=== PATIENT | male | born 1955 | race Caucasian/White ===

== ENCOUNTER 2020-02-25 01:58 | Inpatient (IN) | payer MEDICARE, SELFPAY ==
[2020-02-25] VITALS (34 sets, daily range): BP systolic 111–166; BP diastolic 62–100; PULSE 96–124; RESP 15–23; TEMP 36–37.2; O2SAT 96–100; BMI 33.7; BMI 34.1; BMI 34.0
--- NOTE | 2020-02-25 02:06 | CT_ITS ---
STUDY: CT ABDOMEN AND PELVIS WITH CONTRAST REASON FOR EXAM: Male, 64 years old. RECTAL BLEEDING THIS AM,DIZZINESS,SOB -- HX:DIABETES,HTN RADIATION DOSAGE (If Supplied By Facility): CTDIvol = ( 14.92 ) mGy, DLP = ( 1329.51 ) mGycm TECHNIQUE: Transaxial images were obtained from the dome of the diaphragm to the symphysis pubis without oral contrast. IV 100mL Isovue-370 was administered. Sagittal and coronal images were reconstructed. Individualized dose optimization techniques were used for this CT. COMPARISON: None. FINDINGS: The visualized lung bases are unremarkable. The visualized portions of the heart are within normal limits. There are coronary artery calcifications. There is decreased attenuation of the liver consistent with steatosis. Normal gallbladder and extrahepatic biliary system. Normal spleen. Normal pancreas. Normal bilateral adrenal glands. Normal right kidney. There is a small left renal cortical cyst. Otherwise normal left kidney. There is a small hiatal hernia. Normal small intestine. There are multiple colonic diverticula consistent with diverticulosis. There is somewhat prominent liquid feces and gas in the rectum, which may be due to malabsorption. There is no demonstrated mural thickening. The appendix is visualized on axial images 82-98 and it appears normal.. There is diffuse atherosclerotic calcification of the abdominal aorta, without a demonstrated aneurysm. Normal inferior vena cava. Normal retroperitoneum. Normal urinary bladder. Normal abdominal wall. There are diffuse degenerative changes of the visualized lumbar spine. CT/Abdomen/Pelvis W IV Cont ONLY IMPRESSION: Moderately prominent gas and liquid feces in the colon, which may be due to malabsorption. No demonstrated colonic mural thickening. Colonic diverticulosis, without evidence for acute diverticulitis. Fatty liver. Small hiatal hernia. Atherosclerosis. Small left renal cyst. No demonstrated urinary calculi or hydronephrosis. No evidence for appendicitis. No evidence for bowel obstruction. Electronically Signed: Evans Arthur MD at 3:29 EST , Service support ,
--- NOTE | 2020-02-25 02:09 | ED.DCSUM_ITS ---
History of Present Illness Chief Complaint: GI Bleed Narrative: Patient presenting for evaluation secondary to a GI bleed. Patient has no prior history of this, is not on any anticoagulation. He reports that a couple of days prior to this he had had some dark tarry stools. Tonight he got up and thought he had to have diarrhea and he had a significant amount of blood in the toilet. Patient called EMS and presented to the emergency department. He does endorse that he feels somewhat short of breath associated with this. He denies any chest pain. He denies any abdominal pain. Review of systems otherwise negative. Past Medical History - Allergies and Home Meds Allergies/Adverse Reactions: Allergies No Known Allergies Allergy (Verified 02/25/20 01:59) Primary Care Physician: Constanza Wooten MD [Primary Care Provider] - Prior records reviewed: Yes Past Medical History: - - Diabetes, hypertension Lives: Alone Smoking Status: Never smoker Alcohol: None Drugs: None - Family History Maternal Family History: Reports: No pertinent history Review of Systems All systems negative except as indicated General: Denies: Chills, Fever, Sweats Eyes: Denies: Visual changes - bilaterally, Diplopia ENT: Denies: Rhinorrhea, Sore throat Cardiovascular: Denies: Chest pain, Palpitations Respiratory: Reports: Dyspnea Gastrointestinal: Reports: Hematochezia Genitourinary: Denies: Dysuria, Hematuria, Frequency Musculoskeletal: Denies: Back pain, Extremity Pain Skin: Denies: Rash, Wounds Neurological: Denies: Headache, Weakness, Numbness Physical Exam Vital Signs/Narrative: Vital Signs Temp Pulse Resp BP Pulse Ox 02/25/20 02:00 96.8 F L 124 H 20 H 116/78 98 Inital Vital Signs reviewed: Yes General: Well nourished, Well developed, Obese, - - Pale, somewhat anxious Head: Normocephalic, Atraumatic Eyes: Perrl, EOMI, Pale conjunctiva ENT: Moist mucous membranes Neck: Supple Cardiovascular: Regular rhythm, Tachycardia, - - 2+ radial pulses Respiratory: No distress, CTA bilaterally, Chest nontender Abdomen: Soft, Nontender, Nondistended, Normal bowel sounds Rectal: - - Active rectal bleeding Back: Nontender, Normal Inspection Extremities: Nontender, No edema Skin: - - Pale warm and dry Neurological: Alert, Oriented x3, Cranial nerves II-XII grossly intact, Normal Strength, Normal Sensation Psychological: Normal affect, Normal Mood Diagnostic/Tx/Re-eval Clinical Impression(s) from Imaging Studies Abdomen/Pelvis CT 02/25/20 02:06 IMPRESSION: Moderately prominent gas and liquid feces in the colon, which may be due to malabsorption. No demonstrated colonic mural thickening. Colonic diverticulosis, without evidence for acute diverticulitis. Fatty liver. Small hiatal hernia. Atherosclerosis. Small left renal cyst. No demonstrated urinary calculi or hydronephrosis. No evidence for appendicitis. No evidence for bowel obstruction. Electronically Signed: Evans Arthur MD at 3:29 EST , Service support , Laboratory Data 02/25/20 02/25/20 02/25/20 02:10 02:10 02:10 WBC 14.0 H RBC 2.95 L Hgb 8.7 L Hct 28.3 L MCV 95.9 H MCH 29.5 MCHC 30.7 L RDW Std Deviation 50.3 H RDW Coeff of Tarik 14.4 Plt Count 234 MPV 11.7 Immature Gran % (Auto) 1.400 H Neut % (Auto) 59.3 Lymph % (Auto) 30.8 [place] % (Auto) 6.7 Eos % (Auto) 1.4 Baso % (Auto) 0.4 Absolute Neuts (auto) 8.3 H Absolute Lymphs (auto) 4.30 Nucleated RBC % 0.1 PT 13.2 INR 1.1 APTT 23.4 L Sodium 131 L Potassium 4.6 Chloride 96 L Carbon Dioxide 16.0 L Anion Gap 19 H BUN 26 H Creatinine 2.15 H Estim Creat Clear Calc 32.70 Est GFR (MDRD) Af Amer 40 L Est GFR (MDRD) Non-Af 33 L BUN/Creatinine Ratio 12.1 Glucose 749 H* Lactic Acid Calcium 7.3 L Total Bilirubin 0.20 AST 13 L ALT 27 Alkaline Phosphatase 65 Total Protein 5.2 L Albumin 2.7 L Globulin 2.5 Albumin/Globulin Ratio 1.1 02/25/20 02:10 WBC RBC Hgb Hct MCV MCH MCHC RDW Std Deviation RDW Coeff of Tarik Plt Count MPV Immature Gran % (Auto) Neut % (Auto) Lymph % (Auto) [place] % (Auto) Eos % (Auto) Baso % (Auto) Absolute Neuts (auto) Absolute Lymphs (auto) Nucleated RBC % PT INR APTT Sodium Potassium Chloride Carbon Dioxide Anion Gap BUN Creatinine Estim Creat Clear Calc Est GFR (MDRD) Af Amer Est GFR (MDRD) Non-Af BUN/Creatinine Ratio Glucose Lactic Acid 12.5 H* Calcium Total Bilirubin AST ALT Alkaline Phosphatase Total Protein Albumin Globulin Albumin/Globulin Ratio - Medical Decision Making Patient presented with a clinically significant GI bleed with active bleeding noted. He was tachycardic but not yet hypotensive and is profoundly pale. I do have suspicion for hypovolemic in stage II of shock. Patient was ordered a units of uncrossed match blood, and was crossmatched for 2 additional units. 2 IVs were started on the patient, laboratory studies were obtained. Due to the briskness of the patient's bleeding initially, I did order a CT scan with IV contrast to rule out the possibility of brisk bleeding from a AVM causing noticeable blood in the patient's colon, versus a aortoenteric fistula. This was performed prior to lab work due to the patient's initial critical presentation. Patient's hemoglobin did result of 8.7 which given the patient's presentation of shock I believe likely to be lagging behind his actual hemoglobin. Chemistry demonstrates the patient to have acute kidney injury with a creatinine of 2. Patient had a notable lactic acidosis with elevated anion gap of 19 and a bicarbonate of 16. Lactic acid was 12.5. Patient's glucose was in the 700s. CT abdomen and pelvis was performed which does not show any evidence of ischemic colitis, aortoenteric fistula, or any obvious evidence of source of the patient's bleed. After initial bolus of fluid and 1 unit of uncrossed matched blood, the patient's heart rate improved from the 140s down to the 110s and he maintains a normotensive status with normal mentation. Patient was ordered additional fluids, and will receive 1 more unit of crossmatched blood due to his evidence of shock with his lactic acidosis. Obviously I believe the patient requires admission at this point. While the patient's glucose was in the 700s it seems unlikely that he has a GI bleed with hypovolemic shock as well as DKA so I did start the patient on a insulin drip. Patient will be admitted to the intensive care unit. - Critical Care Time Critical care time (excluding procedures): 30-74 minutes ED Disposition - Plan for ED Patient: Disposition: Acute Care Hospital [facility] Diagnosis: Lower GI bleed, Hypovolemic shock, Hyperglycemia, Acute kidney injury
--- NOTE | 2020-02-25 02:34 | ED.RN ---
PER DR. ROCHE VERBAL IV INFUSINORDER. PT TO GET TRAUMA BLOOD A BOLUS. BLOOD INITIATED IV PATENT. PT TOLERATING WELL.
[2020-02-25 03:04] LABS: Absolute Neutrophil Count 8.3 X10^3/uL (2.0-7.7); Basophil# 0.05 X10^3/uL; Basophil% 0.4 % (0-1); Eosinophil# 0.19 X10^3/uL; Eosinophils% 1.4 % (0-5); Hematocrit 28.3 % (40-54); Hemoglobin 8.7 g/dL (13.0-16.5); Lymphocyte % 30.8 % (19-41); Mean Corp Hgb Conc 30.7 g/dL (32-36); Mean Corpuscular Hgb 29.5 pg (27.0-32.0); Mean Corpuscular Volume 95.9 fL (80-94); Mean Platelet Vol. 11.7 fl (6.2-12.0); Monocyte# 0.93 X10^3/uL; Monocyte% 6.7 % (0-10); NRBC Flagged by Analyzer 0.1 % (0-5); Neutrophil # 8.29 X10^3/uL (2.7-7.7); Neutrophil % 59.3 % (47-70); Platelet Count 234 K/mm3 (150-450); RBC Distribution Width CV 14.4 % (11.6-14.6); RBC Distribution Width SD 50.3 fl (35.1-43.9); Red Blood Count 2.95 M/mm3 (4.6-6.2)
[2020-02-25 03:13] LABS: International Normalized Ratio 1.1; Prothrombin Time (Protime)PT. 13.2 SECONDS (11.7-14.9)
[2020-02-25 03:14] LABS: Partial Thromboplast Time 23.4 Seconds (24.1-36.2)
[2020-02-25 03:23] LABS: ALB/GLOB Ratio 1.1 RATIO (0.9-2.4); AST(SGOT) 13 U/L (15-37); Alanine Aminotransfer ALT/SGPT 27 U/L (16-61); Albumin, Serum 2.7 g/dL (3.2-5.0); Alkaline Phosphatase 65 U/L (45-117); Anion Gap 19 (5-15); BUN 26 mg/dL (7-18); BUN/Creat Ratio 12.1 RATIO (10-20); Calcium,Total 7.3 mg/dL (8.5-10.1); Chloride 96 mmol/L (98-107); Creatinine, Serum 2.15 mg/dL (0.70-1.30); EST Glomerular Filtration Rate 33 mL/min (>60); Est Glom Filt Rate - Afr Amer 40 mL/min (>60); Globulin 2.5 g/dL (2.2-4.2); Glucose 749 mg/dL (74-106); Potassium 4.6 mmol/L (3.5-5.1); Protein, Total 5.2 g/dL (6.4-8.2); Sodium Level 131 mmol/L (136-145)
[2020-02-25 03:30] LABS: Lactic Acid 12.5 mmol/L (0.4-1.9)
[2020-02-25] MEDS: 0.9% Normal Saline 1,000 ML 999 ML IV ×2 (03:35→05:24)
[2020-02-25] MEDS: Insulin Lispro 100 UNIT/ML INSULN.PEN 10 UNIT SC (03:57)
--- NOTE | 2020-02-25 04:32 | PCM.HP.STD ---
Problem List (1) Acute blood loss anemia Status: Acute (2) Lower GI bleed Status: Acute (3) Hypovolemic shock Status: Acute (4) Hyperglycemia Status: Acute (5) Acute kidney injury Status: Acute (6) Diabetes Status: Chronic (7) HTN (hypertension) Status: Chronic History of Present Illness Date of Admission: 02/25/20 Chief Complaint: Hematochezia The patient is a 64 year old M with a significant history of HTN and diabetes who presented to the ED with 2 day history of progressively worsening hematochezia. He denied any nausea or vomiting . Associated with his symptoms is lightheadedness and pallor. At arrival at the ED patient had blood all over his legs. At emergency department he had another discharge of bright red blood per rectum. Last colonoscopy was attempted 2 years ago but reportedly the entire colon could not be visualized. Past Medical History Past Medical History (Chronic Problems): Chronic Problems Diabetes (Chronic) HTN (hypertension) (Chronic) Allergies No Known Allergies Allergy (Verified 02/25/20 01:59) Home Medications: Ambulatory Orders Medication Instructions Recorded Lisinopril [Zestril] 60 mg PO DAILY 03/02/15 Insulin Aspart [Novolog Flexpen] 12 units SC TID@0730,1130,1630 30 03/04/15 Days flexpen Insulin Glargine [Lantus (BKC)] 44 units SC QHS 02/25/20 Surgical History: cataract, - - Surgery for hydrocele Lives: Alone Smoking Status: Former smoker - Patient smoked briefly as a teenager. Alcohol: None Drugs: None - *Family History Maternal History Items: Pulmonary Disease - His mother had pleurisy, - Paternal History Items: Heart Disease - His father from heart attack at the age of 58 Review of Systems Constitutional: Denies: Chills, Fever, Weight Change HEENT: Denies: Head Aches, Sinus Congestion, Sinus Drainage Cardiovascular: Reports: Light Headedness. Denies: Chest Pain, Palpitations Respiratory: Denies: Cough, Shortness of breath at rest, Sputum production Gastrointestinal: Reports: Hematochezia. Denies: Abdominal Pain, Nausea, Vomiting Genitourinary: Denies: Dysuria Musculoskeletal: Denies: Joint Pain, Joint Tenderness Skin: Denies: Rash, Wounds Neurological: Denies: Numbness, Tingling, Focal weakness Psychiatric: Denies: Anxiety, Depression, Homicidal Ideations, Suicidal Ideations Hematologic/ Lymphatic: Denies: Easy Bruising, Easy Bleeding VTE Information - Inpt Only VTE Present on Admission: No VTE Mechan Device Prophylaxis: SCD's VTE Pharm Prophylaxis ordered?: No Patient Problems: Active and Suspected Problems Lower GI bleed (Acute) Hypovolemic shock (Acute) Hyperglycemia (Acute) Acute kidney injury (Acute) Acute blood loss anemia (Acute) - Physical Exam Vitals/I&O's: Vital Signs Temp Pulse Resp BP Pulse Ox 97.6 F L 112 H 19 H 141/69 H 98 02/25/20 03:53 02/25/20 04:00 02/25/20 04:00 02/25/20 04:00 02/25/20 04:00 Oxygen Flow Rate (L/min) 2 Oxygen Delivery Method Nasal Cannula Weight: 100.5 kg Body Mass Index (BMI) 33.7 Finger Stick Blood Glucose 382 Intake and Output for Last 24 Hours 02/23/20 02/24/20 02/25/20 23:59 23:59 23:59 Intake Total 0 / 0 Balance 0 / 0 General: Alert, Oriented x3, Cooperative HEENT: Atraumatic, PERRLA, EOMI, Normocephalic Neck: Supple, No JVD, Negative Carotid Bruits Lungs: Clear to auscultation, Normal air movement Cardiovascular: Normal S1, Normal S2, No murmurs, Tachycardic Abdomen: Bowel Sounds Present, Soft, Non Tender, - - Rectal exams was not done. Emergent department doctor reports digital examination with no palpable mass but with right blood red per rectum. Extremities: No edema, Capillary Refill Less than 3 Seconds Skin: No rashes, No breakdown Musculoskeletal: No Tenderness to Palpation of Joints or Extremities Neurological: Cranial nerves II-XII grossly intact Psych/Mental Status: Normal Affect, Appropriate Laboratory Results 02/25/20 02:10: WBC 14.0 H, RBC 2.95 L, Hgb 8.7 L, Hct 28.3 L, MCV 95.9 H, MCH 29.5, MCHC 30.7 L, RDW Std Deviation 50.3 H, RDW Coeff of Tarik 14.4, Plt Count 234, MPV 11.7, Immature Gran % (Auto) 1.400 H, Neut % (Auto) 59.3, Lymph % (Auto) 30.8, [place] % (Auto) 6.7, Eos % (Auto) 1.4, Baso % (Auto) 0.4, Absolute Neuts (auto) 8.3 H, Absolute Lymphs (auto) 4.30, Nucleated RBC % 0.1 02/25/20 02:10: PT 13.2, INR 1.1, APTT 23.4 L 02/25/20 02:10: Sodium 131 L, Potassium 4.6, Chloride 96 L, Carbon Dioxide 16.0 L, Anion Gap 19 H, BUN 26 H, Creatinine 2.15 H, Estim Creat Clear Calc 32.70, Est GFR (MDRD) Af Amer 40 L, Est GFR (MDRD) Non-Af 33 L, BUN/Creatinine Ratio 12.1, Glucose 749 H*, Calcium 7.3 L, Total Bilirubin 0.20, AST 13 L, ALT 27, Alkaline Phosphatase 65, Total Protein 5.2 L, Albumin 2.7 L, Globulin 2.5, Albumin/Globulin Ratio 1.1 02/25/20 02:10: Lactic Acid 12.5 H* 02/25/20 02:10: Blood Type B POSITIVE, Antibody Screen NEGATIVE, Crossmatch See Detail Current Medications Sodium Chloride () 1,000 mls @ 999 mls/hr IV .Q1H1M JOHNNY Stop: 02/25/20 05:35 Last Admin: 02/25/20 03:35 Dose: 999 mls/hr Documented by: Assessment/Plan All Active Problems Lower GI bleed (Acute) Hypovolemic shock (Acute) Hyperglycemia (Acute) Acute kidney injury (Acute) Acute blood loss anemia (Acute) Acute blood Loss Anemia with initial stage of hypovolemic shock Initial blood pressure was 116/78 in patient with tachycardia. Hypovolemic shock corrected with early administration of uncrossed blood much and normal saline hydration. Hgb on 02/20/2020 from community records: 15.5 Hgb on 09/25/2019 from community records: 14.5 CT of abdomen pelvis showed diverticulosis. Likely bleed is a diverticular bleed. Received uncrossmatched blood at the ED. He has been typed and cross matched for 2 more units with plan to give 1 units after he has finished receiving the uncrossed match blood. Nursing communication to repeat H&H after second unit of blood has been administered. Discussed case with general surgery. We will keep patient n.p.o. for now. Normal saline bolus given at the emergency department. Continue IV hydration. DIMITRI Creatinine on presentation was 2.15. BUN is 26. BUN over creatinine is 12.1. Likely prerenal entry into intrinsic renal. CR on 02/20/2020 from [facility] records: 1.26 CR on 09/25/2019 from [facility] records: 1.43 Avoid nephrotoxic's. Home lisinopril held. Trend BMP. Hyperglycemia Review of community records showed that HgbA1c on 02/20/2020 was 11.4 Patient with blood glucose of 749. No nausea vomiting or abdominal pain. Bicarbonate is 16. Sodium is 131. Glucose 749. Corrected sodium is 141. Also patient with lactic acidosis. Unclear whether the patient is in DKA. Will get acetone level. Check ABG. Received 10 units of short acting insulin IV at emergency department. Will put on insulin drip. Frequent BMP. Normal saline with potassium while on insulin drip. Of note patient is at risk of hyperkalemia from DIMITRI; and at risk of hypokalemia from insulin drip. Lactic acidosis Lactic acid on presentation was 12.5. Likely secondary to hypoperfusion from dehydration secondary to acute blood loss. Trend lactic acid. Fluid and blood resuscitation. History of hypertension Blood pressure is mildly elevated. However in the setting of acute blood loss hold blood pressure medication at this time. Trend blood pressures. DVT prophylaxis No chemical prophylaxis because of acute GI bleed. SCD ordered. Inpatient E&M: 18449 Init Hosp L3
--- NOTE | 2020-02-25 04:40 | ED.RN ---
placed on bedpan. large amount of maroon colored blood with some clots noted. pt voided 600 clear yellow urine in the urinal.
[2020-02-25 05:35] LABS: Bedside Glucose > 500 mg/dL (70-110)
--- NOTE | 2020-02-25 06:38 | CON.PCM_ITS ---
Problem List (1) GI bleed Status: Acute Qualifiers: GI bleed type/associated pathology: unspecified gastrointestinal hemorrhage type Qualified Code(s): K92.2 - Gastrointestinal hemorrhage, unspecified (2) Acute blood loss anemia Status: Acute Reason for Consult Date of Consultation: 02/25/20 Reason for Consultation: GI bleed History of Present Illness: The patient is a 64 year old M here with GI bleeding. The patient reports that he started having bleeding from his rectum about 2 days ago. He is not having any abdominal pain. He had several large bloody bowel movements last night. He is not had any since admission. He reports the blood is dark with some black. He has never had an EGD in the past and does not report any history of peptic ulcers. He has never had a full colonoscopy due to incomplete bowel prep. Past Medical History Past Medical History (Chronic Problems): Chronic Problems Diabetes (Chronic) HTN (hypertension) (Chronic) Allergies No Known Allergies Allergy (Verified 02/25/20 01:59) Home Medications: Ambulatory Orders Medication Instructions Recorded Lisinopril [Zestril] 60 mg PO DAILY 03/02/15 Insulin Aspart [Novolog Flexpen] 12 units SC TID@0730,1130,1630 30 03/04/15 Days flexpen Insulin Glargine [Lantus (BKC)] 44 units SC QHS 02/25/20 Surgical History: cataract, - - Surgery for hydrocele Lives: Alone Smoking Status: Former smoker - Patient smoked briefly as a teenager. Alcohol: None Drugs: None - *Family History Paternal History Items: Heart Disease - His father from heart attack at the age of 58 Maternal History Items: Pulmonary Disease - His mother had pleurisy, - Review of Systems Constitutional: Denies: Anorexia, Fever HEENT: Denies: Difficulty Swallowing Gastrointestinal: Reports: Hematochezia. Denies: Abdominal Pain, Constipation, Diarrhea, Hematemesis, Nausea, Melena, Vomiting Genitourinary: Denies: Dysuria Neurological: Denies: Balance problems Hematologic/ Lymphatic: Denies: Easy Bruising, Easy Bleeding Patient Problems: Active and Suspected Problems Lower GI bleed (Acute) Hypovolemic shock (Acute) Hyperglycemia (Acute) Acute kidney injury (Acute) Acute blood loss anemia (Acute) - Physical Exam Vitals/I&O's: Vital Signs Temp Pulse Resp BP Pulse Ox 98.7 F 108 H 22 H 143/86 H 98 02/25/20 04:59 02/25/20 06:00 02/25/20 06:00 02/25/20 06:00 02/25/20 06:00 Oxygen Flow Rate (L/min) 2 Oxygen Delivery Method Room Air Weight: 224 lb 6.889 oz Body Mass Index (BMI) 34.1 Finger Stick Blood Glucose 382 Intake and Output for Last 24 Hours 02/23/20 02/24/20 02/25/20 23:59 23:59 23:59 Intake Total 2910 / 2910 Output Total 500 / 500 Balance 2410 / 2410 General: Alert, Oriented x3, Cooperative Lungs: Normal air movement Cardiovascular: Tachycardic Abdomen: Soft, Non Tender, Non-Distended Laboratory Results 02/25/20 02:10: WBC 14.0 H, RBC 2.95 L, Hgb 8.7 L, Hct 28.3 L, MCV 95.9 H, MCH 29.5, MCHC 30.7 L, RDW Std Deviation 50.3 H, RDW Coeff of Tarik 14.4, Plt Count 234, MPV 11.7, Immature Gran % (Auto) 1.400 H, Neut % (Auto) 59.3, Lymph % (Auto) 30.8, [place] % (Auto) 6.7, Eos % (Auto) 1.4, Baso % (Auto) 0.4, Absolute Neuts (auto) 8.3 H, Absolute Lymphs (auto) 4.30, Nucleated RBC % 0.1 02/25/20 02:10: PT 13.2, INR 1.1, APTT 23.4 L 02/25/20 02:10: Sodium 131 L, Potassium 4.6, Chloride 96 L, Carbon Dioxide 16.0 L, Anion Gap 19 H, BUN 26 H, Creatinine 2.15 H, Estim Creat Clear Calc 32.70, Est GFR (MDRD) Af Amer 40 L, Est GFR (MDRD) Non-Af 33 L, BUN/Creatinine Ratio 12.1, Glucose 749 H*, Calcium 7.3 L, Total Bilirubin 0.20, AST 13 L, ALT 27, Alkaline Phosphatase 65, Total Protein 5.2 L, Albumin 2.7 L, Globulin 2.5, Albumin/Globulin Ratio 1.1 02/25/20 02:10: Lactic Acid 12.5 H* 02/25/20 02:10: Blood Type B POSITIVE, Antibody Screen NEGATIVE, Crossmatch See Detail 02/25/20 02:10: Serum Osmolality Pending, Acetone Level Pending 02/25/20 02:10: Hemoglobin A1c Pending 02/25/20 05:28: POC Glucose > 500 H* Current Medications Acetaminophen (Acetaminophen 325 Mg Tablet) 650 mg PO Q6H PRN PRN PRN Reason: Pain Score 1-10/Temp > 100.7 F Dextrose (Dextrose 50%-Water 25 Gm/50 Ml Disp.Syrin) 0 gm IV X1 PRN; Protocol PRN Reason: HYPOGLYCEMIA Sodium Chloride () 250 mls @ 15 mls/hr IV .[id number] PRN PRN Reason: Saline Flush Sodium Chloride () 250 mls @ 15 mls/hr IV .[id number] PRN PRN Reason: Additional IVPB Infusion Potassium Chloride/Sodium Chloride (Kcl 20meq In 0.45% Ns 1000ml) 1,000 mls @ 250 mls/hr IV .Q4H [facility] Last Admin: 02/25/20 05:58 Dose: 250 mls/hr Documented by: Insulin Human Lispro 100 unit/ (Sodium Chloride) 100 mls @ 10.18 mls/hr IV .Q9H50M [facility]; Protocol Last Admin: 02/25/20 06:05 Dose: 0.1 units/kg/hr, 10.2 mls/hr Documented by: Pantoprazole Sodium 40 mg/ (Sodium Chloride) 110 mls @ 330 mls/hr IV Q12 [facility] Last Infusion: 02/25/20 06:26 Dose: Infused Documented by: Ondansetron HCl (Ondansetron 4 Mg/2 Ml Vial) 4 mg IV Q8H PRN PRN PRN Reason: NAUSEA/VOMITING Sodium Chloride (0.9% Saline Lock 10 Ml Syringe) 10 - 40 ml IV UD PRN PRN Reason: SALINE FLUSH Assessment/Plan All Active Problems Lower GI bleed (Acute) Hypovolemic shock (Acute) Hyperglycemia (Acute) Acute kidney injury (Acute) Acute blood loss anemia (Acute) GI bleed (Acute) 64-year-old female with GI bleed 1. Patient is currently admitted to the ICU for GI bleed. He has been kept n.p.o. started on a PPI. He did have a large amount of fluid inside of his stomach on CT and he reports he has not eaten or drank anything in a long time. I will perform an EGD today to ensure this is not upper GI bleed and if it was normal I will order a bowel prep and a colonoscopy tomorrow. Continue to resuscitate with volume at the patient appears to be very dehydrated. Check serial hemoglobins and lactate. 2. I explained endoscopy in detail to the patient. I explained the risks including but not limited to stroke or heart attack with anesthesia, perforation of the GI tract, bleeding, infection. I explained that any of these could necessitate further emergency surgery. The patient understands and all questions were answered sufficiently. The patient wishes to proceed with procedure. Markel Lowery MD Pager: [facility] [address] [place] [address] [address] [place] [address] Office:
[2020-02-25 06:50] LABS: Absolute Lymphocyte Count 1.35 X10^3/uL (0.83-4.51); Absolute Neutrophil Count 11.5 X10^3/uL (2.0-7.7); Basophil# 0.04 X10^3/uL; Basophil% 0.3 % (0-1); Eosinophil# 0.01 X10^3/uL; Eosinophils% 0.1 % (0-5); Hematocrit 34.9 % (40-54); Hemoglobin 11.3 g/dL (13.0-16.5); Lymphocyte # 1.35 X10^3/ul (4.0); Lymphocyte % 9.8 % (19-41); Mean Corp Hgb Conc 32.4 g/dL (32-36); Mean Corpuscular Hgb 28.5 pg (27.0-32.0); Mean Corpuscular Volume 87.9 fL (80-94); Monocyte% 5.8 % (0-10); NRBC Flagged by Analyzer 0 % (0-5); Neutrophil # 11.48 X10^3/uL (2.7-7.7); Neutrophil % 83.1 % (47-70); Platelet Count 185 K/mm3 (150-450); RBC Distribution Width CV 14.2 % (11.6-14.6); RBC Distribution Width SD 45.8 fl (35.1-43.9); Red Blood Count 3.97 M/mm3 (4.6-6.2); White Blood Count 13.8 K/mm3 (4.4-11.0)
[2020-02-25 07:01] LABS: Reflex Lactate? Y
[2020-02-25 07:05] LABS: Anion Gap 9 (5-15); BUN 29 mg/dL (7-18); BUN/Creat Ratio 16.1 RATIO (10-20); Calcium,Total 7.2 mg/dL (8.5-10.1); Chloride 107 mmol/L (98-107); EST Glomerular Filtration Rate 40 mL/min (>60); Est Glom Filt Rate - Afr Amer 49 mL/min (>60); Estimated Creatinine Clearance 39.06 ml/min; Glucose 455 mg/dL (74-106); Potassium 5.8 mmol/L (3.5-5.1); Sodium Level 135 mmol/L (136-145)
[2020-02-25 07:18] LABS: Osmolality, Serum 323 mOsm/KG (280-301)
--- NOTE | 2020-02-25 07:39 | CON.PCM_ITS ---
Problem List (1) Hypovolemic shock Status: Acute (2) Hyperglycemia Status: Acute (3) Acute kidney injury Status: Acute (4) Acute blood loss anemia Status: Acute (5) GI bleed Status: Acute Qualifiers: GI bleed type/associated pathology: unspecified gastrointestinal hemorrhage type Qualified Code(s): K92.2 - Gastrointestinal hemorrhage, unspecified (6) Diabetes Status: Chronic (7) HTN (hypertension) Status: Chronic Reason for Consult Date of Consultation: 02/25/20 Reason for Consultation: Hemorrhagic shock History of Present Illness: The patient is a 64 year old M, with past medical history listed below, who presented to [facility] on 02/25/2020 secondary to rectal bleeding. Patient reportedly developed dark tarry stools on the date prior to presentation. Patient had got up at approximately 11 PM and had diarrhea and noted significant amount of blood in the toilet. Patient called EMS and presented to the emergency department. Patient reportedly was feeling of his usual health prior to this onset. Patient did not describe any abdominal pain, nausea or vomiting prior to his hematochezia. Patient had not reported any fevers, chills, shortness of breath or other respiratory problems. In the ER, patient was saturating well on room air. Patient blood pressure was adequate at 116/78, but tachycardic at 124 bpm. Patient was pale in appearance. Laboratory work-up showed a leukocytosis with a white count of 14, hemoglobin of 8.7 (previous H&H 16.3 in 2014), sodium 131, chloride 96, creatinine 2.15 with a glucose of 749. Patient was also noted to have a lactate of 12.5. Patient was thought to be in stage II of shock, so was given 2 units of trauma blood with improvement in symptomatology. Patient also received insulin and was initiated on insulin drip. A CT of the abdomen and pelvis showed a small hiatal hernia with debris in the stomach. Since being in the intensive care unit, patient has had multiple melanotic stools. Patient states he feels better as long as I do not try to get out. Patient denies any history of previous GI bleed. Patient does have a history of diabetes on insulin therapy, but does not report this level of hyperglycemia at baseline. Patient is unaware of his hemoglobin A1c. Review of systems otherwise negative from a constitutional, HEENT, respiratory, cardiovascular, GI, genitourinary, musculoskeletal, skin, neurologic, psychiatric and hematologic system unless stated above. Past Medical History Past Medical History (Chronic Problems): Chronic Problems Diabetes (Chronic) HTN (hypertension) (Chronic) Allergies No Known Allergies Allergy (Verified 02/25/20 01:59) Home Medications: Ambulatory Orders Medication Instructions Recorded Lisinopril [Zestril] 60 mg PO DAILY 03/02/15 Insulin Aspart [Novolog Flexpen] 12 units SC TID@0730,1130,1630 30 03/04/15 Days flexpen Insulin Glargine [Lantus (BKC)] 44 units SC QHS 02/25/20 Surgical History: cataract, - - Surgery for hydrocele Lives: Alone Smoking Status: Former smoker - Patient smoked briefly as a teenager. Alcohol: None Drugs: None - *Family History Paternal History Items: Heart Disease - His father from heart attack at the age of 58 Maternal History Items: Pulmonary Disease - His mother had pleurisy, - Review of Systems Comment: See HPI Patient Problems: Active and Suspected Problems Lower GI bleed (Acute) Hypovolemic shock (Acute) Hyperglycemia (Acute) Acute kidney injury (Acute) Acute blood loss anemia (Acute) GI bleed (Acute) Objective: All imaging was personally reviewed. Agree with formal interpretation. Patient has never had an echocardiogram or pulmonary function test completed at [facility]. - Physical Exam Vitals/I&O's: Vital Signs Temp Pulse Resp BP Pulse Ox 37.1 C 118 H 18 141/78 H 97 02/25/20 04:59 02/25/20 07:00 02/25/20 07:00 02/25/20 07:00 02/25/20 07:00 Oxygen Flow Rate (L/min) 2 Oxygen Delivery Method Room Air Weight: 101.8 kg Body Mass Index (BMI) 34.1 Finger Stick Blood Glucose 382 Intake and Output for Last 24 Hours 02/23/20 02/24/20 02/25/20 23:59 23:59 23:59 Intake Total 2910 / 2910 Output Total 500 / 500 Balance 2410 / 2410 General: Alert, Oriented x3, Cooperative, - - Mild distress. Appears pale. Obese. No conversational dyspnea. HEENT: Atraumatic, PERRLA, EOMI, Normocephalic, - - Slight esotropia Oral: Moist Mucosa, No Gingival or Mucosal Lesions/ Ulcerations, - - Crowded posterior pharynx Neck: Supple, No JVD, No Nodes, Trachea Midline Lungs: Clear to auscultation, Normal air movement, No rhonchi, No wheeze, No rales Cardiovascular: Normal S1, Normal S2, No murmurs, No rub noted, No Gallop, Tachycardic Abdomen: Bowel Sounds Present, Soft, Distended - Slightly, Obese, Tender - Slight epigastric tenderness without rebound or guarding. Extremities: No clubbing, No cyanosis, No edema, Capillary Refill Less than 3 Seconds Skin: No rashes, No breakdown Musculoskeletal: No Tenderness to Palpation of Joints or Extremities Lymphatic: No Cervical, Supraclavicular, or Inguinal Adenopathy Neurological: Cranial nerves II-XII grossly intact, Neuro grossly intact, Motor Exam 5/5 strength throughout Psych/Mental Status: Alert and oriented to time, place, person, mood and affect Laboratory Results 02/25/20 02:10: WBC 14.0 H, RBC 2.95 L, Hgb 8.7 L, Hct 28.3 L, MCV 95.9 H, MCH 29.5, MCHC 30.7 L, RDW Std Deviation 50.3 H, RDW Coeff of Tarik 14.4, Plt Count 234, MPV 11.7, Immature Gran % (Auto) 1.400 H, Neut % (Auto) 59.3, Lymph % (Auto) 30.8, [place] % (Auto) 6.7, Eos % (Auto) 1.4, Baso % (Auto) 0.4, Absolute Neuts (auto) 8.3 H, Absolute Lymphs (auto) 4.30, Nucleated RBC % 0.1 02/25/20 02:10: PT 13.2, INR 1.1, APTT 23.4 L 02/25/20 02:10: Sodium 131 L, Potassium 4.6, Chloride 96 L, Carbon Dioxide 16.0 L, Anion Gap 19 H, BUN 26 H, Creatinine 2.15 H, Estim Creat Clear Calc 32.70, Est GFR (MDRD) Af Amer 40 L, Est GFR (MDRD) Non-Af 33 L, BUN/Creatinine Ratio 12.1, Glucose 749 H*, Calcium 7.3 L, Total Bilirubin 0.20, AST 13 L, ALT 27, Alkaline Phosphatase 65, Total Protein 5.2 L, Albumin 2.7 L, Globulin 2.5, A lbumin/Globulin Ratio 1.1 02/25/20 02:10: Lactic Acid 12.5 H* 02/25/20 02:10: Blood Type B POSITIVE, Antibody Screen NEGATIVE, Crossmatch See Detail 02/25/20 02:10: Serum Osmolality 323 H, Acetone Level NEGATIVE 02/25/20 02:10: Hemoglobin A1c Pending 02/25/20 05:28: POC Glucose > 500 H* 02/25/20 06:40: WBC 13.8 H, RBC 3.97 L, Hgb 11.3 L, Hct 34.9 L, MCV 87.9 D, MCH 28.5, MCHC 32.4 D, RDW Std Deviation 45.8 H, RDW Coeff of Tarik 14.2, Plt Count 185, MPV 11.0, Immature Gran % (Auto) 0.900, Neut % (Auto) 83.1 H, Lymph % (Auto) 9.8 L, [place] % (Auto) 5.8, Eos % (Auto) 0.1, Baso % (Auto) 0.3, Absolute Neuts (auto) 11.5 H, Absolute Lymphs (auto) 1.35, Nucleated RBC % 0 02/25/20 06:40: Sodium 135 L, Potassium 5.8 H, Chloride 107, Carbon Dioxide 19.0 L, Anion Gap 9, BUN 29 H, Creatinine 1.80 H, Estim Creat Clear Calc 39.06, Est GFR (MDRD) Af Amer 49 L, Est GFR (MDRD) Non-Af 40 L, BUN/Creatinine Ratio 16.1, Glucose 455 H*, Calcium 7.2 L 02/25/20 07:30: Lactic Acid Pending Current Medications Acetaminophen (Acetaminophen 325 Mg Tablet) 650 mg PO Q6H PRN PRN PRN Reason: Pain Score 1-10/Temp > 100.7 F Dextrose (Dextrose 50%-Water 25 Gm/50 Ml Disp.Syrin) 0 gm IV X1 PRN; Protocol PRN Reason: HYPOGLYCEMIA Sodium Chloride () 250 mls @ 15 mls/hr IV .[id number] PRN PRN Reason: Saline Flush Sodium Chloride () 250 mls @ 15 mls/hr IV .[id number] PRN PRN Reason: Additional IVPB Infusion Potassium Chloride/Sodium Chloride (Kcl 20meq In 0.45% Ns 1000ml) 1,000 mls @ 250 mls/hr IV .Q4H [facility] Last Admin: 02/25/20 05:58 Dose: 250 mls/hr Documented by: Insulin Human Lispro 100 unit/ (Sodium Chloride) 100 mls @ 10.18 mls/hr IV .[id number] [facility]; Protocol Last Admin: 02/25/20 06:05 Dose: 0.1 units/kg/hr, 10.2 mls/hr Documented by: Pantoprazole Sodium 40 mg/ (Sodium Chloride) 110 mls @ 330 mls/hr IV Q12 [facility] Last Infusion: 02/25/20 06:26 Dose: Infused Documented by: Ondansetron HCl (Ondansetron 4 Mg/2 Ml Vial) 4 mg IV Q8H PRN PRN PRN Reason: NAUSEA/VOMITING Sodium Chloride (0.9% Saline Lock 10 Ml Syringe) 10 - 40 ml IV UD PRN PRN Reason: SALINE FLUSH Clinical Impression(s) from Imaging Studies Abdomen/Pelvis CT 02/25/20 02:06 IMPRESSION: Moderately prominent gas and liquid feces in the colon, which may be due to malabsorption. No demonstrated colonic mural thickening. Colonic diverticulosis, without evidence for acute diverticulitis. Fatty liver. Small hiatal hernia. Atherosclerosis. Small left renal cyst. No demonstrated urinary calculi or hydronephrosis. No evidence for appendicitis. No evidence for bowel obstruction. Electronically Signed: Evans Atrhur MD at 3:29 EST , Service support , Assessment/Plan Active and Suspected Problems Lower GI bleed (Acute) Hypovolemic shock (Acute) Hyperglycemia (Acute) Acute kidney injury (Acute) Acute blood loss anemia (Acute) GI bleed (Acute) RECOMMENDATIONS: 1. Continue to monitor H&H every 6 2. Await EGD at approximately 1:30 PM 3. Continue insulin drip 4. Hold baseline lisinopril 5. Monitor in the intensive care unit until receives definitive therapy IMPRESSIONS: 1. Hemorrhagic shock secondary to acute blood loss anemia secondary to GI bleed Clinical suspicion for upper GI bleed source. Patient reports not eating for several hours, but still has debris in the stomach. Patient was discussed with Dr. Lowery and will likely have an EGD at approximately 1:30 PM today. H&H's will continue to be monitored. Anticipate transfusion to keep hemoglobin greater than 8. Elevated lactate would be suspicious for possible bowel ischemia, but patient is not having an abdominal exam that is suggestive of necrotic bowel. Blood pressure is slightly elevated. Patient has had a significant drop in hemoglobin compared to community records. Patient is on Protonix twice daily, which is likely appropriate. 2. Uncontrolled diabetes mellitus with hyperosmolar state Patient reportedly is on insulin at home. Unclear baseline at this time, but previous hemoglobin A1c was 11.4 suggesting poor control. Patient with significantly elevated glucose at this time. Patient currently on an insulin drip. Possibly transition to long-acting with coverage later today. Continue to monitor per protocol. 3. Acute kidney injury Baseline creatinine appears to be approximately 1.3. Patient presented with a creatinine of 2.15 with a BUN of 26 suggestive of intrinsic renal dysfunction. Anticipate patient may have an element of ATN in the setting of FRANCISCO J inhibitor with hypotension/prerenal physiology. Continue aggressive hydration and hold lisinopril. Continue to monitor renal function. No indication for renal replacement therapy at this time. 4. Lactic acidosis/hypertension/obesity/poor historian Complicates care, management, recovery and prognosis. Antihypertensives held secondary to acute kidney injury and acute GI bleed. Continue to monitor. May use IV as needed medications until definitive intervention for GI bleed. Inpatient E&M: 38170 Init Hosp L3
[2020-02-25 08:13] LABS: Lactic Acid 3.9 mmol/L (0.4-1.9)
[2020-02-25 08:14] LABS: Hemoglobin A1c 11.2 % (3.8-5.6)
[2020-02-25 08:16] LABS: Bedside Glucose 408 mg/dL (70-110)
[2020-02-25 10:01] LABS: Bedside Glucose 352 mg/dL (70-110)
[2020-02-25 10:15] LABS: Anion Gap 8 (5-15); BUN 29 mg/dL (7-18); BUN/Creat Ratio 17.5 RATIO (10-20); Calcium,Total 7.1 mg/dL (8.5-10.1); Chloride 111 mmol/L (98-107); Creatinine, Serum 1.66 mg/dL (0.70-1.30); EST Glomerular Filtration Rate 44 mL/min (>60); Est Glom Filt Rate - Afr Amer 54 mL/min (>60); Estimated Creatinine Clearance 42.35 ml/min; Glucose 395 mg/dL (74-106); Potassium 5.1 mmol/L (3.5-5.1); Sodium Level 138 mmol/L (136-145)
[2020-02-25 11:15] LABS: Bedside Glucose 370 mg/dL (70-110)
--- NOTE | 2020-02-25 12:01 | PCM.PN.HOSP ---
Patient Problems: Active and Suspected Problems Lower GI bleed (Acute) Hypovolemic shock (Acute) Hyperglycemia (Acute) Acute kidney injury (Acute) Acute blood loss anemia (Acute) GI bleed (Acute) Subjective: Patient overnight with significant ongoing rectal bleeding with development eventually of dark tarry stools with ED evaluation with hemoglobin 8.7 significantly symptomatic with 2 unit trauma blood administration and ED labs significant for DKA placed on insulin drip. Patient with 1 additional PRBC on hold. Patient this morning feeling lightheaded and dizzy attempting to get up to the bedside for urination. He denies currently any nausea, emesis or abdominal pain. Patient denies fevers, chills, nausea, emesis, abdominal pain, chest pain or dyspnea. He additionally denies any recent cough, congestion, headaches, rhinorrhea, body aches or ill contacts. Objective: Physical Examination: General: awake, alert, oriented x 3 and cooperative, seated upright in the ICU bed at the bedside, fatigued and ill-appearing, wobbling. Skin: Pale color, turgor, no icterus, cyanosis. HEENT: AT/NC, EOMI, PERRLA, dry MM. Lungs: CTA bilaterally, moderate effort, moderate decrease BL bases, no rales, ronchi or wheezing. Heart: Tachycardic with regular rhythm; no gallop, rub audible. Abdomen: soft, obese, NTTP, no obviously discernible distention but larger abdomen, hyperactive BS. Extremities: no cyanosis, clubbing, or edema. Neurological: patient awake, alert, oriented as noted; cognitive function appears near baseline intact but fatigued appearing; pupils equally reactive to light and accomodation; cranial nerves II-XII grossly normal, moving all 4 extremities, no focal deficits, strength severely global decrease secondary to acute presentation. Psychiatric: affect appears fatigued, ill-appearing, no acute evidence of depressive or anxiety feelings. Vitals/I&O's: Vital Signs Temp Pulse Resp BP Pulse Ox 98.7 F 108 H 22 H 143/86 H 98 02/25/20 04:59 02/25/20 06:00 02/25/20 06:00 02/25/20 06:00 02/25/20 06:00 Oxygen Flow Rate (L/min) 2 Oxygen Delivery Method Room Air Weight: 224 lb 6.889 oz Body Mass Index (BMI) 34.1 Finger Stick Blood Glucose 382 Intake and Output for Last 24 Hours 02/23/20 02/24/20 02/25/20 23:59 23:59 23:59 Intake Total 2910 / 2910 Output Total 500 / 500 Balance 2410 / 2410 Laboratory Results 02/25/20 02:10: WBC 14.0 H, RBC 2.95 L, Hgb 8.7 L, Hct 28.3 L, MCV 95.9 H, MCH 29.5, MCHC 30.7 L, RDW Std Deviation 50.3 H, RDW Coeff of Tarik 14.4, Plt Count 234, MPV 11.7, Immature Gran % (Auto) 1.400 H, Neut % (Auto) 59.3, Lymph % (Auto) 30.8, [place] % (Auto) 6.7, Eos % (Auto) 1.4, Baso % (Auto) 0.4, Absolute Neuts (auto) 8.3 H, Absolute Lymphs (auto) 4.30, Nucleated RBC % 0.1 02/25/20 02:10: PT 13.2, INR 1.1, APTT 23.4 L 02/25/20 02:10: Sodium 131 L, Potassium 4.6, Chloride 96 L, Carbon Dioxide 16.0 L, Anion Gap 19 H, BUN 26 H, Creatinine 2.15 H, Estim Creat Clear Calc 32.70, Est GFR (MDRD) Af Amer 40 L, Est GFR (MDRD) Non-Af 33 L, BUN/Creatinine Ratio 12.1, Glucose 749 H*, Calcium 7.3 L, Total Bilirubin 0.20, AST 13 L, ALT 27, Alkaline Phosphatase 65, Total Protein 5.2 L, Albumin 2.7 L, Globulin 2.5, Albumin/Globulin Ratio 1.1 02/25/20 02:10: Lactic Acid 12.5 H* 02/25/20 02:10: Blood Type B POSITIVE, Antibody Screen NEGATIVE, Crossmatch See Detail 02/25/20 02:10: Serum Osmolality Pending, Acetone Level Pending 02/25/20 02:10: Hemoglobin A1c Pending 02/25/20 05:28: POC Glucose > 500 H* 02/25/20 06:40: WBC 13.8 H, RBC 3.97 L, Hgb 11.3 L, Hct 34.9 L, MCV 87.9 D, MCH 28.5, MCHC 32.4 D, RDW Std Deviation 45.8 H, RDW Coeff of Tarik 14.2, Plt Count 185, MPV 11.0, Immature Gran % (Auto) 0.900, Neut % (Auto) 83.1 H, Lymph % (Auto) 9.8 L, [place] % (Auto) 5.8, Eos % (Auto) 0.1, Baso % (Auto) 0.3, Absolute Neuts (auto) 11.5 H, Absolute Lymphs (auto) 1.35, Nucleated RBC % 0 02/25/20 06:40: Sodium Pending, Potassium Pending, Chloride Pending, Carbon Dioxide Pending, Anion Gap Pending, BUN Pending, Creatinine Pending, Est GFR (MDRD) Af Amer Pending, Est GFR (MDRD) Non-Af Pending, BUN/Creatinine Ratio Pending, Glucose Pending, Calcium Pending Current Medications Acetaminophen (Acetaminophen 325 Mg Tablet) 650 mg PO Q6H PRN PRN PRN Reason: Pain Score 1-10/Temp > 100.7 F Dextrose (Dextrose 50%-Water 25 Gm/50 Ml Disp.Syrin) 0 gm IV X1 PRN; Protocol PRN Reason: HYPOGLYCEMIA Sodium Chloride () 250 mls @ 15 mls/hr IV .[id number] PRN PRN Reason: Saline Flush Sodium Chloride () 250 mls @ 15 mls/hr IV .[id number] PRN PRN Reason: Additional IVPB Infusion Potassium Chloride/Sodium Chloride (Kcl 20meq In 0.45% Ns 1000ml) 1,000 mls @ 250 mls/hr IV .Q4H [facility] Last Admin: 02/25/20 05:58 Dose: 250 mls/hr Documented by: Insulin Human Lispro 100 unit/ (Sodium Chloride) 100 mls @ 10.18 mls/hr IV .Q9H50M [facility]; Protocol Last Admin: 02/25/20 06:05 Dose: 0.1 units/kg/hr, 10.2 mls/hr Documented by: Pantoprazole Sodium 40 mg/ (Sodium Chloride) 110 mls @ 330 mls/hr IV Q12 [facility] Last Infusion: 02/25/20 06:26 Dose: Infused Documented by: Ondansetron HCl (Ondansetron 4 Mg/2 Ml Vial) 4 mg IV Q8H PRN PRN PRN Reason: NAUSEA/VOMITING Sodium Chloride (0.9% Saline Lock 10 Ml Syringe) 10 - 40 ml IV UD PRN PRN Reason: SALINE FLUSH [facility] Vital Signs/Narrative: Vital Signs Temp Pulse Resp BP BP Pulse Ox 02/25/20 06:00 108 H 22 H 143/86 H 98 02/25/20 05:45 108 H 20 H 143/86 H 98 02/25/20 05:15 107 H 20 H 152/79 H 98 02/25/20 04:59 98.7 F 108 H 19 H 166/94 H 100 02/25/20 04:42 98.7 F 109 H 22 H 138/81 H 97 02/25/20 04:33 98.7 F 107 H 22 H 129/90 H 98 02/25/20 04:00 112 H 19 H 141/69 H 98 02/25/20 03:53 97.6 F L 115 H 23 H 139/62 H 99 Medical Necessity - Tobacco Use Smoking Status: Former smoker - Patient smoked briefly as a teenager. Assessment/Plan All Active Problems Lower GI bleed (Acute) Hypovolemic shock (Acute) Hyperglycemia (Acute) Acute kidney injury (Acute) Acute blood loss anemia (Acute) GI bleed (Acute) The patient is a 64 y/o M w/ PMHx: Obesity, Former Light Tobacco use, HTN, GERD, Diabetes mellitus type II who presents to the [facility] ED on 02/25/20 with history of 2 days history of progressively worsening hematochezia with no associated nausea or emesis with lightheadedness and dizziness prompting eventual ED presentation. 1. Acute Hypovolemic Shock secondary to Hemorrhagic Shock secondary to Acute GI bleed with Acute Blood Loss Anemia: Patient administered 2 unit trauma blood in the ED secondary to severity of appearance, admitted to the ICU, 1 additional unit PRBC on hold, rejected items clerk and general surgery following, initial rapid antigen testing for Covid positive however repeat PCR negative therefore false positive, lactic acid initially 12.5, most recent repeat 3.9, likely secondary to both #1 and #2 presentation, continue judicious hydration, coags not marked appearing, hemoglobin trending with 02/25/2020 hemoglobin 11.3, continue to closely monitor, planned endoscopy per Dr. Lowery, continue IV PPI, continue to trend H&H's, fall precautions. 2. DKA w/ Diabetes mellitus type II: Admission glucose 749, anion gap 19, serum osmolality 323, initiated and continued on insulin drip, repeat BMP serially with closure of gap x2 now however patient with pending endoscopy, n.p.o. status with continued blood sugars in the 300s, will continue insulin drip until completed endoscopy and reevaluate for potentially start on clear liquids pending findings. Magnesium and phosphorus levels requested, will replete if appropriate. Patient hemoglobin A1c 11.2, plan transition to SC regimen endoscopy pending findings given gap closure with overlapping sliding scale, nutrition consultation for education and teaching. 3. Acute kidney injury: Secondary to #1 and #2. Admission BUN/Cr 26/2.15, prior baseline creatinine noted to be 0.1-1.3, aggressively hydrated and PRBC administered as noted #1 and #2, repeat improving, 02/25/2020 most recent BUN/creatinine 29/1.66, continue to trend and hold nephrotoxic regimen. 4. Hypertension: Significant presentation with hypovolemic shock secondary to blood loss as noted above #1, holding regimen, once clinically appropriate add back. 5. Obesity: Weight loss and lifestyle changes encouraged. 6. GERD: IV PPI. 7. DVT prophylaxis: SCDs, defer chemoprophylaxis given acute presentation as noted #1. 8. CODE status: Full Code. Prolonged care time: Patient evaluation above initial daily progress visit of 70 minutes beyond admitting physician evaluation H+P assessment performed secondary to acute presentation, discussions with consults, initial concern for possible infection with re-testin minutes. Procedures: 56683 Prolonged InPt Service; first hour
[2020-02-25 12:25] LABS: Bedside Glucose 330 mg/dL (70-110)
[2020-02-25 12:43] LABS: Magnesium 2.2 mg/dL (1.6-2.6); Phosphorus 1.3 mg/dL (2.5-4.9)
[2020-02-25 12:46] LABS: Hematocrit 32.4 % (40-54); Hemoglobin 10.9 g/dL (13.0-16.5)
[2020-02-25 13:11] LABS: Bedside Glucose 290 mg/dL (70-110)
--- NOTE | 2020-02-25 13:34 | NURSING ---
Report called to Rona in PACU
--- NOTE | 2020-02-25 14:29 | OP.CCLET_ITS ---
02/25/2020 Constanza Wooten [address] [phone] Re : Upper GI endoscopy procedure for Elian Sweetace Dear Dr. Wooten This procedure was performed on Tuesday, February 25, 2020. My impressions and recommendations are as follows: Impressions : - Normal esophagus. - Normal stomach. - Normal examined duodenum. - No specimens collected. Recommendations : - Return patient to ICU for ongoing care. - Clear liquid diet. - Continue present medications. - Perform a colonoscopy tomorrow. My findings are described in the full procedure note, which is enclosed. If I can be of further assistance, please feel free to contact me at Doctor phone number(s): , Work: . Sincerely, Markel Lowery MD 02/25/2020 2:28:40 PM This report has been signed electronically.
--- NOTE | 2020-02-25 14:29 | OP.EGD_ITS ---
Patient Name: Elian Stanley Procedure Date: 02/25/2020 2:05 PM Date of : 1955 Age: 64 Procedure: Upper GI endoscopy Indications: Hematochezia Providers: Markel Lowery MD Referring MD: Christophe Mckenzie Medicines: Monitored Anesthesia Care Patient Profile: This is a 64 year old male. Refer to note in patient chart for documentation of history and physical. Complications: No immediate complications. Procedure: Pre-Anesthesia Assessment: - Prior to the procedure, a History and Physical was performed, and patient medications and allergies were reviewed. The patient's tolerance of previous anesthesia was also reviewed. The risks and benefits of the procedure and the sedation options and risks were discussed with the patient. All questions were answered, and informed consent was obtained. Prior Anticoagulants: The patient has taken no previous anticoagulant or antiplatelet agents. After reviewing the risks and benefits, the patient was deemed in satisfactory condition to undergo the procedure. After obtaining informed consent, the endoscope was passed under direct vision. Throughout the procedure, the patient's blood pressure, pulse, and oxygen saturations were monitored continuously. The Endoscope was introduced through the mouth, and advanced to the second part of duodenum. The upper GI endoscopy was accomplished without difficulty. The patient tolerated the procedure well. Scope In: 2:21:37 PM Scope Out: 2:23:59 PM Total Procedure Duration Time 0 hours 2 minutes 22 seconds Findings: The esophagus was normal. The stomach was normal. The examined duodenum was normal. Impression: - Normal esophagus. - Normal stomach. - Normal examined duodenum. - No specimens collected. Recommendation: - Return patient to ICU for ongoing care. - Clear liquid diet. - Continue present medications. - Perform a colonoscopy tomorrow. Procedure Code(s): --- Professional --- 81093, Esophagogastroduodenoscopy, flexible, transoral; diagnostic, including collection of specimen(s) by brushing or washing, when performed (separate procedure) Diagnosis Code(s): --- Professional --- K92.1, Melena (includes Hematochezia) CPT copyright 2017 [employer]. All rights reserved. The codes documented in this report are preliminary and upon glaze grinder review may be revised to meet current compliance requirements. Markel Lowery MD 02/25/2020 2:28:40 PM This report has been signed electronically. Number of Addenda: 0 Note Initiated On: 02/25/2020 2:05 PM
--- NOTE | 2020-02-25 14:29 | PN_ITS ---
Progress Note EGD was normal. Plan for bowel prep this evening and colonoscopy tomorrow. Markel Lowery MD Pager: [facility] [address] [place] [address], [address] [place] [address] Office: [facility] Vital Signs/Narrative: Vital Signs Temp Pulse Resp BP BP Pulse Ox 02/25/20 13:21 110 H 18 127/73 H 97 02/25/20 13:00 108 H 18 127/73 H 97 02/25/20 12:00 98.7 F 110 H 18 111/66 97 02/25/20 11:32 112 H 02/25/20 11:00 98.4 F 111 H 20 H 122/78 H 98
--- NOTE | 2020-02-25 14:29 | PCM.PN.BLA ---
Progress Note EGD was normal. Plan for bowel prep this evening and colonoscopy tomorrow. Markel Lowery MD Pager: [facility] [address] [place] [address], [address] [place] [address] Office: STROKE Vital Signs/Narrative: Vital Signs Temp Pulse Resp BP BP Pulse Ox 02/25/20 13:21 110 H 18 127/73 H 97 02/25/20 13:00 108 H 18 127/73 H 97 02/25/20 12:00 98.7 F 110 H 18 111/66 97 02/25/20 11:32 112 H 02/25/20 11:00 98.4 F 111 H 20 H 122/78 H 98
[2020-02-25] MEDS: Bisacodyl 5 MG Tablet 20 MG PO (14:59)
[2020-02-25 15:41] LABS: Bedside Glucose 281 mg/dL (70-110)
[2020-02-25] MEDS: Insulin Lispro 100 UNIT/ML INSULN.PEN SC ×2 (15:53→20:51)
[2020-02-25] MEDS: Polyethylene Glycol 3350 BOWEL PREP PO (15:54)
--- NOTE | 2020-02-25 16:00 | CHAPLAIN ---
Type of Pastoral Visit _x__ Initial Visit ___ Follow-up Visit ___ On-call Visit ___ General Patient Visit ___ Spiritual Assessment ___ Family Conference ___ Bereavement ___ Rapid Response ___ Code Blue ___ Other (describe below) Pastoral Care Referral From _x__ Patient ___ Family ___ Nurse ___ Physician ___ Academic Support Specialist ___ Aluminum Boat Assembly Supervisor ___ Other (describe below) Sacrament/Intervention _x__ Active listening ___ Anointing ___ Scientology ___ Bereavement ___ Communion _x__ Candida exploration ___ ___ Life review _x__ Prayer ___ Reconciliation ___ Sacrament of Sick _x__ Supportive presence ___ Wedding ___ Other (describe below) Pastoral Comments
[2020-02-25 18:15] LABS: Hematocrit 30.6 % (40-54); Hemoglobin 9.8 g/dL (13.0-16.5)
[2020-02-25] MEDS: Acetaminophen 325 MG Tablet 650 MG PO (20:50)
[2020-02-25 20:55] LABS: Bedside Glucose 317 mg/dL (70-110)
[2020-02-25] MEDS: Ondansetron 4 MG/2 ML Vial IV (21:55)
[2020-02-25] MEDS: 0.9% Saline Lock 10 ML Syringe IV (21:56)
[2020-02-25 22:50] LABS: Hematocrit 30.1 % (40-54); Hemoglobin 9.5 g/dL (13.0-16.5)
--- NOTE | 2020-02-25 23:11 | NURSING ---
Pt was placed on bedpan and had a large liquid red stool. pt cleaned up and repostion in bed
[2020-02-26] VITALS (31 sets, daily range): BP systolic 123–162; BP diastolic 50–99; PULSE 87–105; RESP 15–25; TEMP 36.6–37; O2SAT 94–99
--- NOTE | 2020-02-26 00:49 | NURSING ---
pt had a xlarge dark bloody stool. Pt cleaned up and repostion in bed
--- NOTE | 2020-02-26 02:32 | NURSING ---
pt had 1 small red bloody stool. pt cleaned up and repostion
[2020-02-26 02:51] LABS: Bedside Glucose 367 mg/dL (70-110)
[2020-02-26 04:27] LABS: Absolute Lymphocyte Count 2.59 X10^3/uL (0.83-4.51); Absolute Neutrophil Count 5.5 X10^3/uL (2.0-7.7); Basophil# 0.03 X10^3/uL; Basophil% 0.3 % (0-1); Eosinophils% 2.2 % (0-5); Hematocrit 27.3 % (40-54); Lymphocyte # 2.59 X10^3/ul (4.0); Lymphocyte % 28.8 % (19-41); Mean Corpuscular Volume 88.1 fL (80-94); Monocyte% 6.7 % (0-10); NRBC Flagged by Analyzer 0 % (0-5); Neutrophil # 5.51 X10^3/uL (2.7-7.7); Neutrophil % 61.2 % (47-70); Platelet Count 150 K/mm3 (150-450); RBC Distribution Width CV 15.2 % (11.6-14.6); RBC Distribution Width SD 48.7 fl (35.1-43.9)
[2020-02-26 04:38] LABS: ALB/GLOB Ratio 1.2 RATIO (0.9-2.4); AST(SGOT) 11 U/L (15-37); Alanine Aminotransfer ALT/SGPT 19 U/L (16-61); Albumin, Serum 2.7 g/dL (3.2-5.0); Alkaline Phosphatase 54 U/L (45-117); Anion Gap 6 (5-15); BUN 18 mg/dL (7-18); BUN/Creat Ratio 13.6 RATIO (10-20); Calcium,Total 7.1 mg/dL (8.5-10.1); Chloride 107 mmol/L (98-107); Creatinine, Serum 1.32 mg/dL (0.70-1.30); EST Glomerular Filtration Rate 58 mL/min (>60); Est Glom Filt Rate - Afr Amer 70 mL/min (>60); Estimated Creatinine Clearance 53.26 ml/min; Globulin 2.3 g/dL (2.2-4.2); Glucose 277 mg/dL (74-106); Sodium Level 137 mmol/L (136-145)
--- NOTE | 2020-02-26 04:54 | NURSING ---
Pt had a burst of st hr 157. pt sleeping and snoring
--- NOTE | 2020-02-26 06:57 | PCM.PN.HOSP ---
Patient Problems: Active and Suspected Problems Lower GI bleed (Acute) Hypovolemic shock (Acute) Hyperglycemia (Acute) Acute kidney injury (Acute) Acute blood loss anemia (Acute) GI bleed (Acute) Subjective: Patient with no acute events overnight per self and per nursing report. Patient with no significant bleeding overnight and notes that lightheadedness and dizziness improved. Patient vital signs remained appropriate. Patient EGD prior with no marked acute findings per discussion with general surgery. Patient with pending colonoscopy today. Patient denies fevers, chills, nausea, emesis, abdominal pain, chest pain or dyspnea. Objective: Physical Examination: General: awake, alert, oriented x 3 and cooperative, seated upright in the ICU bed, improved appearance, less fatigued. Skin: Pale color, turgor, no icterus, cyanosis. HEENT: AT/NC, EOMI, PERRLA, MMM. Lungs: CTA bilaterally, moderate effort, moderate decrease BL bases, no rales, ronchi or wheezing. Heart: Improved, regular rate and regular rhythm; no gallop, rub audible. Abdomen: soft, obese, NTTP, no obviously discernible distention but larger abdomen, ongoing mildly hyperactive BS. Extremities: no cyanosis, clubbing, or edema. Neurological: patient awake, alert, oriented as noted; cognitive function appears near baseline intact but fatigued appearing; pupils equally reactive to light and accomodation; cranial nerves II-XII grossly normal, moving all 4 extremities, no focal deficits, strength improved, moderately global decreased. Psychiatric: affect appears less fatigued, more normal, no acute evidence of depressive or anxiety feelings. Vitals/I&O's: Vital Signs Temp Pulse Resp BP Pulse Ox 98 F 89 18 162/82 H 97 02/26/20 04:00 02/26/20 05:59 02/26/20 05:59 02/26/20 05:59 02/26/20 05:59 Oxygen Flow Rate (L/min) 2 Oxygen Delivery Method Room Air Weight: 229 lb 11.547 oz Body Mass Index (BMI) 34.0 Finger Stick Blood Glucose 290 Intake and Output for Last 24 Hours 02/24/20 02/25/20 02/26/20 23:59 23:59 23:59 Intake Total 7248.15 / 7248.15 Output Total 1974 200 / 200 Balance 5273.15 / 5273.15 -200 / -200 Microbiology Past 72 Hours 02/25/20 07:24 Mucosa - Nose SARS-CoV-2 Antigen (Rapid) - Final SARS-CoV-2 (COVID 19) Laboratory Results 02/25/20 02:10: Antibody Screen Pending, Crossmatch See Detail 02/25/20 02:10: Serum Osmolality 323 H, Acetone Level NEGATIVE 02/25/20 02:10: Hemoglobin A1c 11.2 H 02/25/20 06:40: Sodium 135 L, Potassium 5.8 H, Chloride 107, Carbon Dioxide 19.0 L, Anion Gap 9, BUN 29 H, Creatinine 1.80 H, Estim Creat Clear Calc 39.06, Est GFR (MDRD) Af Amer 49 L, Est GFR (MDRD) Non-Af 40 L, BUN/Creatinine Ratio 16.1, Glucose 455 H*, Calcium 7.2 L 02/25/20 07:30: Lactic Acid 3.9 H* 02/25/20 07:59: POC Glucose 408 H 02/25/20 08:45: COVID-19 (ELBERT) Not Detected 02/25/20 08:57: POC Glucose 352 H 02/25/20 09:46: POC Glucose 370 H 02/25/20 09:50: Sodium 138, Potassium 5.1, Chloride 111 H, Carbon Dioxide 19.0 L, Anion Gap 8, BUN 29 H, Creatinine 1.66 H, Estim Creat Clear Calc 42.35, Est GFR (MDRD) Af Amer 54 L, Est GFR (MDRD) Non-Af 44 L, BUN/Creatinine Ratio 17.5, Glucose 395 H, Calcium 7.1 L 02/25/20 09:50: Phosphorus 1.3 L, Magnesium 2.2 02/25/20 11:00: POC Glucose 367 H 02/25/20 11:57: POC Glucose 330 H 02/25/20 12:35: Hgb 10.9 L, Hct 32.4 L 02/25/20 13:05: POC Glucose 290 H 02/25/20 14:44: POC Glucose 281 H 02/25/20 18:00: Hgb 9.8 L, Hct 30.6 L 02/25/20 20:50: POC Glucose 317 H 02/25/20 22:30: Hgb 9.5 L, Hct 30.1 L 02/26/20 04:10: Sodium 137, Potassium 4.0, Chloride 107, Carbon Dioxide 24.0, Anion Gap 6, BUN 18, Creatinine 1.32 H, Estim Creat Clear Calc 53.26, Est GFR (MDRD) Af Amer 70, Est GFR (MDRD) Non-Af 58 L, BUN/Creatinine Ratio 13.6, Glucose 277 H, Calcium 7.1 L, Phosphorus 3.0, Magnesium 2.0, Total Bilirubin 0.20, AST 11 L, ALT 19, Alkaline Phosphatase 54, Total Protein 5.0 L, Albumin 2.7 L, Globulin 2.3, Albumin/Globulin Ratio 1.2 02/26/20 04:10: WBC 9.0, RBC 3.10 L, Hgb 9.0 L, Hct 27.3 L, MCV 88.1, MCH 29.0, MCHC 33.0, RDW Std Deviation 48.7 H, RDW Coeff of Tarik 15.2 H, Plt Count 150, MPV 11.0, Immature Gran % (Auto) 0.800, Neut % (Auto) 61.2, Lymph % (Auto) 28.8, [place] % (Auto) 6.7, Eos % (Auto) 2.2, Baso % (Auto) 0.3, Absolute Neuts (auto) 5.5, Absolute Lymphs (auto) 2.59, Nucleated RBC % 0 Current Medications Acetaminophen (Acetaminophen 325 Mg Tablet) 650 mg PO Q6H PRN PRN PRN Reason: Pain Score 1-10/Temp > 100.7 F Last Admin: 02/25/20 20:50 Dose: 650 mg Documented by: Dextrose (Dextrose 50%-Water 25 Gm/50 Ml Disp.Syrin) 0 gm IV X1 PRN; Protocol PRN Reason: HYPOGLYCEMIA Sodium Chloride () 250 mls @ 15 mls/hr IV .[id number] PRN PRN Reason: Saline Flush Sodium Chloride () 250 mls @ 15 mls/hr IV .[id number] PRN PRN Reason: Additional IVPB Infusion Pantoprazole Sodium 40 mg/ (Sodium Chloride) 110 mls @ 330 mls/hr IV Q12 JOHNNY Last Infusion: 02/25/20 21:16 Dose: Infused Documented by: Insulin Glargine (Insulin Glargine 100 Units/Ml Pen) 30 units SC QHS JOHNNY Insulin Human Lispro (Insulin Lispro 100 Unit/Ml Insuln.Pen) 0 unit SC ACHS [facility]; Protocol Last Admin: 02/25/20 20:51 Dose: 9 u Documented by: Ondansetron HCl (Ondansetron 4 Mg/2 Ml Vial) 4 mg IV Q8H PRN PRN PRN Reason: NAUSEA/VOMITING Last Admin: 02/25/20 21:55 Dose: 4 mg Documented by: Sodium Chloride (0.9% Saline Lock 10 Ml Syringe) 10 - 40 ml IV UD PRN PRN Reason: SALINE FLUSH Last Admin: 02/25/20 21:56 Dose: 10 ml Documented by: STROKE Vital Signs/Narrative: Vital Signs Temp Pulse Resp BP Pulse Ox 02/26/20 05:59 89 18 162/82 H 97 02/26/20 05:00 91 18 158/76 H 97 02/26/20 04:00 98 F 93 18 148/90 H 94 02/26/20 03:05 96 02/26/20 03:00 94 17 139/88 H 97 Medical Necessity - Tobacco Use Smoking Status: Former smoker - Patient smoked briefly as a teenager. Assessment/Plan All Active Problems Lower GI bleed (Acute) Hypovolemic shock (Acute) Hyperglycemia (Acute) Acute kidney injury (Acute) Acute blood loss anemia (Acute) GI bleed (Acute) The patient is a 64 y/o M w/ PMHx: Obesity, Former Light Tobacco use, HTN, GERD, Diabetes mellitus type II who presents to the [facility] ED on 02/25/20 with history of 2 days history of progressively worsening hematochezia with no associated nausea or emesis with lightheadedness and dizziness prompting eventual ED presentation. 1. Acute Hypovolemic Shock secondary to Hemorrhagic Shock secondary to Acute GI bleed with Acute Blood Loss Anemia: Patient administered 2 unit trauma blood in the ED secondary to severity of appearance, admitted to the ICU, 1 additional unit PRBC on hold, bank vault custodian and general surgery following, initial rapid antigen testing for Covid positive however repeat PCR negative therefore false positive, lactic acid initially 12.5, most recent repeat 3.9, likely secondary to both #1 and #2 presentation, continue judicious hydration, coags not marked appearing, hemoglobin trending with 02/25/2020 hemoglobin 11.3-->02/26/20 AM 9.0, 02/25/20 EGD not marked, 02/26/[address] c-[address] Dr[address] Lowery with significant blood throughout the colon noted to be dark and maroon appearing with diverticulosis throughout, unclear exact source with recommendation for clears allowance and if recurrent bleeding plan Bleeding scan, continue ICU care given notable findings during evaluation per Surgery request, continue H+H trending, initially on IV PPI with d/c per Dr. Lowery. ICU consulted and following concurrently. 2. DKA w/ Diabetes mellitus type II: Admission glucose 749, anion gap 19, serum osmolality 323, initiated and continued on insulin drip, repeat BMP serially with closure of gap x2 now however patient with pending endoscopy, n.p.o. status with continued blood sugars in the 300s, will continue insulin drip until completed endoscopy and reevaluate for potentially start on clear liquids pending findings. Magnesium and phosphorus levels requested with repletion as needed. Patient hemoglobin A1c 11.2, starting clears, transitioned successfully to SC regimen. Nutrition consulted for education and teaching. 3. Acute kidney injury: Secondary to #1 and #2. Admission BUN/Cr 26/2.15, prior baseline creatinine noted to be 0.1-1.3, aggressively hydrated and PRBC administered as noted #1 and #2, repeat improving, 02/26/2020 BUN/creatinine 18/1.32, improving, continue to trend and hold nephrotoxic regimen. 4. Hypertension: Significant presentation with hypovolemic shock secondary to blood loss as noted above #1, improving and stable Hgb but as noted notable blood on c-scope 02/26/20, when resume regimen will needed to decrease ACEI as noted to be on 60 mg daily and likely contributing to his presenting renal function. 5. Obesity: Weight loss and lifestyle changes encouraged. 6. GERD: IV PPI discontinued per Dr. Lowery. 7. DVT prophylaxis: SCDs, defer chemoprophylaxis given acute presentation as noted #1. 8. CODE status: Full Code. Inpatient E&M: 65493 Subs Hosp L3
--- NOTE | 2020-02-26 06:57 | PCM.PN.INT ---
Subjective: Patient did well overnight. No acute issues were reported. Patient did have an EGD yesterday that was nondiagnostic. Patient with no new symptomatology this morning. Objective: Patient scheduled for colonoscopy at 1030 this morning. Blood sugars have been relatively controlled on current regimen. General: Alert, Oriented x3, Cooperative, No apparent distress, Well developed, Well nourished, - - Morbidly obese. HEENT: Atraumatic, PERRLA, EOMI, Normocephalic, - - No scleral icterus or injection noted Oral: Moist Mucosa, No Gingival or Mucosal Lesions/ Ulcerations Neck: Supple, No JVD, No Nodes, Trachea Midline Lungs: Clear to auscultation, Normal air movement, No rhonchi, No wheeze, No rales Cardiovascular: Regular rate, Regular Rhythm, Normal S1, Normal S2, No murmurs, No rub noted, No Gallop Abdomen: Bowel Sounds Present, Soft, Non Tender, Non-Distended, Obese Extremities: No clubbing, No cyanosis, Edema - Trace lower extremity Skin: No rashes, No breakdown Musculoskeletal: No Tenderness to Palpation of Joints or Extremities Lymphatic: No Cervical, Supraclavicular, or Inguinal Adenopathy Neurological: Cranial nerves II-XII grossly intact, Neuro grossly intact, Motor Exam 5/5 strength throughout Psych/Mental Status: Alert and oriented to time, place, person, mood and affect Vital Signs Temp Pulse Resp BP Pulse Ox 36.6 C 89 18 162/82 H 97 02/26/20 04:00 02/26/20 05:59 02/26/20 05:59 02/26/20 05:59 02/26/20 05:59 Oxygen Flow Rate (L/min) 2 Oxygen Delivery Method Room Air Weight: 104.2 kg Body Mass Index (BMI) 34.0 Finger Stick Blood Glucose 290 Intake and Output for Last 24 Hours 02/24/20 02/25/20 02/26/20 23:59 23:59 23:59 Intake Total 7248.15 / 7248.15 Output Total 1974 200 / 200 Balance 5273.15 / 5273.15 -200 / -200 Labs (Last 48 Hours) 02/25/20 02/25/20 02/25/20 02:10 02:10 02:10 WBC 14.0 H RBC 2.95 L Hgb 8.7 L Hct 28.3 L MCV 95.9 H MCH 29.5 MCHC 30.7 L RDW Std Deviation 50.3 H RDW Coeff of Tarik 14.4 Plt Count 234 MPV 11.7 Immature Gran % (Auto) 1.400 H Neut % (Auto) 59.3 Lymph % (Auto) 30.8 [place] % (Auto) 6.7 Eos % (Auto) 1.4 Baso % (Auto) 0.4 Absolute Neuts (auto) 8.3 H Absolute Lymphs (auto) 4.30 Nucleated RBC % 0.1 PT 13.2 INR 1.1 APTT 23.4 L Sodium 131 L Potassium 4.6 Chloride 96 L Carbon Dioxide 16.0 L Anion Gap 19 H BUN 26 H Creatinine 2.15 H Estim Creat Clear Calc 32.70 Est GFR (MDRD) Af Amer 40 L Est GFR (MDRD) Non-Af 33 L BUN/Creatinine Ratio 12.1 Glucose 749 H* Hemoglobin A1c Serum Osmolality Lactic Acid Calcium 7.3 L Phosphorus Magnesium Total Bilirubin 0.20 AST 13 L ALT 27 Alkaline Phosphatase 65 Total Protein 5.2 L Albumin 2.7 L Globulin 2.5 Albumin/Globulin Ratio 1.1 Acetone Level COVID-19 (ELBERT) POC Glucose Blood Type Antibody Screen Crossmatch 02/25/20 02/25/20 02/25/20 02:10 02:10 02:10 WBC RBC Hgb Hct MCV MCH MCHC RDW Std Deviation RDW Coeff of Tarik Plt Count MPV Immature Gran % (Auto) Neut % (Auto) Lymph % (Auto) [place] % (Auto) Eos % (Auto) Baso % (Auto) Absolute Neuts (auto) Absolute Lymphs (auto) Nucleated RBC % PT INR APTT Sodium Potassium Chloride Carbon Dioxide Anion Gap BUN Creatinine Estim Creat Clear Calc Est GFR (MDRD) Af Amer Est GFR (MDRD) Non-Af BUN/Creatinine Ratio Glucose Hemoglobin A1c Serum Osmolality 323 H Lactic Acid 12.5 H* Calcium Phosphorus Magnesium Total Bilirubin AST ALT Alkaline Phosphatase Total Protein Albumin Globulin Albumin/Globulin Ratio Acetone Level NEGATIVE COVID-19 (ELBERT) POC Glucose Blood Type B POSITIVE Antibody Screen Pending Crossmatch See Detail 02/25/20 02/25/20 02/25/20 02:10 05:28 06:40 WBC 13.8 H RBC 3.97 L Hgb 11.3 L Hct 34.9 L MCV 87.9 D MCH 28.5 MCHC 32.4 D RDW Std Deviation 45.8 H RDW Coeff of Tarik 14.2 Plt Count 185 MPV 11.0 Immature Gran % (Auto) 0.900 Neut % (Auto) 83.1 H Lymph % (Auto) 9.8 L [place] % (Auto) 5.8 Eos % (Auto) 0.1 Baso % (Auto) 0.3 Absolute Neuts (auto) 11.5 H Absolute Lymphs (auto) 1.35 Nucleated RBC % 0 PT INR APTT Sodium Potassium Chloride Carbon Dioxide Anion Gap BUN Creatinine Estim Creat Clear Calc Est GFR (MDRD) Af Amer Est GFR (MDRD) Non-Af BUN/Creatinine Ratio Glucose Hemoglobin A1c 11.2 H Serum Osmolality Lactic Acid Calcium Phosphorus Magnesium Total Bilirubin AST ALT Alkaline Phosphatase Total Protein Albumin Globulin Albumin/Globulin Ratio Acetone Level COVID-19 (ELBERT) POC Glucose > 500 H* Blood Type Antibody Screen Crossmatch 02/25/20 02/25/20 02/25/20 06:40 07:30 07:59 WBC RBC Hgb Hct MCV MCH MCHC RDW Std Deviation RDW Coeff of Tarik Plt Count MPV Immature Gran % (Auto) Neut % (Auto) Lymph % (Auto) [place] % (Auto) Eos % (Auto) Baso % (Auto) Absolute Neuts (auto) Absolute Lymphs (auto) Nucleated RBC % PT INR APTT Sodium 135 L Potassium 5.8 H Chloride 107 Carbon Dioxide 19.0 L Anion Gap 9 BUN 29 H Creatinine 1.80 H Estim Creat Clear Calc 39.06 Est GFR (MDRD) Af Amer 49 L Est GFR (MDRD) Non-Af 40 L BUN/Creatinine Ratio 16.1 Glucose 455 H* Hemoglobin A1c Serum Osmolality Lactic Acid 3.9 H* Calcium 7.2 L Phosphorus Magnesium Total Bilirubin AST ALT Alkaline Phosphatase Total Protein Albumin Globulin Albumin/Globulin Ratio Acetone Level COVID-19 (ELBERT) POC Glucose 408 H Blood Type Antibody Screen Crossmatch 02/25/20 02/25/20 02/25/20 08:45 08:57 09:46 WBC RBC Hgb Hct MCV MCH MCHC RDW Std Deviation RDW Coeff of Tarik Plt Count MPV Immature Gran % (Auto) Neut % (Auto) Lymph % (Auto) [place] % (Auto) Eos % (Auto) Baso % (Auto) Absolute Neuts (auto) Absolute Lymphs (auto) Nucleated RBC % PT INR APTT Sodium Potassium Chloride Carbon Dioxide Anion Gap BUN Creatinine Estim Creat Clear Calc Est GFR (MDRD) Af Amer Est GFR (MDRD) Non-Af BUN/Creatinine Ratio Glucose Hemoglobin A1c Serum Osmolality Lactic Acid Calcium Phosphorus Magnesium Total Bilirubin AST ALT Alkaline Phosphatase Total Protein Albumin Globulin Albumin/Globulin Ratio Acetone Level COVID-19 (ELBERT) Not Detected POC Glucose 352 H 370 H Blood Type Antibody Screen Crossmatch 02/25/20 02/25/20 02/25/20 09:50 09:50 11:00 WBC RBC Hgb Hct MCV MCH MCHC RDW Std Deviation RDW Coeff of Tarik Plt Count MPV Immature Gran % (Auto) Neut % (Auto) Lymph % (Auto) [place] % (Auto) Eos % (Auto) Baso % (Auto) Absolute Neuts (auto) Absolute Lymphs (auto) Nucleated RBC % PT INR APTT Sodium 138 Potassium 5.1 Chloride 111 H Carbon Dioxide 19.0 L Anion Gap 8 BUN 29 H Creatinine 1.66 H Estim Creat Clear Calc 42.35 Est GFR (MDRD) Af Amer 54 L Est GFR (MDRD) Non-Af 44 L BUN/Creatinine Ratio 17.5 Glucose 395 H Hemoglobin A1c Serum Osmolality Lactic Acid Calcium 7.1 L Phosphorus 1.3 L Magnesium 2.2 Total Bilirubin AST ALT Alkaline Phosphatase Total Protein Albumin Globulin Albumin/Globulin Ratio Acetone Level COVID-19 (ELBERT) POC Glucose 367 H Blood Type Antibody Screen Crossmatch 02/25/20 02/25/20 02/25/20 11:57 12:35 13:05 WBC RBC Hgb 10.9 L Hct 32.4 L MCV MCH MCHC RDW Std Deviation RDW Coeff of Tarik Plt Count MPV Immature Gran % (Auto) Neut % (Auto) Lymph % (Auto) [place] % (Auto) Eos % (Auto) Baso % (Auto) Absolute Neuts (auto) Absolute Lymphs (auto) Nucleated RBC % PT INR APTT Sodium Potassium Chloride Carbon Dioxide Anion Gap BUN Creatinine Estim Creat Clear Calc Est GFR (MDRD) Af Amer Est GFR (MDRD) Non-Af BUN/Creatinine Ratio Glucose Hemoglobin A1c Serum Osmolality Lactic Acid Calcium Phosphorus Magnesium Total Bilirubin AST ALT Alkaline Phosphatase Total Protein Albumin Globulin Albumin/Globulin Ratio Acetone Level COVID-19 (ELBERT) POC Glucose 330 H 290 H Blood Type Antibody Screen Crossmatch 02/25/20 02/25/20 02/25/20 14:44 18:00 20:50 WBC RBC Hgb 9.8 L Hct 30.6 L MCV MCH MCHC RDW Std Deviation RDW Coeff of Tarik Plt Count MPV Immature Gran % (Auto) Neut % (Auto) Lymph % (Auto) [place] % (Auto) Eos % (Auto) Baso % (Auto) Absolute Neuts (auto) Absolute Lymphs (auto) Nucleated RBC % PT INR APTT Sodium Potassium Chloride Carbon Dioxide Anion Gap BUN Creatinine Estim Creat Clear Calc Est GFR (MDRD) Af Amer Est GFR (MDRD) Non-Af BUN/Creatinine Ratio Glucose Hemoglobin A1c Serum Osmolality Lactic Acid Calcium Phosphorus Magnesium Total Bilirubin AST ALT Alkaline Phosphatase Total Protein Albumin Globulin Albumin/Globulin Ratio Acetone Level COVID-19 (ELBERT) POC Glucose 281 H 317 H Blood Type Antibody Screen Crossmatch 02/25/20 02/26/20 02/26/20 22:30 04:10 04:10 WBC 9.0 RBC 3.10 L Hgb 9.5 L 9.0 L Hct 30.1 L 27.3 L MCV 88.1 MCH 29.0 MCHC 33.0 RDW Std Deviation 48.7 H RDW Coeff of Tarik 15.2 H Plt Count 150 MPV 11.0 Immature Gran % (Auto) 0.800 Neut % (Auto) 61.2 Lymph % (Auto) 28.8 [place] % (Auto) 6.7 Eos % (Auto) 2.2 Baso % (Auto) 0.3 Absolute Neuts (auto) 5.5 Absolute Lymphs (auto) 2.59 Nucleated RBC % 0 PT INR APTT Sodium 137 Potassium 4.0 Chloride 107 Carbon Dioxide 24.0 Anion Gap 6 BUN 18 Creatinine 1.32 H Estim Creat Clear Calc 53.26 Est GFR (MDRD) Af Amer 70 Est GFR (MDRD) Non-Af 58 L BUN/Creatinine Ratio 13.6 Glucose 277 H Hemoglobin A1c Serum Osmolality Lactic Acid Calcium 7.1 L Phosphorus 3.0 Magnesium 2.0 Total Bilirubin 0.20 AST 11 L ALT 19 Alkaline Phosphatase 54 Total Protein 5.0 L Albumin 2.7 L Globulin 2.3 Albumin/Globulin Ratio 1.2 Acetone Level COVID-19 (ELBERT) POC Glucose Blood Type Antibody Screen Crossmatch Microbiology 02/25/20 07:24 Mucosa - Nose SARS-CoV-2 Antigen (Rapid) - Final SARS-CoV-2 (COVID 19) Medical Necessity - Tobacco Use Smoking Status: Former smoker - Patient smoked briefly as a teenager. Assessment/Plan All Active Problems Lower GI bleed (Acute) Hypovolemic shock (Acute) Hyperglycemia (Acute) Acute kidney injury (Acute) Acute blood loss anemia (Acute) GI bleed (Acute) RECOMMENDATIONS: 1. Okay to slow down hemoglobin checks from my perspective 2. Await colonoscopy at approximately 10:30 AM 3. Use Lantus and sliding scale insulin 4. Okay to reinitiate baseline lisinopril at lower dosing 5. Possibly transfer from the intensive care unit later today IMPRESSIONS: 1. Hemorrhagic shock secondary to acute blood loss anemia secondary to GI bleed Clinical suspicion for lower GI bleed source. EGD yesterday was unremarkable. Patient has been prepped overnight. Await the results of colonoscopy. Patient can likely be transitioned off Protonix from my perspective, but defer to surgery. Pending results of colonoscopy, patient may be able to be transferred to the MedSur unit following the procedure. 2. Uncontrolled diabetes mellitus with hyperosmolar state Patient reportedly is on insulin at home. Unclear baseline at this time, but previous hemoglobin A1c was 11.4 suggesting poor control. Blood sugars are much better controlled at this time. Continue Lantus. This may may need to be stepped up as p.o. diet is liberated. 3. Acute kidney injury Results. Baseline creatinine appears to be approximately 1.3. Patient presented with a creatinine of 2.15 with a BUN of 26 suggestive of intrinsic renal dysfunction. Anticipate patient may have an element of ATN in the setting of FRANCISCO J inhibitor with hypotension/prerenal physiology. Continue aggressive hydration and hold lisinopril. Continue to monitor renal function. No indication for renal replacement therapy at this time. 4. Lactic acidosis/hypertension/obesity/poor historian Complicates care, management, recovery and prognosis. Clear okay to reinitiate lisinopril, but 60 mg may be difficult to tolerate at this time. Consider initiation at 20, but defer to hospitalist. Continue to monitor. Inpatient E&M: 35455 Subs Hosp L2
[2020-02-26] MEDS: Insulin Lispro 100 UNIT/ML INSULN.PEN SC ×4 (09:12→20:59)
[2020-02-26 09:20] LABS: Bedside Glucose 318 mg/dL (70-110)
--- NOTE | 2020-02-26 09:20 | CASEMGMT ---
RN CM Note: attempted to complete assessment. Patient is at testing. Lizet HASTINGSN RN ACM
--- NOTE | 2020-02-26 09:41 | NURSING ---
to or per bed for colonscopy
--- NOTE | 2020-02-26 09:41 | NURSING ---
mod amt liquid burgandy stool per bedpan, miguel ángel care given, voided 400cc clear leilani urine per urinal
--- NOTE | 2020-02-26 10:56 | OP.CCLET_ITS ---
02/26/2020 Constanza Wooten [address] [phone] Re : Colonoscopy procedure for Elian Stanley Dear Dr. Wooten This procedure was performed on , February 26, 2020. My impressions and recommendations are as follows: Impressions : - Preparation of the colon was poor. - Blood in the entire examined colon. - Diverticulosis in the entire examined colon. - No specimens collected. Recommendations : - Return patient to ICU for ongoing care. - Clear liquid diet. - Continue present medications. - Repeat colonoscopy in 10 years for screening purposes. My findings are described in the full procedure note, which is enclosed. If I can be of further assistance, please feel free to contact me at Doctor phone number(s): , Work: . Sincerely, Markel Lowery MD 02/26/2020 10:55:31 AM This report has been signed electronically.
--- NOTE | 2020-02-26 10:56 | OP.COLON_ITS ---
Patient Name: Elian Stanley Procedure Date: 02/26/2020 10:03 AM Date of : 1955 Age: 64 Procedure: Colonoscopy Indications: Hematochezia Providers: Markel Lowery MD Referring MD: Christophe Mckenzie Medicines: Monitored Anesthesia Care Patient Profile: Last Colonoscopy: none. The patient's first colonoscopy is today. Complications: No immediate complications. Procedure: Pre-Anesthesia Assessment: - Prior to the procedure, a History and Physical was performed, and patient medications and allergies were reviewed. The patient's tolerance of previous anesthesia was also reviewed. The risks and benefits of the procedure and the sedation options and risks were discussed with the patient. All questions were answered, and informed consent was obtained. Prior Anticoagulants: The patient has taken no previous anticoagulant or antiplatelet agents. After reviewing the risks and benefits, the patient was deemed in satisfactory condition to undergo the procedure. After I obtained informed consent, the scope was passed under direct vision. Throughout the procedure, the patient's blood pressure, pulse, and oxygen saturations were monitored continuously. The Colonoscope was introduced through the anus and advanced to the cecum, identified by appendiceal orifice and ileocecal valve. The colonoscopy was performed without difficulty. The patient tolerated the procedure well. The quality of the bowel preparation was poor. Scope In: 10:16:00 AM Scope Withdrawal Time 0 hours 11 minutes 27 seconds Scope Out: 10:47:51 AM Total Procedure Duration Time 0 hours 31 minutes 51 seconds Findings: Hematin (altered blood/xdjhia-nleudu-rgqy material) was found in the entire colon. Multiple small and large-mouthed diverticula were found in the entire colon. Impression: - Preparation of the colon was poor. - Blood in the entire examined colon. - Diverticulosis in the entire examined colon. - No specimens collected. Recommendation: - Return patient to ICU for ongoing care. - Clear liquid diet. - Continue present medications. - Repeat colonoscopy in 10 years for screening purposes. Procedure Code(s): --- Professional --- 53040, Colonoscopy, flexible; diagnostic, including collection of specimen(s) by brushing or washing, when performed (separate procedure) Diagnosis Code(s): --- Professional --- K92.2, Gastrointestinal hemorrhage, unspecified K92.1, Melena (includes Hematochezia) K57.30, Diverticulosis of large intestine without perforation or abscess without bleeding CPT copyright 2017 [employer]. All rights reserved. The codes documented in this report are preliminary and upon program director scouting review may be revised to meet current compliance requirements. Markel Lowery MD 02/26/2020 10:55:31 AM This report has been signed electronically. Number of Addenda: 0 Note Initiated On: 02/26/2020 10:03 AM
--- NOTE | 2020-02-26 10:57 | PCM.PN.BLA ---
Progress Note I performed a colonoscopy in the patient this morning. The patient had coffee-ground material throughout his entire colon. There was no bright red blood identified. The patient had no masses or bleeding polyps. The patient had diverticulosis throughout his entire colon. I was unable to enter the ileocecal valve to see if this was coming from more proximal than the colon but there was bloody material all the way to the cecum. I did not identify an active source of bleeding. If the patient continues to bleed I recommend a bleeding scan to see if the location may be isolated. Patient may start a clear liquid diet but not advance until bleeding stops. Markel Lowery MD Pager: [facility] [address] [place] [address], [address] [place] [address] Office: [facility] Vital Signs/Narrative: Vital Signs Temp Pulse Resp BP 02/26/20 09:00 98.6 F 93 17 134/79 H 02/26/20 08:00 91 17 151/92 H 02/26/20 07:00 89 17 139/83 H
--- NOTE | 2020-02-26 11:15 | CASEMGMT ---
RN CM Assessment Intro role of CM to patient in room. Patient states he lives with his friend at home. Pt not forthcoming with information. States he is independent with ADL. PCP: Dr. Wooten Insurance: MICHELLE ROQUE Pharmacy: [facility] Benefit: states he gets mail order but does not have card with him. Exact Care Living arrangements: states he has been living with his friend Josef. States he does own self care. Transportation: friend DME: states he does not use DC PLAN: home on discharge. Lizet HAMILTON RN ACM
[2020-02-26 11:50] LABS: Bedside Glucose 228 mg/dL (70-110)
[2020-02-26 12:16] LABS: Hematocrit 27.8 % (40-54); Hemoglobin 9.2 g/dL (13.0-16.5)
--- NOTE | 2020-02-26 12:49 | CASEMGMT ---
RN CM Note: patient returned from testing, however is sleeping very soundly, and unable to participate in assessment. Listed next of kin is brother only, so will await patient being able to assist with assessment questions. Lizet HAMILTON RN CM
[2020-02-26] MEDS: Lisinopril 20 MG Tablet PO (14:56)
[2020-02-26 16:21] LABS: Bedside Glucose 236 mg/dL (70-110)
[2020-02-26 17:00] LABS: Hematocrit 28.6 % (40-54); Hemoglobin 9.3 g/dL (13.0-16.5)
[2020-02-26 21:45] LABS: Bedside Glucose 311 mg/dL (70-110)
[2020-02-26 21:46] LABS: Hematocrit 28.3 % (40-54); Hemoglobin 9.2 g/dL (13.0-16.5)
[2020-02-27] VITALS (21 sets, daily range): BP systolic 110–170; BP diastolic 67–106; PULSE 76–94; RESP 10–22; TEMP 36.1–36.8; O2SAT 96–98
[2020-02-27 03:54] LABS: Absolute Lymphocyte Count 2.02 X10^3/uL (0.83-4.51); Absolute Neutrophil Count 5.5 X10^3/uL (2.0-7.7); Basophil# 0.04 X10^3/uL; Basophil% 0.5 % (0-1); Eosinophils% 4.7 % (0-5); Hematocrit 28.1 % (40-54); Hemoglobin 9.2 g/dL (13.0-16.5); Lymphocyte # 2.02 X10^3/ul (4.0); Lymphocyte % 23.6 % (19-41); Mean Corp Hgb Conc 32.7 g/dL (32-36); Mean Corpuscular Hgb 28.9 pg (27.0-32.0); Mean Corpuscular Volume 88.4 fL (80-94); Mean Platelet Vol. 10.4 fl (6.2-12.0); Monocyte# 0.56 X10^3/uL; Monocyte% 6.5 % (0-10); NRBC Flagged by Analyzer 0 % (0-5); Neutrophil # 5.47 X10^3/uL (2.7-7.7); Neutrophil % 63.9 % (47-70); Platelet Count 173 K/mm3 (150-450); RBC Distribution Width CV 15.2 % (11.6-14.6); RBC Distribution Width SD 48.7 fl (35.1-43.9); Red Blood Count 3.18 M/mm3 (4.6-6.2); White Blood Count 8.6 K/mm3 (4.4-11.0)
[2020-02-27 04:02] LABS: ALB/GLOB Ratio 1.1 RATIO (0.9-2.4); AST(SGOT) 16 U/L (15-37); Alanine Aminotransfer ALT/SGPT 22 U/L (16-61); Albumin, Serum 2.9 g/dL (3.2-5.0); Alkaline Phosphatase 66 U/L (45-117); Anion Gap 5 (5-15); BUN 9 mg/dL (7-18); Calcium,Total 7.8 mg/dL (8.5-10.1); Chloride 108 mmol/L (98-107); Creatinine, Serum 1.13 mg/dL (0.70-1.30); EST Glomerular Filtration Rate 69 mL/min (>60); Est Glom Filt Rate - Afr Amer 83 mL/min (>60); Estimated Creatinine Clearance 62.21 ml/min; Globulin 2.6 g/dL (2.2-4.2); Glucose 188 mg/dL (74-106); Potassium 3.7 mmol/L (3.5-5.1); Protein, Total 5.5 g/dL (6.4-8.2); Sodium Level 138 mmol/L (136-145)
--- NOTE | 2020-02-27 06:38 | PCM.PN.INT ---
Subjective: Patient did well overnight. No acute issues were reported. Patient did have some elevated glucose and blood pressure, but tolerated this well. No bloody bowel movements have been reported by the patient or nursing. General: Alert, Oriented x3, Cooperative, No apparent distress, Well developed, Well nourished, - - Patient did have some witnessed apneas prior to being woken up. Obese. Speaking in full sentences. HEENT: Atraumatic, PERRLA, EOMI, Normocephalic, - - No scleral icterus or injection noted Oral: Moist Mucosa, No Gingival or Mucosal Lesions/ Ulcerations Neck: Supple, No JVD, No Nodes, Trachea Midline Lungs: Clear to auscultation, Normal air movement, No rhonchi, No wheeze, No rales, - - Symmetric expansion. No dullness to percussion Cardiovascular: Regular rate, Regular Rhythm, Normal S1, Normal S2, No murmurs Abdomen: Bowel Sounds Present, Soft, Non Tender, Non-Distended, Obese Extremities: No clubbing, No cyanosis, Edema - Trace lower extremity Skin: No rashes, No breakdown Musculoskeletal: No Tenderness to Palpation of Joints or Extremities Lymphatic: No Cervical, Supraclavicular, or Inguinal Adenopathy Neurological: Cranial nerves II-XII grossly intact, Neuro grossly intact, Motor Exam 5/5 strength throughout Psych/Mental Status: Alert and oriented to time, place, person, mood and affect Vital Signs Temp Pulse Resp BP Pulse Ox 36.8 C 89 20 H 133/86 H 96 02/27/20 04:00 02/27/20 06:00 02/27/20 06:00 02/27/20 06:00 02/27/20 06:00 Oxygen Flow Rate (L/min) 2 Oxygen Delivery Method Room Air Weight: 104.5 kg Body Mass Index (BMI) 34.0 Finger Stick Blood Glucose 290 Intake and Output for Last 24 Hours 02/25/20 02/26/20 02/27/20 23:59 23:59 23:59 Intake Total 7248.15 / 7248.15 1190 / 1190 280 / 280 Output Total 1974 / 1974 750 / 750 Balance 5273.15 / 5273.15 -360 / -785 -470 / -470 Labs (Last 48 Hours) 02/25/20 02/25/20 02/25/20 02:10 02:10 02:10 WBC RBC Hgb Hct MCV MCH MCHC RDW Std Deviation RDW Coeff of Tarik Plt Count MPV Immature Gran % (Auto) Neut % (Auto) Lymph % (Auto) [place] % (Auto) Eos % (Auto) Baso % (Auto) Absolute Neuts (auto) Absolute Lymphs (auto) Nucleated RBC % Sodium Potassium Chloride Carbon Dioxide Anion Gap BUN Creatinine Estim Creat Clear Calc Est GFR (MDRD) Af Amer Est GFR (MDRD) Non-Af BUN/Creatinine Ratio Glucose Hemoglobin A1c 11.2 H Serum Osmolality 323 H Lactic Acid Calcium Phosphorus Magnesium Total Bilirubin AST ALT Alkaline Phosphatase Total Protein Albumin Globulin Albumin/Globulin Ratio Acetone Level NEGATIVE COVID-19 (ELBERT) POC Glucose Antibody Screen NEGATIVE Crossmatch See Detail 02/25/20 02/25/20 02/25/20 06:40 06:40 07:30 WBC 13.8 H RBC 3.97 L Hgb 11.3 L Hct 34.9 L MCV 87.9 D MCH 28.5 MCHC 32.4 D RDW Std Deviation 45.8 H RDW Coeff of Tarik 14.2 Plt Count 185 MPV 11.0 Immature Gran % (Auto) 0.900 Neut % (Auto) 83.1 H Lymph % (Auto) 9.8 L [place] % (Auto) 5.8 Eos % (Auto) 0.1 Baso % (Auto) 0.3 Absolute Neuts (auto) 11.5 H Absolute Lymphs (auto) 1.35 Nucleated RBC % 0 Sodium 135 L Potassium 5.8 H Chloride 107 Carbon Dioxide 19.0 L Anion Gap 9 BUN 29 H Creatinine 1.80 H Estim Creat Clear Calc 39.06 Est GFR (MDRD) Af Amer 49 L Est GFR (MDRD) Non-Af 40 L BUN/Creatinine Ratio 16.1 Glucose 455 H* Hemoglobin A1c Serum Osmolality Lactic Acid 3.9 H* Calcium 7.2 L Phosphorus Magnesium Total Bilirubin AST ALT Alkaline Phosphatase Total Protein Albumin Globulin Albumin/Globulin Ratio Acetone Level COVID-19 (ELBERT) POC Glucose Antibody Screen Crossmatch 02/25/20 02/25/20 02/25/20 07:59 08:45 08:57 WBC RBC Hgb Hct MCV MCH MCHC RDW Std Deviation RDW Coeff of Tarik Plt Count MPV Immature Gran % (Auto) Neut % (Auto) Lymph % (Auto) [place] % (Auto) Eos % (Auto) Baso % (Auto) Absolute Neuts (auto) Absolute Lymphs (auto) Nucleated RBC % Sodium Potassium Chloride Carbon Dioxide Anion Gap BUN Creatinine Estim Creat Clear Calc Est GFR (MDRD) Af Amer Est GFR (MDRD) Non-Af BUN/Creatinine Ratio Glucose Hemoglobin A1c Serum Osmolality Lactic Acid Calcium Phosphorus Magnesium Total Bilirubin AST ALT Alkaline Phosphatase Total Protein Albumin Globulin Albumin/Globulin Ratio Acetone Level COVID-19 (ELBERT) Not Detected POC Glucose 408 H 352 H Antibody Screen Crossmatch 02/25/20 02/25/20 02/25/20 09:46 09:50 09:50 WBC RBC Hgb Hct MCV MCH MCHC RDW Std Deviation RDW Coeff of Tarik Plt Count MPV Immature Gran % (Auto) Neut % (Auto) Lymph % (Auto) [place] % (Auto) Eos % (Auto) Baso % (Auto) Absolute Neuts (auto) Absolute Lymphs (auto) Nucleated RBC % Sodium 138 Potassium 5.1 Chloride 111 H Carbon Dioxide 19.0 L Anion Gap 8 BUN 29 H Creatinine 1.66 H Estim Creat Clear Calc 42.35 Est GFR (MDRD) Af Amer 54 L Est GFR (MDRD) Non-Af 44 L BUN/Creatinine Ratio 17.5 Glucose 395 H Hemoglobin A1c Serum Osmolality Lactic Acid Calcium 7.1 L Phosphorus 1.3 L Magnesium 2.2 Total Bilirubin AST ALT Alkaline Phosphatase Total Protein Albumin Globulin Albumin/Globulin Ratio Acetone Level COVID-19 (ELBERT) POC Glucose 370 H Antibody Screen Crossmatch 02/25/20 02/25/20 02/25/20 11:00 11:57 12:35 WBC RBC Hgb 10.9 L Hct 32.4 L MCV MCH MCHC RDW Std Deviation RDW Coeff of Tarik Plt Count MPV Immature Gran % (Auto) Neut % (Auto) Lymph % (Auto) [place] % (Auto) Eos % (Auto) Baso % (Auto) Absolute Neuts (auto) Absolute Lymphs (auto) Nucleated RBC % Sodium Potassium Chloride Carbon Dioxide Anion Gap BUN Creatinine Estim Creat Clear Calc Est GFR (MDRD) Af Amer Est GFR (MDRD) Non-Af BUN/Creatinine Ratio Glucose Hemoglobin A1c Serum Osmolality Lactic Acid Calcium Phosphorus Magnesium Total Bilirubin AST ALT Alkaline Phosphatase Total Protein Albumin Globulin Albumin/Globulin Ratio Acetone Level COVID-19 (ELBERT) POC Glucose 367 H 330 H Antibody Screen Crossmatch 02/25/20 02/25/20 02/25/20 13:05 14:44 18:00 WBC RBC Hgb 9.8 L Hct 30.6 L MCV MCH MCHC RDW Std Deviation RDW Coeff of Tarik Plt Count MPV Immature Gran % (Auto) Neut % (Auto) Lymph % (Auto) [place] % (Auto) Eos % (Auto) Baso % (Auto) Absolute Neuts (auto) Absolute Lymphs (auto) Nucleated RBC % Sodium Potassium Chloride Carbon Dioxide Anion Gap BUN Creatinine Estim Creat Clear Calc Est GFR (MDRD) Af Amer Est GFR (MDRD) Non-Af BUN/Creatinine Ratio Glucose Hemoglobin A1c Serum Osmolality Lactic Acid Calcium Phosphorus Magnesium Total Bilirubin AST ALT Alkaline Phosphatase Total Protein Albumin Globulin Albumin/Globulin Ratio Acetone Level COVID-19 (ELBERT) POC Glucose 290 H 281 H Antibody Screen Crossmatch 02/25/20 02/25/20 02/26/20 20:50 22:30 04:10 WBC RBC Hgb 9.5 L Hct 30.1 L MCV MCH MCHC RDW Std Deviation RDW Coeff of Tarik Plt Count MPV Immature Gran % (Auto) Neut % (Auto) Lymph % (Auto) [place] % (Auto) Eos % (Auto) Baso % (Auto) Absolute Neuts (auto) Absolute Lymphs (auto) Nucleated RBC % Sodium 137 Potassium 4.0 Chloride 107 Carbon Dioxide 24.0 Anion Gap 6 BUN 18 Creatinine 1.32 H Estim Creat Clear Calc 53.26 Est GFR (MDRD) Af Amer 70 Est GFR (MDRD) Non-Af 58 L BUN/Creatinine Ratio 13.6 Glucose 277 H Hemoglobin A1c Serum Osmolality Lactic Acid Calcium 7.1 L Phosphorus 3.0 Magnesium 2.0 Total Bilirubin 0.20 AST 11 L ALT 19 Alkaline Phosphatase 54 Total Protein 5.0 L Albumin 2.7 L Globulin 2.3 Albumin/Globulin Ratio 1.2 Acetone Level COVID-19 (ELBERT) POC Glucose 317 H Antibody Screen Crossmatch 02/26/20 02/26/20 02/26/20 04:10 09:11 11:39 WBC 9.0 RBC 3.10 L Hgb 9.0 L Hct 27.3 L MCV 88.1 MCH 29.0 MCHC 33.0 RDW Std Deviation 48.7 H RDW Coeff of Tarik 15.2 H Plt Count 150 MPV 11.0 Immature Gran % (Auto) 0.800 Neut % (Auto) 61.2 Lymph % (Auto) 28.8 [place] % (Auto) 6.7 Eos % (Auto) 2.2 Baso % (Auto) 0.3 Absolute Neuts (auto) 5.5 Absolute Lymphs (auto) 2.59 Nucleated RBC % 0 Sodium Potassium Chloride Carbon Dioxide Anion Gap BUN Creatinine Estim Creat Clear Calc Est GFR (MDRD) Af Amer Est GFR (MDRD) Non-Af BUN/Creatinine Ratio Glucose Hemoglobin A1c Serum Osmolality Lactic Acid Calcium Phosphorus Magnesium Total Bilirubin AST ALT Alkaline Phosphatase Total Protein Albumin Globulin Albumin/Globulin Ratio Acetone Level COVID-19 (ELBERT) POC Glucose 318 H 228 H Antibody Screen Crossmatch 02/26/20 02/26/20 02/26/20 12:00 16:17 16:45 WBC RBC Hgb 9.2 L 9.3 L Hct 27.8 L 28.6 L MCV MCH MCHC RDW Std Deviation RDW Coeff of Tarik Plt Count MPV Immature Gran % (Auto) Neut % (Auto) Lymph % (Auto) [place] % (Auto) Eos % (Auto) Baso % (Auto) Absolute Neuts (auto) Absolute Lymphs (auto) Nucleated RBC % Sodium Potassium Chloride Carbon Dioxide Anion Gap BUN Creatinine Estim Creat Clear Calc Est GFR (MDRD) Af Amer Est GFR (MDRD) Non-Af BUN/Creatinine Ratio Glucose Hemoglobin A1c Serum Osmolality Lactic Acid Calcium Phosphorus Magnesium Total Bilirubin AST ALT Alkaline Phosphatase Total Protein Albumin Globulin Albumin/Globulin Ratio Acetone Level COVID-19 (ELBERT) POC Glucose 236 H Antibody Screen Crossmatch 02/26/20 02/26/20 02/27/20 20:42 21:30 03:30 WBC 8.6 RBC 3.18 L Hgb 9.2 L 9.2 L Hct 28.3 L 28.1 L MCV 88.4 MCH 28.9 MCHC 32.7 RDW Std Deviation 48.7 H RDW Coeff of Tarik 15.2 H Plt Count 173 MPV 10.4 Immature Gran % (Auto) 0.800 Neut % (Auto) 63.9 Lymph % (Auto) 23.6 [place] % (Auto) 6.5 Eos % (Auto) 4.7 Baso % (Auto) 0.5 Absolute Neuts (auto) 5.5 Absolute Lymphs (auto) 2.02 Nucleated RBC % 0 Sodium Potassium Chloride Carbon Dioxide Anion Gap BUN Creatinine Estim Creat Clear Calc Est GFR (MDRD) Af Amer Est GFR (MDRD) Non-Af BUN/Creatinine Ratio Glucose Hemoglobin A1c Serum Osmolality Lactic Acid Calcium Phosphorus Magnesium Total Bilirubin AST ALT Alkaline Phosphatase Total Protein Albumin Globulin Albumin/Globulin Ratio Acetone Level COVID-19 ([facility]BERT) POC Glucose 311 H Antibody Screen Crossmatch 02/27/20 03:30 WBC RBC Hgb Hct MCV MCH MCHC RDW Std Deviation RDW Coeff of Tarik Plt Count MPV Immature Gran % (Auto) Neut % (Auto) Lymph % (Auto) [place] % (Auto) Eos % (Auto) Baso % (Auto) Absolute Neuts (auto) Absolute Lymphs (auto) Nucleated RBC % Sodium 138 Potassium 3.7 Chloride 108 H Carbon Dioxide 25.0 Anion Gap 5 BUN 9 Creatinine 1.13 Estim Creat Clear Calc 62.21 Est GFR (MDRD) Af Amer 83 Est GFR (MDRD) Non-Af 69 BUN/Creatinine Ratio 8.0 L Glucose 188 H Hemoglobin A1c Serum Osmolality Lactic Acid Calcium 7.8 L Phosphorus Magnesium Total Bilirubin 0.30 AST 16 ALT 22 Alkaline Phosphatase 66 Total Protein 5.5 L Albumin 2.9 L Globulin 2.6 Albumin/Globulin Ratio 1.1 Acetone Level COVID-19 ([facility]ERT) POC Glucose Antibody Screen Crossmatch Microbiology 02/25/20 07:24 Mucosa - Nose SARS-CoV-2 Antigen (Rapid) - Final SARS-CoV-2 (COVID 19) Medical Necessity - Tobacco Use Smoking Status: Former smoker - Patient smoked briefly as a teenager. Assessment/Plan All Active Problems Lower GI bleed (Acute) Hypovolemic shock (Acute) Hyperglycemia (Acute) Acute kidney injury (Acute) Acute blood loss anemia (Acute) GI bleed (Acute) RECOMMENDATIONS: 1. Increase basal insulin 2. Add Lopressor 3. Use sliding scale insulin 4. Okay to leave the intensive care unit from my perspective 5. Hemodynamically stable on room air. Will sign off from a critical care perspective IMPRESSIONS: 1. Hemorrhagic shock secondary to acute blood loss anemia secondary to GI bleed Clinical suspicion for lower GI bleed source. EGD/colonoscopy yesterday was unremarkable. Only blood was noted on the colonoscopy. No further bloody bowel movements have been reported. Patient currently hemodynamically stable on room air. Will sign off from a critical care perspective. 2. Uncontrolled diabetes mellitus with hyperosmolar state Patient reportedly is on insulin at home. Unclear baseline at this time, but previous hemoglobin A1c was 11.4 suggesting poor control. Blood sugars are much better controlled at this time. Increase Lantus. This may may need to be stepped up as p.o. diet is liberated. 3. Acute kidney injury Resolved. Baseline creatinine appears to be approximately 1.3. Patient presented with a creatinine of 2.15 with a BUN of 26 suggestive of intrinsic renal dysfunction. Anticipate patient may have an element of ATN in the setting of FRANCISCO J inhibitor with hypotension/prerenal physiology. Would not recommend using lisinopril 60 mg. Will add beta-geoffrey instead. Continue to monitor renal function. No indication for renal replacement therapy at this time. 4. Lactic acidosis/hypertension/obesity/poor historian Complicates care, management, recovery and prognosis. Continue to monitor. Inpatient E&M: 74783 Subs Hosp L2
--- NOTE | 2020-02-27 06:44 | PCM.PN.HOSP ---
Patient Problems: Active and Suspected Problems Lower GI bleed (Acute) Hypovolemic shock (Acute) Hyperglycemia (Acute) Acute kidney injury (Acute) Acute blood loss anemia (Acute) GI bleed (Acute) Vitals/I&O's: Vital Signs Temp Pulse Resp BP Pulse Ox 98.3 F 89 20 H 133/86 H 96 02/27/20 04:00 02/27/20 06:00 02/27/20 06:00 02/27/20 06:00 02/27/20 06:00 Oxygen Flow Rate (L/min) 2 Oxygen Delivery Method Room Air Weight: 230 lb 6.129 oz Body Mass Index (BMI) 34.0 Finger Stick Blood Glucose 290 Intake and Output for Last 24 Hours 02/25/20 02/26/20 02/27/20 23:59 23:59 23:59 Intake Total 7248.15 / 7248.15 1190 / 1190 280 / 280 Output Total 1974 1550 / 1974 750 / 750 Balance 5273.15 / 5273.15 -360 / -785 -470 / -470 Microbiology Past 72 Hours 02/25/20 07:24 Mucosa - Nose SARS-CoV-2 Antigen (Rapid) - Final SARS-CoV-2 (COVID 19) Laboratory Results 02/25/20 02:10: Antibody Screen NEGATIVE 02/26/20 09:11: POC Glucose 318 H 02/26/20 11:39: POC Glucose 228 H 02/26/20 12:00: Hgb 9.2 L, Hct 27.8 L 02/26/20 16:17: POC Glucose 236 H 02/26/20 16:45: Hgb 9.3 L, Hct 28.6 L 02/26/20 20:42: POC Glucose 311 H 02/26/20 21:30: Hgb 9.2 L, Hct 28.3 L 02/27/20 03:30: WBC 8.6, RBC 3.18 L, Hgb 9.2 L, Hct 28.1 L, MCV 88.4, MCH 28.9, MCHC 32.7, RDW Std Deviation 48.7 H, RDW Coeff of Tarik 15.2 H, Plt Count 173, MPV 10.4, Immature Gran % (Auto) 0.800, Neut % (Auto) 63.9, Lymph % (Auto) 23.6, [place] % (Auto) 6.5, Eos % (Auto) 4.7, Baso % (Auto) 0.5, Absolute Neuts (auto) 5.5, Absolute Lymphs (auto) 2.02, Nucleated RBC % 0 02/27/20 03:30: Sodium 138, Potassium 3.7, Chloride 108 H, Carbon Dioxide 25.0, Anion Gap 5, BUN 9, Creatinine 1.13, Estim Creat Clear Calc 62.21, Est GFR (MDRD) Af Amer 83, Est GFR (MDRD) Non-Af 69, BUN/Creatinine Ratio 8.0 L, Glucose 188 H, Calcium 7.8 L, Total Bilirubin 0.30, AST 16, ALT 22, Alkaline Phosphatase 66, Total Protein 5.5 L, Albumin 2.9 L, Globulin 2.6, Albumin/Globulin Ratio 1.1 Current Medications Acetaminophen (Acetaminophen 325 Mg Tablet) 650 mg PO Q6H PRN PRN PRN Reason: Pain Score 1-10/Temp > 100.7 F Last Admin: 02/25/20 20:50 Dose: 650 mg Documented by: Dextrose (Dextrose 50%-Water 25 Gm/50 Ml Disp.Syrin) 0 gm IV X1 PRN; Protocol PRN Reason: HYPOGLYCEMIA Hydralazine HCl (Hydralazine 20 Mg/Ml Vial) 10 mg IV Q4H PRN PRN PRN Reason: systolic > 160 Sodium Chloride () 250 mls @ 15 mls/hr IV .[id number] PRN PRN Reason: Saline Flush Sodium Chloride () 250 mls @ 15 mls/hr IV .[id number] PRN PRN Reason: Additional IVPB Infusion Insulin Glargine (Insulin Glargine 100 Units/Ml Pen) 40 units SC QHS [facility] Insulin Human Lispro (Insulin Lispro 100 Unit/Ml Insuln.Pen) 0 unit SC ACHS [facility]; Protocol Last Admin: 02/26/20 20:59 Dose: 9 u Documented by: Lisinopril (Lisinopril 20 Mg Tablet) 20 mg PO DAILY [facility] Last Admin: 02/26/20 14:56 Dose: 20 mg Documented by: Metoprolol Tartrate (Metoprolol Tartrate 25 Mg Tablet) 25 mg PO DAILY [facility] Ondansetron HCl (Ondansetron 4 Mg/2 Ml Vial) 4 mg IV Q8H PRN PRN PRN Reason: NAUSEA/VOMITING Last Admin: 02/25/20 21:55 Dose: 4 mg Documented by: Sodium Chloride (0.9% Saline Lock 10 Ml Syringe) 10 - 40 ml IV UD PRN PRN Reason: SALINE FLUSH Last Admin: 02/25/20 21:56 Dose: 10 ml Documented by: [facility] Vital Signs/Narrative: Vital Signs Temp Pulse Resp BP Pulse Ox 02/27/20 06:00 89 20 H 133/86 H 96 02/27/20 05:00 82 17 142/106 H 97 02/27/20 04:00 98.3 F 86 17 154/86 H 96 02/27/20 03:00 88 18 154/84 H 96 02/27/20 02:59 85 Medical Necessity - Tobacco Use Smoking Status: Former smoker - Patient smoked briefly as a teenager. Assessment/Plan All Active Problems Lower GI bleed (Acute) Hypovolemic shock (Acute) Hyperglycemia (Acute) Acute kidney injury (Acute) Acute blood loss anemia (Acute) GI bleed (Acute)
[2020-02-27] MEDS: Insulin Lispro 100 UNIT/ML INSULN.PEN SC ×3 (06:54→16:34)
[2020-02-27 07:05] LABS: Bedside Glucose 214 mg/dL (70-110)
[2020-02-27] MEDS: Lisinopril 20 MG Tablet PO (07:47)
[2020-02-27] MEDS: Metoprolol Tartrate 25 MG Tablet PO (07:48)
[2020-02-27 11:30] LABS: Bedside Glucose 337 mg/dL (70-110)
--- NOTE | 2020-02-27 13:15 | PCM.PN.SRG ---
Patient Problems: Active and Suspected Problems Lower GI bleed (Acute) Hypovolemic shock (Acute) Hyperglycemia (Acute) Acute kidney injury (Acute) Acute blood loss anemia (Acute) GI bleed (Acute) Subjective: Patient had no bloody bowel movements overnight no abdominal pain - Physical Exam Vitals/I&O's: Vital Signs Temp Pulse Resp BP Pulse Ox 96.9 F L 84 20 H 110/71 98 02/27/20 07:55 02/27/20 11:00 02/27/20 11:00 02/27/20 11:00 02/27/20 10:08 Oxygen Flow Rate (L/min) 2 Oxygen Delivery Method Room Air Weight: 230 lb 6.129 oz Body Mass Index (BMI) 34.0 Finger Stick Blood Glucose 290 Intake and Output for Last 24 Hours 02/25/20 02/26/20 02/27/20 23:59 23:59 23:59 Intake Total 7248.15 / 7248.15 1190 / 1190 280 / 280 Output Total 1974 1550 / 1974 750 / 750 Balance 5273.15 / 5273.15 -360 / -785 -470 / -470 General: Alert, Oriented x3 Lungs: Clear to auscultation, Normal air movement Abdomen: Soft, Non Tender, Non-Distended Microbiology Past 72 Hours 02/25/20 07:24 Mucosa - Nose SARS-CoV-2 Antigen (Rapid) - Final SARS-CoV-2 (COVID 19) Laboratory Results 02/26/20 16:17: POC Glucose 236 H 02/26/20 16:45: Hgb 9.3 L, Hct 28.6 L 02/26/20 20:42: POC Glucose 311 H 02/26/20 21:30: Hgb 9.2 L, Hct 28.3 L 02/27/20 03:30: WBC 8.6, RBC 3.18 L, Hgb 9.2 L, Hct 28.1 L, MCV 88.4, MCH 28.9, MCHC 32.7, RDW Std Deviation 48.7 H, RDW Coeff of Tarik 15.2 H, Plt Count 173, MPV 10.4, Immature Gran % (Auto) 0.800, Neut % (Auto) 63.9, Lymph % (Auto) 23.6, [place] % (Auto) 6.5, Eos % (Auto) 4.7, Baso % (Auto) 0.5, Absolute Neuts (auto) 5.5, Absolute Lymphs (auto) 2.02, Nucleated RBC % 0 02/27/20 03:30: Sodium 138, Potassium 3.7, Chloride 108 H, Carbon Dioxide 25.0, Anion Gap 5, BUN 9, Creatinine 1.13, Estim Creat Clear Calc 62.21, Est GFR (MDRD) Af Amer 83, Est GFR (MDRD) Non-Af 69, BUN/Creatinine Ratio 8.0 L, Glucose 188 H, Calcium 7.8 L, Total Bilirubin 0.30, AST 16, ALT 22, Alkaline Phosphatase 66, Total Protein 5.5 L, Albumin 2.9 L, Globulin 2.6, Albumin/Globulin Ratio 1.1 02/27/20 06:51: POC Glucose 214 H 02/27/20 11:23: POC Glucose 337 H Current Medications Acetaminophen (Acetaminophen 325 Mg Tablet) 650 mg PO Q6H PRN PRN PRN Reason: Pain Score 1-10/Temp > 100.7 F Last Admin: 02/25/20 20:50 Dose: 650 mg Documented by: Dextrose (Dextrose 50%-Water 25 Gm/50 Ml Disp.Syrin) 0 gm IV X1 PRN; Protocol PRN Reason: HYPOGLYCEMIA Hydralazine HCl (Hydralazine 20 Mg/Ml Vial) 10 mg IV Q4H PRN PRN PRN Reason: systolic > 160 Sodium Chloride () 250 mls @ 15 mls/hr IV .[id number] PRN PRN Reason: Saline Flush Sodium Chloride () 250 mls @ 15 mls/hr IV .[id number] PRN PRN Reason: Additional IVPB Infusion Insulin Glargine (Insulin Glargine 100 Units/Ml Pen) 40 units SC QHS JOHNNY Insulin Human Lispro (Insulin Lispro 100 Unit/Ml Insuln.Pen) 0 unit SC ACHS [facility]; Protocol Last Admin: 02/27/20 11:25 Dose: 12 u Documented by: Lisinopril (Lisinopril 20 Mg Tablet) 20 mg PO DAILY [facility] Last Admin: 02/27/20 07:47 Dose: 20 mg Documented by: Metoprolol Tartrate (Metoprolol Tartrate 25 Mg Tablet) 25 mg PO DAILY [facility] Last Admin: 02/27/20 07:48 Dose: 25 mg Documented by: Ondansetron HCl (Ondansetron 4 Mg/2 Ml Vial) 4 mg IV Q8H PRN PRN PRN Reason: NAUSEA/VOMITING Last Admin: 02/25/20 21:55 Dose: 4 mg Documented by: Sodium Chloride (0.9% Saline Lock 10 Ml Syringe) 10 - 40 ml IV UD PRN PRN Reason: SALINE FLUSH Last Admin: 02/25/20 21:56 Dose: 10 ml Documented by: Medical Necessity - Tobacco Use Smoking Status: Former smoker - Patient smoked briefly as a teenager. Assessment/Plan All Active Problems Lower GI bleed (Acute) Hypovolemic shock (Acute) Hyperglycemia (Acute) Acute kidney injury (Acute) Acute blood loss anemia (Acute) GI bleed (Acute) 64-year-old male with GI bleed 1. Patient had colonoscopy yesterday with blood throughout the colon. Although was old blood and there was no fresh bright red bleeding. Patient had extensive diverticulosis. Patient had no bleeding overnight and his hemoglobin is stable. 2. Patient was advanced to a regular diet and does not seem to be having any active bleeding. Hemoglobin was stable at night. Patient may be discharged today and follow-up if there is any further bleeding or he can follow-up with me in the office. Markel Lowery MD Pager: [facility] [address] [place] [address], [address] [place] [address] Office:
--- NOTE | 2020-02-27 14:49 | PCM.DC ---
- Discharge Diagnoses Current Active Problems: Current Active and Chronic Problems 1. Acute Hypovolemic Shock secondary to Hemorrhagic Shock secondary to Acute GI bleed with Acute Blood Loss Anemia, Suspected Diverticular 2. DKA w/ Diabetes mellitus type II, uncontrolled (HgbA1c 11.2) 3. Acute kidney injury, Secondary to #1 and #2 in addition to elevated dose of lisinopril likely contributing 4. Hypertension 5. Obesity 6. GERD You will use the following diet at home:: Calorie/Carbohydrate Controlled (specify 1200, 1400, etc) - ADA 1800/Cardiac diet Your food should be the consistency of: Regular Your liquids should be the consistency of: Regular/Thin Discharge Activity: - - Avoid aggressive activity until re-evaluation per your primary care physician. May resume sexual activity in: 10-14 days Call your doctor if you observe: Fever of 101 or Higher, Inability to urinate, Inability to have a bowel movement, Shortness of breath, Dizziness, Fainting spells, Chest pain, Uncontrolled pain, - - Recurrent bleeding per rectum. Instructions: Lower GI Endoscopy, When You Have Gastrointestinal (GI) Bleeding, Anemia, Using Injected Insulin, Types of Insulin, Healthy Meals for Diabetes, Hyperglycemia (High Blood Sugar) Additional Instructions: Please have repeat complete blood count and basic metabolic panel with your primary care physician. Upon presentation you had significant acute kidney injury likely related with DKA as well as GI bleed however some concern for elevated dose of lisinopril. Unclear exactly how much elevated dose of lisinopril contributed therefore we have decreased the dose to 20 mg once daily and added an additional regimen. Please have repeat labs with your primary care physician and this dose may be altered pending your reevaluation and blood pressure at that time as well as renal function. Please continue your elevated dose of long-acting insulin and to keep a blood sugar log to bring with you to your doctor's visit to ascertain if further changes are needed, either elevated doses or reduction. Likely, given your elevated HgbA1c 11.2% you will need increases and possibly twice daily long-acting dosage. Allergies/Adverse Reactions: Allergies No Known Allergies Allergy (Verified 02/25/20 01:59) Medications to take at Discharge Insulin Aspart [Novolog Flexpen] 12 units SC TID@0730,1130,1630 30 Days flexpen 03/04/15 Insulin Glargine [Lantus SoloStar Pen] 50 units SC QHS #1 pen 02/27/20 Lisinopril [Zestril] 40 mg PO DAILY #30 tab 02/27/20 Metoprolol Tartrate [Lopressor (beta geoffrey)] 12.5 mg PO BID #60 tab 02/27/20 The following prescriptions were given: Insulin Glargine [Lantus SoloStar Pen] 50 units SC QHS #1 pen Transmission Status: Pending to [facility] Metoprolol Tartrate [Lopressor (beta geoffrey)] 12.5 mg PO BID #60 tab Transmission Status: Pending to [facility] Lisinopril [Zestril] 40 mg PO DAILY #30 tab Transmission Status: Pending to [facility] Primary Care Physician: Constanza Wooten MD [Primary Care Provider] - Please follow up with your Primary Care Physician in: Follow-up within 2-3 days to review admission. Test Results: Test results from this visit will be discussed in further detail at your follow-up appointment, if applicable. Please Follow Up With: Markel Lowery MD When: Follow-up if any recurrent rectal bleeding, call with concerns. Proposed Discharge Date: 02/27/20
--- NOTE | 2020-02-27 14:56 | DS.PCM_ITS ---
Discharge Date and Diagnosis - Problem List Patient Problems: Active and Suspected Problems Lower GI bleed (Acute) Hypovolemic shock (Acute) Hyperglycemia (Acute) Acute kidney injury (Acute) Acute blood loss anemia (Acute) GI bleed (Acute) Date of Admission: 02/25/20 Date of Discharge: 02/27/20 - Primary Discharge Diagnosis Acute Problems: Active Problems 1. Acute Hypovolemic Shock secondary to Hemorrhagic Shock secondary to Acute GI bleed with Acute Blood Loss Anemia, Suspected Diverticular 2. DKA w/ Diabetes mellitus type II, uncontrolled (HgbA1c 11.2) 3. Acute kidney injury, Secondary to #1 and #2 in addition to elevated dose of lisinopril likely contributing 4. Hypertension 5. Obesity 6. GERD - Secondary Discharge Diagnosis Chronic Problems: Chronic Problems Diabetes (Chronic) HTN (hypertension) (Chronic) Hospital Course and Treatment Dr. Lowery, General surgery Dr. Mai, ICU Operations: None Procedures: Blood transfusion, Colonoscopy, EGD Summary of Care Provided: The patient is a 64 y/o M w/ PMHx: Obesity, Former Light Tobacco use, HTN, GERD, Diabetes mellitus type II who presented to the [facility] ED on 02/25/20 with history of 2 days history of progressively worsening hematochezia with no associated nausea or emesis with lightheadedness and dizziness prompting eventual ED presentation. Patient administered 2 unit trauma blood in the ED secondary to severity of appearance, admitted to the ICU, 1 additional unit PRBC on hold, director of managed care and general surgery following, initial rapid antigen testing for Covid positive however repeat PCR negative therefore false positive, lactic acid initially 12.5, most recent repeat 3.9, likely secondary to both #1 and #2 presentation, continue judicious hydration, coags not marked appearing, hemoglobin trending with 02/25/2020 hemoglobin 11.3-->02/26/20 AM 9.0, 02/25/20 EGD not marked, 02/26/[address] c-[address] Dr[address] Lowery with significant blood throughout the colon noted to be dark and maroon appearing with diverticulosis throughout, unclear exact source with recommendation for clears allowance and if recurrent bleeding plan Bleeding scan with noted significant diverticular disease. Continued H&H's were obtained which remained stable. Patient tolerated clears and diet was advanced to ADA full diet with no further bleeding with clearance per general surgery for discharge. General surgery noted patient may follow-up in the future as needed. Additionally, admission glucose 749, anion gap 19, serum osmolality 323, initiated and continued on insulin drip, repeated BMP serially until gap closure with hemoglobin A1c noted to be 11.2%. Once patient allowed oral intake transition from insulin drip to subcu insulin with further adjustments. Magnesium and phosphorus were supplemented as needed. Nutrition education and teaching was provided. At discharge encourage patient to follow-up with primary care physician, maintain appropriate diet and likely alter insulin regimen at follow-up visit. Admission patient with acute kidney injury secondary to hemorrhagic shock, DKA and possibility that elevated doses of lisinopril (60 mg daily) contributed with admission BUN/Cr 26/2.15, prior baseline creatinine noted to be 0.1-1.3, aggressively hydrated and PRBC administered as noted #1 and #2, repeat improving, 02/27/2020 BUN/creatinine 9/1.13, resolved. Significant presentation with hypovolemic shock secondary to blood loss as noted above, improved and stable Hgb but as noted notable blood on c-scope 02/26/20. Given improvement elevated blood pressures patient resumed on lisinopril at lower dose in addition to metoprolol with prescription given at discharge with recommended follow-up with primary care physician for repeat BMP and if no renal changes above what would be expected then consideration for increase lisinopril if necessary. Given clinical improvement, resolution of GI b leeding, stable hemoglobin patient discharged home in improved condition with follow-up with primary care physician and general surgery as needed. DAY OF DISCHARGE PROGRESS NOTE: Subjective: Patient without acute event overnight per self and nursing report. Patient with no further bleeding. Tolerating diet well. Patient denies fever, chills, nausea, emesis, abdominal pain, chest pain or dyspnea. Patient agreeable to discharge to home. Patient will be discharged with follow-up with primary care physician in addition to follow-up as needed with general surgery. Objective: T 98.3, heart rate 83, BP 124/67, respiratory rate 22, 96% on room air. Physical Examination: General: awake, alert, oriented x 3 and cooperative, seated upright in the ICU bed, improved appearance. Skin: Pale color, turgor, no icterus, cyanosis. HEENT: AT/NC, EOMI, PERRLA, MMM. Lungs: CTA bilaterally, moderate effort, moderate decrease BL bases, no rales, ronchi or wheezing. Heart: Improved, regular rate and regular rhythm; no gallop, rub audible. Abdomen: soft, obese, NTTP, no obviously discernible distention but larger abdomen, normalized bowel sounds. Extremities: no cyanosis, clubbing, or edema. Neurological: patient awake, alert, oriented as noted; cognitive function appears near baseline intact but fatigued appearing; pupils equally reactive to light and accomodation; cranial nerves II-XII grossly normal, moving all 4 extremities, no focal deficits, strength improved, mildly to moderately global decreased. Psychiatric: affect appears normal, no acute evidence of depressive or anxiety feelings. Assessment and Plan: Please see hospital summary above. Patient Problems: Active and Suspected Problems Lower GI bleed (Acute) Hypovolemic shock (Acute) Hyperglycemia (Acute) Acute kidney injury (Acute) Acute blood loss anemia (Acute) GI bleed (Acute) - Physical Exam Vitals/I&O's: Vital Signs Temp Pulse Resp BP Pulse Ox 98.3 F 93 22 H 124/67 H 96 02/27/20 12:00 02/27/20 14:00 02/27/20 14:00 02/27/20 14:00 02/27/20 14:00 Oxygen Flow Rate (L/min) 2 Oxygen Delivery Method Room Air Weight: 230 lb 6.129 oz Body Mass Index (BMI) 34.0 Finger Stick Blood Glucose 290 Intake and Output for Last 24 Hours 02/25/20 02/26/20 02/27/20 23:59 23:59 23:59 Intake Total 7248.15 / 7248.15 1190 / 1190 580 / 580 Output Total 1974 1550 / 1974 1100 / 1100 Balance 5273.15 / 5273.15 -360 / -785 -520 / -520 Microbiology Past 72 Hours 02/25/20 07:24 Mucosa - Nose SARS-CoV-2 Antigen (Rapid) - Final SARS-CoV-2 (COVID 19) Laboratory Results 02/26/20 16:17: POC Glucose 236 H 02/26/20 16:45: Hgb 9.3 L, Hct 28.6 L 02/26/20 20:42: POC Glucose 311 H 02/26/20 21:30: Hgb 9.2 L, Hct 28.3 L 02/27/20 03:30: WBC 8.6, RBC 3.18 L, Hgb 9.2 L, Hct 28.1 L, MCV 88.4, MCH 28.9, MCHC 32.7, RDW Std Deviation 48.7 H, RDW Coeff of Tarik 15.2 H, Plt Count 173, MPV 10.4, Immature Gran % (Auto) 0.800, Neut % (Auto) 63.9, Lymph % (Auto) 23.6, [place] % (Auto) 6.5, Eos % (Auto) 4.7, Baso % (Auto) 0.5, Absolute Neuts (auto) 5.5, Absolute Lymphs (auto) 2.02, Nucleated RBC % 0 02/27/20 03:30: Sodium 138, Potassium 3.7, Chloride 108 H, Carbon Dioxide 25.0, Anion Gap 5, BUN 9, Creatinine 1.13, Estim Creat Clear Calc 62.21, Est GFR (MDRD) Af Amer 83, Est GFR (MDRD) Non-Af 69, BUN/Creatinine Ratio 8.0 L, Glucose 188 H, Calcium 7.8 L, Total Bilirubin 0.30, AST 16, ALT 22, Alkaline Phosphatase 66, Total Protein 5.5 L, Albumin 2.9 L, Globulin 2.6, Albumin/Globulin Ratio 1.1 02/27/20 06:51: POC Glucose 214 H 02/27/20 11:23: POC Glucose 337 H Current Medications Acetaminophen (Acetaminophen 325 Mg Tablet) 650 mg PO Q6H PRN PRN PRN Reason: Pain Score 1-10/Temp > 100.7 F Last Admin: 02/25/20 20:50 Dose: 650 mg Documented by: Dextrose (Dextrose 50%-Water 25 Gm/50 Ml Disp.Syrin) 0 gm IV X1 PRN; Protocol PRN Reason: HYPOGLYCEMIA Hydralazine HCl (Hydralazine 20 Mg/Ml Vial) 10 mg IV Q4H PRN PRN PRN Reason: systolic > 160 Sodium Chloride () 250 mls @ 15 mls/hr IV .[id number] PRN PRN Reason: Saline Flush Sodium Chloride () 250 mls @ 15 mls/hr IV .[id number] PRN PRN Reason: Additional IVPB Infusion Insulin Glargine (Insulin Glargine 100 Units/Ml Pen) 40 units SC QHS [facility] Insulin Human Lispro (Insulin Lispro 100 Unit/Ml Insuln.Pen) 0 unit SC [facility]; Protocol Last Admin: 02/27/20 11:25 Dose: 12 u Documented by: Lisinopril (Lisinopril 20 Mg Tablet) 20 mg PO DAILY [facility] Last Admin: 02/27/20 07:47 Dose: 20 mg Documented by: Metoprolol Tartrate (Metoprolol Tartrate 25 Mg Tablet) 25 mg PO DAILY [facility] Last Admin: 02/27/20 07:48 Dose: 25 mg Documented by: Ondansetron HCl (Ondansetron 4 Mg/2 Ml Vial) 4 mg IV Q8H PRN PRN PRN Reason: NAUSEA/VOMITING Last Admin: 02/25/20 21:55 Dose: 4 mg Documented by: Sodium Chloride (0.9% Saline Lock 10 Ml Syringe) 10 - 40 ml IV UD PRN PRN Reason: SALINE FLUSH Last Admin: 02/25/20 21:56 Dose: 10 ml Documented by: Discharge Activity: - - Avoid aggressive activity until re-evaluation per your primary care physician. May resume sexual activity in: 10-14 days Call your doctor if you observe: Fever of 101 or Higher, Inability to urinate, Inability to have a bowel movement, Shortness of breath, Dizziness, Fainting spells, Chest pain, Uncontrolled pain, - - Recurrent bleeding per rectum. Home Medications: Medications to take at Discharge Insulin Aspart [Novolog Flexpen] 12 units SC TID@0730,1130,1630 30 Days flexpen 03/04/15 Insulin Glargine [Lantus SoloStar Pen] 50 units SC QHS #1 pen 02/27/20 Lisinopril [Zestril] 40 mg PO DAILY #30 tab 02/27/20 Metoprolol Tartrate [Lopressor (beta geoffrey)] 12.5 mg PO BID #60 tab 02/27/20 Following Prescriptions Were Given to Patient: Insulin Glargine [Lantus SoloStar Pen] 50 units SC QHS #1 pen Transmission Status: Received by [facility] Metoprolol Tartrate [Lopressor (beta geoffrey)] 12.5 mg PO BID #60 tab Transmission Status: Received by [facility] Lisinopril [Zestril] 40 mg PO DAILY #30 tab Transmission Status: Received by [facility] Primary Care Physician: Constanza Wooten MD [Primary Care Provider] - Please follow up with your Primary Care Physician in: Follow-up within 2-3 days to review admission. Please Follow Up With: Markel Lowery MD When: Follow-up if any recurrent rectal bleeding, call with concerns. Patient Instructions: When You Have Gastrointestinal (GI) Bleeding, Anemia, Hyperglycemia (High Blood Sugar), Using Injected Insulin, Types of Insulin, Healthy Meals for Diabetes, Lower GI Endoscopy Disposition: Home Minutes spent on discharge:: 35 Patient Condition:: Fair Medical Necessity - Tobacco Use Smoking Status: Former smoker - Patient smoked briefly as a teenager. Meaningful Use Info Meaningful Use Diagnoses (Choose all that apply): None applicable Inpatient E&M: [id number] [facility]
--- NOTE | 2020-02-27 15:49 | CASEMGMT ---
Addendum entered by Miguel Angel Head 02/27/20 16:11: Per [facility]- this prescription policy has and the patient does not have pharmacy coverage or the means to pay for it at this time. Call to Yue MONTIEL who will complete pharmacy assist. -Call to [facility] to update and they will bring prescriptions to patient's room. -Maria Teresa Mike Nurse updated, and patient updated that this assist program can only be utilized once a year. Encouraged pt to enroll in prescription program when able. Original Note: Pt does not have insurance card here. Pharmacy bill is $185.73. Patient states he has [employer] pharmacy benefits but no card. Call to [employer] @ . Subscriber information received. [employer] Rx ID [id number] GRP: PDP IND BIN: [id number] -Information given to [facility] and they will attempt to process. Lizet HASTINGSN RN ACM
[2020-02-27 16:06] LABS: Bedside Glucose 281 mg/dL (70-110)
--- NOTE | 2020-02-27 16:18 | CASEMGMT ---
Hospital prescription assist implemented, resources for prescription assistance provided. LIGIA Brandt
--- NOTE | 2020-02-27 16:39 | NURSING ---
message left for friend Josef to pick-up patient as he has been discharged
--- NOTE | 2020-02-27 17:38 | NURSING ---
message left for Kip to pick-up patient as he has been discharge
--- NOTE | 2020-02-27 18:05 | NURSING ---
discharged with belongings & meds with instructions per wheelchair in care of Kip
== END 2020-02-27 18:00 | disposition home or self-care (01) | DRG 377 ==
LOC: ED 03:53 → ICU 04:27
PROVIDERS: Internal Medicine Critical Care Medicine; Surgery; Admitting Provider Hospitalist; Emergency Provider Emergency Medicine; PCP Internal Medicine; Referring Provider Hospitalist; Visit Provider Family Medicine
PROC: 0DJ08ZZ Inspection of Upper Intestinal Tract, Via Natural or Artificial Opening Endoscopic (ICD-10-PCS; CPT 43235; principal; 2020-02-25 13:40)
PROC: 0DJD8ZZ Inspection of Lower Intestinal Tract, Via Natural or Artificial Opening Endoscopic (ICD-10-PCS; CPT 45378; principal; 2020-02-26 10:25)
DX: K92.2 Gastrointestinal hemorrhage, unspecified (principal); E11.10 Type 2 diabetes mellitus with ketoacidosis without coma; E11.00 Type 2 diabetes mellitus with hyperosmolarity without nonketotic hyperglycemic-hyperosmolar coma (NKHHC); R57.1 Hypovolemic shock; R57.8 Other shock; N17.9 Acute kidney failure, unspecified; D62 Acute posthemorrhagic anemia; E87.2 Acidosis; E11.65 Type 2 diabetes mellitus with hyperglycemia; E66.9 Obesity, unspecified; K57.31 Diverticulosis of large intestine without perforation or abscess with bleeding; Z68.34 Body mass index [BMI] 34.0-34.9, adult; I10 Essential (primary) hypertension; K21.9 Gastro-esophageal reflux disease without esophagitis; E86.0 Dehydration; Z87.891 Personal history of nicotine dependence; Z79.899 Other long term (current) drug therapy; Z79.4 Long term (current) use of insulin
CPT/HCPCS: 74177; 80048; 80053; 82009; 82962; 83036; 83605; 83735; 83930; 84100; 85014; 85018; 85025; 85610; 85730; 86850; 86900; 86901; 86920; 86922; 87426; 87635; 97803; 99285; J7030; J7050; J7120; P9016; Q9967; A4216; J2405; U0002

== ENCOUNTER 2020-07-02 23:39 | Emergency (ER) | payer MEDICARE, MEDICAID, SELFPAY ==
[2020-02-25 13:21] VITALS: BMI 34.0
--- NOTE | 2020-07-02 00:45 | RAD_ITS ---
STUDY: X-RAY - RIGHT KNEE REASON FOR EXAM: Male, 64 years old. Injury/Pain to right knee from fall. Pt is diabetic and has had multiple falls. TECHNIQUE: 4 view(s) of the knee. COMPARISON: None. FINDINGS: Normal visualized distal femur. Normal visualized proximal tibia and fibula. Normal proximal tibiofibular articulation. Normal medial femorotibial compartment. Normal lateral femorotibial compartment. Normal patellofemoral articulation. The soft tissue structures are unremarkable. RAD/Knee 4 or More Views IMPRESSION: Normal x-ray examination of the knee. Electronically Signed: Jimi Pascal DO at 1:49 EDT Tel , Service support ,
[2020-07-02 23:39] VITALS: BP 185/109; PULSE 63; RESP 18; TEMP 37.1; O2SAT 96; BMI 31.7
--- NOTE | 2020-07-02 23:57 | EKG12_ITS ---
Test Reason : FALL Blood Pressure : / mmHG Vent. Rate : 115 BPM Atrial Rate : 115 BPM P-R Int : 140 ms QRS Dur : 082 ms QT Int : 340 ms P-R-T Axes : 060 -55 073 degrees QTc Int : 470 ms Sinus tachycardia Left axis deviation Occasional PAC's Abnormal ECG Confirmed by JERE MAYORGA, FATIMAH ([id number]), staff editor NAVNEET CHAMPION ([id number]) on 07/05/2020 10:37:03 A M Referred By: YEFRI Confirmed By:DEION OQUENDO MD
--- NOTE | 2020-07-02 23:59 | ED.DCSUM_ITS ---
- ER Visit Summary Date of Service: 07/02/20 Chief Complaint: Fall History of Present Illness: The patient is a 64 M who sees . He reports that he was walking through the [employer]'s parking lot and fell. He is unsure why he fell. He did hit his head. He has a headache is 4-10 severity. He denies any loss of consciousness. He is not on anticoagulants. Complains of right knee pain is 5-10 in severity. Patient denies any neck, back, shoulder, wrist, or hip pain. Patient does have a history of diabetes mellitus and sounds as though he takes his insulin inconsistently. He does not check his blood sugar at home. The friend that he lives with reports he has been falling a lot lately. Patient reports that these episodes are preheat seeded by being lightheaded and having generalized weakness. He denies any chest pain, palpitations, or other complaints. Physical Examination: Vitals: Stable. Afebrile. Head: Abrasion to the left side of the forehead. No hematoma. Neck: No vertebral tenderness. Full ROM without difficulty. Cleared by NEXUS criteria. Back: No vertebral tenderness. General: A&O x 3. NAD. Cardiovascular exam: Tachycardic regular rhythm, no murmur, rub or gallop. Respiratory exam: Chest nontender. No crepitus. Clear to auscultation bilate rally. No wheezes or stridor. Abdominal exam: Soft, nontender, nondistended, normal bowel sounds. No pain in RUQ or LUQ specifically. No peritoneal signs. Extremity: Abrasion just distal to the right patella that is approximately 3 cm x 1 cm. Moderately tender to palpation. He has no tenderness palpation of the remainder of his knee. There is no effusion. He has no pain or ligamentous instability with anterior/posterior drawer.. No pain with range of motion. Test Results: EKG sinus tach at [address] changes and artifact. No acute changes. CBC shows segmented neutrophils 81 lymphocytes of 10. BMP shows a sodium of 134 which is actually 140 when corrected for his glucose of 47. BUN is 26 and creatinine is 1.97. Creatinine in 2020 range from 1.13?2.15. She serum ketones are negative. Hemoglobin A1c is 10.9 meaning his blood sugar has been 269 on average over the past 3 months. Clinical Impression(s) from Imaging Studies Knee X-Ray 07/02/20 00:45 IMPRESSION: Normal x-ray examination of the knee. Electronically Signed: Jimi Pascal DO at 1:49 EDT Tel , Service support , Brain CT 07/03/20 00:01 IMPRESSION: Chronic involutional changes of the brain. Electronically Signed: Jimi Pascal DO at 1:20 EDT Tel , Service support , Emergency Department Course and Treatment: Patient had an IV placed. He was given 2 liters of normal saline. He was given Tylenol p.o. Is given Adacel IM. He is resting more comfortably. Orthostatic vital signs are negative. Patient was given a dose of Lantus subcu. Treatment Plan: Patient seems to have a very limited understanding of diabetes mellitus. I feel that he would benefit from seeing an tool dispatcher. He will be discharged instructions to take his insulin as previously instructed. Also to check his blood sugars previously instructed. Follow-up with Dr. Gutierrez as soon as possible. Follow-up with his primary care physician in 3 to 5 days for another exam. Return to the emergency department for any worsening symptoms. Disposition: To home in improved and stable condition. Impression: 1. Fall. 2. Type 2 diabetes mellitus with hyperglycemia due to medication noncompliance. 3. Abrasion to forehead. 4. Right knee pain, acute. This note was generated with [employer] dictation software. It may contain incorrect words, spelling, and punctuation that were not noted in review of the chart prior to signing ED Disposition - Plan for ED Patient: Instructions: ED Fall with Uncertain Cause, ED Diabetic Hyperglycemia Referrals: Constanza Wooten MD [Primary Care Provider] - 3-5 Days Cliff Gutierrez MD [STAFF PHYSICIAN] - As soon as possible Additional Instructions: Take your insulin as previously directed. You need to check your blood sugar as previously directed as well. If you do not manage your diabetes well it is just a matter of time until you end up with sequela I from these including stroke, eye problems, heart problems, kidney problems, and problems with circulation.
--- NOTE | 2020-07-03 00:01 | CT_ITS ---
STUDY: CT BRAIN WITHOUT CONTRAST REASON FOR EXAM: Male, 64 years old. Injury/Pain RADIATION DOSAGE (If Supplied By Facility): CTDIvol = ( 44.99 ) mGy, DLP = ( 829.85 ) mGycm TECHNIQUE: Transaxial CT imaging of the brain was performed without administration of intravenous contrast material. Individualized dose optimization techniques were used for this CT. COMPARISON: No relevant priors. FINDINGS: Normal soft tissue structures. Normal calvarium. There is moderate cerebral atrophy with widening of the extra-axial spaces and ventricular dilatation. There are areas of decreased attenuation within the white matter tracts of the supratentorial brain, consistent with microvascular disease changes. Normal basal ganglia and thalami. Normal brainstem. There is mild cerebellar atrophy. There is no intracranial hemorrhage. There are no findings of an acute ischemic infarction. Normal visualized paranasal sinuses. CT/Brain/Head without Contrast IMPRESSION: Chronic involutional changes of the brain. Electronically Signed: Jimi Pascal DO at 1:20 EDT Tel , Service support ,
[2020-07-03 00:10] LABS: Absolute Lymphocyte Count 1.02 X10^3/uL (0.83-4.51); Absolute Neutrophil Count 8.3 X10^3/uL (2.0-7.7); Basophil# 0.03 X10^3/uL; Basophil% 0.3 % (0-1); Hematocrit 44.7 % (40-54); Hemoglobin 14.3 g/dL (13.0-16.5); Lymphocyte # 1.02 X10^3/ul (4.0); Mean Corpuscular Hgb 27.1 pg (27.0-32.0); Mean Corpuscular Volume 84.8 fL (80-94); Mean Platelet Vol. 10.7 fl (6.2-12.0); Monocyte# 0.79 X10^3/uL; Monocyte% 7.7 % (0-10); NRBC Flagged by Analyzer 0 % (0-5); Neutrophil # 8.28 X10^3/uL (2.7-7.7); Neutrophil % 80.7 % (47-70); Platelet Count 247 K/mm3 (150-450); RBC Distribution Width CV 14.6 % (11.6-14.6); RBC Distribution Width SD 45.1 fl (35.1-43.9); Red Blood Count 5.27 M/mm3 (4.6-6.2); White Blood Count 10.3 K/mm3 (4.4-11.0)
[2020-07-03] MEDS: Acetaminophen 500 MG Tablet 1000 MG PO (00:17)
[2020-07-03] MEDS: Diphth,Pertuss(Acell),Tet Vac 0.5 ML Vial IM (00:17)
[2020-07-03] MEDS: 0.9% Normal Saline 1,000 ML 999 ML IV ×2 (00:18→01:26)
[2020-07-03 00:22] VITALS: BP 148/104; BP 148/88; BP 153/104; PULSE 104; PULSE 107; PULSE 112
[2020-07-03 00:26] LABS: Anion Gap 11 (5-15); BUN 26 mg/dL (7-18); BUN/Creat Ratio 13.2 RATIO (10-20); Calcium,Total 8.8 mg/dL (8.5-10.1); Chloride 100 mmol/L (98-107); Creatinine, Serum 1.97 mg/dL (0.70-1.30); EST Glomerular Filtration Rate 36 mL/min (>60); Est Glom Filt Rate - Afr Amer 44 mL/min (>60); Estimated Creatinine Clearance 36.89 ml/min; Glucose 487 mg/dL (74-106); Potassium 4.5 mmol/L (3.5-5.1); Sodium Level 134 mmol/L (136-145)
[2020-07-03 00:35] LABS: Hemoglobin A1c 10.9 % (3.8-5.6)
[2020-07-03 01:17] VITALS: BP 141/93; PULSE 97; RESP 16; O2SAT 98
[2020-07-03 02:21] LABS: Bedside Glucose 366 mg/dL (70-110)
[2020-07-03 02:50] VITALS: BP 141/82; PULSE 90; RESP 16; O2SAT 99
== END 2020-07-03 03:00 | disposition home or self-care (01) ==
PROVIDERS: Emergency Provider Emergency Medicine; PCP Internal Medicine
DX: S00.81XA Abrasion of other part of head, initial encounter (principal); M25.561 Pain in right knee; I49.1 Atrial premature depolarization; W19.XXXA Unspecified fall, initial encounter; Y93.01 Activity, walking, marching and hiking; Y92.481 Parking lot as the place of occurrence of the external cause; E11.65 Type 2 diabetes mellitus with hyperglycemia; Z79.4 Long term (current) use of insulin; Z91.14 Patient's other noncompliance with medication regimen; I10 Essential (primary) hypertension; Z79.899 Other long term (current) drug therapy
CPT/HCPCS: 70450; 73564; 80048; 82009; 82962; 83036; 85025; 90715; 93005; 96360; 96361; 96372; 99285; J7030; A4216

== ENCOUNTER 2020-07-21 16:04 | Emergency (ER) | payer MEDICARE, MEDICAID, SELFPAY ==
[2020-07-21 16:05] VITALS: BP 138/76; PULSE 111; RESP 18; TEMP 36.3; O2SAT 95; BMI 32.2
[2020-07-21 16:16] LABS: Bedside Glucose 386 mg/dL (70-110)
--- NOTE | 2020-07-21 16:33 | EKG12_ITS ---
Test Reason : DIZZINESS Blood Pressure : / mmHG Vent. Rate : 098 BPM Atrial Rate : 098 BPM P-R Int : 150 ms QRS Dur : 090 ms QT Int : 354 ms P-R-T Axes : 071 -40 069 degrees QTc Int : 451 ms Normal sinus rhythm Left axis deviation Abnormal ECG Confirmed by JERE MAYORGA, FATIMAH ([id number]), business editor LIBERTAD JUAN ([id number]) on 07/23/2020 2:41:38 PM Referred By: ABEL Confirmed By:DEION OQUENDO MD
--- NOTE | 2020-07-21 16:37 | ED.DCSUM_ITS ---
- ER Visit Summary Date of Service: 07/21/20 Chief Complaint: Dizziness History of Present Illness: The patient is a 64 M presenting with dizziness. Patient states that he was lightheaded and this caused him to fall. He did not hit his head or lose consciousness. Friend states he fell also a couple weeks ago when he was dizzy. He has history of insulin-dependent diabetes. He states he does not have a glucometer so he is not able to check his blood sugar at home. He believes his blood sugar was high today. He denies chest pain or shortness of breath. Denies abdominal pain, nausea, vomiting, diarrhea. Denies numbness or weakness. Denies headache. He feels improved while seated. Denies other complaints. Physical Examination: Vitals are stable. Patient is afebrile. Alert no acute distress. HEENT exam is unremarkable. Neck is supple. Lungs are clear and equal bilaterally. Heart is regular rate and rhythm. Abdomen is soft nontender nondistended. Extremities are unremarkable. Skin is warm and dry. No focal neurologic deficit. Normal strength and sensation Remainder of exam is unremarkable. Emergency Department Course and Treatment: Patient was given IV fluids. EKG is sinus rhythm rate of 98 with no acute ischemic changes. CBC, chemistries unremarkable other than hemoglobin 12.6, potassium 132, glucose 372, BUN 27, creatinine 1.76. Creatinine is near his baseline. He was given IV fluids and subcutaneous insulin. Orthostatics negative. Repeat blood sugar 333. Patient feels improved in the ED. He was able to ambulate with a steady gait. He denies dizziness. Denies other symptoms. He will follow-up with his primary care physician. Advised return to ED for worsening complaints. Disposition: Discharge home Impression: Hyperglycemia, dizziness, resolved This note was generated with [employer] dictation software. It may contain incorrect words, spelling, and punctuation that were not noted in review of the chart prior to signing ED Disposition - Plan for ED Patient: Instructions: ED Diabetic Hyperglycemia Referrals: Constanza Wooten MD [Primary Care Provider] -
[2020-07-21] MEDS: 0.9% Normal Saline 1,000 ML 999 ML IV ×2 (16:46→19:11)
[2020-07-21 17:00] LABS: Absolute Neutrophil Count 7.1 X10^3/uL (2.0-7.7); Basophil# 0.05 X10^3/uL; Basophil% 0.6 % (0-1); Eosinophils% 1.1 % (0-5); Hematocrit 40.3 % (40-54); Hemoglobin 12.6 g/dL (13.0-16.5); Lymphocyte % 13.3 % (19-41); Mean Corp Hgb Conc 31.3 g/dL (32-36); Mean Corpuscular Hgb 27.2 pg (27.0-32.0); Mean Corpuscular Volume 86.9 fL (80-94); Mean Platelet Vol. 10.2 fl (6.2-12.0); Monocyte# 0.54 X10^3/uL; NRBC Flagged by Analyzer 0 % (0-5); Neutrophil # 7.07 X10^3/uL (2.7-7.7); Neutrophil % 78.7 % (47-70); Platelet Count 323 K/mm3 (150-450); RBC Distribution Width CV 15.5 % (11.6-14.6); RBC Distribution Width SD 48.5 fl (35.1-43.9); Red Blood Count 4.64 M/mm3 (4.6-6.2)
[2020-07-21 17:18] LABS: Anion Gap 7 (5-15); BUN 27 mg/dL (7-18); BUN/Creat Ratio 15.3 RATIO (10-20); Chloride 100 mmol/L (98-107); Creatinine, Serum 1.76 mg/dL (0.70-1.30); EST Glomerular Filtration Rate 41 mL/min (>60); Est Glom Filt Rate - Afr Amer 50 mL/min (>60); Estimated Creatinine Clearance 39.94 ml/min; Glucose 372 mg/dL (74-106); Potassium 4.6 mmol/L (3.5-5.1); Sodium Level 132 mmol/L (136-145)
[2020-07-21 17:33] VITALS: BP 173/116; BP 176/112; BP 183/114; PULSE 100; PULSE 88; PULSE 91
[2020-07-21] MEDS: Insulin Lispro 100 UNIT/ML INSULN.PEN 10 UNIT SC ×2 (17:49→19:11)
[2020-07-21 18:40] LABS: Bedside Glucose 333 mg/dL (70-110)
[2020-07-21 19:56] LABS: Bedside Glucose 344 mg/dL (70-110)
[2020-07-21 20:00] VITALS: BP 161/96; PULSE 79; RESP 16; O2SAT 96
--- NOTE | 2020-07-21 20:26 | ED.DEP ---
ED Disposition - Plan for ED Patient: Instructions: ED Diabetic Hyperglycemia Referrals: Constanza Wooten MD [Primary Care Provider] -
[2020-07-21] MEDS: Acetaminophen 500 MG Tablet 1000 MG PO (20:38)
[2020-07-21 20:52] VITALS: BP 162/96; PULSE 78; RESP 16; O2SAT 96
== END 2020-07-21 20:57 | disposition home or self-care (01) ==
LOC: ED 16:46
PROVIDERS: Emergency Provider Emergency Medicine; PCP Internal Medicine
DX: E11.65 Type 2 diabetes mellitus with hyperglycemia (principal); R42 Dizziness and giddiness; W19.XXXA Unspecified fall, initial encounter; Z91.81 History of falling; Y93.9 Activity, unspecified; Y92.9 Unspecified place or not applicable; I10 Essential (primary) hypertension; Z79.4 Long term (current) use of insulin; Z79.899 Other long term (current) drug therapy
CPT/HCPCS: 80048; 82962; 84484; 85025; 93005; 96360; 96361; 96372; 99283; J7030; A4216

== ENCOUNTER 2020-07-25 20:49 | Emergency (ER) | payer MEDICARE, MEDICAID, SELFPAY ==
[2020-07-25 20:50] VITALS: BP 136/92; PULSE 99; RESP 18; TEMP 36.6; O2SAT 97; BMI 34.4
--- NOTE | 2020-07-25 21:19 | ED.VIS.GEN ---
History of Present Illness Chief Complaint: Headache Narrative: Patient is a 64-year-old male who presents with a headache. He states I get these all the time. It is similar to prior headaches but more severe. It was of gradual onset throughout the day. No head injury. He is not anticoagulated. No fevers. No nausea or vomiting. No light sensitivity. No congestion or rhinorrhea. Incidentally he also had a CT within the last month of his head which showed chronic changes only. Past Medical History - Allergies and Home Meds Allergies/Adverse Reactions: Allergies No Known Allergies Allergy (Verified 07/25/20 20:52) Primary Care Physician: Constanza Wooten MD [Primary Care Provider] - Past Medical History: - - Diabetes, hypertension Surgical History: cataract, - - Surgery for hydrocele Smoking Status: Never smoker - Family History Paternal Family History: Reports: Heart Disease - His father from heart attack at the age of 58 Maternal Family History: Reports: Pulmonary Disease - His mother had pleurisy, - Review of Systems All systems negative except as indicated General: Denies: Fever Eyes: Denies: Visual changes - bilaterally ENT: Denies: Bilateral ear pain Cardiovascular: Denies: Chest pain Respiratory: Denies: Dyspnea Gastrointestinal: Denies: Nausea, Vomiting Skin: Denies: Rash Neurological: Reports: Headache Hematologic: Denies: Easy bruising Allergy: Denies: Uticaria Physical Exam Vital Signs/Narrative: Vital Signs Temp Pulse Resp BP Pulse Ox 07/25/20 20:50 97.8 F 99 18 136/92 H 97 Inital Vital Signs reviewed: Yes General: Well nourished Head: Normocephalic Eyes: EOMI ENT: Moist mucous membranes Neck: Supple Cardiovascular: Regular rate, Regular rhythm Respiratory: No distress, CTA bilaterally Abdomen: Soft Neurological: Alert, Oriented x3, - - No focal or lateralizing neurological deficits, normal strength, normal sensation Psychological: Normal affect Diagnostic/Tx/Re-eval - Medical Decision Making Patient was treated with IV fluids, Toradol, Reglan. He feels much better on reevaluation. Patient discharged. ED Disposition - Plan for ED Patient: Disposition: Home or Assisted Living Diagnosis: Headache Instructions: ED Headache Unspecified Referrals: Constanza Wooten MD [Primary Care Provider] -
[2020-07-25] MEDS: Ketorolac 30 MG/ML Syringe IV (21:25)
[2020-07-25] MEDS: 0.9% Normal Saline 1,000 ML 999 ML IV (21:25)
[2020-07-25] MEDS: Metoclopramide 10 MG/2 ML Vial IV (21:25)
[2020-07-25 23:06] VITALS: BP 125/71; PULSE 84; RESP 18; O2SAT 99
== END 2020-07-25 23:07 | disposition home or self-care (01) ==
PROVIDERS: Emergency Provider Emergency Medicine; PCP Internal Medicine
DX: R51.9 Headache, unspecified (principal); I10 Essential (primary) hypertension; E11.9 Type 2 diabetes mellitus without complications; Z79.4 Long term (current) use of insulin; Z79.899 Other long term (current) drug therapy
CPT/HCPCS: 99282; J7030

== ENCOUNTER 2020-08-10 15:45 | Emergency (ER) | payer MEDICARE, MEDICAID, SELFPAY ==
[2020-08-10 15:45] VITALS: BP 135/95; PULSE 109; RESP 16; TEMP 36.2; O2SAT 96; BMI 32.6
--- NOTE | 2020-08-10 15:59 | EKG12_ITS ---
Test Reason : WEAKNESS Blood Pressure : / mmHG Vent. Rate : 099 BPM Atrial Rate : 099 BPM P-R Int : 144 ms QRS Dur : 088 ms QT Int : 352 ms P-R-T Axes : 073 -45 070 degrees QTc Int : 451 ms Normal sinus rhythm Left axis deviation Abnormal ECG Confirmed by ABIOLA MAYORGA, SRINIVASA ([id number]), digital editor NAVNEET CHAMPION ([id number]) on 08/12/2020 9:12:51 AM Referred By: CL Confirmed By:SRINIVASA CULVER MD
--- NOTE | 2020-08-10 15:59 | CT_ITS ---
STUDY: CT BRAIN WITHOUT CONTRAST REASON FOR EXAM: Male, 64 years old. ataxia RADIATION DOSAGE (If Supplied By Facility): CTDIvol = ( 44.99 ) mGy, DLP = ( 829.85 ) mGycm TECHNIQUE: Transaxial CT imaging of the brain was performed without administration of intravenous contrast material. Individualized dose optimization techniques were used for this CT. COMPARISON: 07/03/2020 FINDINGS: Normal soft tissue structures. Normal calvarium. Normal size ventricles and extra-axial spaces for the patient''s age. There are areas of decreased attenuation within the white matter tracts of the supratentorial brain, consistent with microvascular disease changes. Normal basal ganglia and thalami. Normal brainstem. Normal cerebellum. There is no intracranial hemorrhage. There are no findings of an acute ischemic infarction. Normal visualized paranasal sinuses. CT/Brain/Head without Contrast IMPRESSION: Chronic involutional changes of the brain. Electronically Signed: Joon Corrales MD at 16:49 EDT , Service support ,
--- NOTE | 2020-08-10 16:01 | EX.ED.DYSGE1 ---
HPI History of Present Illness Chief Complaint: Weakness Narrative Narrative: 64-year-old male with past medical history of hypertension and diabetes presents with concern for weakness. Brought in by a friend who lives with states that he has been unsteady on his feet. Denies any falls with head injury. Patient states that he has had no chest pain, shortness of breath, nausea, vomiting, diarrhea, abdominal pain, urinary symptoms. States that his glucose has been labile at home. Patient does have machine but does not regularly check his glucose. Denies any headache, vision change, neck pain, slurred speech, extremity weakness. [facility] Medical History (Updated 08/10/20 @ 18:[address] Tesfaye Falcon, DO) Diabetes Hypertension Home Medications insulin aspart U-100 [Novolog Flexpen U-100 Insulin] 12 units SUBCUT TID@0730,1130,1630 30 Days flexpen 03/04/15 [Rx Last Taken Unknown] insulin glargine 50 units SC QHS #1 pen 02/27/20 [Rx Last Taken Unknown] lisinopril 40 mg PO DAILY #30 tab 02/27/20 [Rx Last Taken Unknown] metoprolol tartrate 12.5 mg PO BID #60 tab 02/27/20 [Rx Last Taken Unknown] Allergy/AdvReac Type Severity Reaction Status Date / Time No Known Allergies Allergy Verified 07/25/20 20:52 Social History Smoking Status: Never smoker [facility] ED Constitutional Constitutional ED: Denies chills, fever(s) or sweats Eyes Eyes: Denies blurry vision, change in vision or diplopia ENT ENT ED: Denies rhinorrhea or sore throat Cardiovascular Cardiovascular: Denies chest pain, orthopnea, palpitations or racing heartbeat Respiratory/Chest Respiratory/Chest: Denies cough, dyspnea, dyspnea on exertion, orthopnea or sputum Gastrointestinal Gastrointestinal: Denies abdominal pain, constipation, diarrhea, melena, nausea or vomiting Genitourinary Genitourinary ED: Denies dysuria, hematuria or urinary frequency Musculoskeletal Musculoskeletal: Denies arthralgias, myalgias or neck pain Integumentary Denies rash Neurologic Neurologic: Reports weakness; Denies headache(s) or paresthesias Psychiatric Psychiatric: Denies anxiety or depression Hematologic/Lymphatic Hematologic/Lymphatic: Denies easy bleeding or easy bruising Allergic/Immunologic Allergic/Immunologic ED: Denies mouth swelling or tongue swelling EXAM Physical Exam Const Vital Signs: 08/10/20 15:45 08/10/20 16:02 08/10/20 18:21 Temperature 97.2 F L Temperature Source Temporal Pulse Rate 109 H 87 Respiratory Rate 16 16 Respiratory Pattern Normal Blood Pressure 135/95 H 161/105 H Blood Pressure Mean 108 123 Pulse Ox 96 97 Oxygen Delivery Method Room Air Room Air Positive well nourished and well developed General Appearance ED: well developed HEENT Reports TM's clear and moist mucous membranes normocephalic and atraumatic Tympanic Membrane ED: Yes TM's clear Eyes PERRL and EOMs intact bilaterally Neck no lymphadenopathy, supple and no JVD Chest Wall inspection of chest normal Resp normal respiratory effort and clear to auscultation bilaterally Cardio regular rate, S1 normal heart sound, S2 normal heart sound and no murmurs Peripheral Pulses: pulses 2+ throughout GI soft to palpation, non-tender and non-distended Palpation: soft Back/Spine no CVA tenderness and no thoracic nor lumbar tenderness Extremity normal to inspection General Extremety ED: Negative for edema or tenderness General Extremity: Negative for edema Neuro oriented x3, CN's II-XII intact bilaterally and no sensory deficits noted Sensorium / Orientation: alert Motor Exam: strength 5/5 throughout Psych mental status grossly normal Skin no rashes or lesions noted MDM MDM MDM Narrative Medical decision making narrative: Patient appears well and nontoxic. Vital signs upon arrival show hypertension but otherwise within normal limits. No focal neurologic deficits. Patient is ambulatory. Lab work within normal limits other than chronic kidney disease as well as an elevated blood glucose. No signs of DKA. Urine shows no signs of infection. Given the patient stating that he was weak when ambulating CT brain was done which is also negative. Chest x-ray interpreted by myself shows no evidence of infiltrate or cardiomegaly. Radiology concurs. EKG nonischemic. Given the hyperglycemia patient was given 1 L of normal saline as well as 5 units of subcutaneous insulin. On the recheck of his glucose that his come down appropriately. Patient was advised that he needs to keep tighter control of his blood glucose. Advised to follow-up with his primary care provider. Patient agreeable and stable at time of discharge. Lab Data Labs: Laboratory Results - last 24 hr 08/10/20 08/10/20 08/10/20 16:03 16:05 16:05 WBC 8.6 RBC 5.07 Hgb 13.5 Hct 42.6 MCV 84.0 MCH 26.6 L MCHC 31.7 L RDW Std Deviation 43.7 RDW Coeff of Tarik 14.3 Plt Count 314 MPV 10.8 Immature Gran % (Auto) 0.500 Neut % (Auto) 73.9 H Lymph % (Auto) 17.1 L [place] % (Auto) 6.9 Eos % (Auto) 1.2 Baso % (Auto) 0.4 Absolute Neuts (auto) 6.3 Absolute Lymphs (auto) 1.46 Nucleated RBC % 0 Sodium 134 L Potassium 4.3 Chloride 102 Carbon Dioxide 22.0 Anion Gap 10 BUN 24 H Creatinine 1.89 H Estim Creat Clear Calc 37.20 Est GFR (MDRD) Af Amer 46 L Est GFR (MDRD) Non-Af 38 L BUN/Creatinine Ratio 12.7 Glucose 419 H Calcium 8.5 Total Bilirubin 0.20 AST 7 L ALT 20 Alkaline Phosphatase 92 Troponin I < 0.015 Total Protein 7.6 Albumin 3.8 Globulin 3.8 Albumin/Globulin Ratio 1.0 Urine Color Yellow Urine Clarity Clear Urine pH 5.0 Ur Specific [place] 1.020 Urine Protein 30 H Urine Glucose (UA) 1000 H Urine Ketones 5 H Urine Occult Blood Negative Urine Nitrite Negative Urine Bilirubin Negative Urine Urobilinogen Normal Ur Leukocyte Esterase Negative Urine RBC 0 SEEN Urine WBC 0 SEEN Ur Squamous Epith Cells 0 SEEN Urine Bacteria 0 SEEN Urine Mucus 0 SEEN POC Glucose 08/10/20 18:20 WBC RBC Hgb Hct MCV MCH MCHC RDW Std Deviation RDW Coeff of Tarik Plt Count MPV Immature Gran % (Auto) Neut % (Auto) Lymph % (Auto) [place] % (Auto) Eos % (Auto) Baso % (Auto) Absolute Neuts (auto) Absolute Lymphs (auto) Nucleated RBC % Sodium Potassium Chloride Carbon Dioxide Anion Gap BUN Creatinine Estim Creat Clear Calc Est GFR (MDRD) Af Amer Est GFR (MDRD) Non-Af BUN/Creatinine Ratio Glucose Calcium Total Bilirubin AST ALT Alkaline Phosphatase Troponin I Total Protein Albumin Globulin Albumin/Globulin Ratio Urine Color Urine Clarity Urine pH Ur Specific [place] Urine Protein Urine Glucose (UA) Urine Ketones Urine Occult Blood Urine Nitrite Urine Bilirubin Urine Urobilinogen Ur Leukocyte Esterase Urine RBC Urine WBC Ur Squamous Epith Cells Urine Bacteria Urine Mucus POC Glucose 273 H Radiography Chest X-Ray - ED: 1 View, Read by ED Physician, Read by Radiologist and Normal Diagnostic Testing: Radiology Impression Brain CT 08/10/20 15:59 IMPRESSION: Chronic involutional changes of the brain. Electronically Signed: Joon Corrales MD at 16:49 EDT , Service support , Chest X-Ray 08/10/20 16:20 IMPRESSION: Normal x-ray examination of the chest. Electronically Signed: Joon Corrales MD at 16:49 EDT , Service support , Rhythm Strip Rhythm Strip: Sinus Rhythm Rate: 99 Ectopy: None EKG Initial EKG: Attestation: I personally reviewed and interpreted this EKG as follows: Comments: Normal sinus rhythm at 99 bpm. VT interval 144 ms. QTC of 451 ms. Left a Discharge Plan Triage Chief Complaint: Weakness ED Provider: Tesfaye Falcon Dx/Rx/DC Orders Clinical Impression: Hyperglycemia Instructions: ED Diabetic Hyperglycemia Prescriptions: No Action insulin aspart U-100 [Novolog Flexpen U-100 Insulin] 100 UNITS/ML insulin pen 12 units subcut TID@0730,1130,1630 30 Days RF: 0 lisinopril 40 MG tablet 40 mg PO DAILY Qty: 30 RF: 0 metoprolol tartrate 25 MG tablet 12.5 mg PO BID Qty: 60 RF: 0 insulin glargine 100 UNITS/ML insulin pen 50 units SC QHS Qty: 1 RF: 0 Primary Care Provider: Constanza Wooten Referrals: Constanza Wooten MD [Primary Care Provider] - 2 Days Disposition Patient Disposition: Home, self care
[2020-08-10 16:06] LABS: Bacteria 0 SEEN /hpf (None Seen); Mucous, Urine 0 SEEN /hpf (<or=2+); Red Blood Cells-Urine 0 SEEN /hpf (0-5); Squamous Epithelial Cells - UA 0 SEEN /hpf (0-5); White Blood Cells 0 SEEN /hpf (0-5)
[2020-08-10 16:08] LABS: Color, Urine Yellow (Yellow); Glucose, Dipstick 1000 mg/dl (Normal); Ketone-Dipstick 5 mg/dl (Negative); Leukocyte Esterase-Dipstick Negative /ul (Negative); Nitrite-Dipstick Negative (Negative); Occult Blood-Urine Negative /ul (Negative); Protein-Dipstick 30 mg/dl (Negative); Urine Bilirubin Dipstick Negative (Negative); Urine Clarity Clear (Clear); Urine Urobilinogen Normal (Normal)
--- NOTE | 2020-08-10 16:20 | RAD_ITS ---
STUDY: X-RAY CHEST REASON FOR EXAM: Male, 64 years old. weakness TECHNIQUE: Single AP portable view of the chest. COMPARISON: 10/01/2016. FINDINGS: The lungs are clear and expanded. There is no demonstrated pleural abnormality. Normal size heart. Normal mediastinum and ruslan. Normal visualized pulmonary arteries. Normal visualized aortic arch and descending thoracic aorta. Normal visualized thoracic spine. Normal visualized ribs, clavicles, and shoulders. There is no demonstrated abnormality of the visualized soft tissue structures of the upper abdomen. RAD/Chest 1 View (Portable) IMPRESSION: Normal x-ray examination of the chest. Electronically Signed: Joon Corrales MD at 16:49 EDT , Service support ,
[2020-08-10 16:26] LABS: Absolute Lymphocyte Count 1.46 X10^3/uL (0.83-4.51); Absolute Neutrophil Count 6.3 X10^3/uL (2.0-7.7); Basophil# 0.03 X10^3/uL; Basophil% 0.4 % (0-1); Eosinophils% 1.2 % (0-5); Hematocrit 42.6 % (40-54); Hemoglobin 13.5 g/dL (13.0-16.5); Lymphocyte # 1.46 X10^3/ul (0.83-4.51); Lymphocyte % 17.1 % (19-41); Mean Corp Hgb Conc 31.7 g/dL (32-36); Mean Corpuscular Hgb 26.6 pg (27.0-32.0); Mean Platelet Vol. 10.8 fl (6.2-12.0); Monocyte# 0.59 X10^3/uL; Monocyte% 6.9 % (0-10); NRBC Flagged by Analyzer 0 % (0-5); Neutrophil # 6.34 X10^3/uL (2.7-7.7); Neutrophil % 73.9 % (47-70); Platelet Count 314 K/mm3 (150-450); RBC Distribution Width CV 14.3 % (11.6-14.6); RBC Distribution Width SD 43.7 fl (35.1-43.9); Red Blood Count 5.07 M/mm3 (4.6-6.2); White Blood Count 8.6 K/mm3 (4.4-11.0)
[2020-08-10 16:46] LABS: AST(SGOT) 7 U/L (15-37); Alanine Aminotransfer ALT/SGPT 20 U/L (16-61); Albumin, Serum 3.8 g/dL (3.2-5.0); Alkaline Phosphatase 92 U/L (45-117); Anion Gap 10 (5-15); BUN 24 mg/dL (7-18); BUN/Creat Ratio 12.7 RATIO (10-20); Calcium,Total 8.5 mg/dL (8.5-10.1); Chloride 102 mmol/L (98-107); Creatinine, Serum 1.89 mg/dL (0.70-1.30); EST Glomerular Filtration Rate 38 mL/min (>60); Est Glom Filt Rate - Afr Amer 46 mL/min (>60); Globulin 3.8 g/dL (2.2-4.2); Glucose 419 mg/dL (74-106); Potassium 4.3 mmol/L (3.5-5.1); Protein, Total 7.6 g/dL (6.4-8.2); Sodium Level 134 mmol/L (136-145)
[2020-08-10] MEDS: 0.9% Normal Saline 1,000 ML 999 ML IV (17:09)
[2020-08-10] MEDS: Insulin Lispro 100 UNIT/ML INSULN.PEN SC (17:21)
[2020-08-10 18:21] VITALS: BP 161/105; PULSE 87; RESP 16; O2SAT 97
[2020-08-10 18:25] LABS: Bedside Glucose 273 mg/dL (70-110)
[2020-08-10 18:50] VITALS: BP 156/107; PULSE 88; RESP 14; O2SAT 98
[2020-08-10] MEDS: Acetaminophen 500 MG Tablet 1000 MG PO (18:57)
== END 2020-08-10 18:59 | disposition home or self-care (01) ==
PROVIDERS: Emergency Provider Emergency Medicine; PCP Internal Medicine
DX: E11.65 Type 2 diabetes mellitus with hyperglycemia (principal); I12.9 Hypertensive chronic kidney disease with stage 1 through stage 4 chronic kidney disease, or unspecified chronic kidney disease; E11.22 Type 2 diabetes mellitus with diabetic chronic kidney disease; N18.9 Chronic kidney disease, unspecified; Z79.4 Long term (current) use of insulin; Z79.899 Other long term (current) drug therapy
CPT/HCPCS: 70450; 71045; 80053; 81001; 82962; 84484; 85025; 93005; 96360; 96372; 99284; J7030; A4216

== ENCOUNTER 2020-09-02 17:30 | Emergency (ER) | payer MEDICARE, MEDICAID, SELFPAY ==
[2020-09-02 17:31] VITALS: BP 96/76; PULSE 111; RESP 14; TEMP 36.4; O2SAT 96; BMI 33.5
--- NOTE | 2020-09-02 17:55 | EKG12_ITS ---
Test Reason : DIZZY Blood Pressure : / mmHG Vent. Rate : 105 BPM Atrial Rate : 105 BPM P-R Int : 140 ms QRS Dur : 084 ms QT Int : 342 ms P-R-T Axes : 065 -44 069 degrees QTc Int : 452 ms Sinus tachycardia Left axis deviation Abnormal ECG Confirmed by JERE MAYORGA, FATIMAH ([id number]), metropolitan editor NAVNEET CHAMPION ([id number]) on 09/07/2020 10:05:06 A M Referred By: CARLOS Confirmed By:DEION OQUENDO MD
--- NOTE | 2020-09-02 17:55 | CT_ITS ---
HISTORY: dizziness TECHNIQUE: Multiple axial images were obtained of the brain without intravenous contrast. A radiation dose optimization technique was used for this scan. IV Contrast dosage and agent: None. COMPARISON: 08/10/20 FINDINGS: # of images incl. paperwork: [id number] PARANASAL SINUSES AND MASTOID AIR CELLS: Clear. INTRACRANIAL HEMORRHAGE: None. BRAIN PARENCHYMA: No CT evidence of stroke. No intracranial masses. There is preservation of the chaudhry/white matter interface. Posterior fossa structures are unremarkable. There is hypoattenuation of the periventricular white matter. Chronic involutional changes are noted. CSF SPACES: Appropriate for age. There is no hydrocephalus. MASS EFFECT: None. CALVARIUM: No acute fracture. CT/Brain/Head without Contrast IMPRESSION: Chronic involutional and white matter changes. No acute intracranial process. Individualized dose optimization techniques were used for this CT. at 1915 Reported and signed by: Nikolas Fernandez MD Electronically Signed: Nikolas Fernandez MD at 19:14 EDT Tel , Service support ,
--- NOTE | 2020-09-02 18:16 | EDS_ITS ---
HPI History of Present Illness Chief Complaint: Dizziness Informant: patient Onset/Context/Timing Onset: Today Context: Gradual Onset Timing: Intermittent Current Severity: Moderate Maximum Severity: Moderate Narrative Narrative: The patient is a 64-year-old male with medical history significant for hypertension, diabetes, prior GI bleed who presents to the emergency department dizziness. Patient does not check his sugars regularly. He does live with his brother. Today, he was coming out of the bank. His mother states that he seemed unsteady on his feet. The patient states that the seem to have improved. The patient does have some confusion which the brother states is baseline. He denies any focal weakness. He denies any chest pain or shortness of breath. He states he is been eating and drinking without issue. Prior similar symptoms: Yes Recent Illness/Hospitalization: No PFSH PFS Medical History Diabetes Hypertension Home Medications insulin aspart U-100 [Novolog Flexpen U-100 Insulin] 12 units SUBCUT TID@0730,1130,1630 30 Days flexpen 03/04/15 [Rx Last Taken Unknown] insulin glargine 50 units SC QHS #1 pen 02/27/20 [Rx Last Taken Unknown] lisinopril 40 mg PO DAILY #30 tab 02/27/20 [Rx Last Taken Unknown] metoprolol tartrate 12.5 mg PO BID #60 tab 02/27/20 [Rx Last Taken Unknown] Allergy/AdvReac Type Severity Reaction Status Date / Time No Known Allergies Allergy Verified 07/25/20 20:52 Social History Smoking Status: Never smoker ROS ROS ED Constitutional Constitutional ED: Denies chills or fever(s) Eyes Eyes: Reports blurry vision ENT ENT ED: Denies ear pain or sore throat Cardiovascular Cardiovascular: Denies chest pain or palpitations Respiratory/Chest Respiratory/Chest: Denies cough, dyspnea or dyspnea on exertion Gastrointestinal Gastrointestinal: Reports nausea Genitourinary Genitourinary ED: Denies dysuria or urinary frequency Musculoskeletal Musculoskeletal: Denies arthralgias or myalgias Integumentary Denies rash Neurologic Neurologic: Reports paresthesias Psychiatric Psychiatric: Denies anxiety or depression Endocrine Endocrinology: Denies polydipsia or polyuria Allergic/Immunologic Allergic/Immunologic ED: Denies urticaria EXAM Physical Exam Const Vital Signs: 09/02/20 17:31 09/02/20 18:49 09/02/20 20:08 Temperature 97.6 F L 97.6 F L Temperature Source Temporal Temporal Pulse Rate 111 H 102 H 90 Respiratory Rate 14 14 18 Respiratory Effort Normal Non-Labored Respiratory Pattern Normal Blood Pressure 96/76 135/96 H 156/105 H Blood Pressure Mean 82 109 122 Pulse Ox 96 97 97 Oxygen Delivery Method Room Air Room Air Room Air 09/02/20 21:41 Temperature Temperature Source Pulse Rate 89 Respiratory Rate 16 Respiratory Effort Respiratory Pattern Blood Pressure 165/104 H Blood Pressure Mean Pulse Ox 98 Oxygen Delivery Method Positive well nourished and well developed General Appearance ED: well developed HEENT Reports normocephalic, head/scalp atraumatic and moist mucous membranes Eyes PERRL and EOMs intact bilaterally Neck no lymphadenopathy and supple General: Negative for tenderness Chest Wall inspection of chest normal Resp normal respiratory effort and clear to auscultation bilaterally Cardio regular rate, regular rhythm and no murmurs GI normal to inspection, nondistended, normoactive bowel sounds Palpation: Negative for tender, guarding or rebound tenderness present Back/Spine no CVA tenderness Cervical Spine: Negative for cervical spine tenderness Thoracic Spine / Upper Back: Negative for thoracic spinal tenderness Extremity normal to inspection General Extremety ED: Negative for tenderness Neuro oriented x3 and CN's II-XII intact bilaterally Neuro Narrative: No focal deficits appreciated. Sensorium / Orientation: alert Psych mental status grossly normal Skin no rashes or lesions noted, no wounds and skin turgor normal MDM MDM MDM Narrative Medical decision making narrative: The patient presents with dizziness and gait instability. He does have a history of gait instability secondary from his diabetic neuropathy. The patient is supposed to use a walker, but does not often. He has no focal symptoms. I did obtain noncontrast head CT. This shows no evidence of acute process. Screening labs do show evidence of kidney disease, but this is appears to be chronic for the patient. He is not markedly hyperglycemic. His labs are unremarkable. EKG was obtained which was sinus rhythm. The patient ambulated through the emergency department and was mildly unsteady, with a walker he moved rather easily. At this point, I do feel that a lot of the symptoms are chronic. Of fluids his symptoms are improved. He will be discharged home. Impression 1. Dizziness Lab Data Attestation: I reviewed the patient's lab results. Labs: Laboratory Results - last 24 hr 09/02/20 09/02/20 18:56 18:56 WBC 8.8 RBC 5.69 Hgb 15.1 Hct 48.0 MCV 84.4 MCH 26.5 L MCHC 31.5 L RDW Std Deviation 41.9 RDW Coeff of Tarik 13.6 Plt Count 307 MPV 10.7 Immature Gran % (Auto) 0.300 Neut % (Auto) 73.4 H Lymph % (Auto) 16.9 L [place] % (Auto) 7.9 Eos % (Auto) 1.0 Baso % (Auto) 0.5 Absolute Neuts (auto) 6.5 Absolute Lymphs (auto) 1.49 Nucleated RBC % 0 Sodium 138 Potassium 3.9 Chloride 102 Carbon Dioxide 26.0 Anion Gap 10 BUN 28 H Creatinine 2.15 H Estim Creat Clear Calc 36.00 Est GFR (MDRD) Af Amer 40 L Est GFR (MDRD) Non-Af 33 L BUN/Creatinine Ratio 13.0 Glucose 175 H Calcium 10.1 Total Bilirubin 0.30 AST 10 L ALT 21 Alkaline Phosphatase 90 Total Protein 8.2 Albumin 4.1 Globulin 4.1 Albumin/Globulin Ratio 1.0 Radiography Diagnostic Testing: Radiology Impression Brain CT 09/02/20 17:55 IMPRESSION: Chronic involutional and white matter changes. No acute intracranial process. Individualized dose optimization techniques were used for this CT. at 1915 Reported and signed by: Nikolas Fernandez MD Electronically Signed: Nikolas Fernandez MD at 19:14 EDT Tel , Service support , EKG Initial EKG: Attestation: I personally reviewed and interpreted this EKG as follows: Interpretation: Sinus Rhythm and No Acute Injury Pattern Prior EKG tracings: available for review Prior: Unchanged Discharge Plan Triage Chief Complaint: Dizziness ED Provider: Nishant Zimmerman Dx/Rx/DC Orders Instructions: ED Dehydration (Adult) Prescriptions: No Action insulin aspart U-100 [Novolog Flexpen U-100 Insulin] 100 UNITS/ML insulin pen 12 units subcut TID@0730,1130,1630 30 Days RF: 0 lisinopril 40 MG tablet 40 mg PO DAILY Qty: 30 RF: 0 metoprolol tartrate 25 MG tablet 12.5 mg PO BID Qty: 60 RF: 0 insulin glargine 100 UNITS/ML insulin pen 50 units SC QHS Qty: 1 RF: 0 Primary Care Provider: Constanza Wooten Referrals: Constanza Wooten MD [Primary Care Provider] - Disposition Disposition: Home, self care Discharge Date/Time: 09/02/20 21:41
[2020-09-02 18:49] VITALS: BP 135/96; PULSE 102; RESP 14; TEMP 36.4; O2SAT 97
[2020-09-02] MEDS: 0.9% Normal Saline 1,000 ML 1000 ML IV (19:08)
[2020-09-02 19:10] LABS: Absolute Lymphocyte Count 1.49 X10^3/uL (0.83-4.51); Absolute Neutrophil Count 6.5 X10^3/uL (2.0-7.7); Basophil# 0.04 X10^3/uL; Basophil% 0.5 % (0-1); Eosinophil# 0.09 X10^3/uL; Hemoglobin 15.1 g/dL (13.0-16.5); Lymphocyte # 1.49 X10^3/ul (0.83-4.51); Lymphocyte % 16.9 % (19-41); Mean Corp Hgb Conc 31.5 g/dL (32-36); Mean Corpuscular Hgb 26.5 pg (27.0-32.0); Mean Corpuscular Volume 84.4 fL (80-94); Mean Platelet Vol. 10.7 fl (6.2-12.0); Monocyte% 7.9 % (0-10); NRBC Flagged by Analyzer 0 % (0-5); Neutrophil # 6.46 X10^3/uL (2.7-7.7); Neutrophil % 73.4 % (47-70); Platelet Count 307 K/mm3 (150-450); RBC Distribution Width CV 13.6 % (11.6-14.6); RBC Distribution Width SD 41.9 fl (35.1-43.9); Red Blood Count 5.69 M/mm3 (4.6-6.2); White Blood Count 8.8 K/mm3 (4.4-11.0)
[2020-09-02 19:41] LABS: AST(SGOT) 10 U/L (15-37); Alanine Aminotransfer ALT/SGPT 21 U/L (16-61); Albumin, Serum 4.1 g/dL (3.2-5.0); Alkaline Phosphatase 90 U/L (45-117); Anion Gap 10 (5-15); BUN 28 mg/dL (7-18); Calcium,Total 10.1 mg/dL (8.5-10.1); Chloride 102 mmol/L (98-107); Creatinine, Serum 2.15 mg/dL (0.70-1.30); EST Glomerular Filtration Rate 33 mL/min (>60); Est Glom Filt Rate - Afr Amer 40 mL/min (>60); Globulin 4.1 g/dL (2.2-4.2); Glucose 175 mg/dL (74-106); Potassium 3.9 mmol/L (3.5-5.1); Protein, Total 8.2 g/dL (6.4-8.2); Sodium Level 138 mmol/L (136-145)
[2020-09-02 20:08] VITALS: BP 156/105; PULSE 90; RESP 18; O2SAT 97
[2020-09-02 21:41] VITALS: BP 165/104; PULSE 89; RESP 16; O2SAT 98
== END 2020-09-02 21:41 | disposition home or self-care (01) ==
LOC: ED 18:26
PROVIDERS: Emergency Provider Emergency Medicine; PCP Internal Medicine
DX: R42 Dizziness and giddiness (principal); I10 Essential (primary) hypertension; E11.40 Type 2 diabetes mellitus with diabetic neuropathy, unspecified; Z79.4 Long term (current) use of insulin; Z79.899 Other long term (current) drug therapy
CPT/HCPCS: 70450; 80053; 85025; 93005; 96360; 99285; J7030; A4216

== ENCOUNTER 2020-09-27 18:37 | Emergency (ER) | payer MEDICARE, MEDICAID, SELFPAY ==
[2020-09-27 18:38] VITALS: BP 144/104; PULSE 104; RESP 16; TEMP 36.4; O2SAT 97; BMI 73.7
[2020-09-27 19:01] LABS: Bedside Glucose 309 mg/dL (70-110)
--- NOTE | 2020-09-27 20:52 | EKG12_ITS ---
Test Reason : DYSRYTHMIA Blood Pressure : / mmHG Vent. Rate : 090 BPM Atrial Rate : 090 BPM P-R Int : 152 ms QRS Dur : 088 ms QT Int : 402 ms P-R-T Axes : 071 -32 074 degrees QTc Int : 491 ms Sinus rhythm with marked sinus arrhythmia Left axis deviation Prolonged QT Abnormal ECG Confirmed by ODILIA MAYORGA, EUSEBIO ([id number]), editor managing director NAVNEET CHAMPION ([id number]) on 09/30/2020 9:59:24 AM Referred By: MELCHOR Confirmed By:EUSEBIO HARTLEY MD
[2020-09-27 21:20] LABS: Absolute Lymphocyte Count 1.93 X10^3/uL (0.83-4.51); Absolute Neutrophil Count 5.7 X10^3/uL (2.0-7.7); Basophil# 0.04 X10^3/uL; Basophil% 0.5 % (0-1); Eosinophil# 0.15 X10^3/uL; Eosinophils% 1.8 % (0-5); Hematocrit 42.3 % (40-54); Hemoglobin 13.6 g/dL (13.0-16.5); Lymphocyte # 1.93 X10^3/ul (0.83-4.51); Lymphocyte % 22.8 % (19-41); Mean Corp Hgb Conc 32.2 g/dL (32-36); Mean Corpuscular Hgb 26.2 pg (27.0-32.0); Mean Corpuscular Volume 81.3 fL (80-94); Mean Platelet Vol. 10.4 fl (6.2-12.0); Monocyte# 0.65 X10^3/uL; Monocyte% 7.7 % (0-10); NRBC Flagged by Analyzer 0 % (0-5); Neutrophil # 5.68 X10^3/uL (2.7-7.7); Platelet Count 266 K/mm3 (150-450); RBC Distribution Width CV 13.5 % (11.6-14.6); RBC Distribution Width SD 39.6 fl (35.1-43.9); White Blood Count 8.5 K/mm3 (4.4-11.0)
[2020-09-27 21:21] LABS: Bacteria 0 SEEN /hpf (None Seen); Mucous, Urine 0 SEEN /hpf (<or=2+); Red Blood Cells-Urine 0 SEEN /hpf (0-5); White Blood Cells 0 SEEN /hpf (0-5)
[2020-09-27 21:23] LABS: Color, Urine Yellow (Yellow); Glucose, Dipstick 1000 mg/dl (Normal); Ketone-Dipstick 5 mg/dl (Negative); Leukocyte Esterase-Dipstick Negative /ul (Negative); Nitrite-Dipstick Negative (Negative); Occult Blood-Urine Negative /ul (Negative); Protein-Dipstick 15 mg/dl (Negative); Urine Bilirubin Dipstick Negative (Negative); Urine Clarity Sl. Cloudy (Clear); Urine Urobilinogen Normal (Normal)
[2020-09-27 21:28] LABS: Squamous Epithelial Cells - UA 0-5 SEEN /hpf (0-5)
[2020-09-27 21:47] LABS: Anion Gap 11 (5-15); BUN 24 mg/dL (7-18); BUN/Creat Ratio 16.1 RATIO (10-20); Calcium,Total 8.6 mg/dL (8.5-10.1); Chloride 100 mmol/L (98-107); Creatinine, Serum 1.49 mg/dL (0.70-1.30); EST Glomerular Filtration Rate 50 mL/min (>60); Est Glom Filt Rate - Afr Amer 61 mL/min (>60); Estimated Creatinine Clearance 47.18 ml/min; Glucose 276 mg/dL (74-106); Potassium 4.1 mmol/L (3.5-5.1); Sodium Level 134 mmol/L (136-145); Thyroid Stim Hormone (TSH) 1.69 uIU/mL (0.358-3.74)
[2020-09-27 22:08] VITALS: BP 138/81; PULSE 98; RESP 18; O2SAT 97
--- NOTE | 2020-09-27 22:27 | EDS_ITS ---
HPI History of Present Illness Chief Complaint: General Illness Narrative Narrative: Patient presenting for evaluation secondary to generalized illness. Patient has an underlying history of hypertension diabetes lower GI bleed in the past as well. Patient states that over the course about the last week he has been dealing with generalized malaise. He states that associated with a feeling of generalized weakness. This is not lateralizing. It has been associated with any sort of fevers chills night sweats unintended weight loss cough nausea vomiting diarrhea or abdominal pain. He does report that his blood sugars have been running on the high side recently. He denies any urinary signs or symptoms. Denies any chest pain. States that he came into the emergency department just to get things checked out. [facility] Medical History Diabetes Hypertension Home Medications insulin aspart U-100 [Novolog Flexpen U-100 Insulin] 12 units SUBCUT TID@0730,1130,1630 30 Days flexpen 03/04/15 [Rx Last Taken Unknown] insulin glargine 50 units SC QHS #1 pen 02/27/20 [Rx Last Taken Unknown] lisinopril 40 mg PO DAILY #30 tab 02/27/20 [Rx Last Taken Unknown] metoprolol tartrate 12.5 mg PO BID #60 tab 02/27/20 [Rx Last Taken Unknown] Allergy/AdvReac Type Severity Reaction Status Date / Time No Known Allergies Allergy Verified 09/27/20 18:38 Social History Smoking Status: Never smoker ROS [facility] ED Constitutional Constitutional ED: Reports other Details: Generalized malaise ENT ENT ED: Denies rhinorrhea Cardiovascular Cardiovascular: Denies chest pain Respiratory/Chest Respiratory/Chest: Denies cough or dyspnea Gastrointestinal Gastrointestinal: Denies abdominal pain, diarrhea, nausea or vomiting Genitourinary Genitourinary ED: Denies dysuria or hematuria Musculoskeletal Musculoskeletal: Denies back pain Integumentary Denies rash Neurologic Neurologic: Denies paresthesias or weakness Psychiatric Psychiatric: Denies depression Endocrine Endocrinology: Denies fatigue Allergic/Immunologic Allergic/Immunologic ED: Denies urticaria EXAM Physical Exam Const Vital Signs: 09/27/20 18:38 09/27/20 21:12 09/27/20 22:08 Temperature 97.6 F L Temperature Source Temporal Pulse Rate 104 H 98 Respiratory Rate 16 18 Respiratory Effort Normal Non-Labored Blood Pressure 144/104 H 138/81 H Blood Pressure Mean 117 100 Pulse Ox 97 97 Oxygen Delivery Method Room Air Room Air Positive well nourished and well developed Constitutional Narrative: Well-appearing male who appears older than stated age General Appearance ED: well developed and NAD HEENT Reports moist mucous membranes Negative for trauma or tenderness Eyes EOMs intact bilaterally Eyes Narrative: Disconjugate gaze at baseline Neck no lymphadenopathy, supple and no JVD Chest Wall inspection of chest normal Resp normal respiratory effort and clear to auscultation bilaterally Resp Narrative: Occasional extrasystoles are noted Cardio regular rate, regular rhythm, no murmurs and peripheral pulses 2+ throughout GI normal to inspection, nondistended, normoactive bowel sounds, non-tender and no masses Palpation: soft Back/Spine normal to inspection Extremity normal to inspection General Extremety ED: Negative for tenderness Neuro oriented x3 and no sensory deficits noted Neuro Narrative: No signs of objective weakness or lateralizing deficits. NIH stroke scale is 0 Sensorium / Orientation: alert Motor Exam: strength 5/5 throughout Psych mental status grossly normal Skin no rashes or lesions noted MDM MDM MDM Narrative Medical decision making narrative: Patient presented secondary to feelings of generalized illness. Laboratory work-up was obtained. CBC unremarkable, no leukocytosis no evidence of anemia. Chemistry shows creatinine at 1.49, no evidence of significant electrolyte derangements TSH is 1.6 troponin found to be negative. Urinalysis demonstrates no evidence of infection. Blood glucose was noted to be 276, no evidence of anion gap or acidosis. Patient remained stable in the emergency department. At this point he has a basically negative work-up with hyperglycemia and generalized malaise. I believe that he can safely be discharged. He was recommended that he needs to follow-up with his primary care physician. Patient was discharged in stable condition. Lab Data Labs: Laboratory Results - last 24 hr 09/27/20 09/27/20 09/27/20 18:44 21:10 21:10 WBC 8.5 RBC 5.20 Hgb 13.6 Hct 42.3 MCV 81.3 MCH 26.2 L MCHC 32.2 RDW Std Deviation 39.6 RDW Coeff of Tarik 13.5 Plt Count 266 MPV 10.4 Immature Gran % (Auto) 0.200 Neut % (Auto) 67.0 Lymph % (Auto) 22.8 [place] % (Auto) 7.7 Eos % (Auto) 1.8 Baso % (Auto) 0.5 Absolute Neuts (auto) 5.7 Absolute Lymphs (auto) 1.93 Nucleated RBC % 0 Sodium 134 L Potassium 4.1 Chloride 100 Carbon Dioxide 23.0 Anion Gap 11 BUN 24 H Creatinine 1.49 H Estim Creat Clear Calc 47.18 Est GFR (MDRD) Af Amer 61 Est GFR (MDRD) Non-Af 50 L BUN/Creatinine Ratio 16.1 Glucose 276 H Calcium 8.6 Troponin I < 0.015 TSH 1.69 Urine Color Urine Clarity Urine pH Ur Specific [place] Urine Protein Urine Glucose (UA) Urine Ketones Urine Occult Blood Urine Nitrite Urine Bilirubin Urine Urobilinogen Ur Leukocyte Esterase Urine RBC Urine WBC Ur Squamous Epith Cells Urine Bacteria Urine Mucus POC Glucose 309 H 09/27/20 21:15 WBC RBC Hgb Hct MCV MCH MCHC RDW Std Deviation RDW Coeff of Tarik Plt Count MPV Immature Gran % (Auto) Neut % (Auto) Lymph % (Auto) [place] % (Auto) Eos % (Auto) Baso % (Auto) Absolute Neuts (auto) Absolute Lymphs (auto) Nucleated RBC % Sodium Potassium Chloride Carbon Dioxide Anion Gap BUN Creatinine Estim Creat Clear Calc Est GFR (MDRD) Af Amer Est GFR (MDRD) Non-Af BUN/Creatinine Ratio Glucose Calcium Troponin I TSH Urine Color Yellow Urine Clarity Sl. Cloudy Urine pH 6.0 Ur Specific [place] 1.010 Urine Protein 15 H Urine Glucose (UA) 1000 H Urine Ketones 5 H Urine Occult Blood Negative Urine Nitrite Negative Urine Bilirubin Negative Urine Urobilinogen Normal Ur Leukocyte Esterase Negative Urine RBC 0 SEEN Urine WBC 0 SEEN Ur Squamous Epith Cells 0-5 SEEN Urine Bacteria 0 SEEN Urine Mucus 0 SEEN POC Glucose EKG Initial EKG: Attestation: I personally reviewed and interpreted this EKG as follows: (Sinus rhythm at 90 with PACs noted. Mildly prolonged QTC at 491. Normal RI intervals. No evidence of acute ischemia or arrhythmia.) Discharge Plan Triage Chief Complaint: General Illness ED Provider: Nishant Maya Dx/Rx/DC Orders Clinical Impression: Diabetes, Malaise Instructions: ED Diabetes- Overview, ED Diet: Diabetes Prescriptions: No Action insulin aspart U-100 [Novolog Flexpen U-100 Insulin] 100 UNITS/ML insulin pen 12 units subcut TID@0730,1130,1630 30 Days RF: 0 lisinopril 40 MG tablet 40 mg PO DAILY Qty: 30 RF: 0 metoprolol tartrate 25 MG tablet 12.5 mg PO BID Qty: 60 RF: 0 insulin glargine 100 UNITS/ML insulin pen 50 units SC QHS Qty: 1 RF: 0 Primary Care Provider: Constanza Wooten Referrals: Constanza Wooten MD [Primary Care Provider] - 3-5 Days Disposition Disposition: Home, self care
== END 2020-09-27 22:42 | disposition home or self-care (01) ==
PROVIDERS: Emergency Provider Emergency Medicine; PCP Internal Medicine
DX: E11.9 Type 2 diabetes mellitus without complications (principal); R53.81 Other malaise
CPT/HCPCS: 80048; 81001; 82962; 84443; 84484; 85025; 93005; 99282; A4216

== ENCOUNTER → 2020-11-11 05:45 | Outpatient (REF) | payer MEDICARE, MEDICAID, SELFPAY ==
[2020-11-11 07:33] LABS: Hematocrit 43.8 % (40-54); Mean Corpuscular Hgb 26.5 pg (27.0-32.0); Mean Corpuscular Volume 82.8 fL (80-94); Mean Platelet Vol. 11.4 fl (6.2-12.0); Platelet Count 234 K/mm3 (150-450); RBC Distribution Width CV 15.1 % (11.6-14.6); RBC Distribution Width SD 45.8 fl (35.1-43.9); Red Blood Count 5.29 M/mm3 (4.6-6.2); White Blood Count 7.5 K/mm3 (4.4-11.0)
[2020-11-11 08:01] LABS: AST(SGOT) 27 U/L (15-37); Alanine Aminotransfer ALT/SGPT 44 U/L (16-61); Albumin, Serum 3.3 g/dL (3.2-5.0); Alkaline Phosphatase 69 U/L (45-117); Anion Gap 6 (5-15); BUN 22 mg/dL (7-18); BUN/Creat Ratio 16.8 RATIO (10-20); Calcium,Total 8.8 mg/dL (8.5-10.1); Chloride 104 mmol/L (98-107); Cholesterol 153 mg/dL (200); Creatinine, Serum 1.31 mg/dL (0.70-1.30); EST Glomerular Filtration Rate 58 mL/min (>60); Est Glom Filt Rate - Afr Amer 70 mL/min (>60); Globulin 3.4 g/dL (2.2-4.2); Glucose 265 mg/dL (74-106); High Density Lipoprotein 33 mg/dL; Potassium 4.4 mmol/L (3.5-5.1); Protein, Total 6.7 g/dL (6.4-8.2); Sodium Level 136 mmol/L (136-145); Triglycerides 257 mg/dL; Very Low Density Lipoprotein 51 mg/dL (5-40)
[2020-11-11 08:09] LABS: Hemoglobin A1c 12.2 % (3.8-5.6)
[2020-11-11 08:44] LABS: Vitamin D,25 Hydroxy 8.8 ng/mL
== END ==
LOC: OLS.SW1020 05:45
PROVIDERS: PCP Internal Medicine; Visit Provider Internal Medicine
DX: D64.9 Anemia, unspecified (principal); E11.9 Type 2 diabetes mellitus without complications; I10 Essential (primary) hypertension; E78.5 Hyperlipidemia, unspecified; E55.9 Vitamin D deficiency, unspecified
CPT/HCPCS: 36415; 80053; 80061; 82306; 83036; 85027

== ENCOUNTER → 2020-11-17 05:00 | Outpatient (REF) | payer MEDICARE, MEDICAID, SELFPAY ==
[2020-11-17 09:38] LABS: Thyroid Stim Hormone (TSH) 2.05 uIU/mL (0.358-3.74)
[2020-11-17 09:43] LABS: Vitamin B12 499 pg/mL (211-911)
== END ==
LOC: OLS.SW1020 05:00
PROVIDERS: PCP Internal Medicine; Referring Provider Internal Medicine; Visit Provider Internal Medicine
DX: E11.65 Type 2 diabetes mellitus with hyperglycemia (principal)
CPT/HCPCS: 36415; 82607; 84443

== ENCOUNTER → 2020-11-22 04:00 | Outpatient (REF) | payer MEDICARE, MEDICAID, SELFPAY ==
[2020-11-22 07:58] LABS: Hematocrit 41.4 % (40-54); Hemoglobin 13.3 g/dL (13.0-16.5); Mean Corp Hgb Conc 32.1 g/dL (32-36); Mean Corpuscular Hgb 26.6 pg (27.0-32.0); Mean Corpuscular Volume 82.8 fL (80-94); Mean Platelet Vol. 10.6 fl (6.2-12.0); Platelet Count 317 K/mm3 (150-450); RBC Distribution Width CV 14.9 % (11.6-14.6); RBC Distribution Width SD 45.1 fl (35.1-43.9); White Blood Count 8.1 K/mm3 (4.4-11.0)
[2020-11-22 08:05] LABS: Anion Gap 7 (5-15); BUN 24 mg/dL (7-18); BUN/Creat Ratio 20.2 RATIO (10-20); Calcium,Total 8.8 mg/dL (8.5-10.1); Chloride 106 mmol/L (98-107); Creatinine, Serum 1.19 mg/dL (0.70-1.30); EST Glomerular Filtration Rate 65 mL/min (>60); Est Glom Filt Rate - Afr Amer 78 mL/min (>60); Glucose 183 mg/dL (74-106); Potassium 3.7 mmol/L (3.5-5.1); Sodium Level 139 mmol/L (136-145)
== END ==
LOC: OLS.SW1020 04:00
PROVIDERS: PCP Internal Medicine; Visit Provider Family Medicine
DX: I10 Essential (primary) hypertension (principal); E78.5 Hyperlipidemia, unspecified; E11.9 Type 2 diabetes mellitus without complications
CPT/HCPCS: 36415; 80048; 85027

== ENCOUNTER → 2020-11-29 04:00 | Outpatient (REF) | payer MEDICARE, MEDICAID, SELFPAY ==
[2020-11-29 06:46] LABS: Hematocrit 41.6 % (40-54); Hemoglobin 13.2 g/dL (13.0-16.5); Mean Corp Hgb Conc 31.7 g/dL (32-36); Mean Corpuscular Hgb 26.2 pg (27.0-32.0); Mean Corpuscular Volume 82.5 fL (80-94); Mean Platelet Vol. 10.3 fl (6.2-12.0); Platelet Count 330 K/mm3 (150-450); RBC Distribution Width CV 14.9 % (11.6-14.6); RBC Distribution Width SD 44.6 fl (35.1-43.9); Red Blood Count 5.04 M/mm3 (4.6-6.2); White Blood Count 9.9 K/mm3 (4.4-11.0)
[2020-11-29 06:59] LABS: Anion Gap 9 (5-15); BUN 24 mg/dL (7-18); BUN/Creat Ratio 21.4 RATIO (10-20); Calcium,Total 8.8 mg/dL (8.5-10.1); Chloride 104 mmol/L (98-107); Creatinine, Serum 1.12 mg/dL (0.70-1.30); EST Glomerular Filtration Rate 70 mL/min (>60); Est Glom Filt Rate - Afr Amer 84 mL/min (>60); Glucose 159 mg/dL (74-106); Potassium 3.5 mmol/L (3.5-5.1); Sodium Level 138 mmol/L (136-145)
== END ==
LOC: OLS.SW300 04:00
PROVIDERS: PCP Internal Medicine; Visit Provider Family Medicine
DX: D64.9 Anemia, unspecified (principal); E11.9 Type 2 diabetes mellitus without complications; I10 Essential (primary) hypertension; E78.5 Hyperlipidemia, unspecified
CPT/HCPCS: 36415; 80048; 85027

== ENCOUNTER → 2021-01-03 07:15 | Outpatient (REF) | payer MEDICARE, SELFPAY ==
[2021-01-03 08:48] LABS: Hematocrit 39.5 % (40-54); Hemoglobin 13.1 g/dL (13.0-16.5); Mean Corp Hgb Conc 33.2 g/dL (32-36); Mean Corpuscular Hgb 27.9 pg (27.0-32.0); Mean Platelet Vol. 10.1 fl (6.2-12.0); Platelet Count 305 K/mm3 (150-450); RBC Distribution Width CV 14.6 % (11.6-14.6); RBC Distribution Width SD 44.9 fl (35.1-43.9)
[2021-01-03 09:03] LABS: Anion Gap 9 (5-15); BUN 31 mg/dL (7-18); BUN/Creat Ratio 22.1 RATIO (10-20); Chloride 107 mmol/L (98-107); EST Glomerular Filtration Rate 54 mL/min (>60); Est Glom Filt Rate - Afr Amer 65 mL/min (>60); Glucose 119 mg/dL (74-106); Potassium 4.2 mmol/L (3.5-5.1); Sodium Level 138 mmol/L (136-145)
== END ==
LOC: OLS.SW300 07:15
PROVIDERS: PCP Internal Medicine; Visit Provider Internal Medicine
DX: E11.9 Type 2 diabetes mellitus without complications (principal); I10 Essential (primary) hypertension
CPT/HCPCS: 36415; 80048; 85027

== ENCOUNTER → 2021-01-18 04:00 | Outpatient (REF) | payer MEDICARE, MEDICAID, SELFPAY ==
[2021-01-18 07:42] LABS: Hemoglobin A1c 7.9 % (3.8-5.6)
[2021-01-18 08:03] LABS: Cholesterol 99 mg/dL (200); High Density Lipoprotein 33 mg/dL; Triglycerides 154 mg/dL; Very Low Density Lipoprotein 31 mg/dL (5-40)
== END ==
LOC: OLS.SW300 04:00
PROVIDERS: PCP Internal Medicine; Visit Provider Internal Medicine
DX: E11.9 Type 2 diabetes mellitus without complications (principal)
CPT/HCPCS: 36415; 80061; 83036

== ENCOUNTER → 2021-01-31 05:00 | Outpatient (REF) | payer MEDICARE, MEDICAID, SELFPAY ==
[2021-01-31 07:12] LABS: Hemoglobin 13.3 g/dL (13.0-16.5); Mean Corp Hgb Conc 33.3 g/dL (32-36); Mean Corpuscular Hgb 27.8 pg (27.0-32.0); Mean Corpuscular Volume 83.7 fL (80-94); Mean Platelet Vol. 9.9 fl (6.2-12.0); Platelet Count 297 K/mm3 (150-450); RBC Distribution Width SD 42.8 fl (35.1-43.9); Red Blood Count 4.78 M/mm3 (4.6-6.2)
[2021-01-31 07:50] LABS: Anion Gap 11 (5-15); BUN 19 mg/dL (7-18); BUN/Creat Ratio 13.7 RATIO (10-20); Calcium,Total 9.1 mg/dL (8.5-10.1); Chloride 104 mmol/L (98-107); Creatinine, Serum 1.39 mg/dL (0.70-1.30); EST Glomerular Filtration Rate 54 mL/min (>60); Est Glom Filt Rate - Afr Amer 66 mL/min (>60); Glucose 102 mg/dL (74-106); Potassium 4.1 mmol/L (3.5-5.1); Sodium Level 139 mmol/L (136-145)
== END ==
LOC: OLS.SW300 05:00
PROVIDERS: PCP Internal Medicine; Visit Provider Internal Medicine
DX: E11.65 Type 2 diabetes mellitus with hyperglycemia (principal)
CPT/HCPCS: 36415; 80048; 85027

== ENCOUNTER → 2021-02-28 05:00 | Outpatient (REF) | payer MEDICARE, MEDICAID, SELFPAY ==
[2021-02-28 08:47] LABS: Hemoglobin 13.7 g/dL (13.0-16.5); Mean Corp Hgb Conc 32.6 g/dL (32-36); Mean Corpuscular Volume 85.9 fL (80-94); Mean Platelet Vol. 10.1 fl (6.2-12.0); Platelet Count 335 K/mm3 (150-450); RBC Distribution Width CV 13.2 % (11.6-14.6); RBC Distribution Width SD 41.1 fl (35.1-43.9); Red Blood Count 4.89 M/mm3 (4.6-6.2); White Blood Count 9.9 K/mm3 (4.4-11.0)
[2021-02-28 09:15] LABS: Anion Gap 7 (5-15); BUN 21 mg/dL (7-18); BUN/Creat Ratio 14.5 RATIO (10-20); Calcium,Total 9.6 mg/dL (8.5-10.1); Chloride 104 mmol/L (98-107); Creatinine, Serum 1.45 mg/dL (0.70-1.30); EST Glomerular Filtration Rate 52 mL/min (>60); Est Glom Filt Rate - Afr Amer 62 mL/min (>60); Glucose 107 mg/dL (74-106); Potassium 4.2 mmol/L (3.5-5.1); Sodium Level 138 mmol/L (136-145)
== END ==
LOC: OLS.SW300 05:00
PROVIDERS: PCP Internal Medicine; Visit Provider Internal Medicine
DX: I10 Essential (primary) hypertension (principal); E78.5 Hyperlipidemia, unspecified; E11.65 Type 2 diabetes mellitus with hyperglycemia
CPT/HCPCS: 36415; 80048; 85027

== ENCOUNTER → 2021-03-28 04:00 | Outpatient (REF) | payer MEDICARE, MEDICAID, SELFPAY ==
[2021-03-28 08:54] LABS: Hematocrit 29.1 % (40-54); Hemoglobin 9.3 g/dL (13.0-16.5); Mean Corpuscular Hgb 28.5 pg (27.0-32.0); Mean Corpuscular Volume 89.3 fL (80-94); Mean Platelet Vol. 12.3 fl (6.2-12.0); Platelet Count 179 K/mm3 (150-450); RBC Distribution Width CV 13.8 % (11.6-14.6); RBC Distribution Width SD 45.2 fl (35.1-43.9); Red Blood Count 3.26 M/mm3 (4.6-6.2); White Blood Count 11.8 K/mm3 (4.4-11.0)
[2021-03-28 09:02] LABS: Anion Gap 9 (5-15); BUN 23 mg/dL (7-18); BUN/Creat Ratio 16.4 RATIO (10-20); Chloride 107 mmol/L (98-107); EST Glomerular Filtration Rate 54 mL/min (>60); Est Glom Filt Rate - Afr Amer 65 mL/min (>60); Glucose 112 mg/dL (74-106); Potassium 4.4 mmol/L (3.5-5.1); Sodium Level 140 mmol/L (136-145)
== END ==
LOC: OLS.SW300 04:00
PROVIDERS: PCP Internal Medicine; Visit Provider Internal Medicine
DX: E11.65 Type 2 diabetes mellitus with hyperglycemia (principal); I10 Essential (primary) hypertension; E78.5 Hyperlipidemia, unspecified
CPT/HCPCS: 36415; 80048; 85027

== ENCOUNTER → 2021-04-05 05:00 | Outpatient (REF) | payer MEDICARE, MEDICAID, SELFPAY ==
[2021-04-05 08:57] LABS: Absolute Neutrophil Count 6.6 X10^3/uL (2.0-7.7); Basophil# 0.05 X10^3/uL; Basophil% 0.5 % (0-1); Eosinophil# 0.33 X10^3/uL; Eosinophils% 3.2 % (0-5); Hematocrit 40.2 % (40-54); Hemoglobin 13.8 g/dL (13.0-16.5); Lymphocyte % 24.1 % (19-41); Mean Corp Hgb Conc 34.3 g/dL (32-36); Mean Corpuscular Hgb 28.8 pg (27.0-32.0); Mean Corpuscular Volume 83.9 fL (80-94); Monocyte# 0.82 X10^3/uL; Monocyte% 7.9 % (0-10); NRBC Flagged by Analyzer 0 % (0-5); Neutrophil # 6.64 X10^3/uL (2.7-7.7); Neutrophil % 63.9 % (47-70); Platelet Count 311 K/mm3 (150-450); RBC Distribution Width CV 12.8 % (11.6-14.6); Red Blood Count 4.79 M/mm3 (4.6-6.2); White Blood Count 10.4 K/mm3 (4.4-11.0)
== END ==
LOC: OLS.SW300 05:00
PROVIDERS: PCP Internal Medicine; Visit Provider Internal Medicine
DX: I10 Essential (primary) hypertension (principal); E11.65 Type 2 diabetes mellitus with hyperglycemia; E78.5 Hyperlipidemia, unspecified
CPT/HCPCS: 36415; 85025

== ENCOUNTER → 2021-04-25 | Outpatient (REF) | payer MEDICARE, MEDICAID, SELFPAY ==
[2021-04-25 08:43] LABS: Hematocrit 41.6 % (40-54); Hemoglobin 14.1 g/dL (13.0-16.5); Mean Corp Hgb Conc 33.9 g/dL (32-36); Mean Corpuscular Hgb 28.8 pg (27.0-32.0); Mean Corpuscular Volume 84.9 fL (80-94); Mean Platelet Vol. 10.3 fl (6.2-12.0); Platelet Count 344 K/mm3 (150-450); RBC Distribution Width CV 12.8 % (11.6-14.6); RBC Distribution Width SD 39.7 fl (35.1-43.9); White Blood Count 12.5 K/mm3 (4.4-11.0)
[2021-04-25 09:33] LABS: Anion Gap 9 (5-15); BUN 19 mg/dL (7-18); BUN/Creat Ratio 13.6 RATIO (10-20); Calcium,Total 9.4 mg/dL (8.5-10.1); Chloride 102 mmol/L (98-107); EST Glomerular Filtration Rate 54 mL/min (>60); Est Glom Filt Rate - Afr Amer 65 mL/min (>60); Glucose 115 mg/dL (74-106); Potassium 4.4 mmol/L (3.5-5.1); Sodium Level 138 mmol/L (136-145)
== END | disposition home or self-care (01) ==
LOC: OLS.SW300 05:00
PROVIDERS: PCP Internal Medicine; Visit Provider Internal Medicine
DX: I10 Essential (primary) hypertension (principal); E11.65 Type 2 diabetes mellitus with hyperglycemia; E78.5 Hyperlipidemia, unspecified
CPT/HCPCS: 36415; 80048; 85027

== ENCOUNTER → 2021-05-23 | Outpatient (REF) | payer MEDICARE, MEDICAID, SELFPAY ==
[2021-05-23 07:53] LABS: Hematocrit 39.8 % (40-54); Hemoglobin 13.4 g/dL (13.0-16.5); Mean Corp Hgb Conc 33.7 g/dL (32-36); Mean Corpuscular Volume 86.1 fL (80-94); Mean Platelet Vol. 10.4 fl (6.2-12.0); Platelet Count 307 K/mm3 (150-450); RBC Distribution Width CV 13.2 % (11.6-14.6); RBC Distribution Width SD 40.8 fl (35.1-43.9); Red Blood Count 4.62 M/mm3 (4.6-6.2); White Blood Count 9.2 K/mm3 (4.4-11.0)
[2021-05-23 08:21] LABS: Anion Gap 6 (5-15); BUN 21 mg/dL (7-18); BUN/Creat Ratio 15.9 RATIO (10-20); Calcium,Total 8.9 mg/dL (8.5-10.1); Chloride 107 mmol/L (98-107); Creatinine, Serum 1.32 mg/dL (0.70-1.30); EST Glomerular Filtration Rate 57 mL/min (>60); Est Glom Filt Rate - Afr Amer 69 mL/min (>60); Glucose 102 mg/dL (74-106); Potassium 4.4 mmol/L (3.5-5.1); Sodium Level 138 mmol/L (136-145)
== END | disposition home or self-care (01) ==
LOC: OLS.SW300 05:00
PROVIDERS: PCP Internal Medicine; Visit Provider Internal Medicine
DX: E11.9 Type 2 diabetes mellitus without complications (principal)
CPT/HCPCS: 36415; 80048; 85027

== ENCOUNTER → 2021-06-20 | Outpatient (REF) | payer MEDICARE, MEDICAID, SELFPAY ==
[2021-06-20 08:42] LABS: Hematocrit 39.5 % (40-54); Mean Corp Hgb Conc 32.9 g/dL (32-36); Mean Corpuscular Hgb 27.7 pg (27.0-32.0); Mean Corpuscular Volume 84.2 fL (80-94); Platelet Count 304 K/mm3 (150-450); RBC Distribution Width CV 13.4 % (11.6-14.6); RBC Distribution Width SD 41.2 fl (35.1-43.9); Red Blood Count 4.69 M/mm3 (4.6-6.2); White Blood Count 10.2 K/mm3 (4.4-11.0)
[2021-06-20 08:54] LABS: Anion Gap 6 (5-15); BUN 20 mg/dL (7-18); BUN/Creat Ratio 14.6 RATIO (10-20); Calcium,Total 8.5 mg/dL (8.5-10.1); Chloride 106 mmol/L (98-107); Creatinine, Serum 1.37 mg/dL (0.70-1.30); EST Glomerular Filtration Rate 55 mL/min (>60); Est Glom Filt Rate - Afr Amer 67 mL/min (>60); Glucose 152 mg/dL (74-106); Potassium 4.1 mmol/L (3.5-5.1); Sodium Level 137 mmol/L (136-145)
== END | disposition home or self-care (01) ==
LOC: OLS.SW300 04:00
PROVIDERS: PCP Internal Medicine; Referring Provider Internal Medicine; Visit Provider Internal Medicine
DX: I10 Essential (primary) hypertension (principal); E11.65 Type 2 diabetes mellitus with hyperglycemia; E78.5 Hyperlipidemia, unspecified
CPT/HCPCS: 36415; 80048; 85027

== ENCOUNTER → 2021-07-18 | Outpatient (REF) | payer MEDICARE, MEDICAID, SELFPAY ==
[2021-07-18 07:31] LABS: Hematocrit 41.1 % (40-54); Hemoglobin 13.4 g/dL (13.0-16.5); Mean Corp Hgb Conc 32.6 g/dL (32-36); Mean Corpuscular Hgb 27.9 pg (27.0-32.0); Mean Corpuscular Volume 85.6 fL (80-94); Mean Platelet Vol. 10.5 fl (6.2-12.0); Platelet Count 294 K/mm3 (150-450); RBC Distribution Width CV 13.8 % (11.6-14.6); RBC Distribution Width SD 42.6 fl (35.1-43.9); White Blood Count 13.8 K/mm3 (4.4-11.0)
[2021-07-18 07:51] LABS: Anion Gap 7 (5-15); BUN 25 mg/dL (7-18); BUN/Creat Ratio 17.9 RATIO (10-20); Calcium,Total 9.1 mg/dL (8.5-10.1); Chloride 105 mmol/L (98-107); EST Glomerular Filtration Rate 54 mL/min (>60); Est Glom Filt Rate - Afr Amer 65 mL/min (>60); Glucose 135 mg/dL (74-106); Potassium 4.6 mmol/L (3.5-5.1); Sodium Level 136 mmol/L (136-145)
== END | disposition home or self-care (01) ==
LOC: OLS.SW300 04:00
PROVIDERS: PCP Internal Medicine; Referring Provider Internal Medicine; Visit Provider Internal Medicine
DX: I10 Essential (primary) hypertension (principal); E11.65 Type 2 diabetes mellitus with hyperglycemia; E78.5 Hyperlipidemia, unspecified
CPT/HCPCS: 36415; 80048; 85027

== ENCOUNTER → 2021-07-20 | Outpatient (REF) | payer MEDICARE, MEDICAID, SELFPAY ==
[2021-07-20 08:48] LABS: Cholesterol 110 mg/dL (200); High Density Lipoprotein 31 mg/dL; Triglycerides 272 mg/dL; Very Low Density Lipoprotein 54 mg/dL (5-40)
[2021-07-20 08:53] LABS: Hemoglobin A1c 7.3 % (3.8-5.6)
== END | disposition home or self-care (01) ==
LOC: OLS.SW300 04:00
PROVIDERS: PCP Internal Medicine; Referring Provider Internal Medicine; Visit Provider Internal Medicine
DX: E11.42 Type 2 diabetes mellitus with diabetic polyneuropathy (principal)
CPT/HCPCS: 36415; 80061; 83036

== ENCOUNTER → 2021-07-25 | Outpatient (REF) | payer MEDICARE, SELFPAY ==
[2021-07-25 09:11] LABS: Absolute Neutrophil Count 5.2 X10^3/uL (2.0-7.7); Basophil# 0.07 X10^3/uL; Basophil% 0.8 % (0-1); Eosinophil# 0.35 X10^3/uL; Hematocrit 40.2 % (40-54); Hemoglobin 13.3 g/dL (13.0-16.5); Lymphocyte % 28.5 % (19-41); Mean Corp Hgb Conc 33.1 g/dL (32-36); Mean Corpuscular Hgb 27.7 pg (27.0-32.0); Mean Corpuscular Volume 83.8 fL (80-94); Mean Platelet Vol. 10.4 fl (6.2-12.0); Monocyte# 0.62 X10^3/uL; Monocyte% 7.1 % (0-10); NRBC Flagged by Analyzer 0 % (0-5); Neutrophil % 59.3 % (47-70); Platelet Count 316 K/mm3 (150-450); RBC Distribution Width CV 13.8 % (11.6-14.6); RBC Distribution Width SD 42.7 fl (35.1-43.9); White Blood Count 8.8 K/mm3 (4.4-11.0)
== END | disposition home or self-care (01) ==
LOC: OLS.SW300 04:00
PROVIDERS: PCP Internal Medicine; Referring Provider Internal Medicine; Visit Provider Internal Medicine
DX: I10 Essential (primary) hypertension (principal)
CPT/HCPCS: 36415; 85025

== ENCOUNTER → 2021-08-15 | Outpatient (REF) | payer MEDICARE, SELFPAY ==
[2021-08-15 10:42] LABS: Hematocrit 41.7 % (40-54); Hemoglobin 13.5 g/dL (13.0-16.5); Mean Corp Hgb Conc 32.4 g/dL (32-36); Mean Corpuscular Hgb 27.7 pg (27.0-32.0); Mean Corpuscular Volume 85.5 fL (80-94); Mean Platelet Vol. 10.3 fl (6.2-12.0); Platelet Count 304 K/mm3 (150-450); RBC Distribution Width CV 13.7 % (11.6-14.6); RBC Distribution Width SD 43.2 fl (35.1-43.9); Red Blood Count 4.88 M/mm3 (4.6-6.2); White Blood Count 8.2 K/mm3 (4.4-11.0)
[2021-08-15 11:11] LABS: Anion Gap 7 (5-15); BUN 15 mg/dL (7-18); BUN/Creat Ratio 10.4 RATIO (10-20); Calcium,Total 8.4 mg/dL (8.5-10.1); Chloride 106 mmol/L (98-107); Creatinine, Serum 1.44 mg/dL (0.70-1.30); EST Glomerular Filtration Rate 52 mL/min (>60); Est Glom Filt Rate - Afr Amer 63 mL/min (>60); Glucose 84 mg/dL (74-106); Sodium Level 138 mmol/L (136-145)
== END | disposition home or self-care (01) ==
LOC: OLS.SW300 04:00
PROVIDERS: PCP Internal Medicine; Referring Provider Internal Medicine; Visit Provider Internal Medicine
DX: I10 Essential (primary) hypertension (principal); E11.9 Type 2 diabetes mellitus without complications; E78.5 Hyperlipidemia, unspecified
CPT/HCPCS: 36415; 80048; 85027

== ENCOUNTER → 2021-09-13 | Outpatient (REF) | payer MEDICARE, SELFPAY ==
[2021-09-13 09:00] LABS: Hematocrit 40.7 % (40-54); Hemoglobin 13.1 g/dL (13.0-16.5); Mean Corp Hgb Conc 32.2 g/dL (32-36); Mean Corpuscular Hgb 27.5 pg (27.0-32.0); Mean Corpuscular Volume 85.5 fL (80-94); Mean Platelet Vol. 10.3 fl (6.2-12.0); Platelet Count 302 K/mm3 (150-450); RBC Distribution Width SD 43.4 fl (35.1-43.9); Red Blood Count 4.76 M/mm3 (4.6-6.2); White Blood Count 9.8 K/mm3 (4.4-11.0)
[2021-09-13 09:23] LABS: Anion Gap 10 (5-15); BUN 23 mg/dL (7-18); BUN/Creat Ratio 16.7 RATIO (10-20); Chloride 106 mmol/L (98-107); Creatinine, Serum 1.38 mg/dL (0.70-1.30); EST Glomerular Filtration Rate 55 mL/min (>60); Est Glom Filt Rate - Afr Amer 66 mL/min (>60); Glucose 97 mg/dL (74-106); Potassium 4.1 mmol/L (3.5-5.1); Sodium Level 137 mmol/L (136-145)
== END | disposition home or self-care (01) ==
LOC: OLS.SW300 04:00
PROVIDERS: PCP Internal Medicine; Referring Provider Internal Medicine; Visit Provider Internal Medicine
DX: E11.65 Type 2 diabetes mellitus with hyperglycemia (principal); E78.5 Hyperlipidemia, unspecified
CPT/HCPCS: 36415; 80048; 85027

== ENCOUNTER → 2021-09-19 05:00 | Outpatient (REF) | payer MEDICARE, MEDICAID, SELFPAY ==
[2021-09-19 08:58] LABS: Hematocrit 39.6 % (40-54); Hemoglobin 12.7 g/dL (13.0-16.5); Mean Corp Hgb Conc 32.1 g/dL (32-36); Mean Corpuscular Hgb 27.7 pg (27.0-32.0); Mean Corpuscular Volume 86.5 fL (80-94); Mean Platelet Vol. 10.6 fl (6.2-12.0); Platelet Count 320 K/mm3 (150-450); RBC Distribution Width CV 13.5 % (11.6-14.6); RBC Distribution Width SD 42.4 fl (35.1-43.9); Red Blood Count 4.58 M/mm3 (4.6-6.2); White Blood Count 9.6 K/mm3 (4.4-11.0)
[2021-09-19 10:14] LABS: Anion Gap 10 (5-15); BUN 18 mg/dL (7-18); BUN/Creat Ratio 13.7 RATIO (10-20); Calcium,Total 9.1 mg/dL (8.5-10.1); Chloride 106 mmol/L (98-107); Creatinine, Serum 1.31 mg/dL (0.70-1.30); EST Glomerular Filtration Rate 58 mL/min (>60); Est Glom Filt Rate - Afr Amer 70 mL/min (>60); Glucose 89 mg/dL (74-106); Potassium 3.9 mmol/L (3.5-5.1); Sodium Level 137 mmol/L (136-145)
== END ==
LOC: OLS.SW300 05:00
PROVIDERS: PCP Internal Medicine; Visit Provider Internal Medicine
DX: E11.9 Type 2 diabetes mellitus without complications (principal)
CPT/HCPCS: 36415; 80048; 85027

== ENCOUNTER → 2021-10-18 | Outpatient (REF) | payer MEDICARE, MEDICAID, SELFPAY ==
[2021-10-18 09:10] LABS: Hematocrit 40.1 % (40-54); Hemoglobin 13.1 g/dL (13.0-16.5); Mean Corp Hgb Conc 32.7 g/dL (32-36); Mean Corpuscular Hgb 27.6 pg (27.0-32.0); Mean Corpuscular Volume 84.6 fL (80-94); Mean Platelet Vol. 10.3 fl (6.2-12.0); Platelet Count 321 K/mm3 (150-450); RBC Distribution Width CV 13.7 % (11.6-14.6); Red Blood Count 4.74 M/mm3 (4.6-6.2); White Blood Count 11.1 K/mm3 (4.4-11.0)
[2021-10-18 09:27] LABS: Anion Gap 9 (5-15); BUN 27 mg/dL (7-18); BUN/Creat Ratio 19.4 RATIO (10-20); Calcium,Total 8.9 mg/dL (8.5-10.1); Chloride 103 mmol/L (98-107); Creatinine, Serum 1.39 mg/dL (0.70-1.30); EST Glomerular Filtration Rate 54 mL/min (>60); Est Glom Filt Rate - Afr Amer 65 mL/min (>60); Glucose 108 mg/dL (74-106); Potassium 3.9 mmol/L (3.5-5.1); Sodium Level 136 mmol/L (136-145); Uric Acid 6.4 mg/dL (3.5-7.2)
[2021-10-18 09:28] LABS: CRP < 2.90 mg/L (0.0-3.0)
== END ==
LOC: OLS.SW300 04:00
PROVIDERS: PCP Internal Medicine; Referring Provider Internal Medicine; Visit Provider Internal Medicine
DX: R52 Pain, unspecified (principal)
CPT/HCPCS: 36415; 80048; 84550; 85027; 86140

== ENCOUNTER → 2021-10-19 05:00 | Outpatient (REF) | payer MEDICARE, MEDICAID, SELFPAY ==
[2021-10-19 08:28] LABS: Hemoglobin A1c 6.7 % (3.8-5.6)
== END ==
LOC: OLS.SW300 05:00
PROVIDERS: PCP Internal Medicine; Visit Provider Internal Medicine
DX: E11.9 Type 2 diabetes mellitus without complications (principal)
CPT/HCPCS: 83036

== ENCOUNTER → 2021-11-14 | Outpatient (REF) | payer MEDICARE, MEDICAID, SELFPAY ==
[2021-11-14 08:19] LABS: Hematocrit 46.1 % (40-54); Hemoglobin 14.6 g/dL (13.0-16.5); Mean Corp Hgb Conc 31.7 g/dL (32-36); Mean Corpuscular Volume 85.2 fL (80-94); Mean Platelet Vol. 10.5 fl (6.2-12.0); Platelet Count 350 K/mm3 (150-450); RBC Distribution Width CV 13.8 % (11.6-14.6); RBC Distribution Width SD 42.8 fl (35.1-43.9); Red Blood Count 5.41 M/mm3 (4.6-6.2)
[2021-11-14 08:44] LABS: Anion Gap 9 (5-15); BUN 14 mg/dL (7-18); BUN/Creat Ratio 9.9 RATIO (10-20); Calcium,Total 9.3 mg/dL (8.5-10.1); Chloride 103 mmol/L (98-107); Creatinine, Serum 1.41 mg/dL (0.70-1.30); EST Glomerular Filtration Rate 53 mL/min (>60); Est Glom Filt Rate - Afr Amer 64 mL/min (>60); Glucose 99 mg/dL (74-106); Potassium 4.4 mmol/L (3.5-5.1); Sodium Level 137 mmol/L (136-145)
== END ==
LOC: OLS.SW300 05:00
PROVIDERS: PCP Internal Medicine; Referring Provider Internal Medicine; Visit Provider Internal Medicine
DX: E11.9 Type 2 diabetes mellitus without complications (principal)
CPT/HCPCS: 36415; 80048; 85027

== ENCOUNTER → 2021-11-19 | Outpatient (REF) | payer MEDICARE, MEDICAID, SELFPAY ==
[2021-11-19 10:51] LABS: CRP < 2.90 mg/L (0.0-3.0); Uric Acid 6.6 mg/dL (3.5-7.2)
== END ==
LOC: OLS.SW300 09:33
PROVIDERS: PCP Internal Medicine; Referring Provider Internal Medicine; Visit Provider Internal Medicine
DX: M79.89 Other specified soft tissue disorders (principal); M25.569 Pain in unspecified knee
CPT/HCPCS: 36415; 84550; 86140

== ENCOUNTER → 2021-12-12 | Outpatient (REF) | payer MEDICARE, MEDICAID, SELFPAY ==
[2021-12-12 09:08] LABS: Absolute Lymphocyte Count 2.34 X10^3/uL (0.83-4.51); Absolute Neutrophil Count 3.8 X10^3/uL (2.0-7.7); Basophil# 0.05 X10^3/uL; Basophil% 0.7 % (0-1); Eosinophil# 0.42 X10^3/uL; Eosinophils% 5.8 % (0-5); Hematocrit 39.1 % (40-54); Lymphocyte # 2.34 X10^3/ul (0.83-4.51); Lymphocyte % 32.4 % (19-41); Mean Corp Hgb Conc 33.2 g/dL (32-36); Mean Corpuscular Hgb 27.8 pg (27.0-32.0); Mean Corpuscular Volume 83.7 fL (80-94); Mean Platelet Vol. 10.7 fl (6.2-12.0); Monocyte# 0.56 X10^3/uL; Monocyte% 7.8 % (0-10); NRBC Flagged by Analyzer 0 % (0-5); Neutrophil # 3.82 X10^3/uL (2.7-7.7); Neutrophil % 52.9 % (47-70); Platelet Count 268 K/mm3 (150-450); RBC Distribution Width CV 14.2 % (11.6-14.6); RBC Distribution Width SD 43.2 fl (35.1-43.9); Red Blood Count 4.67 M/mm3 (4.6-6.2); White Blood Count 7.2 K/mm3 (4.4-11.0)
[2021-12-12 09:20] LABS: Anion Gap 8 (5-15); BUN 18 mg/dL (7-18); Calcium,Total 8.9 mg/dL (8.5-10.1); Chloride 107 mmol/L (98-107); EST Glomerular Filtration Rate 64 mL/min (>60); Est Glom Filt Rate - Afr Amer 77 mL/min (>60); Glucose 116 mg/dL (74-106); Sodium Level 139 mmol/L (136-145)
== END ==
LOC: OLS.SW300 05:00
PROVIDERS: PCP Internal Medicine; Visit Provider Internal Medicine
DX: E78.5 Hyperlipidemia, unspecified (principal); E11.65 Type 2 diabetes mellitus with hyperglycemia
CPT/HCPCS: 36415; 80048; 85025

== ENCOUNTER → 2022-01-09 | Outpatient (REF) | payer MEDICARE, MEDICAID, SELFPAY ==
[2022-01-09 09:01] LABS: Hematocrit 40.5 % (40-54); Hemoglobin 13.3 g/dL (13.0-16.5); Mean Corp Hgb Conc 32.8 g/dL (32-36); Mean Corpuscular Hgb 27.7 pg (27.0-32.0); Mean Corpuscular Volume 84.4 fL (80-94); Mean Platelet Vol. 10.1 fl (6.2-12.0); Platelet Count 301 K/mm3 (150-450); RBC Distribution Width CV 14.5 % (11.6-14.6); RBC Distribution Width SD 44.4 fl (35.1-43.9); White Blood Count 9.2 K/mm3 (4.4-11.0)
[2022-01-09 09:19] LABS: Anion Gap 10 (5-15); BUN 24 mg/dL (7-18); BUN/Creat Ratio 16.3 RATIO (10-20); Calcium,Total 8.8 mg/dL (8.5-10.1); Chloride 106 mmol/L (98-107); Creatinine, Serum 1.47 mg/dL (0.70-1.30); EST Glomerular Filtration Rate 51 mL/min (>60); Est Glom Filt Rate - Afr Amer 61 mL/min (>60); Glucose 125 mg/dL (74-106); Potassium 4.2 mmol/L (3.5-5.1); Sodium Level 140 mmol/L (136-145)
== END ==
LOC: OLS.SW300 04:00
PROVIDERS: PCP Internal Medicine; Referring Provider Internal Medicine; Visit Provider Internal Medicine
DX: E11.65 Type 2 diabetes mellitus with hyperglycemia (principal); I10 Essential (primary) hypertension; E78.5 Hyperlipidemia, unspecified
CPT/HCPCS: 36415; 80048; 85027

== ENCOUNTER → 2022-01-18 | Outpatient (REF) | payer MEDICARE, MEDICAID, SELFPAY ==
[2022-01-18 08:58] LABS: Cholesterol 93 mg/dL (200); High Density Lipoprotein 30 mg/dL; Triglycerides 194 mg/dL; Very Low Density Lipoprotein 39 mg/dL (5-40)
[2022-01-18 09:06] LABS: Hemoglobin A1c 6.7 % (3.8-5.6)
== END ==
LOC: OLS.SW300 04:00
PROVIDERS: PCP Internal Medicine; Visit Provider Internal Medicine
DX: E11.9 Type 2 diabetes mellitus without complications (principal); E78.5 Hyperlipidemia, unspecified
CPT/HCPCS: 36415; 80061; 83036

== ENCOUNTER → 2022-02-06 | Outpatient (REF) | payer MEDICARE, MEDICAID, SELFPAY ==
[2022-02-06 06:57] LABS: Hematocrit 38.7 % (40-54); Hemoglobin 12.4 g/dL (13.0-16.5); Mean Corpuscular Hgb 27.6 pg (27.0-32.0); Mean Corpuscular Volume 86.2 fL (80-94); Mean Platelet Vol. 10.4 fl (6.2-12.0); Platelet Count 294 K/mm3 (150-450); RBC Distribution Width CV 14.4 % (11.6-14.6); RBC Distribution Width SD 44.6 fl (35.1-43.9); Red Blood Count 4.49 M/mm3 (4.6-6.2); White Blood Count 8.5 K/mm3 (4.4-11.0)
[2022-02-06 07:23] LABS: Anion Gap 11 (5-15); BUN 19 mg/dL (7-18); BUN/Creat Ratio 15.1 RATIO (10-20); Calcium,Total 8.6 mg/dL (8.5-10.1); Chloride 108 mmol/L (98-107); Creatinine, Serum 1.26 mg/dL (0.70-1.30); EST Glomerular Filtration Rate 60 mL/min (>60); Est Glom Filt Rate - Afr Amer 73 mL/min (>60); Glucose 99 mg/dL (74-106); Sodium Level 139 mmol/L (136-145)
== END ==
LOC: OLS.SW 04:00
PROVIDERS: PCP Internal Medicine; Visit Provider Internal Medicine
DX: E78.5 Hyperlipidemia, unspecified (principal)
CPT/HCPCS: 36415; 80048; 85027

== ENCOUNTER → 2022-02-22 | Outpatient (REF) | payer MEDICARE, MEDICAID, SELFPAY ==
[2022-02-22 07:46] LABS: Anion Gap 8 (5-15); BUN 25 mg/dL (7-18); BUN/Creat Ratio 16.7 RATIO (10-20); Chloride 108 mmol/L (98-107); EST Glomerular Filtration Rate 49 mL/min (>60); Est Glom Filt Rate - Afr Amer 60 mL/min (>60); Glucose 214 mg/dL (74-106); Sodium Level 139 mmol/L (136-145)
[2022-02-22 07:48] LABS: Absolute Lymphocyte Count 2.02 X10^3/uL (0.83-4.51); Basophil# 0.03 X10^3/uL; Basophil% 0.3 % (0-1); Eosinophil# 0.41 X10^3/uL; Eosinophils% 4.7 % (0-5); Hematocrit 42.5 % (40-54); Hemoglobin 13.5 g/dL (13.0-16.5); Lymphocyte # 2.02 X10^3/ul (0.83-4.51); Lymphocyte % 23.1 % (19-41); Mean Corp Hgb Conc 31.8 g/dL (32-36); Mean Corpuscular Hgb 27.3 pg (27.0-32.0); Mean Platelet Vol. 10.8 fl (6.2-12.0); Monocyte# 1.19 X10^3/uL; Monocyte% 13.6 % (0-10); NRBC Flagged by Analyzer 0 % (0-5); Neutrophil # 5.04 X10^3/uL (2.7-7.7); Neutrophil % 57.7 % (47-70); Platelet Count 278 K/mm3 (150-450); RBC Distribution Width CV 14.5 % (11.6-14.6); RBC Distribution Width SD 45.5 fl (35.1-43.9); Red Blood Count 4.94 M/mm3 (4.6-6.2); White Blood Count 8.7 K/mm3 (4.4-11.0)
== END ==
LOC: OLS.SW 05:00
PROVIDERS: PCP Internal Medicine; Visit Provider Internal Medicine
DX: I10 Essential (primary) hypertension (principal); E11.65 Type 2 diabetes mellitus with hyperglycemia; R50.9 Fever, unspecified
CPT/HCPCS: 36415; 80048; 85025

== ENCOUNTER → 2022-03-06 | Outpatient (REF) | payer MEDICARE, MEDICAID, SELFPAY ==
[2022-03-06 08:19] LABS: Anion Gap 9 (5-15); BUN 21 mg/dL (7-18); Calcium,Total 8.6 mg/dL (8.5-10.1); Chloride 108 mmol/L (98-107); Creatinine, Serum 1.31 mg/dL (0.70-1.30); EST Glomerular Filtration Rate 58 mL/min (>60); Est Glom Filt Rate - Afr Amer 70 mL/min (>60); Glucose 113 mg/dL (74-106); Potassium 4.1 mmol/L (3.5-5.1); Sodium Level 141 mmol/L (136-145)
[2022-03-06 08:24] LABS: Hemoglobin 13.6 g/dL (13.0-16.5); Mean Corp Hgb Conc 32.4 g/dL (32-36); Mean Corpuscular Volume 86.6 fL (80-94); Mean Platelet Vol. 10.3 fl (6.2-12.0); Platelet Count 354 K/mm3 (150-450); RBC Distribution Width CV 14.1 % (11.6-14.6); RBC Distribution Width SD 44.9 fl (35.1-43.9); Red Blood Count 4.85 M/mm3 (4.6-6.2); White Blood Count 10.4 K/mm3 (4.4-11.0)
== END ==
LOC: OLS.SW 05:00
PROVIDERS: PCP Internal Medicine; Visit Provider Internal Medicine
DX: F03.90 Unspecified dementia, unspecified severity, without behavioral disturbance, psychotic disturbance, mood disturbance, and anxiety (principal); E11.9 Type 2 diabetes mellitus without complications; E78.5 Hyperlipidemia, unspecified
CPT/HCPCS: 36415; 80048; 85027

== ENCOUNTER → 2022-04-03 | Outpatient (REF) | payer MEDICARE, MEDICAID, SELFPAY ==
[2022-04-03 07:44] LABS: Hematocrit 38.2 % (40-54); Hemoglobin 12.4 g/dL (13.0-16.5); Mean Corp Hgb Conc 32.5 g/dL (32-36); Mean Corpuscular Hgb 27.7 pg (27.0-32.0); Mean Corpuscular Volume 85.3 fL (80-94); Mean Platelet Vol. 10.2 fl (6.2-12.0); Platelet Count 300 K/mm3 (150-450); RBC Distribution Width CV 14.1 % (11.6-14.6); RBC Distribution Width SD 43.8 fl (35.1-43.9); Red Blood Count 4.48 M/mm3 (4.6-6.2); White Blood Count 8.6 K/mm3 (4.4-11.0)
[2022-04-03 07:55] LABS: Anion Gap 6 (5-15); BUN 21 mg/dL (7-18); BUN/Creat Ratio 17.5 RATIO (10-20); Calcium,Total 8.7 mg/dL (8.5-10.1); Chloride 108 mmol/L (98-107); EST Glomerular Filtration Rate 64 mL/min (>60); Est Glom Filt Rate - Afr Amer 77 mL/min (>60); Glucose 96 mg/dL (74-106); Potassium 3.9 mmol/L (3.5-5.1); Sodium Level 139 mmol/L (136-145)
== END ==
LOC: OLS.SW 05:00
PROVIDERS: PCP Internal Medicine; Visit Provider Internal Medicine
DX: F03.90 Unspecified dementia, unspecified severity, without behavioral disturbance, psychotic disturbance, mood disturbance, and anxiety (principal); E11.65 Type 2 diabetes mellitus with hyperglycemia; I10 Essential (primary) hypertension; Z79.899 Other long term (current) drug therapy
CPT/HCPCS: 36415; 80048; 85027

== ENCOUNTER → 2022-04-06 | Outpatient (REF) | payer MEDICARE, MEDICAID, SELFPAY ==
[2022-04-06 09:06] LABS: Absolute Lymphocyte Count 2.66 X10^3/uL (0.83-4.51); Absolute Neutrophil Count 6.8 X10^3/uL (2.0-7.7); Basophil# 0.06 X10^3/uL; Basophil% 0.6 % (0-1); Eosinophil# 0.29 X10^3/uL; Eosinophils% 2.7 % (0-5); Hematocrit 41.3 % (40-54); Hemoglobin 12.7 g/dL (13.0-16.5); Lymphocyte # 2.66 X10^3/ul (0.83-4.51); Lymphocyte % 25.2 % (19-41); Mean Corp Hgb Conc 30.8 g/dL (32-36); Mean Corpuscular Volume 87.7 fL (80-94); Mean Platelet Vol. 10.4 fl (6.2-12.0); Monocyte# 0.67 X10^3/uL; Monocyte% 6.4 % (0-10); NRBC Flagged by Analyzer 0 % (0-5); Neutrophil # 6.83 X10^3/uL (2.7-7.7); Neutrophil % 64.7 % (47-70); Platelet Count 340 K/mm3 (150-450); RBC Distribution Width CV 14.1 % (11.6-14.6); Red Blood Count 4.71 M/mm3 (4.6-6.2); White Blood Count 10.6 K/mm3 (4.4-11.0)
[2022-04-06 09:20] LABS: Anion Gap 5 (5-15); BUN 19 mg/dL (7-18); BUN/Creat Ratio 14.5 RATIO (10-20); Calcium,Total 8.8 mg/dL (8.5-10.1); Chloride 109 mmol/L (98-107); Creatinine, Serum 1.31 mg/dL (0.70-1.30); EST Glomerular Filtration Rate 58 mL/min (>60); Est Glom Filt Rate - Afr Amer 70 mL/min (>60); Glucose 128 mg/dL (74-106); Magnesium 2.3 mg/dL (1.6-2.6); Potassium 4.2 mmol/L (3.5-5.1); Sodium Level 139 mmol/L (136-145)
== END ==
LOC: OLS.SW 05:00
PROVIDERS: PCP Internal Medicine; Visit Provider Internal Medicine
DX: E11.9 Type 2 diabetes mellitus without complications (principal)
CPT/HCPCS: 36415; 80048; 83735; 85025

== ENCOUNTER → 2022-04-19 | Outpatient (REF) | payer MEDICARE, MEDICAID, SELFPAY ==
[2022-04-19 09:12] LABS: Cholesterol 89 mg/dL (200); High Density Lipoprotein 29 mg/dL; Triglycerides 163 mg/dL; Very Low Density Lipoprotein 33 mg/dL (5-40)
[2022-04-19 09:31] LABS: Hemoglobin A1c 6.4 % (3.8-5.6)
== END ==
LOC: OLS.SW 05:00
PROVIDERS: PCP Internal Medicine; Visit Provider Internal Medicine
DX: E11.9 Type 2 diabetes mellitus without complications (principal)
CPT/HCPCS: 36415; 80061; 83036

== ENCOUNTER → 2022-05-08 | Outpatient (REF) | payer MEDICARE, MEDICAID, SELFPAY ==
[2022-05-08 08:37] LABS: Absolute Lymphocyte Count 2.72 X10^3/uL (0.83-4.51); Absolute Neutrophil Count 6.8 X10^3/uL (2.0-7.7); Basophil# 0.04 X10^3/uL; Basophil% 0.4 % (0-1); Eosinophil# 0.33 X10^3/uL; Eosinophils% 3.1 % (0-5); Hematocrit 43.7 % (40-54); Hemoglobin 14.3 g/dL (13.0-16.5); Lymphocyte # 2.72 X10^3/ul (0.83-4.51); Lymphocyte % 25.2 % (19-41); Mean Corp Hgb Conc 32.7 g/dL (32-36); Mean Corpuscular Hgb 27.6 pg (27.0-32.0); Mean Corpuscular Volume 84.2 fL (80-94); Mean Platelet Vol. 9.7 fl (6.2-12.0); Monocyte# 0.85 X10^3/uL; Monocyte% 7.9 % (0-10); NRBC Flagged by Analyzer 0 % (0-5); Neutrophil # 6.79 X10^3/uL (2.7-7.7); Neutrophil % 62.9 % (47-70); Platelet Count 385 K/mm3 (150-450); RBC Distribution Width CV 14.4 % (11.6-14.6); Red Blood Count 5.19 M/mm3 (4.6-6.2); White Blood Count 10.8 K/mm3 (4.4-11.0)
[2022-05-08 08:57] LABS: Anion Gap 6 (5-15); BUN 25 mg/dL (7-18); BUN/Creat Ratio 15.7 RATIO (10-20); CRP < 2.90 mg/L (0.0-3.0); Calcium,Total 9.4 mg/dL (8.5-10.1); Chloride 110 mmol/L (98-107); Creatinine, Serum 1.59 mg/dL (0.70-1.30); EST Glomerular Filtration Rate 46 mL/min (>60); Est Glom Filt Rate - Afr Amer 56 mL/min (>60); Glucose 115 mg/dL (74-106); Potassium 4.5 mmol/L (3.5-5.1); Sodium Level 138 mmol/L (136-145)
== END ==
LOC: OLS.SW 05:00
PROVIDERS: PCP Internal Medicine; Visit Provider Internal Medicine
DX: U07.1 COVID-19 (principal)
CPT/HCPCS: 36415; 80048; 85025; 86140

== ENCOUNTER → 2022-05-15 | Outpatient (REF) | payer MEDICARE, MEDICAID, SELFPAY ==
[2022-05-15 09:54] LABS: Absolute Lymphocyte Count 2.51 X10^3/uL (0.83-4.51); Absolute Neutrophil Count 5.5 X10^3/uL (2.0-7.7); Basophil# 0.05 X10^3/uL; Basophil% 0.6 % (0-1); Eosinophil# 0.29 X10^3/uL; Eosinophils% 3.2 % (0-5); Hematocrit 38.3 % (40-54); Hemoglobin 12.3 g/dL (13.0-16.5); Lymphocyte # 2.51 X10^3/ul (0.83-4.51); Lymphocyte % 27.6 % (19-41); Mean Corp Hgb Conc 32.1 g/dL (32-36); Mean Corpuscular Hgb 26.8 pg (27.0-32.0); Mean Corpuscular Volume 83.4 fL (80-94); Mean Platelet Vol. 11.2 fl (6.2-12.0); Monocyte# 0.68 X10^3/uL; Monocyte% 7.5 % (0-10); NRBC Flagged by Analyzer 0 % (0-5); Neutrophil # 5.53 X10^3/uL (2.7-7.7); Neutrophil % 60.8 % (47-70); Platelet Count 298 K/mm3 (150-450); RBC Distribution Width CV 14.6 % (11.6-14.6); RBC Distribution Width SD 44.5 fl (35.1-43.9); Red Blood Count 4.59 M/mm3 (4.6-6.2); White Blood Count 9.1 K/mm3 (4.4-11.0)
[2022-05-15 10:03] LABS: Anion Gap 10 (5-15); BUN 25 mg/dL (7-18); BUN/Creat Ratio 17.2 RATIO (10-20); CRP < 2.90 mg/L (0.0-3.0); Calcium,Total 8.9 mg/dL (8.5-10.1); Chloride 110 mmol/L (98-107); Creatinine, Serum 1.45 mg/dL (0.70-1.30); EST Glomerular Filtration Rate 51 mL/min (>60); Est Glom Filt Rate - Afr Amer 62 mL/min (>60); Glucose 81 mg/dL (74-106); Potassium 4.5 mmol/L (3.5-5.1); Sodium Level 138 mmol/L (136-145)
== END ==
LOC: OLS.SW 05:40
PROVIDERS: PCP Internal Medicine; Visit Provider Internal Medicine
DX: U07.1 COVID-19 (principal)
CPT/HCPCS: 36415; 80048; 85025; 86140

== ENCOUNTER → 2022-05-23 | Outpatient (REF) | payer MEDICARE, MEDICAID, SELFPAY ==
[2022-05-23 09:42] LABS: Color, Urine Yellow (Yellow); Glucose, Dipstick Normal (Normal); Ketone-Dipstick 5 mg/dl (Negative); Leukocyte Esterase-Dipstick Negative /ul (Negative); Nitrite-Dipstick Negative (Negative); Occult Blood-Urine Negative /ul (Negative); Protein-Dipstick 15 mg/dl (Negative); Urine Bilirubin Dipstick Negative (Negative); Urine Clarity Cloudy (Clear); Urine Urobilinogen Normal (Normal)
[2022-05-23 10:14] LABS: Anion Gap 8 (5-15); BUN 28 mg/dL (7-18); BUN/Creat Ratio 20.3 RATIO (10-20); Calcium,Total 9.2 mg/dL (8.5-10.1); Chloride 115 mmol/L (98-107); Creatinine, Serum 1.38 mg/dL (0.70-1.30); EST Glomerular Filtration Rate 54 mL/min (>60); Est Glom Filt Rate - Afr Amer 66 mL/min (>60); Glucose 115 mg/dL (74-106); Potassium 4.2 mmol/L (3.5-5.1); Sodium Level 142 mmol/L (136-145)
== END ==
LOC: OLS.SW 05:00
PROVIDERS: PCP Internal Medicine; Visit Provider Internal Medicine
DX: N39.0 Urinary tract infection, site not specified (principal); E11.9 Type 2 diabetes mellitus without complications
CPT/HCPCS: 36415; 80048; 81002; 87086

== ENCOUNTER → 2022-05-29 | Outpatient (REF) | payer MEDICARE, MEDICAID, SELFPAY ==
[2022-05-29 08:53] LABS: Hematocrit 40.6 % (40-54); Hemoglobin 13.2 g/dL (13.0-16.5); Mean Corp Hgb Conc 32.5 g/dL (32-36); Mean Corpuscular Hgb 27.3 pg (27.0-32.0); Mean Corpuscular Volume 84.1 fL (80-94); Mean Platelet Vol. 10.6 fl (6.2-12.0); Platelet Count 300 K/mm3 (150-450); RBC Distribution Width CV 14.7 % (11.6-14.6); Red Blood Count 4.83 M/mm3 (4.6-6.2); White Blood Count 10.2 K/mm3 (4.4-11.0)
[2022-05-29 09:00] LABS: Anion Gap 8 (5-15); BUN 19 mg/dL (7-18); BUN/Creat Ratio 15.6 RATIO (10-20); Calcium,Total 9.3 mg/dL (8.5-10.1); Chloride 109 mmol/L (98-107); Creatinine, Serum 1.22 mg/dL (0.70-1.30); EST Glomerular Filtration Rate 63 mL/min (>60); Est Glom Filt Rate - Afr Amer 76 mL/min (>60); Glucose 86 mg/dL (74-106); Potassium 4.1 mmol/L (3.5-5.1); Sodium Level 140 mmol/L (136-145)
== END ==
LOC: OLS.SW 04:00
PROVIDERS: PCP Internal Medicine; Referring Provider Internal Medicine; Visit Provider Internal Medicine
DX: E11.65 Type 2 diabetes mellitus with hyperglycemia (principal); E78.5 Hyperlipidemia, unspecified
CPT/HCPCS: 36415; 80048; 85027

== ENCOUNTER → 2022-06-26 | Outpatient (REF) | payer MEDICARE, MEDICAID, SELFPAY ==
[2022-06-26 07:57] LABS: Hematocrit 37.6 % (40-54); Hemoglobin 12.6 g/dL (13.0-16.5); Mean Corp Hgb Conc 33.5 g/dL (32-36); Mean Corpuscular Hgb 28.3 pg (27.0-32.0); Mean Corpuscular Volume 84.5 fL (80-94); Mean Platelet Vol. 10.3 fl (6.2-12.0); Platelet Count 313 K/mm3 (150-450); RBC Distribution Width CV 15.1 % (11.6-14.6); RBC Distribution Width SD 46.1 fl (35.1-43.9); Red Blood Count 4.45 M/mm3 (4.6-6.2); White Blood Count 9.4 K/mm3 (4.4-11.0)
[2022-06-26 08:20] LABS: Anion Gap 9 (5-15); BUN 16 mg/dL (7-18); Calcium,Total 8.8 mg/dL (8.5-10.1); Chloride 110 mmol/L (98-107); Creatinine, Serum 1.07 mg/dL (0.70-1.30); EST Glomerular Filtration Rate 73 mL/min (>60); Est Glom Filt Rate - Afr Amer 88 mL/min (>60); Glucose 112 mg/dL (74-106); Potassium 4.1 mmol/L (3.5-5.1); Sodium Level 139 mmol/L (136-145)
== END ==
LOC: OLS.SW 05:00
PROVIDERS: PCP Internal Medicine; Visit Provider Internal Medicine
DX: E11.65 Type 2 diabetes mellitus with hyperglycemia (principal); I10 Essential (primary) hypertension; E78.5 Hyperlipidemia, unspecified
CPT/HCPCS: 36415; 80048; 85027

== ENCOUNTER → 2022-07-19 | Outpatient (REF) | payer MEDICARE, MEDICAID, SELFPAY ==
[2022-07-19 09:18] LABS: Cholesterol 108 mg/dL (200); High Density Lipoprotein 28 mg/dL; Triglycerides 216 mg/dL; Very Low Density Lipoprotein 43 mg/dL (5-40)
[2022-07-19 09:33] LABS: Hemoglobin A1c 6.6 % (3.8-5.6)
== END ==
LOC: OLS.SW 05:00
PROVIDERS: PCP Internal Medicine; Visit Provider Internal Medicine
DX: E11.9 Type 2 diabetes mellitus without complications (principal)
CPT/HCPCS: 36415; 80061; 83036

== ENCOUNTER → 2022-07-24 | Outpatient (REF) | payer MEDICARE, MEDICAID, SELFPAY ==
[2022-07-24 07:45] LABS: BUN 19 mg/dL (7-18); Creatinine, Serum 1.26 mg/dL (0.70-1.30); Glucose 156 mg/dL (74-106); Hematocrit 37.6 % (40-54); Hemoglobin 12.3 g/dL (13.0-16.5); Mean Corp Hgb Conc 32.7 g/dL (32-36); Mean Corpuscular Hgb 28.7 pg (27.0-32.0); Mean Corpuscular Volume 87.9 fL (80-94); Mean Platelet Vol. 10.7 fl (6.2-12.0); Platelet Count 310 K/mm3 (150-450); RBC Distribution Width CV 15.2 % (11.6-14.6); RBC Distribution Width SD 48.9 fl (35.1-43.9); Red Blood Count 4.28 M/mm3 (4.6-6.2)
[2022-07-24 07:46] LABS: Anion Gap 6 (5-15); BUN/Creat Ratio 15.1 RATIO (10-20); Chloride 108 mmol/L (98-107); EST Glomerular Filtration Rate 60 mL/min (>60); Est Glom Filt Rate - Afr Amer 73 mL/min (>60); Potassium 3.6 mmol/L (3.5-5.1); Sodium Level 138 mmol/L (136-145)
== END ==
LOC: OLS.SW 05:00
PROVIDERS: PCP Internal Medicine; Visit Provider Internal Medicine
DX: E11.65 Type 2 diabetes mellitus with hyperglycemia (principal)
CPT/HCPCS: 36415; 80048; 85027

== ENCOUNTER → 2022-07-31 | Outpatient (REF) | payer MEDICARE, MEDICAID, SELFPAY ==
[2022-07-31 08:26] LABS: Mucous, Urine 0 SEEN /hpf (<or=2+); Red Blood Cells-Urine 0 SEEN /hpf (0-5); Squamous Epithelial Cells - UA 0 SEEN /hpf (0-5); White Blood Cells 0 SEEN /hpf (0-5)
[2022-07-31 08:48] LABS: Color, Urine Yellow (Yellow); Glucose, Dipstick 250 mg/dl (Normal); Ketone-Dipstick Negative (Negative); Leukocyte Esterase-Dipstick Negative /ul (Negative); Nitrite-Dipstick Negative (Negative); Occult Blood-Urine Negative /ul (Negative); Protein-Dipstick 15 mg/dl (Negative); Urine Bilirubin Dipstick Negative (Negative); Urine Clarity Cloudy (Clear); Urine Urobilinogen Normal (Normal)
[2022-07-31 09:01] LABS: Amorphous Sediment 2+; Bacteria 1+ /hpf (None Seen)
== END ==
LOC: OLS.SW 08:25
PROVIDERS: PCP Internal Medicine; Referring Provider Internal Medicine; Visit Provider Internal Medicine
DX: Z79.899 Other long term (current) drug therapy (principal); D72.829 Elevated white blood cell count, unspecified
CPT/HCPCS: 81001; 87086

== ENCOUNTER → 2022-08-15 | Outpatient (REF) | payer MEDICARE, MEDICAID, SELFPAY ==
[2022-08-15 08:47] LABS: Absolute Lymphocyte Count 2.47 X10^3/uL (0.83-4.51); Basophil# 0.07 X10^3/uL; Basophil% 0.7 % (0-1); Eosinophil# 0.42 X10^3/uL; Eosinophils% 4.3 % (0-5); Hemoglobin 11.7 g/dL (13.0-16.5); Lymphocyte # 2.47 X10^3/ul (0.83-4.51); Lymphocyte % 25.6 % (19-41); Mean Corp Hgb Conc 31.6 g/dL (32-36); Mean Corpuscular Hgb 28.3 pg (27.0-32.0); Mean Corpuscular Volume 89.6 fL (80-94); Mean Platelet Vol. 10.2 fl (6.2-12.0); Monocyte# 0.63 X10^3/uL; Monocyte% 6.5 % (0-10); NRBC Flagged by Analyzer 0 % (0-5); Neutrophil # 6.03 X10^3/uL (2.7-7.7); Neutrophil % 62.5 % (47-70); Platelet Count 373 K/mm3 (150-450); RBC Distribution Width SD 45.2 fl (35.1-43.9); Red Blood Count 4.13 M/mm3 (4.6-6.2); White Blood Count 9.7 K/mm3 (4.4-11.0)
== END ==
LOC: OLS.SW 05:00
PROVIDERS: PCP Internal Medicine; Visit Provider Internal Medicine
DX: E11.65 Type 2 diabetes mellitus with hyperglycemia (principal); I10 Essential (primary) hypertension; E78.5 Hyperlipidemia, unspecified
CPT/HCPCS: 36415; 85025

== ENCOUNTER → 2022-08-21 | Outpatient (REF) | payer MEDICARE, MEDICAID, SELFPAY ==
[2022-08-21 09:28] LABS: Hematocrit 36.9 % (40-54); Hemoglobin 12.1 g/dL (13.0-16.5); Mean Corp Hgb Conc 32.8 g/dL (32-36); Mean Corpuscular Hgb 28.9 pg (27.0-32.0); Mean Corpuscular Volume 88.1 fL (80-94); Mean Platelet Vol. 10.5 fl (6.2-12.0); Platelet Count 355 K/mm3 (150-450); RBC Distribution Width CV 13.8 % (11.6-14.6); RBC Distribution Width SD 44.3 fl (35.1-43.9); Red Blood Count 4.19 M/mm3 (4.6-6.2); White Blood Count 11.3 K/mm3 (4.4-11.0)
[2022-08-21 09:36] LABS: Anion Gap 12 (5-15); BUN 24 mg/dL (7-18); BUN/Creat Ratio 20.3 RATIO (10-20); Calcium,Total 9.1 mg/dL (8.5-10.1); Chloride 111 mmol/L (98-107); Creatinine, Serum 1.18 mg/dL (0.70-1.30); EST Glomerular Filtration Rate 65 mL/min (>60); Est Glom Filt Rate - Afr Amer 79 mL/min (>60); Glucose 81 mg/dL (74-106); Sodium Level 141 mmol/L (136-145)
== END ==
LOC: OLS.SW 05:00
PROVIDERS: PCP Internal Medicine; Visit Provider Internal Medicine
DX: E11.65 Type 2 diabetes mellitus with hyperglycemia (principal); I10 Essential (primary) hypertension; E78.5 Hyperlipidemia, unspecified
CPT/HCPCS: 36415; 80048; 85027

== ENCOUNTER → 2022-09-18 04:00 | Outpatient (REF) | payer MEDICARE, MEDICAID, SELFPAY ==
[2022-09-18 09:04] LABS: Hematocrit 40.9 % (40-54); Hemoglobin 12.9 g/dL (13.0-16.5); Mean Corp Hgb Conc 31.5 g/dL (32-36); Mean Corpuscular Volume 91.9 fL (80-94); Mean Platelet Vol. 10.5 fl (6.2-12.0); Platelet Count 312 K/mm3 (150-450); RBC Distribution Width CV 13.7 % (11.6-14.6); RBC Distribution Width SD 46.5 fl (35.1-43.9); Red Blood Count 4.45 M/mm3 (4.6-6.2)
[2022-09-18 09:13] LABS: Anion Gap 7 (5-15); BUN 22 mg/dL (7-18); BUN/Creat Ratio 17.3 RATIO (10-20); Calcium,Total 9.2 mg/dL (8.5-10.1); Chloride 110 mmol/L (98-107); Creatinine, Serum 1.27 mg/dL (0.70-1.30); EST Glomerular Filtration Rate 60 mL/min (>60); Est Glom Filt Rate - Afr Amer 72 mL/min (>60); Glucose 135 mg/dL (74-106); Potassium 4.5 mmol/L (3.5-5.1); Sodium Level 139 mmol/L (136-145)
== END ==
LOC: OLS.SW 04:00
PROVIDERS: PCP Internal Medicine; Referring Provider Internal Medicine; Visit Provider Internal Medicine
DX: E11.9 Type 2 diabetes mellitus without complications (principal)
CPT/HCPCS: 36415; 80048; 85027

== ENCOUNTER → 2022-10-16 04:00 | Outpatient (REF) | payer MEDICARE, MEDICAID, SELFPAY ==
[2022-10-16 09:25] LABS: Hematocrit 37.3 % (40-54); Hemoglobin 12.1 g/dL (13.0-16.5); Mean Corp Hgb Conc 32.4 g/dL (32-36); Mean Corpuscular Hgb 28.5 pg (27.0-32.0); Mean Corpuscular Volume 87.8 fL (80-94); Platelet Count 310 K/mm3 (150-450); RBC Distribution Width CV 13.9 % (11.6-14.6); RBC Distribution Width SD 44.6 fl (35.1-43.9); Red Blood Count 4.25 M/mm3 (4.6-6.2)
[2022-10-16 09:33] LABS: Anion Gap 6 (5-15); BUN 19 mg/dL (7-18); BUN/Creat Ratio 17.4 RATIO (10-20); Calcium,Total 8.5 mg/dL (8.5-10.1); Chloride 110 mmol/L (98-107); Creatinine, Serum 1.09 mg/dL (0.70-1.30); EST Glomerular Filtration Rate 71 mL/min (>60); Est Glom Filt Rate - Afr Amer 86 mL/min (>60); Glucose 104 mg/dL (74-106); Potassium 3.8 mmol/L (3.5-5.1); Sodium Level 137 mmol/L (136-145)
[2022-10-18 05:24] LABS: Cholesterol 79 mg/dL (200); High Density Lipoprotein 30 mg/dL; Triglycerides 104 mg/dL; Very Low Density Lipoprotein 21 mg/dL (5-40)
[2022-10-18 08:56] LABS: Hemoglobin A1c 6.4 % (3.8-5.6)
== END ==
LOC: OLS.SW 04:00
PROVIDERS: PCP Internal Medicine; Referring Provider Internal Medicine; Visit Provider Internal Medicine
DX: I10 Essential (primary) hypertension (principal); E78.5 Hyperlipidemia, unspecified
CPT/HCPCS: 36415; 80048; 80061; 83036; 85027

== ENCOUNTER 2022-11-11 18:37 | Inpatient (IN) | payer MEDICARE, MEDICAID, SELFPAY ==
[2022-11-11] VITALS (11 sets, daily range): BP systolic 108–148; BP diastolic 66–96; PULSE 100–118; RESP 13–26; TEMP 36.8–37.8; O2SAT 94–98; BMI 29.2; BMI 28.5
--- NOTE | 2022-11-11 18:40 | NURSING ---
this RN notified Dr Cottrell at 1834 of EMS squad report of 'stroke alert' and presented symptoms. Last known well unknown per squad & symptoms resolved. seo consultant calling [facility] currently for more info. No stroke alert at this time per Dr Cottrell.
--- NOTE | 2022-11-11 19:10 | NURSING ---
Dr Santos asked this RN for details on patient, updated on report from EMS and report from [facility]. evaluated patient and stated that he wants a stat CT - patient next to be done, this RN notified CT. stated he will not call stroke alert.
--- NOTE | 2022-11-11 19:10 | EKG12_ITS ---
Test Reason : NEURO Blood Pressure : / mmHG Vent. Rate : 119 BPM Atrial Rate : 119 BPM P-R Int : 116 ms QRS Dur : 078 ms QT Int : 314 ms P-R-T Axes : 044 -44 077 degrees QTc Int : 441 ms Sinus tachycardia Left axis deviation Nonspecific T wave abnormality Abnormal ECG Confirmed by JERE MAYORGA, FATIMAH ([id number]), food editor NAVNEET CHAMPION ([id number]) on 11/16/2022 8:33:30 AM Referred By: DORIS Confirmed By:DEION OQUENDO MD
--- NOTE | 2022-11-11 19:10 | CT_ITS ---
INDICATION: Neuro deficit, acute, stroke suspected EXAMINATION: CT BRAIN - CT Head Stroke Protocol W/O Contrast Injection TECHNIQUE: Multiple axial images were obtained of the head without intravenous contrast. A radiation dose optimization technique was used for this scan. IV Contrast dosage and agent: None. RADIATION DOSAGE (If Supplied By Facility): CTDIvol = ( ) mGy, DLP = ( ) mGycm COMPARISON: FINDINGS: BRAIN PARENCHYMA: No intra- or extra-axial hemorrhage. No evidence of acute infarct. No intracranial mass or mass effect. There is preservation of the chaudhry/white matter interface. Posterior fossa structures are unremarkable. CSF SPACES: Moderate cerebral atrophy and ischemic white matter changes. No hydrocephalus. Basal cisterns are patent. CALVARIUM, SKULL BASE, PARANASAL SINUSES AND MASTOID AIR CELLS: Clear. No discrete lytic or blastic abnormalities. ORBITS: Both globes, extraocular muscles, optic nerves and retrobulbar fat appear unremarkable. ASPECTS Score for Acute Strokes: 10 CT/STROKE Brain/Head without Cont IMPRESSION: Negative Brain CT without contrast. N.B. : The above Results were Read Back by Brendon Obrien MD to Jose Santos and understanding confirmed on 11/11/2022 19:40:56 (ET). Electronically Signed: Brendon Obrien MD at 19:42 EDT ,
--- NOTE | 2022-11-11 19:10 | ED.RN ---
EMS CALLED IN REGARDING THIS PT WITH POSSIBLE NEURO SX NO LAST KNOWN WELL. CALLED NURSING HIME FOR REPORTS PRIOR TO PT ARRIVAL. NURSE YANDY REPORTS THAT PT HAS BEE OFF ALL DAY. C/O ABD PAIN AND NOT EATING WELL WHICH IS NOT LIKE HIM. UNSURE WHEN LAST SEEN WHELL PRIOR TO BEDTIME LAST NIGHT. REPORTS TREMOR AND SLURRED SPEECH FIRST NOTED AROUND DINNER TIME APPX 1700 WAXING AND WANING. RESOLVED PER EMS REPORT. DR ZAPIEN
--- NOTE | 2022-11-11 19:12 | EX.ED.DYSGE1 ---
HPI History of Present Illness Chief Complaint: Neuro S/Sx Narrative Narrative: Patient is a 67-year-old male who is presenting to the ER from nursing facility with strokelike signs and symptoms that have resolved and abdominal pain that has resolved as well. It was reported from nursing staff from [facility] that he was normal last evening at 8 9 PM, he has been complaining of abdominal pain is still running, did not eat well at lunch and nothing at all at dinnertime. Around 5:00 PM he started having tremors with his arms, slurred speech. He is alert and oriented typically but he seemed off today patient has a temperature of 100.0. Patient currently has no facial droop or slurred speech. Patient has no obvious strokelike signs or symptoms. Patient denies any abdominal pain. Patient knows his name, does not know where he is or what month or year it is. Patient is tachycardic. Patient has a history of hypertension, hyponatremia, hyperlipidemia, diabetes, unspecified intellectual disabilities, dementia, sleep apnea. Patient takes Aricept, Remeron, insulin, Eliquis, aspirin, metformin. [facility] Medical History (Updated 11/11/22 @ 23:[address] Jose Santos, DO) Anxiety and depression CKD (chronic kidney disease), stage II Dementia Diabetes GERD (gastroesophageal reflux disease) History of GI bleed Hyperlipidemia Hypertension Obesity RODRI on CPAP Home Medications lisinopril 40 mg tablet 40 mg PO DAILY ##30 02/27/20 [Rx Last Taken Unknown] amlodipine 10 mg tablet 10 mg PO DAILY 11/11/22 [History Last Taken Unknown] apixaban 5 mg tablet (Eliquis) 5 mg PO BID 11/11/22 [History Last Taken Unknown] aspirin 81 mg tablet,delayed release (Adult Low Dose Aspirin) 81 mg PO DAILY 11/11/22 [History Last Taken Unknown] atorvastatin 40 mg tablet 40 mg PO QHS 11/11/22 [History Last Taken Unknown] donepezil 10 mg tablet 5 mg PO QHS 11/11/22 [History Last Taken Unknown] dulaglutide 4.5 mg/0.5 mL subcutaneous pen injector (Trulicity) 4.5 mg subcut QWEEK 11/11/22 [History Last Taken Unknown] duloxetine 20 mg capsule,delayed release 20 mg PO DAILY 11/11/22 [History Last Taken Unknown] insulin glargine 100 unit/mL (3 mL) subcutaneous pen 28 unit subcut .afternoon 11/11/22 [History Last Taken Unknown] insulin lispro 100 unit/mL subcutaneous pen (Humalog KwikPen (U-100) Insulin) 1 sliding scale dose subcut ACHS 11/11/22 [History Last Taken Unknown] loperamide 2 mg capsule (Anti-Diarrheal (loperamide)) 2 mg PO DAILY 11/11/22 [History Last Taken Unknown] medroxyprogesterone 5 mg tablet 5 mg PO .qohs 11/11/22 [History Last Taken Unknown] metformin 1,000 mg tablet 1,000 mg PO BID 11/11/22 [History Last Taken Unknown] mirabegron 25 mg tablet,extended release 24 hr (Myrbetriq) 25 mg PO DAILY 11/11/22 [History Last Taken Unknown] mirtazapine 15 mg tablet 15 mg PO QHS 11/11/22 [History Last Taken Unknown] omeprazole 20 mg capsule,delayed release 20 mg PO DAILY 11/11/22 [History Last Taken Unknown] Allergy/AdvReac Type Severity Reaction Status Date / Time No Known Allergies Allergy Verified 11/11/22 18:46 Family History (Updated 11/11/22 @ 21:[address] Jodi Perez MD) Mother Pulmonary disease Father CAD (coronary artery disease) Heart disease Hypertension Myocardial infarction Surgical History (Updated 11/11/22 @ 21:[address] Jodi Perez MD) H/O cataract removal with insertion of prosthetic lens History of testicular surgery Social History (Updated 11/11/22 @ 21:[address] Jodi Perez MD) housing: senior care Smoking Status: Former smoker how long ago did patient quit smoking: Smoked as a teenager very minimally. alcohol intake: never substance use type: does not use ROS ROS ED ROS Narrative Review of systems is limited secondary nursing staff and senior care EXAM Physical Exam Narrative Exam Narrative: Vital signs reviewed and patient is not hypoxic. General: The patient appears well and in no apparent distress. Patient is resting comfortably on cart. Not toxic, lethargic, or listless. Skin: Warm, dry, no pallor noted. There is no rash noted. Head: Normocephalic, atraumatic Eye: Normal conjunctiva, no drainage, EOMI. PERRL. Ears, Nose, Mouth, and Throat: oral mucosa is dry. Nares patent. poor dentition Cardiovascular: Regular Rate and Rhythm, no murmurs, gallops, or rubs Respiratory: Patient is in no distress, no accessory muscle use, lungs are clear to auscultation, no wheezing, rales or rhonchi Back: non-tender, no CVA tenderness bilaterally to percussion. NO CTLS midline or paraspinal tenderness to palpation. GI: Soft, obese, no tenderness to palpation, no masses appreciated. No rebound, guarding, or rigidity noted. Musculoskeletal: The patient has full range of motion of all extremities and joints with no difficulty. Patient has no motor, no sensory deficits. Neurological: A&O x1, no slurred speech, no facial droop, patient is currently not aware of month or year or what kind of building he is in, he was able to tell nursing staff month and year but not building. Normal speech, no focal neurological deficits patient appears to have weakness to the left leg,, patient could be NIH 1 with minimal pronator drift to the left leg, but then a question effort as well. Psychiatric: Cooperative Const Vital Signs: 11/11/22 18:39 11/11/22 19:10 11/11/22 19:19 Temperature 100.0 F H 98.4 F Temperature Source Oral Oral Pulse Rate 100 114 H Respiratory Rate 16 24 H Blood Pressure 148/93 H 129/88 H Blood Pressure Mean 111 101 Pulse Ox 94 95 Oxygen Delivery Method Room Air Room Air Room Air 11/11/22 19:40 11/11/22 19:56 11/11/22 20:10 Temperature Temperature Source Pulse Rate 117 H 118 H 117 H Respiratory Rate 26 H 24 H 24 H Blood Pressure 134/96 H 135/66 H 118/80 Blood Pressure Mean 108 89 92 Pulse Ox 98 96 98 Oxygen Delivery Method Room Air Room Air Room Air 11/11/22 20:31 11/11/22 20:58 11/11/22 21:29 Temperature Temperature Source Pulse Rate 117 H 114 H 110 H Respiratory Rate 25 H 26 H 22 H Blood Pressure 108/81 H 108/75 118/82 H Blood Pressure Mean 90 86 94 Pulse Ox 96 96 96 Oxygen Delivery Method Room Air Room Air Room Air 11/11/22 21:54 11/11/22 21:55 11/11/22 22:00 Temperature 98.2 F 98.2 F 98.2 F Temperature Source Oral Oral Oral Pulse Rate 108 H 107 H 108 H Respiratory Rate 13 18 24 H Blood Pressure 121/73 H 121/73 H 119/74 Blood Pressure Mean 89 89 89 Pulse Ox 97 98 96 Oxygen Delivery Method Room Air Room Air Room Air MDM MDM MDM Narrative Medical decision making narrative: Patient presented with abdominal pain earlier today that has resolved. Patient also presented with strokelike symptoms that started at 5:00 PM with slurred speech and facial droop that have resolved. Patient's mentation, physical exam, and NIH stroke exam has waxed and waned and varied. Please see the [facility] stroke neurologist for her consultation and recommendations. She stated that she did not believe patient was having a stroke, patient's neuro exam is waxing and waning. She did recommend performing CTA of the head and neck, and if those tests are normal, no indication for transfer and patient may be admitted to [facility] for further evaluation. We have no signs of obvious infection. Patient has no significant metabolic abnormality that we can see at this time. Patient does have elevated white blood cells with no source of infection. Patient's case was discussed with Jodi Perez. Patient had a urine sample and urine culture ordered. Patient will be admitted for further evaluation. Patient stroke work-up was fine no acute findings. Patient will be admitted for continued medical work-up with Dr. Perez. She came to see and evaluate the patient in the ER. Patient has been given 2 L of IV fluid. Antibiotic recommendations will be given by Dr. Perez. Lab Data Attestation: I reviewed the patient's lab results. Labs: Laboratory Results - last 24 hr 11/11/22 11/11/22 11/11/22 19:30 19:34 21:49 WBC 26.2 H RBC 4.54 L Hgb 13.0 Hct 39.4 L MCV 86.8 MCH 28.6 MCHC 33.0 RDW Std Deviation 45.5 H RDW Coeff of Tarik 14.4 Plt Count 277 MPV 9.6 Immature Gran % (Auto) 0.500 Neut % (Auto) 86.8 H Lymph % (Auto) 5.2 L [place] % (Auto) 7.3 Eos % (Auto) 0.0 Baso % (Auto) 0.2 Absolute Neuts (auto) 22.7 H Absolute Lymphs (auto) 1.36 Nucleated RBC % 0 Differential Comment SCANNED Diff Path Review August foll PT 15.7 H INR 1.3 APTT 36.1 Sodium 141 Potassium 4.7 Chloride 109 H Carbon Dioxide 24.0 Anion Gap 8 BUN 21 H Creatinine 1.61 H Estim Creat Clear Calc 41.89 Est GFR (MDRD) Af Amer 55 L Est GFR (MDRD) Non-Af 45 L BUN/Creatinine Ratio 13.0 Glucose 157 H Calcium 9.6 Magnesium 2.0 Troponin I High Sens 5 Urine Color Yellow Urine Clarity Clear Urine pH 5.0 Ur Specific Brule 1.020 Urine Protein 30 H Urine Glucose (UA) Normal Urine Ketones 5 H Urine Occult Blood 25 H Urine Nitrite Positive H Urine Bilirubin Negative Urine Urobilinogen Normal Ur Leukocyte Esterase 25 H Urine RBC 0 SEEN Urine WBC 0-5 SEEN Ur Squamous Epith Cells 0 SEEN Urine Bacteria 2+ Urine Mucus 0 SEEN POC Glucose 163 H Radiography Diagnostic Testing: Clinical Impression(s) from Imaging Studies Brain CT 11/11/22 19:10 IMPRESSION: Negative Brain CT without contrast. N.B. : The above Results were Read Back by Brendon Obrien MD to Jose Santos and understanding confirmed on 11/11/2022 19:40:56 (ET). Electronically Signed: Brendon Obrien MD at 19:42 EDT Reading Location ID and State: [id number] / [employer] , Service support , ADDENDUM: 11/11/221948 IMPRESSION: Negative Brain CT without contrast. N.B. : The above Results were Read Back by Brendon Obrien MD to Jose Santos and understanding confirmed on 11/11/2022 19:40:56 (ET). Electronically Signed: Brendon Obrien MD at 19:42 EDT Reading Location ID and State: [id number] / [employer] , Service support , Chest X-Ray 11/11/22 19:25 IMPRESSION: Normal x-ray examination of the chest. Electronically Signed: Brendon Obrien MD at 19:42 EDT Reading Location ID and State: [id number] / [employer] , Service support , Head/Neck CTA 11/11/22 21:34 IMPRESSION: Normal CTA Head with contrast. Mild (20%) right carotid stenosis. No left carotid stenosis. Patent vertebral arteries bilaterally Electronically Signed: Brendon Obrien MD at 23:35 EDT , EKG Initial EKG: Attestation: I personally reviewed and interpreted this EKG as follows: Comments: EKG interpretation. Sinus tachycardia at 119. Left axis deviation. No acute ST elevation, no acute ectopy. QTc of 441 Discharge Plan Dx/Rx/DC Orders Clinical Impression: Leukocytosis, Altered mental status, Dehydration Disposition Disposition: Acute Care Hospital [facility] Discharge Date/Time: 11/11/22 22:54
--- NOTE | 2022-11-11 19:18 | NURSING ---
Pt out of ed for CT of head.
--- NOTE | 2022-11-11 19:25 | RAD_ITS ---
STUDY: X-RAY CHEST REASON FOR EXAM: Male, 67 years old. Neuro deficit, acute, stroke suspected TECHNIQUE: Single AP portable view of the chest. COMPARISON: 08/10/2020 FINDINGS: The lungs are clear and expanded. There is no demonstrated pleural abnormality. Normal size heart. Normal mediastinum and ruslan. Normal visualized pulmonary arteries. Normal visualized aortic arch and descending thoracic aorta. Normal visualized thoracic spine. Normal visualized ribs, clavicles, and shoulders. There is no demonstrated abnormality of the visualized soft tissue structures of the upper abdomen. RAD/Chest 1 View IMPRESSION: Normal x-ray examination of the chest. Electronically Signed: Brendon Obrien MD at 19:42 EDT ,
--- NOTE | 2022-11-11 19:29 | NURSING ---
Pt returned from CT.
[2022-11-11 19:41] LABS: Absolute Lymphocyte Count 1.36 X10^3/uL (0.83-4.51); Absolute Neutrophil Count 22.7 X10^3/uL (2.0-7.7); Basophil# 0.05 X10^3/uL; Basophil% 0.2 % (0-1); Hematocrit 39.4 % (40-54); Lymphocyte # 1.36 X10^3/ul (0.83-4.51); Lymphocyte % 5.2 % (19-41); Mean Corpuscular Hgb 28.6 pg (27.0-32.0); Mean Corpuscular Volume 86.8 fL (80-94); Mean Platelet Vol. 9.6 fl (6.2-12.0); Monocyte# 1.91 X10^3/uL; Monocyte% 7.3 % (0-10); NRBC Flagged by Analyzer 0 % (0-5); Neutrophil # 22.69 X10^3/uL (2.7-7.7); Neutrophil % 86.8 % (47-70); POSITIVE DIFFERENTIAL YES; Platelet Count 277 K/mm3 (150-450); RBC Distribution Width CV 14.4 % (11.6-14.6); RBC Distribution Width SD 45.5 fl (35.1-43.9); Red Blood Count 4.54 M/mm3 (4.6-6.2); White Blood Count 26.2 K/mm3 (4.4-11.0)
[2022-11-11] MEDS: 0.9% Normal Saline 1,000 ML 999 ML IV ×2 (19:45→21:57)
[2022-11-11] MEDS: Acetaminophen 325 MG Tablet 650 MG PO (19:45)
[2022-11-11 19:47] LABS: Differential Indicated SCAN CRITERIA MET
[2022-11-11 19:51] LABS: International Normalized Ratio 1.3; Prothrombin Time (Protime)PT. 15.7 SECONDS (11.7-14.9)
[2022-11-11 19:52] LABS: Partial Thromboplast Time 36.1 Seconds (24.1-36.2)
[2022-11-11 19:52] LABS: Bedside Glucose 163 mg/dL (74-106)
[2022-11-11 20:10] LABS: Anion Gap 8 (5-15); BUN 21 mg/dL (7-18); Calcium,Total 9.6 mg/dL (8.5-10.1); Chloride 109 mmol/L (98-107); Creatinine, Serum 1.61 mg/dL (0.70-1.30); EST Glomerular Filtration Rate 45 mL/min (>60); Est Glom Filt Rate - Afr Amer 55 mL/min (>60); Estimated Creatinine Clearance 41.89 ml/min; Glucose 157 mg/dL (74-106); Potassium 4.7 mmol/L (3.5-5.1); Sodium Level 141 mmol/L (136-145); Troponin-I HS 5 pg/mL (3.0-78.0)
[2022-11-11 20:13] LABS: Differential Comment SCANNED
--- NOTE | 2022-11-11 20:15 | NURSING ---
Dr Santos in room with this RN to reassess pt. Changes in NIH reviewed. Verbal order to call [facility]. [facility] calld at 2014.
--- NOTE | 2022-11-11 20:40 | NURSING ---
[facility] called in with video and is talking with pt and Dr Santos.
--- NOTE | 2022-11-11 21:34 | CT_ITS ---
STUDY: CTA HEAD AND NECK WITH CONTRAST REASON FOR EXAM: Male, 67 years old. confusion RADIATION DOSAGE (If Supplied By Facility): CTDIvol = ( 18.22 ) mGy, DLP = ( 786.50 ) mGycm TECHNIQUE: CT angiography was performed with a multi-detector CT scanner. Data acquisition was obtained from the skull base through the vertex following intravenous administration of IV 100mL [id number]-[id number]. MIP images were reconstructed from the axial data set. Post-processing of the angiographic images was performed, with multiplanar reformation and 3D reconstruction. Individualized dose optimization techniques were used for this CT. COMPARISON: No relevant priors. FINDINGS: Normal bilateral petrous carotid arteries. There is calcified plaque formation of the right cavernous carotid artery, without a cross-sectional luminal stenosis. There is calcified plaque formation of the left cavernous carotid artery, without a cross-sectional luminal stenosis. There is hypoplastic development of the right A1 segment of the anterior cerebral arteries with an atretic but intact artery. Normal left A1 segments of the anterior cerebral artery. Normal intact anterior communicating artery (ACOM). Normal bilateral A2 segments of the anterior cerebral arteries. Normal right M1 and M2 segments of the middle cerebral arteries, with a normal M1 bifurcation. Normal left M1 and M2 segments of the middle cerebral arteries, with a normal M1 bifurcation. Normal right posterior communicating artery (PCOM). Normal left posterior communicating artery (PCOM). Normal bilateral vertebral arteries. Normal basilar artery with a normal basilar bifurcation. The visualized bilateral superior cerebellar (SCA) arteries are normal. Normal bilateral P1, P2 and visualized P3 segments of the posterior cerebral arteries. There is no demonstrated aneurysm of the [place] of [place]. There is no demonstrated abnormality of the visualized brain. AORTIC ARCH: Normal visualized aortic arch. Normal origins of the brachiocephalic, left common carotid, and left subclavian arteries. RIGHT CAROTID ARTERIES: Normal right common carotid artery (CCA). There is mild atherosclerotic plaque formation with minimal narrowing of the right carotid bulb. There is mild atherosclerotic plaque formation of the origin of the right internal carotid artery with less than 50% cross sectional diameter stenosis. Normal visualized cervical portion of the right internal carotid artery. Normal origin of the right external carotid artery (ECA). LEFT CAROTID ARTERIES: Normal left common carotid artery (CCA). Normal left common carotid bulb. Normal origin of the left internal carotid (ICA) artery without a hemodynamically significant stenosis. Normal visualized cervical portion of the left internal carotid artery. Normal origin of the left external carotid artery (ECA). VERTEBRAL ARTERIES: Normal bilateral vertebral arteries. CT/CTA Head AND Neck W/ Contrast IMPRESSION: Normal CTA Head with contrast. Mild (20%) right carotid stenosis. No left carotid stenosis. Patent vertebral arteries bilaterally Electronically Signed: Brendon Obrien MD at 23:35 EDT ,
--- NOTE | 2022-11-11 21:39 | PCM.HP.STD ---
HPI - General General Date of Admission: 11/11/22 Date of Service: 11/11/22 Chief Complaint: Confusion, fever, possible facial droop, L sided weakness, altered speech. HPI Narrative The patient is a 67 y/o M w/ PMHx: CKD stage II, Obesity, HTN, HLD, GERD, RODRI, Dementia unclear type with unclear disturbance history, Anxiety and Depression, Diabetes mellitus type II w/ chronic neuropathy, Hx GI bleed who presents to the [facility] ED on 11/11/22 from SNF with history of history of onset the evening prior abdominal discomforts, poor oral intake with onset of day of presentation increased lethargy as well as mild tremors suspected to be chills as well as altered speech with concern for possible slight facial droop as well as inability to look to the left with left-sided weakness and aphasia with unclear last known normal reportedly able to have eaten lunch but was more drowsy at that time even prompted ED evaluation. Stroke alert called and telestroke evaluation with score 5 4 extremity weakness as well as mild to moderate dysarthria with clinical impression of encephalopathy with recommendation for metabolic work-up and CTA evaluation as well. In the urgency room patient does state that he has had dysuria but not the best historian currently and not giving any other credible history thus unclear if this is true or not. Work-up in the ED included T100, heart rate 117, BP 108/81, respiratory rate 25, 96% on room air, CBC with WBC 26.2, hemoglobin 13, platelet 277 with significant left shift, coags with PT 15.7 otherwise unremarkable, BMP with chloride 109, BUN/Heranndez 21/1.61, glucose 157, troponin 5, CT of the brain with no acute intracranial findings, chest x-ray with no acute cardiopulmonary findings, EKG ST without acute evidence of ischemia. Requested ED initiated UA, UCx with straight catheterization given suspected infectious etiology for presentation as well as full respiratory viral panel and COVID PCR. [facility] Medical History (Updated 11/11/22 @ 23:[address] Jodi Perez MD) Anxiety and depression CKD (chronic kidney disease), stage II Dementia Diabetes GERD (gastroesophageal reflux disease) History of GI bleed Hyperlipidemia Hypertension Obesity RODRI on CPAP Home Medications lisinopril 40 mg tablet 40 mg PO DAILY ##30 02/27/20 [Rx Last Taken Unknown] amlodipine 10 mg tablet 10 mg PO DAILY 11/11/22 [History Last Taken Unknown] apixaban 5 mg tablet (Eliquis) 5 mg PO BID 11/11/22 [History Last Taken Unknown] aspirin 81 mg tablet,delayed release (Adult Low Dose Aspirin) 81 mg PO DAILY 11/11/22 [History Last Taken Unknown] atorvastatin 40 mg tablet 40 mg PO QHS 11/11/22 [History Last Taken Unknown] donepezil 10 mg tablet 5 mg PO QHS 11/11/22 [History Last Taken Unknown] dulaglutide 4.5 mg/0.5 mL subcutaneous pen injector (Trulicity) 4.5 mg subcut QWEEK 11/11/22 [History Last Taken Unknown] duloxetine 20 mg capsule,delayed release 20 mg PO DAILY 11/11/22 [History Last Taken Unknown] insulin glargine 100 unit/mL (3 mL) subcutaneous pen 28 unit subcut .afternoon 11/11/22 [History Last Taken Unknown] insulin lispro 100 unit/mL subcutaneous pen (Humalog KwikPen (U-100) Insulin) 1 sliding scale dose subcut ACHS 11/11/22 [History Last Taken Unknown] loperamide 2 mg capsule (Anti-Diarrheal (loperamide)) 2 mg PO DAILY 11/11/22 [History Last Taken Unknown] medroxyprogesterone 5 mg tablet 5 mg PO .qohs 11/11/22 [History Last Taken Unknown] metformin 1,000 mg tablet 1,000 mg PO BID 11/11/22 [History Last Taken Unknown] mirabegron 25 mg tablet,extended release 24 hr (Myrbetriq) 25 mg PO DAILY 11/11/22 [History Last Taken Unknown] mirtazapine 15 mg tablet 15 mg PO QHS 11/11/22 [History Last Taken Unknown] omeprazole 20 mg capsule,delayed release 20 mg PO DAILY 11/11/22 [History Last Taken Unknown] Allergy/AdvReac Type Severity Reaction Status Date / Time No Known Allergies Allergy Verified 11/11/22 18:46 Family History (Updated 11/11/22 @ 21:[address] Jodi Perez MD) Mother Pulmonary disease Father CAD (coronary artery disease) Heart disease Hypertension Myocardial infarction Surgical History (Updated 11/11/22 @ 21:[address] Jodi Perez MD) H/O cataract removal with insertion of prosthetic lens History of testicular surgery Social History (Updated 11/11/22 @ 21:[address] Jodi Perez MD) housing: prison Smoking Status: Former smoker how long ago did patient quit smoking: Smoked as a teenager very minimally. alcohol intake: never substance use type: does not use ROS Review of Systems ROS Unobtainable: due to encephalopathy Vital Signs Vital Signs Vital Signs: 11/11/22 18:39 11/11/22 19:10 11/11/22 19:19 Temperature 100.0 F H 98.4 F Temperature Source Oral Oral Pulse Rate 100 114 H Respiratory Rate 16 24 H Blood Pressure 148/93 H 129/88 H Blood Pressure Mean 111 101 Pulse Ox 94 95 Oxygen Delivery Method Room Air Room Air Room Air 11/11/22 19:40 11/11/22 19:56 11/11/22 20:10 Temperature Temperature Source Pulse Rate 117 H 118 H 117 H Respiratory Rate 26 H 24 H 24 H Blood Pressure 134/96 H 135/66 H 118/80 Blood Pressure Mean 108 89 92 Pulse Ox 98 96 98 Oxygen Delivery Method Room Air Room Air Room Air 11/11/22 20:31 Temperature Temperature Source Pulse Rate 117 H Respiratory Rate 25 H Blood Pressure 108/81 H Blood Pressure Mean 90 Pulse Ox 96 Oxygen Delivery Method Room Air Weight Weight: 192 lb 0.362 oz Body Mass Index (BMI) 29.2 Physical Exam Narrative Physical Examination: General: Awake, alert, oriented to self and some events but still appears confused, fatigued, following some commands, laying in the ED bed, fatigued and ill-appearing. Skin: Mildly flushed color, normal turgor, no icterus, no cyanosis, occasional staged ecchymoses. HEENT: AT/NC, EOMI with no obvious evidence of difficulty with gaze noted currently, PERRLA, dry MM, no carotid bruits or JVD noted, very minimal left-sided nasolabial flattening but suspect this is a chronic component to his face not necessarily acute. Lungs: CTA bilaterally, moderate effort, mild decrease BL bases, no rales, ronchi or wheezing. Heart: Mildly tachycardic with regular rhythm; no gallop, rub audible. Abdomen: Soft, overweight, NTTP, ND, hyperactive BS, no HSM. Extremities: No cyanosis, clubbing, or edema. Neurological: Patient awake, alert, oriented as noted, cognitive function not baseline intact; pupils equally reactive to light and accommodation, cranial nerves grossly normal, moving all 4 extremities, some generalized weakness although some more difficulty with the left lower extremity than the right, difficult exam as patient was encephalopathic and very weak, strength severely global decreased in general, some difficulty performing [id number] and [id number] just because of suspected encephalopathy, Babinski equivalent. Psychiatric: Affect appears fatigued, flat, ill-appearing, no acute evidence of depressive or anxiety feelings. Results Lab / Micro Data 11/11/22 19:30 11/11/22 19:30 Labs: Laboratory Results - last 24 hr 11/11/22 19:30: WBC 26.2 H, RBC 4.54 L, Hgb 13.0, Hct 39.4 L, MCV 86.8, MCH 28.6, MCHC 33.0, RDW Std Deviation 45.5 H, RDW Coeff of Tarik 14.4, Plt Count 277, MPV 9.6, Immature Gran % (Auto) 0.500, Neut % (Auto) 86.8 H, Lymph % (Auto) 5.2 L, [place] % (Auto) 7.3, Eos % (Auto) 0.0, Baso % (Auto) 0.2, Absolute Neuts (auto) 22.7 H, Absolute Lymphs (auto) 1.36, Nucleated RBC % 0, Differential Comment SCANNED, Diff Path Review August, PT 15.7 H, INR 1.3, APTT 36.1, Sodium 141, Potassium 4.7, Chloride 109 H, Carbon Dioxide 24.0, Anion Gap 8, BUN 21 H, Creatinine 1.61 H, Estim Creat Clear Calc 41.89, Est GFR (MDRD) Af Amer 55 L, Est GFR (MDRD) Non-Af 45 L, BUN/Creatinine Ratio 13.0, Glucose 157 H, Calcium 9.6, Troponin I High Sens 5 11/11/22 19:34: POC Glucose 163 H Radiology Impression Brain CT 11/11/22 19:10 IMPRESSION: Negative Brain CT without contrast. N.B. : The above Results were Read Back by Brendon Obrien MD to Jose Santos and understanding confirmed on 11/11/2022 19:40:56 (ET). Electronically Signed: Brendon Obrien MD at 19:42 EDT Reading Location ID and State: [id number] / [place] Tel , Service support , ADDENDUM: 11/11/221948 IMPRESSION: Negative Brain CT without contrast. N.B. : The above Results were Read Back by Brendon Obrien MD to Jose Santos and understanding confirmed on 11/11/2022 19:40:56 (ET). Electronically Signed: Brendon Obrien MD at 19:42 EDT Reading Location ID and State: [id number] / [place] Tel , Service support , Chest X-Ray 11/11/22 19:25 IMPRESSION: Normal x-ray examination of the chest. Electronically Signed: Brendon Obrien MD at 19:42 EDT Reading Location ID and State: [id number] / [place] Tel , Service support , Assessment & Plan Assessment/Plan (1) Encephalopathy acute: PLAN: Plan The patient is a 67 y/o M w/ PMHx: CKD stage II, Obesity, HTN, HLD, GERD, RODRI, Dementia unclear type with unclear disturbance history, Anxiety and Depression, Diabetes mellitus type II w/ chronic neuropathy, Hx GI bleed who presents to the [facility] ED on 11/11/22 from SNF with history of history of onset the evening prior abdominal discomforts, poor oral intake with onset of day of presentation increased lethargy as well as mild tremors suspected to be chills as well as altered speech with concern for possible slight facial droop as well as inability to look to the left with left-sided weakness and aphasia with unclear last known normal reportedly able to have eaten lunch but was more drowsy at that time even prompted ED evaluation. #1. Acute Encephalopathy/SIRS with suspected Infectious etiology (awaiting UA, respiratory viral panel, COVID PCR, plan repeat CXR in AM following overnight hydration and procalcitonin also requested); however, concurrent L sided weakness, slight facil droop and aphasia concerning for Acute TIA/CVA: Will admit to PCU, will obtain MRI Brain, as Cr Cl > 30 will pursue neurology recommended CTA Head and Neck, ECHO, PT/OT/Speech/Nutrition evaluation per protocol. Will allow permissive HTN, maintain on asa, statin w/ AM FLP, fall precautions. Mag, TSH, FLP, HgbA1c requested. Maintain on fall and aspiration precautions. Once elucidate infectious etiology will direct antibiotic therapy. #2. Acute Renal Insufficiency on Chronic Kidney Disease Stage II: Admission BUN/Cr 21/1.61, baseline renal function primarily 1.0-1.2, will continue judicious hydration and repeat BMP in AM. #3. Dementia, unclear type with unclear behavioral steroids history with cognitive impairment: Complicates presentation, maintain fall and aspiration precautions, continue patient home donepezil regimen, PT/OT/case management consulted for discharge planning. #4. Diabetes mellitus type II: Hold oral home regimen, continue home insulin regimen, ADA diet once able to pass swallow evaluation, accu checks w/ ISS. #5. Hypertension: We will maintain permissive hypertension pending evaluation #1 is noted. #6. Hyperlipidemia: Continue home statin regimen. AM FLP. #7. Anxiety and depression: We will continue patient home mirtazapine and duloxetine regimen. #8. Obesity: Weight loss and lifestyle changes encouraged. #9. GERD with history of prior GI bleed: We will maintain on home PPI. #10. Possible PAF versus VTE: Unable to give appropriate history and not on chart SNF history but patient on eliquis regimen, possibly for VTE or PAF, will continue in the interim but does have prior GI bleed history also of note. #11. RODRI: CPAP nightly. #12. DVT prophylaxis: Continue patient home apixaban regimen. #13. CODE STATUS: Full Code per SNF paperwork. Charges/Coding Visit Charges Inpatient E&M: 02309 Init Hosp L3
[2022-11-11 22:02] LABS: Mucous, Urine 0 SEEN /hpf (<or=2+); Red Blood Cells-Urine 0 SEEN /hpf (0-5); Squamous Epithelial Cells - UA 0 SEEN /hpf (0-5)
[2022-11-11 22:04] LABS: Glucose, Dipstick Normal (Normal); Ketone-Dipstick 5 mg/dl (Negative); Leukocyte Esterase-Dipstick 25 /ul (Negative); Nitrite-Dipstick Positive (Negative); Occult Blood-Urine 25 /ul (Negative); Protein-Dipstick 30 mg/dl (Negative); Urine Bilirubin Dipstick Negative (Negative); Urine Urobilinogen Normal (Normal)
[2022-11-11 22:16] LABS: Color, Urine Yellow (Yellow); Urine Clarity Clear (Clear)
[2022-11-11 22:34] LABS: Bacteria 2+ /hpf (None Seen); White Blood Cells 0-5 SEEN /hpf (0-5)
[2022-11-11 22:53] LABS: Blood Gas Specimen Type VEN; VBG BASE EXCESS -6 mmol/L (-1.0-3.5); VBG Bicarbonate 20 mmol/L (22-26); VBG PO2 30 mmHg (25-40); VBG SO2 56 % (50-70); VBG TCO2 21 mmol/L (23-33); VBG pCO2 34.1 mmHg (41-51); VBG pH 7.37 (7.32-7.42)
--- NOTE | 2022-11-11 22:55 | ECHOD_ITS ---
Reason For Study: CVA Procedure This was a 2D Doppler, Color Flow transthoracic echocardiogram. Exam performed portable in patient room. Left Ventricle Normal LV size. The estimated ejection fraction is 65 %. No evidence for diastolic dysfunction. No regional wall motion abnormalities noted. Right Ventricle Normal RV size. Normal systolic function. Atria Normal left atrium. Normal right atrium. No doppler evidence for ASD. Bubble contrast study negative for right to left interatrial shunt. Mitral Valve There is no mitral valve stenosis. No mitral valve insufficiency. Tricuspid Valve There is no tricuspid stenosis. Trivial tricuspid valve insufficiency. Unable to estimate RV systolic pressure due to insufficient tricuspid regurgitant envelope. Aortic Valve Trisinus/trileaflet aortic valve. There is no aortic stenosis. No aortic valve insufficiency. Pulmonic Valve There is no pulmonic valvular stenosis. No pulmonic valve insufficiency. Great Vessels Normal aortic root. Pericardium/Pleural No pericardial effusion. Medication Performed a rapid injection of agitated mix of 9 cc saline and 1cc air to assess for atrial septal defect. MMode/2D Measurements & Calculations LVIDd: 3.6 cm IVSd: 0.97 cm Ao root diam: 3.9 cm LVIDs: 2.2 cm LVPWd: 0.85 cm RVDd: 2.9 cm FS: 38.8 % LAV(MOD-bp): 25.0 ml LVAd ap4: 20.8 cm2 LVAd ap2: 17.7 cm2 LAV(MOD-bp) Indexed: 12.4 ml/m2 LVLd ap4: 6.9 cm LVLd ap2: 6.7 cm LAV(MOD-sp2): 14.1 ml EDV(MOD-sp4): 52.0 ml EDV(MOD-sp2): 39.8 ml LAV(MOD-sp4): 30.4 ml EDV(sp4-el): 53.0 ml EDV(sp2-el): 39.9 ml LVAs ap4: 11.0 cm2 LVAs ap2: 9.6 cm2 LVLs ap4: 5.7 cm LVLs ap2: 6.2 cm ESV(MOD-sp4): 18.0 ml ESV(MOD-sp2): 14.2 ml ESV(sp4-el): 17.7 ml ESV(sp2-el): 12.6 ml EF(MOD-sp4): 65.4 % EF(MOD-sp2): 64.4 % EF(sp4-el): 66.5 % SV(MOD-sp4): 34.0 ml SV(MOD-sp2): 25.6 ml SV(sp4-el): 35.2 ml LA A4 area: 13.2 cm2 LA dimension(2D): 2.6 cm RA A4 area: 10.2 cm2 TAPSE: 2.0 cm Doppler Measurements & Calculations MV E max freddy: 45.7 cm/sec Lat Peak E' Freddy: 10.2 cm/sec Med Peak E' Freddy: 7.0 cm/sec MV A max freddy: 53.7 cm/sec E/E' lat: 4.5 E/E' med: 6.5 MV E/A: 0.85 Ao V2 max: 104.5 cm/sec LV V1 max: 76.4 cm/sec PA V2 max: 84.8 cm/sec Ao max P.4 mmHg LV V1 max P.3 mmHg TR max freddy: 244.7 cm/sec TR max P.9 mmHg ECHO/Echo Complete Interpretation Summary The estimated ejection fraction is 65 %. No evidence for diastolic dysfunction. Ordering Physician: Jodi Perez Referring Physician: Constanza Wooten Performed By: Yelena Joy RDCS
[2022-11-11 23:12] LABS: Procalcitonin 0.38 ng/mL (0.00-0.09)
[2022-11-11] MEDS: 0.9% Normal Saline 1,000 ML 100 ML IV (23:15)
[2022-11-11] MEDS: Ceftriaxone 1 GM/50 ML BAG IV (23:43)
--- NOTE | 2022-11-11 23:45 | NURSING ---
Pt aware that we did not have contact info for a sister named Sinai who he wanted contacted to let know that he is in the hospital. When asked if pt wanted anyone else contacted he declined at this time.
[2022-11-12] VITALS (7 sets, daily range): BP systolic 103–142; BP diastolic 68–95; PULSE 90–107; RESP 16–18; TEMP 36.1–36.9; O2SAT 93–97; BMI 29.3
--- NOTE | 2022-11-12 01:50 | CPS ---
patient refuses hospital CPAP machine use at this time
[2022-11-12 04:39] LABS: M R Staph aureus DNA By PCR Negative (Negative); Probe Check PASS; Specimen Processing Control PASS
[2022-11-12 04:53] LABS: Absolute Lymphocyte Count 2.27 X10^3/uL (0.83-4.51); Absolute Neutrophil Count 20.1 X10^3/uL (2.0-7.7); Basophil# 0.04 X10^3/uL; Basophil% 0.2 % (0-1); Eosinophil# 0.02 X10^3/uL; Eosinophils% 0.1 % (0-5); Hematocrit 33.5 % (40-54); Hemoglobin 11.2 g/dL (13.0-16.5); Lymphocyte # 2.27 X10^3/ul (0.83-4.51); Lymphocyte % 9.2 % (19-41); Mean Corp Hgb Conc 33.4 g/dL (32-36); Mean Corpuscular Hgb 28.8 pg (27.0-32.0); Mean Corpuscular Volume 86.1 fL (80-94); Mean Platelet Vol. 9.9 fl (6.2-12.0); Monocyte# 1.95 X10^3/uL; Monocyte% 7.9 % (0-10); NRBC Flagged by Analyzer 0 % (0-5); Neutrophil # 20.11 X10^3/uL (2.7-7.7); Neutrophil % 81.8 % (47-70); POSITIVE DIFFERENTIAL YES; Platelet Count 247 K/mm3 (150-450); RBC Distribution Width CV 14.6 % (11.6-14.6); RBC Distribution Width SD 45.8 fl (35.1-43.9); Red Blood Count 3.89 M/mm3 (4.6-6.2); White Blood Count 24.6 K/mm3 (4.4-11.0)
[2022-11-12 04:56] LABS: Differential Indicated SCAN CRITERIA MET
--- NOTE | 2022-11-12 05:32 | RAD_ITS ---
INDICATION: Leukocytosis EXAMINATION/TECHNIQUE: X-RAY - XR Chest 1 View COMPARISON: Chest radiograph previous day. Findings: Single frontal view of the chest. Patient is rotated. Significantly diminished lung volumes. LUNG PARENCHYMA: No acute focal airspace disease or mass lesion. PLEURA: No pleural effusion. No pneumothorax. HEART/GREAT VESSELS: Cardiomediastinal silhouette is unremarkable. BONES: Osseous structures are unremarkable for age. RAD/Chest 1 View (Portable) IMPRESSION: Given significantly diminished lung volumes and patient rotation, chest with no acute disease. Electronically Signed: Markel Hazel MD at 6:20 EDT ,
[2022-11-12 05:42] LABS: ALB/GLOB Ratio 0.8 RATIO (0.9-2.4); AST(SGOT) 17 U/L (15-37); Alanine Aminotransfer ALT/SGPT 23 U/L (16-61); Albumin, Serum 2.9 g/dL (3.2-5.0); Alkaline Phosphatase 61 U/L (45-117); Anion Gap 8 (5-15); BUN 17 mg/dL (7-18); BUN/Creat Ratio 13.6 RATIO (10-20); Chloride 110 mmol/L (98-107); Cholesterol 81 mg/dL (200); Creatinine, Serum 1.25 mg/dL (0.70-1.30); EST Glomerular Filtration Rate 61 mL/min (>60); Est Glom Filt Rate - Afr Amer 74 mL/min (>60); Estimated Creatinine Clearance 53.96 ml/min; Globulin 3.7 g/dL (2.2-4.2); Glucose 131 mg/dL (74-106); High Density Lipoprotein 43 mg/dL; Potassium 3.8 mmol/L (3.5-5.1); Protein, Total 6.6 g/dL (6.4-8.2); Sodium Level 138 mmol/L (136-145); Thyroid Stim Hormone (TSH) 1.05 uIU/mL (0.358-3.74); Triglycerides 106 mg/dL; Very Low Density Lipoprotein 21 mg/dL (5-40)
[2022-11-12 06:16] LABS: Differential Comment SCANNED
[2022-11-12 06:39] LABS: Bedside Glucose 125 mg/dL (74-106)
--- NOTE | 2022-11-12 07:51 | PCM.PN.HOSP ---
Reason for Visit Reason for Visit: Diagnoses Encephalopathy, unspecified (11/11/22) Subjective Subjective Patient is a 67-year-old gentleman resident is an extended care facility who was brought to the emergency department with strokelike symptoms including tremors and slurred speech. He apparently also did complain of abdominal pain admitted to monitored bed for further management Objective Data Objective Data Vital Signs: Vital Signs Temp Pulse Resp BP Pulse Ox O2 Del Method 98.3 F 107 H 18 119/95 H 97 Room Air 11/12/22 04:00 11/12/22 04:00 11/12/22 04:00 11/12/22 04:00 11/12/22 04:00 11/12/22 04:00 Oxygen Delivery Method Room Air Weight: 87.8 kg Body Mass Index (BMI) 29.3 Intake & Output: Intake and Output for Last 24 Hours 11/10/22 11/11/22 11/12/22 23:59 23:59 23:59 Intake Total 2240 / 2240 290 / 290 Balance 2240 / 2240 290 / 290 Lab / Micro Data 11/12/22 04:25 11/12/22 04:25 Labs: Laboratory Results - last 24 hr 11/11/22 19:30: WBC 26.2 H, RBC 4.54 L, Hgb 13.0, Hct 39.4 L, MCV 86.8, MCH 28.6, MCHC 33.0, RDW Std Deviation 45.5 H, RDW Coeff of Tarik 14.4, Plt Count 277, MPV 9.6, Immature Gran % (Auto) 0.500, Neut % (Auto) 86.8 H, Lymph % (Auto) 5.2 L, [place] % (Auto) 7.3, Eos % (Auto) 0.0, Baso % (Auto) 0.2, Absolute Neuts (auto) 22.7 H, Absolute Lymphs (auto) 1.36, Nucleated RBC % 0, Differential Comment SCANNED, Diff Path Review August, PT 15.7 H, INR 1.3, APTT 36.1, Sodium 141, Potassium 4.7, Chloride 109 H, Carbon Dioxide 24.0, Anion Gap 8, BUN 21 H, Creatinine 1.61 H, Estim Creat Clear Calc 41.89, Est GFR (MDRD) Af Amer 55 L, Est GFR (MDRD) Non-Af 45 L, BUN/Creatinine Ratio 13.0, Glucose 157 H, Calcium 9.6, Magnesium 2.0, Troponin I High Sens 5 11/11/22 19:34: POC Glucose 163 H 11/11/22 21:49: Urine Color Yellow, Urine Clarity Clear, Urine pH 5.0, Ur Specific [place] 1.020, Urine Protein 30 H, Urine Glucose (UA) Normal, Urine Ketones 5 H, Urine Occult Blood 25 H, Urine Nitrite Positive H, Urine Bilirubin Negative, Urine Urobilinogen Normal, Ur Leukocyte Esterase 25 H, Urine RBC 0 SEEN, Urine WBC 0-5 SEEN, Ur Squamous Epith Cells 0 SEEN, Urine Bacteria 2+, Urine Mucus 0 SEEN 11/11/22 22:40: Procalcitonin 0.38 H 11/11/22 23:20: MRSA (PCR) Negative 11/12/22 04:25: WBC 24.6 H, RBC 3.89 L, Hgb 11.2 L, Hct 33.5 L, MCV 86.1, MCH 28.8, MCHC 33.4, RDW Std Deviation 45.8 H, RDW Coeff of Tarik 14.6, Plt Count 247, MPV 9.9, Immature Gran % (Auto) 0.800, Neut % (Auto) 81.8 H, Lymph % (Auto) 9.2 L, [place] % (Auto) 7.9, Eos % (Auto) 0.1, Baso % (Auto) 0.2, Absolute Neuts (auto) 20.1 H, Absolute Lymphs (auto) 2.27, Nucleated RBC % 0, Differential Comment SCANNED, Diff Path Review August, Sodium 138, Potassium 3.8, Chloride 110 H, Carbon Dioxide 20.0 L, Anion Gap 8, BUN 17, Creatinine 1.25, Estim Creat Clear Calc 53.96, Est GFR (MDRD) Af Amer 74, Est GFR (MDRD) Non-Af 61, BUN/Creatinine Ratio 13.6, Glucose 131 H, Calcium 8.0 L, Total Bilirubin 0.30, AST 17, ALT 23, Alkaline Phosphatase 61, Total Protein 6.6, Albumin 2.9 L, Globulin 3.7, Albumin/Globulin Ratio 0.8 L, Triglycerides 106, Cholesterol 81, LDL Cholesterol 17, VLDL Cholesterol 21, HDL Cholesterol 43, TSH 1.05 11/12/22 06:21: POC Glucose 125 H Micro: Microbiology 11/11/22 22:40 Mucosa - Nose Coronavirus COVID-19 PCR - Final 11/11/22 22:40 Mucosa - Nose Respiratory Panel (PCR) - Final ABG Data ABG results: ABG 11/11/22 22:50 Specimen Type SOFI VBG pH 7.37 VBG pO2 30 VBG HCO3 20 L VBG Total CO2 21 L VBG O2 Sat (Calc) 56 VBG Base Excess -6 L POC Mix VBG pCO2 Pt Tmp 34.1 L Radiography Diagnostic Testing: Radiology Impression Brain CT 11/11/22 19:10 IMPRESSION: Negative Brain CT without contrast. N.B. : The above Results were Read Back by Brendon Obrien MD to Jose Santos and understanding confirmed on 11/11/2022 19:40:56 (ET). Electronically Signed: Brendon Obrien MD at 19:42 EDT Reading Location ID and State: [id number] / [email or web address] Tel , Service support , ADDENDUM: 11/11/221948 IMPRESSION: Negative Brain CT without contrast. N.B. : The above Results were Read Back by Brendon Obrien MD to Jose Santos and understanding confirmed on 11/11/2022 19:40:56 (ET). Electronically Signed: Brendon Obrien MD at 19:42 EDT Reading Location ID and State: [id number] / [email or web address] Tel , Service support , Chest X-Ray 11/11/22 19:25 IMPRESSION: Normal x-ray examination of the chest. Electronically Signed: Brendon Obrien MD at 19:42 EDT Reading Location ID and State: [id number] / [email or web address] Tel , Service support , Head/Neck CTA 11/11/22 21:34 IMPRESSION: Normal CTA Head with contrast. Mild (20%) right carotid stenosis. No left carotid stenosis. Patent vertebral arteries bilaterally Electronically Signed: Brendon Obrien MD at 23:35 EDT , Chest X-Ray 11/12/22 05:32 IMPRESSION: Given significantly diminished lung volumes and patient rotation, chest with no acute disease. Electronically Signed: Markel Hazel MD at 6:20 EDT , Physical Exam Narrative GENERAL: cooperative HEENT: Atraumatic; normocephalic EYES; Anicteric, Normal Conjunctiva NECK; supple, normal thyroid, RESPIRATORY: Diminished to auscultation CARDIOVASCULAR: Regular S1 S2, GI: soft, normoactive bowel sounds, : No Renal angle tenderness; EXTREMITIES: No edema, no clubbing, MUSCULOSKELETAL: no muscle wasting NEURO: Awake; no lateralizing signs. SKIN: No Rash PSYCH; Flat affect Assessment & Plan Assessment/Plan (1) Encephalopathy acute: PLAN: Plan Patient is a 67-year-old gentleman resident is an extended care facility who was brought to the emergency department with strokelike symptoms including tremors and slurred speech. He apparently also did complain of abdominal pain admitted to monitored bed for further management 1. Acute encephalopathy ? Suspected to be secondary to an infectious etiology. Patient checks x-ray was negative for pneumonia. Urinalysis was however positive for nitrites as well as leukocyte esterase despite not having any pyuria. Empirically started on Rocephin urine cultures sent 2. TIA ? Patient presented with strokelike symptoms per documentation from the custodial. He had tremors as well as slurred speech. CT of the head obtained on admission was negative ordered MRI to complete patient's evaluation 3. Acute renal insufficiency ? Resolved with rehydration 4. Dementia ? Without behavioral agitation 5. Diabetes mellitus type 2 ? Patient oral antihyperglycemics held please on Accu-Cheks before meals and at bedtime with sliding scale coverage 6. Hypertension - Blood pressure controlled, home medications continued with dose adjustment as needed 7. Dyslipidemia -Patient is on statin therapy, continued at home dose 8.Systemic use of anticoagulant ? Reason for apixaban use not clear patient is however not a good historian 9. Depression with anxiety ? Did continue patient home meds 10. Paroxysmal A-fib ? Patient is on CPAP at night 11. GERD ? On PPI 12. DVT prophylaxis ? On systemic anticoagulation Time spent in the patient's overall evaluation,decision-making process, review of diagnostic data, adjustment of management, discussion with other providers, nursing nursing and ancillary staff involved in patient's care documentation, 50 minutes minutes Charges/Coding Visit Charges Inpatient E&M: 06680 [facility] Hosp L3
[2022-11-12 08:47] LABS: Hemoglobin A1c 6.4 % (3.8-5.6)
[2022-11-12] MEDS: 0.9% Normal Saline 1,000 ML 100 ML IV (08:55)
[2022-11-12] MEDS: Ceftriaxone 1 GM/50 ML BAG IV (08:57)
[2022-11-12] MEDS: Menthol/Lanolin/Calamine/Znox 113 GM Tube 1 APPLIC TOPICAL ×4 (08:59→20:12)
[2022-11-12] MEDS: APIXABAN 5 MG TABLET PO ×2 (09:00→20:11)
[2022-11-12] MEDS: Loperamide 2 MG Capsule PO (09:00)
--- NOTE | 2022-11-12 09:00 | MRI_ITS ---
EXAM: MR HEAD WITHOUT INTRAVENOUS CONTRAST CLINICAL INDICATION: CVA TECHNIQUE: Multiplanar and multisequence MR images of the brain were obtained without intravenous contrast. COMPARISON: CT head without contrast and CTA head and neck with contrast 11/11/2022. FINDINGS: BRAIN AND EXTRA-AXIAL SPACES: T2 FLAIR hyperintensity foci in the white matter of both cerebral hemispheres are chronic white matter ischemic changes. No intra- or extra-axial hemorrhage. Posterior fossa structures are unremarkable. Ventricles are appropriate for age. No hydrocephalus. Basal cisterns are patent. No diffusion restriction to suspect acute or subacute ischemic infarct. No remote cortical-based ischemic infarct. No midline shift and no mass effects. SELLA: Unremarkable. Normal sella turcica, pituitary gland, infundibular stalk, optic chiasm and hypothalamus. AUDITORY SYSTEM: Unremarkable. The internal auditory canals are patent. BONES/JOINTS: Unremarkable. No discrete lytic or blastic abnormalities. SINUSES: Air-fluid level in the left sphenoid sinus. MASTOID AIR CELLS: Unremarkable as visualized. Clear. ORBITS: Unremarkable as visualized. Both globes, extraocular muscles, optic nerves and retrobulbar fat appear unremarkable. VASCULATURE: Unremarkable as visualized. Normal flow voids in the major intracranial circulation. MRI/Brain without Contrast IMPRESSION: 1. No MRI evidence of acute or subacute ischemic infarct or remote cortical-based ischemic infarct. 2. Chronic white matter ischemic changes in both cerebral hemispheres. 3. Air-fluid level in the left sphenoid sinus is suspicious for acute isolated left sphenoid sinusitis. This is unchanged when compared to 11/11/2022. Electronically Signed: Edwin Méndez MD at 11:41 EDT ,
[2022-11-12] MEDS: Lisinopril 40 MG Tablet PO (09:01)
[2022-11-12] MEDS: DULoxetine Hcl 20 MG Capsule PO (09:01)
[2022-11-12] MEDS: Mirabegron 25 MG TAB.ER.24H PO (09:01)
[2022-11-12] MEDS: Pantoprazole Sodium 20 MG Tablet PO (09:01)
[2022-11-12] MEDS: Aspirin E.C. 81 MG Tablet PO (09:02)
[2022-11-12] MEDS: Insulin Glargine-YFGN 100 UNIT/ML Pen 28 UNIT SC (09:05)
[2022-11-12] MEDS: Glucerna Shake 120 ML LIQUID PO (11:30)
[2022-11-12] MEDS: Insulin Lispro 100 UNIT/ML INSULN.PEN SC ×3 (11:33→20:13)
[2022-11-12 12:15] LABS: Bedside Glucose 164 mg/dL (74-106)
[2022-11-12 18:42] LABS: Bedside Glucose 246 mg/dL (74-106)
[2022-11-12] MEDS: Donepezil HCl 10 MG Tablet 5 MG PO (20:11)
[2022-11-12] MEDS: Mirtazapine 15 MG Tablet PO (20:11)
[2022-11-12] MEDS: Atorvastatin Calcium 40 MG Tablet PO (20:11)
[2022-11-12 21:47] LABS: Bedside Glucose 181 mg/dL (74-106)
[2022-11-13] VITALS (7 sets, daily range): BP systolic 110–141; BP diastolic 69–110; PULSE 84–92; RESP 12–16; TEMP 36.5–36.9; O2SAT 94–97; BMI 29.4
[2022-11-13 06:45] LABS: Bedside Glucose 125 mg/dL (74-106)
--- NOTE | 2022-11-13 08:29 | PN.HOSP_ITS ---
Reason for Visit Reason for Visit: Diagnoses Encephalopathy, unspecified (11/11/22) Subjective Subjective Denies complaints. Objective Data Objective Data Vital Signs: Vital Signs Temp Pulse Resp BP Pulse Ox O2 Del Method 36.8 C 89 16 127/81 H 94 Room Air 11/13/22 06:20 11/13/22 06:20 11/13/22 06:20 11/13/22 06:20 11/13/22 06:46 11/13/22 06:46 Oxygen Delivery Method Room Air Weight: 88.1 kg Body Mass Index (BMI) 29.4 Intake & Output: Intake and Output for Last 24 Hours 11/11/22 11/12/22 11/13/22 23:59 23:59 23:59 Intake Total 2240 / 2240 3026.67 / 3026.67 240 / 240 Balance 2240 / 2240 3026.67 / 3026.67 240 / 240 Lab / Micro Data 11/13/22 09:29 11/13/22 09:29 Labs: Laboratory Results - last 24 hr 11/12/22 04:25: Hemoglobin A1c 6.4 H 11/12/22 11:28: POC Glucose 164 H 11/12/22 16:26: POC Glucose 246 H 11/12/22 20:11: POC Glucose 181 H 11/13/22 06:22: POC Glucose 125 H Micro: Microbiology 11/11/22 21:49 Urine Catheter - Catheter Urine Culture - Preliminary Presumptive E. coli 11/11/22 22:40 Mucosa - Nose Coronavirus COVID-19 PCR - Final 11/11/22 22:40 Mucosa - Nose Respiratory Panel (PCR) - Final Radiography Diagnostic Testing: Radiology Impression Brain MRI 11/12/22 09:00 IMPRESSION: 1. No MRI evidence of acute or subacute ischemic infarct or remote cortical-based ischemic infarct. 2. Chronic white matter ischemic changes in both cerebral hemispheres. 3. Air-fluid level in the left sphenoid sinus is suspicious for acute isolated left sphenoid sinusitis. This is unchanged when compared to 11/11/2022. Electronically Signed: Edwin Méndez MD at 11:41 EDT , Physical Exam Const Constitutional Narrative: flat affect. minimally verbal, speech coherent when he speaks. Resp normal respiratory effort, no retractions and no use of accessory muscles Cardio regular rate, regular rhythm, S1 normal heart sound and S2 normal heart sound GI normal to inspection, nondistended, normoactive bowel sounds, soft to palpation, non-tender and non-distended Assessment & Plan Assessment/Plan (1) Encephalopathy acute: PLAN: Unclear etiology Suspected to be secondary to an infectious etiology. Patient checks x-ray was negative for pneumonia. Urinalysis was however positive for nitrites as well as leukocyte esterase despite not having any pyuria. Empirically started on Rocephin urine cultures sent Head CT MRI brain: no infarcts. Chronic white matter ischemic changes in both hemispheres. Air fluid level in isolated left sphenoid sinus. Change abx to amox/CA (2) Acute kidney injury: PLAN: improved with IVF PLAN: Plan Chronic conditions: * Dementia? Without behavioral agitation * Diabetes mellitus type 2? Patient oral antihyperglycemics held please on Accu- Cheks before meals and at bedtime with sliding scale coverage * Hypertension- Blood pressure controlled, home medications continued with dose adjustment as needed * Dyslipidemia-Patient is on statin therapy, continued at home dose * Depression with anxiety? Did continue patient home meds * Paroxysmal A-fib: apixaban * RODRI? Patient is on CPAP at night * GERD? On PPI DVT prophylaxis ? On systemic anticoagulation Charges/Coding Visit Charges Inpatient E&M: 89757 Subs Hosp L2
--- NOTE | 2022-11-13 09:33 | CASEMGMT ---
Patient is from [facility]. SW sent updates to [facility]. Judith Sorensen [employer] ISAIAH
[2022-11-13] MEDS: APIXABAN 5 MG TABLET PO ×2 (09:34→22:00)
[2022-11-13] MEDS: Loperamide 2 MG Capsule PO (09:34)
[2022-11-13] MEDS: Glucerna Shake 120 ML LIQUID PO ×3 (09:34→16:18)
[2022-11-13] MEDS: DULoxetine Hcl 20 MG Capsule PO (09:34)
[2022-11-13] MEDS: Pantoprazole Sodium 20 MG Tablet PO (09:34)
[2022-11-13] MEDS: Lisinopril 40 MG Tablet PO (09:34)
[2022-11-13] MEDS: Aspirin E.C. 81 MG Tablet PO (09:34)
[2022-11-13] MEDS: Mirabegron 25 MG TAB.ER.24H PO (09:34)
[2022-11-13] MEDS: Ceftriaxone 1 GM/50 ML BAG IV (09:35)
[2022-11-13] MEDS: Menthol/Lanolin/Calamine/Znox 113 GM Tube 1 APPLIC TOPICAL ×4 (09:36→21:57)
[2022-11-13] MEDS: Insulin Glargine-YFGN 100 UNIT/ML Pen 28 UNIT SC (09:36)
[2022-11-13 09:42] LABS: Absolute Lymphocyte Count 1.89 X10^3/uL (0.83-4.51); Absolute Neutrophil Count 11.8 X10^3/uL (2.0-7.7); Basophil# 0.05 X10^3/uL; Basophil% 0.3 % (0-1); Eosinophil# 0.31 X10^3/uL; Hemoglobin 10.6 g/dL (13.0-16.5); Lymphocyte # 1.89 X10^3/ul (0.83-4.51); Lymphocyte % 12.4 % (19-41); Mean Corp Hgb Conc 32.1 g/dL (32-36); Mean Corpuscular Hgb 27.7 pg (27.0-32.0); Mean Corpuscular Volume 86.4 fL (80-94); Mean Platelet Vol. 9.7 fl (6.2-12.0); Monocyte% 7.2 % (0-10); NRBC Flagged by Analyzer 0 % (0-5); Neutrophil # 11.81 X10^3/uL (2.7-7.7); Neutrophil % 77.4 % (47-70); Platelet Count 237 K/mm3 (150-450); RBC Distribution Width CV 14.2 % (11.6-14.6); RBC Distribution Width SD 44.8 fl (35.1-43.9); Red Blood Count 3.82 M/mm3 (4.6-6.2); White Blood Count 15.3 K/mm3 (4.4-11.0)
[2022-11-13 09:57] LABS: Anion Gap 6 (5-15); BUN 12 mg/dL (7-18); Calcium,Total 8.4 mg/dL (8.5-10.1); Chloride 109 mmol/L (98-107); EST Glomerular Filtration Rate 64 mL/min (>60); Est Glom Filt Rate - Afr Amer 77 mL/min (>60); Estimated Creatinine Clearance 56.21 ml/min; Glucose 129 mg/dL (74-106); Potassium 3.6 mmol/L (3.5-5.1); Sodium Level 137 mmol/L (136-145)
--- NOTE | 2022-11-13 09:57 | CASEMGMT ---
Per handoff patient is alert and orientedX2. SW attempted to call patient's brother to verify his plan is to return to [facility], however the number did not go through. SW asked [facility] if they had any contact people. Per Krystal at [facility] patient is a [facility] resident and they have no contact people. Per Krystal the social service manager at [facility] is working on guardianship. Plan: d/c back to [facility] when medically ready. Judith COLON
[2022-11-13 11:51] LABS: Bedside Glucose 136 mg/dL (74-106)
--- NOTE | 2022-11-13 14:08 | CASEMGMT ---
SW asked [facility] to please start the pre-cert. Judith COLON
[2022-11-13 15:44] LABS: Pathologist Review Reviewed
[2022-11-13 15:47] LABS: Pathologist Review Reviewed
[2022-11-13] MEDS: Insulin Lispro 100 UNIT/ML INSULN.PEN SC ×2 (16:14→22:00)
[2022-11-13 16:37] LABS: Bedside Glucose 183 mg/dL (74-106)
[2022-11-13] MEDS: Donepezil HCl 10 MG Tablet 5 MG PO (21:58)
[2022-11-13] MEDS: Mirtazapine 15 MG Tablet PO (22:01)
[2022-11-13] MEDS: Atorvastatin Calcium 40 MG Tablet PO (22:02)
[2022-11-13 22:25] LABS: Bedside Glucose 192 mg/dL (74-106)
[2022-11-14] VITALS (8 sets, daily range): BP systolic 110–120; BP diastolic 74–82; PULSE 80–91; RESP 16–17; TEMP 36.1–36.9; O2SAT 94–97; BMI 29.4; BMI 29.3
[2022-11-14 06:28] LABS: Bedside Glucose 188 mg/dL (74-106)
[2022-11-14] MEDS: Insulin Lispro 100 UNIT/ML INSULN.PEN SC ×4 (06:33→21:22)
--- NOTE | 2022-11-14 07:59 | PCM.PN.HOSP ---
Reason for Visit Reason for Visit: Diagnoses Encephalopathy, unspecified (11/11/22) Acute kidney failure, unspecified (11/11/22) Subjective Subjective No events overnight. Objective Data Objective Data Vital Signs: Vital Signs Temp Pulse Resp BP Pulse Ox O2 Del Method 36.6 C 80 16 114/82 H 97 Room Air 11/14/22 06:12 11/14/22 06:12 11/14/22 06:12 11/14/22 06:12 11/14/22 06:12 11/14/22 06:12 Oxygen Delivery Method Room Air Weight: 87.8 kg Body Mass Index (BMI) 29.3 Intake & Output: Intake and Output for Last 24 Hours 11/12/22 11/13/22 11/14/22 23:59 23:59 23:59 Intake Total 3026.67 / 3026.67 1570 / 1570 480 / 480 Balance 3026.67 / 3026.67 1570 / 1570 480 / 480 Lab / Micro Data 11/13/22 09:29 11/13/22 09:29 Labs: Laboratory Results - last 24 hr 11/11/22 19:30: Diff Path Review Reviewed 11/12/22 04:25: Diff Path Review Reviewed 11/13/22 09:29: WBC 15.3 H, RBC 3.82 L, Hgb 10.6 L, Hct 33.0 L, MCV 86.4, MCH 27.7, MCHC 32.1, RDW Std Deviation 44.8 H, RDW Coeff of Tarik 14.2, Plt Count 237, MPV 9.7, Immature Gran % (Auto) 0.700, Neut % (Auto) 77.4 H, Lymph % (Auto) 12.4 L, Boone % (Auto) 7.2, Eos % (Auto) 2.0, Baso % (Auto) 0.3, Absolute Neuts (auto) 11.8 H, Absolute Lymphs (auto) 1.89, Nucleated RBC % 0, Sodium 137, Potassium 3.6, Chloride 109 H, Carbon Dioxide 22.0, Anion Gap 6, BUN 12, Creatinine 1.20, Estim Creat Clear Calc 56.21, Est GFR (MDRD) Af Amer 77, Est GFR (MDRD) Non-Af 64, BUN/Creatinine Ratio 10.0, Glucose 129 H, Calcium 8.4 L 11/13/22 11:33: POC Glucose 136 H 11/13/22 16:11: POC Glucose 183 H 11/13/22 21:56: POC Glucose 192 H 11/14/22 06:11: POC Glucose 188 H Micro: Microbiology 11/11/22 21:49 Urine Catheter - Catheter Urine Culture - Final ESBL Escherichia coli 11/11/22 22:40 Mucosa - Nose Coronavirus COVID-19 PCR - Final 11/11/22 22:40 Mucosa - Nose Respiratory Panel (PCR) - Final Radiography Diagnostic Testing: Radiology Impression Echocardiogram 11/11/22 22:55 Interpretation Summary The estimated ejection fraction is 65 %. No evidence for diastolic dysfunction. Ordering Physician: Jodi Perez Referring Physician: Constanza Wooten Performed By: Yelena Joy, RDCS Physical Exam Const alert and no apparent distress HEENT head/scalp atraumatic and moist oral mucous membranes Resp normal respiratory effort, no retractions, no use of accessory muscles and clear to auscultation bilaterally Cardio regular rate, regular rhythm, S1 normal heart sound and S2 normal heart sound GI normal to inspection, nondistended, normoactive bowel sounds, soft to palpation and non-distended Extremity normal to inspection Assessment & Plan Assessment/Plan (1) Encephalopathy acute: PLAN: Resolved Suspected to be secondary to an infectious etiology. Patient checks x-ray was negative for pneumonia. Urinalysis was however positive for nitrites as well as leukocyte esterase despite not having any pyuria. Empirically started on Rocephin urine cultures sent MRI brain: no infarcts. Chronic white matter ischemic changes in both hemispheres. Air fluid level in isolated left sphenoid sinus. Change abx to amox/CA (2) Acute kidney injury: PLAN: improved with IVF (3) UTI (urinary tract infection): QUALIFIERS: Hematuria presence: without hematuria Urinary tract infection type: acute cystitis Qualified Code(s): N30.00 - Acute cystitis without hematuria PLAN: ESBL UTI on augmentin. Previously, was on ceftriaxone and improved, but the ESBL is resistant. PLAN: Plan Chronic conditions: Dementia? Without behavioral agitation Diabetes mellitus type 2? Patient oral antihyperglycemics held please on Accu-Cheks before meals and at bedtime with sliding scale coverage Hypertension- Blood pressure controlled, home medications continued with dose adjustment as needed Dyslipidemia-Patient is on statin therapy, continued at home dose Depression with anxiety? Did continue patient home meds Paroxysmal A-fib: apixaban RODRI? Patient is on CPAP at night GERD? On PPI DVT prophylaxis ? On systemic anticoagulation Charges/Coding Visit Charges Inpatient E&M: 83525 Subs Hosp L2
[2022-11-14] MEDS: Glucerna Shake 120 ML LIQUID PO ×3 (09:07→16:41)
[2022-11-14] MEDS: Aspirin E.C. 81 MG Tablet PO (09:07)
[2022-11-14] MEDS: Pantoprazole Sodium 20 MG Tablet PO (09:08)
[2022-11-14] MEDS: DULoxetine Hcl 20 MG Capsule PO (09:08)
[2022-11-14] MEDS: APIXABAN 5 MG TABLET PO ×2 (09:08→21:21)
[2022-11-14] MEDS: Mirabegron 25 MG TAB.ER.24H PO (09:08)
[2022-11-14] MEDS: Loperamide 2 MG Capsule PO (09:08)
[2022-11-14] MEDS: Lisinopril 40 MG Tablet PO (09:09)
[2022-11-14] MEDS: Menthol/Lanolin/Calamine/Znox 113 GM Tube 1 APPLIC TOPICAL ×4 (09:09→21:23)
--- NOTE | 2022-11-14 10:43 | TREXTCAR_ITS ---
Diet Diet Order/Speech Therapy: 11/11/22 22:55 Diet: Cardiac: Calorie-Controlled Food consistency:: Regular Liquid Consistency:: Regular/Thin How many daily calories?: 2000 calorie Routine Orders/Code Status Routine Lab Work: CBC and BMP Code Status: Full Code Therapies Physical Therapy: Eval and Treat Occupational Therapy: Eval and Treat Problem/Diagnosis (1) Encephalopathy acute: Status: Acute Code(s): G93.40 - Encephalopathy, unspecified Plan: Unclear etiology Suspected to be secondary to an infectious etiology. Patient checks x-ray was negative for pneumonia. Urinalysis was however positive for nitrites as well as leukocyte esterase despite not having any pyuria. Empirically started on Rocephin urine cultures sent Head CT MRI brain: no infarcts. Chronic white matter ischemic changes in both hemispheres. Air fluid level in isolated left sphenoid sinus. Change abx to amox/CA (2) Acute kidney injury: Status: Acute Code(s): N17.9 - Acute kidney failure, unspecified Plan: improved with IVF (3) UTI (urinary tract infection): Status: Acute Code(s): N39.0 - Urinary tract infection, site not specified Plan: ESBL UTI on augmentin. Previously, was on ceftriaxone and improved, but the ESBL is resistant. Plan Chronic conditions: * Dementia? Without behavioral agitation * Diabetes mellitus type 2? Patient oral antihyperglycemics held please on Accu- Cheks before meals and at bedtime with sliding scale coverage * Hypertension- Blood pressure controlled, home medications continued with dose adjustment as needed * Dyslipidemia-Patient is on statin therapy, continued at home dose * Depression with anxiety? Did continue patient home meds * Paroxysmal A-fib: apixaban * RODRI? Patient is on CPAP at night * GERD? On PPI DVT prophylaxis ? On systemic anticoagulation Allergies/Procedures Done in Hospital Allergies No Known Allergies Allergy (Verified 11/11/22 18:46) Procedures: None Type of Care/Length of Stay Estimated LOS: Convalescent Care Less Than 30 days Type of Care Needed: Skilled Rehab Potential: Fair Prognosis: Good Additional Orders/Day of Discharge Day of Discharge: 11/14/22 Dietary and Speech Recommendations Dietitian Recommendations/Changes: Will continue with Cardiac: Calorie- Controlled diet for admission reason as well as blood sugar control, yet will change calorie goals to 2000kcal/day to better meet estimated nutrient needs. Continue with Glucerna 120mL TID w/ medpass to help increase oral intakes. Will continue to follow and modify nutrition interventions as needed. If oral intakes do not improve, may recommend liberalization of the diet. Discharge Plan Admission Admit Date/Time: 11/11/22 22:11 Primary Reason for Your Visit: UTI Attending Provider: Nolan Rodriguez Primary Care Provider: Constanza Wooten Consulting Providers: Jodi Perez; Leonard Seth Discharge Orders/Prescriptions Prescriptions: New acetaminophen 325 mg Tablet 650 mg PO Q4H PRN PRN (Reason: Fever, pain -01/23) Qty: 0 0RF amoxicillin-pot clavulanate 875-125 mg Tablet 1 tab PO BID Qty: 0 0RF insulin lispro [Humalog KwikPen Insulin] 100 unit/mL Insulin Pen See Protocol subcut ACHS Qty: 0 0RF Protocol: 3. Sliding Scale Insulin Med Dosing Condition: 150-189 mg/dl = 1 unit Condition: 190-229 mg/dl = 2 units Condition: 230-269 mg/dl = 3 units Condition: 270-309 mg/dl = 4 units Condition: 310-349 mg/dl = 5 units Condition: 350-399 mg/dl = 6 units Condition: 400-449 mg/dl = 7 units Condition: Greater than 449 call physician Protocol Text: - Use for Total Daily Dose of Insulin 37-55 units - Obsese, infected, or steroid patients MEDIUM DOSING ALGORITHIM Glucerna 1.2 Massimo 0.06-1.2 gram-kcal/mL Liquid 120 ml PO TIDCM Qty: 0 0RF Continued lisinopril 40 MG tablet 40 mg PO DAILY Qty: 30 0RF donepezil 10 mg tablet 5 mg PO QHS aspirin [Adult Low Dose Aspirin] 81 mg tablet,delayed release (DR/EC) 81 mg PO DAILY atorvastatin 40 mg tablet 40 mg PO QHS duloxetine 20 mg capsule,delayed release(DR/EC) 20 mg PO DAILY loperamide [Anti-Diarrheal (loperamide)] 2 mg capsule 2 mg PO DAILY Rx Instructions: administer after each loose stool until symptoms controlled; do not exceed 8 mg per 24 hrs Myrbetriq 25 mg tablet extended release 24 hr 25 mg PO DAILY omeprazole 20 mg capsule,delayed release(DR/EC) 20 mg PO DAILY medroxyprogesterone 5 mg tablet 5 mg PO .qohs mirtazapine 15 mg tablet 15 mg PO QHS Eliquis 5 mg tablet 5 mg PO BID insulin glargine 100 UNITS/ML insulin pen 28 unit SC .afternoon Discontinued amlodipine 10 mg tablet 10 mg PO DAILY Trulicity 4.5 mg/0.5 mL pen injector 4.5 mg SUBCUT QWEEK Rx Instructions: SUNDAY metformin 1,000 mg tablet 1,000 mg PO BID insulin lispro [Humalog KwikPen Insulin] 100 unit/mL insulin pen 1 sliding scale dose subcut ACHS Referrals / Follow Up: Constanza Wooten MD [Primary Care Provider] - Within 2 Weeks Disposition Disposition (needs filled in before D/C Order can be placed): [facility] (3) UTI (urinary tract infection) Qualifiers: Urinary tract infection type: acute cystitis Hematuria presence: without hematuria Qualified Code(s): N30.00 - Acute cystitis without hematuria
[2022-11-14] MEDS: Insulin Glargine-YFGN 100 UNIT/ML Pen 28 UNIT SC (11:28)
[2022-11-14] MEDS: Amox/Clavulanate 875 MG Tablet PO ×2 (11:45→21:22)
[2022-11-14 12:00] LABS: Bedside Glucose 226 mg/dL (74-106)
[2022-11-14 16:42] LABS: Bedside Glucose 245 mg/dL (74-106)
--- NOTE | 2022-11-14 18:50 | NURSING ---
Reviewed and agreed on charting with Chandana Fernando RN
[2022-11-14] MEDS: Atorvastatin Calcium 40 MG Tablet PO (21:21)
[2022-11-14] MEDS: Mirtazapine 15 MG Tablet PO (21:21)
[2022-11-14] MEDS: Donepezil HCl 10 MG Tablet 5 MG PO (21:22)
[2022-11-14 22:15] LABS: Bedside Glucose 245 mg/dL (74-106)
[2022-11-15] VITALS: BP 121/71; PULSE 85; RESP 16; TEMP 36.6; O2SAT 97
[2022-11-15 00:40] VITALS: BP 121/77; PULSE 85; RESP 16; TEMP 36.7; O2SAT 97
[2022-11-15 02:02] VITALS: BMI 29.3
[2022-11-15 04:37] VITALS: BMI 29.4
[2022-11-15 06:00] VITALS: BP 116/83; PULSE 88; RESP 18; TEMP 36.8; O2SAT 97
[2022-11-15 06:20] VITALS: BP 116/83; PULSE 88; RESP 18; TEMP 36.8; O2SAT 97
[2022-11-15] MEDS: Insulin Lispro 100 UNIT/ML INSULN.PEN SC (06:24)
[2022-11-15 07:00] LABS: Bedside Glucose 288 mg/dL (74-106)
[2022-11-15 07:58] VITALS: O2SAT 95
--- NOTE | 2022-11-15 08:16 | PN.HOSP_ITS ---
Reason for Visit Reason for Visit: Diagnoses Encephalopathy, unspecified (11/11/22) Acute kidney failure, unspecified (11/11/22) Acute cystitis without hematuria (11/11/22) Subjective Subjective No events overnight. Objective Data Objective Data Vital Signs: Vital Signs Temp Pulse Resp BP Pulse Ox O2 Del Method 36.8 C 88 18 116/83 H 95 Room Air 11/15/22 06:20 11/15/22 06:20 11/15/22 06:20 11/15/22 06:20 11/15/22 07:58 11/15/22 07:58 Oxygen Delivery Method Room Air Weight: 88 kg Body Mass Index (BMI) 29.4 Intake & Output: Intake and Output for Last 24 Hours 11/13/22 11/14/22 11/15/22 23:59 23:59 23:59 Intake Total 1570 / 1570 1380 / 1860 480 / 480 Balance 1570 / 1570 1380 / 1860 480 / 480 Lab / Micro Data 11/13/22 09:29 11/13/22 09:29 Labs: Laboratory Results - last 24 hr 11/14/22 11:26: POC Glucose 226 H 11/14/22 16:23: POC Glucose 245 H 11/14/22 21:18: POC Glucose 245 H 11/15/22 06:23: POC Glucose 288 H Micro: Microbiology 11/11/22 21:49 Urine Catheter - Catheter Urine Culture - Final ESBL Escherichia coli 11/11/22 22:40 Mucosa - Nose Coronavirus COVID-19 PCR - Final 11/11/22 22:40 Mucosa - Nose Respiratory Panel (PCR) - Final Physical Exam Const alert and no apparent distress Neuro Sensorium / Orientation: awake and alert Assessment & Plan Assessment/Plan (1) Encephalopathy acute: PLAN: Resolved Suspected to be secondary to an infectious etiology. Patient checks x-ray was negative for pneumonia. Urinalysis was however positive for nitrites as well as leukocyte esterase despite not having any pyuria. Empirically started on Rocephin urine cultures sent MRI brain: no infarcts. Chronic white matter ischemic changes in both hemispheres. Air fluid level in isolated left sphenoid sinus. Change abx to amox/CA (2) Acute kidney injury: PLAN: improved with IVF (3) UTI (urinary tract infection): QUALIFIERS: Hematuria presence: without hematuria Urinary tract infection type: acute cystitis Qualified Code(s): N30.00 - Acute cystitis without hematuria PLAN: ESBL UTI on augmentin. Previously, was on ceftriaxone and improved, but the ESBL is resistant. PLAN: Plan Chronic conditions: * Dementia? Without behavioral agitation * Diabetes mellitus type 2?glargine * Hypertension- Blood pressure controlled, home medications continued with dose adjustment as needed * Dyslipidemia-Patient is on statin therapy, continued at home dose * Depression with anxiety? Did continue patient home meds * Paroxysmal A-fib: apixaban * RODRI? Patient is on CPAP at night * GERD? On PPI DVT prophylaxis ? On systemic anticoagulation Disposition: to SNF today
--- NOTE | 2022-11-15 08:41 | CASEMGMT ---
DINESH received a message from Krystal at [facility] that insurance is intending to deny patient. Krystal said it is fine to send patient back under his Medicaid today. DINESH will notify physician. Plan: d/c back to [facility] under intermediate level of care. Judith COLON
--- NOTE | 2022-11-15 09:09 | DS.PCM_ITS ---
Providers Date of Admission: 11/11/22 Primary Care Physician: Dr. Constanza Wooten MD Reason For Visit: SIRS, ENCEPHALOPATHY, ? TIA/CVA Diagnosis Discharge Diagnosis (1) Encephalopathy acute: Status: Acute Code(s): G93.40 - Encephalopathy, unspecified Plan: Resolved Suspected to be secondary to an infectious etiology. Patient checks x-ray was negative for pneumonia. Urinalysis was however positive for nitrites as well as leukocyte esterase despite not having any pyuria. Empirically started on Rocephin urine cultures sent MRI brain: no infarcts. Chronic white matter ischemic changes in both hemispheres. Air fluid level in isolated left sphenoid sinus. Change abx to amox/CA (2) Acute kidney injury: Status: Acute Code(s): N17.9 - Acute kidney failure, unspecified Plan: improved with IVF (3) UTI (urinary tract infection): Status: Acute Code(s): N39.0 - Urinary tract infection, site not specified Qualifiers: Urinary tract infection type: acute cystitis Hematuria presence: without hematuria Qualified Code(s): N30.00 - Acute cystitis without hematuria Plan: ESBL UTI on augmentin. Previously, was on ceftriaxone and improved, but the ESBL is resistant. Plan Chronic conditions: * Dementia? Without behavioral agitation * Diabetes mellitus type 2?glargine * Hypertension- Blood pressure controlled, home medications continued with dose adjustment as needed * Dyslipidemia-Patient is on statin therapy, continued at home dose * Depression with anxiety? Did continue patient home meds * Paroxysmal A-fib: apixaban * RODRI? Patient is on CPAP at night * GERD? On PPI DVT prophylaxis ? On systemic anticoagulation Disposition: to SNF today Medications at Discharge Home Medications lisinopril 40 mg tablet 40 mg PO DAILY ##30 02/27/20 apixaban 5 mg tablet (Eliquis) 5 mg PO BID 11/11/22 aspirin 81 mg tablet,delayed release (Adult Low Dose Aspirin) 81 mg PO DAILY 11/11/22 atorvastatin 40 mg tablet 40 mg PO QHS 11/11/22 donepezil 10 mg tablet 5 mg PO QHS 11/11/22 duloxetine 20 mg capsule,delayed release 20 mg PO DAILY 11/11/22 insulin glargine 100 unit/mL (3 mL) subcutaneous pen 28 unit subcut .afternoon 11/11/22 loperamide 2 mg capsule (Anti-Diarrheal (loperamide)) 2 mg PO DAILY 11/11/22 medroxyprogesterone 5 mg tablet 5 mg PO .qohs 11/11/22 mirabegron 25 mg tablet,extended release 24 hr (Myrbetriq) 25 mg PO DAILY 11/11/22 mirtazapine 15 mg tablet 15 mg PO QHS 11/11/22 omeprazole 20 mg capsule,delayed release 20 mg PO DAILY 11/11/22 acetaminophen 325 mg tablet 650 mg (2 x 325 mg) PO Q4H PRN PRN Fever, pain 1- 01/23 #0 tabs 11/14/22 amoxicillin 875 mg-potassium clavulanate 125 mg tablet 1 tab PO BID #0 tabs 11/14/22 insulin lispro 100 unit/mL subcutaneous pen (Humalog KwikPen (U-100) Insulin) See Protocol subcut ACHS #0 mL 11/14/22 nutrition tx glu intol,lac-free,soy-fiber 0.06 gram-1.2 kcal/mL liquid (Glucerna 1.2 Massimo) 120 ml PO TIDCM #0 mL 11/14/22 Hospital Course Operations None Procedures None Summary of Care Provided Minutes Spent on Discharge: 28 Weight / BMI Weight Weight: 88 kg Body Mass Index (BMI) 29.4 ABG / Lab / Microbiology Data 11/13/22 09:29 11/13/22 09:29 Laboratory: Laboratory Results - last 24 hr 11/14/22 11:26: POC Glucose 226 H 11/14/22 16:23: POC Glucose 245 H 11/14/22 21:18: POC Glucose 245 H 11/15/22 06:23: POC Glucose 288 H Microbiology: Microbiology 11/11/22 21:49 Urine Catheter - Catheter Urine Culture - Final ESBL Escherichia coli 11/11/22 22:40 Mucosa - Nose Coronavirus COVID-19 PCR - Final 11/11/22 22:40 Mucosa - Nose Respiratory Panel (PCR) - Final Meaningful Use Info Meaningful Use Diagnoses (Choose all that apply): None applicable Discharge Plan Admission Admit Date/Time: 11/11/22 22:11 Primary Reason for Your Visit: UTI Attending Provider: Nolan Rodriguez Primary Care Provider: Constanza Wooten Consulting Providers: Jodi Perez; Leonard Seth Discharge Orders/Prescriptions Prescriptions: New acetaminophen 325 mg Tablet 650 mg PO Q4H PRN PRN (Reason: Fever, pain 1-01/23) Qty: 0 0RF amoxicillin-pot clavulanate 875-125 mg Tablet 1 tab PO BID Qty: 0 0RF insulin lispro [Humalog KwikPen Insulin] 100 unit/mL Insulin Pen See Protocol subcut ACHS Qty: 0 0RF Protocol: 3. Sliding Scale Insulin Med Dosing Condition: 150-189 mg/dl = 1 unit Condition: 190-229 mg/dl = 2 units Condition: 230-269 mg/dl = 3 units Condition: 270-309 mg/dl = 4 units Condition: 310-349 mg/dl = 5 units Condition: 350-399 mg/dl = 6 units Condition: 400-449 mg/dl = 7 units Condition: Greater than 449 call physician Protocol Text: - Use for Total Daily Dose of Insulin 37-55 units - Obsese, infected, or steroid patients MEDIUM DOSING ALGORITHIM Glucerna 1.2 Massiom 0.06-1.2 gram-kcal/mL Liquid 120 ml PO TIDCM Qty: 0 0RF Continued lisinopril 40 MG tablet 40 mg PO DAILY Qty: 30 0RF donepezil 10 mg tablet 5 mg PO QHS aspirin [Adult Low Dose Aspirin] 81 mg tablet,delayed release (DR/EC) 81 mg PO DAILY atorvastatin 40 mg tablet 40 mg PO QHS duloxetine 20 mg capsule,delayed release(DR/EC) 20 mg PO DAILY loperamide [Anti-Diarrheal (loperamide)] 2 mg capsule 2 mg PO DAILY Rx Instructions: administer after each loose stool until symptoms controlled; do not exceed 8 mg per 24 hrs Myrbetriq 25 mg tablet extended release 24 hr 25 mg PO DAILY omeprazole 20 mg capsule,delayed release(DR/EC) 20 mg PO DAILY medroxyprogesterone 5 mg tablet 5 mg PO .qohs mirtazapine 15 mg tablet 15 mg PO QHS Eliquis 5 mg tablet 5 mg PO BID insulin glargine 100 UNITS/ML insulin pen 28 unit SC .afternoon Discontinued amlodipine 10 mg tablet 10 mg PO DAILY Trulicity 4.5 mg/0.5 mL pen injector 4.5 mg SUBCUT QWEEK Rx Instructions: SUNDAY metformin 1,000 mg tablet 1,000 mg PO BID insulin lispro [Humalog KwikPen Insulin] 100 unit/mL insulin pen 1 sliding scale dose subcut ACHS Referrals / Follow Up: Constanza Wooten MD [Primary Care Provider] - Within 2 Weeks Disposition Disposition (needs filled in before D/C Order can be placed): [facility] Facility Charges/Coding Visit Charges Inpatient E&M: [id number] Disch Hosp
[2022-11-15 09:10] VITALS: BMI 29.4
[2022-11-15 09:16] VITALS: BP 119/75; PULSE 83; RESP 18; TEMP 36.6; O2SAT 98
[2022-11-15] MEDS: Glucerna Shake 120 ML LIQUID PO (09:20)
[2022-11-15] MEDS: Menthol/Lanolin/Calamine/Znox 113 GM Tube 1 APPLIC TOPICAL (09:20)
[2022-11-15] MEDS: Aspirin E.C. 81 MG Tablet PO (09:21)
[2022-11-15] MEDS: DULoxetine Hcl 20 MG Capsule PO (09:21)
[2022-11-15] MEDS: Pantoprazole Sodium 20 MG Tablet PO (09:21)
[2022-11-15] MEDS: Insulin Glargine-YFGN 100 UNIT/ML Pen 28 UNIT SC (09:21)
[2022-11-15] MEDS: Mirabegron 25 MG TAB.ER.24H PO (09:21)
[2022-11-15] MEDS: Loperamide 2 MG Capsule PO (09:21)
[2022-11-15] MEDS: Lisinopril 40 MG Tablet PO (09:21)
[2022-11-15] MEDS: APIXABAN 5 MG TABLET PO (09:21)
[2022-11-15] MEDS: Amox/Clavulanate 875 MG Tablet PO (09:21)
--- NOTE | 2022-11-15 09:21 | PHA.DC_ITS ---
Pharmacy [place] Med Reconciliation Pharmacy Service has performed discharge medication reconciliation for this patient. The patient's discharge medication list was reviewed for discrepancies and discrepancies were resolved. Medications at Discharge Home Medications lisinopril 40 mg tablet 40 mg PO DAILY ##30 02/27/20 apixaban 5 mg tablet (Eliquis) 5 mg PO BID 11/11/22 aspirin 81 mg tablet,delayed release (Adult Low Dose Aspirin) 81 mg PO DAILY 11/11/22 atorvastatin 40 mg tablet 40 mg PO QHS 11/11/22 donepezil 10 mg tablet 5 mg PO QHS 11/11/22 duloxetine 20 mg capsule,delayed release 20 mg PO DAILY 11/11/22 insulin glargine 100 unit/mL (3 mL) subcutaneous pen 28 unit subcut .afternoon 11/11/22 loperamide 2 mg capsule (Anti-Diarrheal (loperamide)) 2 mg PO DAILY 11/11/22 medroxyprogesterone 5 mg tablet 5 mg PO .qohs 11/11/22 mirabegron 25 mg tablet,extended release 24 hr (Myrbetriq) 25 mg PO DAILY 11/11/22 mirtazapine 15 mg tablet 15 mg PO QHS 11/11/22 omeprazole 20 mg capsule,delayed release 20 mg PO DAILY 11/11/22 acetaminophen 325 mg tablet 650 mg (2 x 325 mg) PO Q4H PRN PRN Fever, pain 1- 01/23 #0 tabs 11/14/22 amoxicillin 875 mg-potassium clavulanate 125 mg tablet 1 tab PO BID #0 tabs 11/14/22 insulin lispro 100 unit/mL subcutaneous pen (Humalog KwikPen (U-100) Insulin) See Protocol subcut ACHS #0 mL 11/14/22 nutrition tx glu intol,lac-free,soy-fiber 0.06 gram-1.2 kcal/mL liquid (Glucerna 1.2 Massimo) 120 ml PO TIDCM #0 mL 11/14/22
--- NOTE | 2022-11-15 09:26 | CASEMGMT ---
Patient is ready for discharge back to [facility]. DINESH called Physicians and arranged for patient to get picked up around 9:50 a. SW sent orders and pear picker time to [facility]. SW notified RN and office secretary. Plan: d/c back to [facility] under intermediate level of care. Physicians transported patient via cot. Judith Sorensen CARDIOLOGY NURSE PRACTITIONERGuera COLON
--- NOTE | 2022-11-15 09:59 | NURSING ---
Phone call made to [facility] for report, Sara stated will have the nurse call back.
--- NOTE | 2022-11-15 11:19 | NURSING ---
Reviewed charting with Chandana Fernando RN
== END 2022-11-15 10:04 | disposition skilled nursing facility (03) | DRG 690 ==
LOC: ED 21:56 → PCU 22:55
PROVIDERS: Internal Medicine; Admitting Provider Family Medicine; Emergency Provider Emergency Medicine; PCP Internal Medicine
DX: N30.00 Acute cystitis without hematuria (principal); G93.40 Encephalopathy, unspecified; N17.9 Acute kidney failure, unspecified; G45.9 Transient cerebral ischemic attack, unspecified; E11.22 Type 2 diabetes mellitus with diabetic chronic kidney disease; I48.0 Paroxysmal atrial fibrillation; E86.0 Dehydration; F03.90 Unspecified dementia, unspecified severity, without behavioral disturbance, psychotic disturbance, mood disturbance, and anxiety; E11.40 Type 2 diabetes mellitus with diabetic neuropathy, unspecified; Z79.4 Long term (current) use of insulin; I12.9 Hypertensive chronic kidney disease with stage 1 through stage 4 chronic kidney disease, or unspecified chronic kidney disease; E78.5 Hyperlipidemia, unspecified; F41.8 Other specified anxiety disorders; K21.9 Gastro-esophageal reflux disease without esophagitis; G47.33 Obstructive sleep apnea (adult) (pediatric); N18.2 Chronic kidney disease, stage 2 (mild); R29.701 NIHSS score 1; F79 Unspecified intellectual disabilities; Z87.891 Personal history of nicotine dependence; Z99.89 Dependence on other enabling machines and devices
CPT/HCPCS: 36415; 70450; 70496; 70498; 70551; 71045; 80048; 80053; 80061; 81001; 82803; 82962; 83036; 83735; 84145; 84443; 84484; 85025; 85610; 85730; 87086; 87088; 87186; 87633; 87635; 87641; 93005; 93306; 94668; 94762; 96105; 97110; 97162; 97166; 97530; 97535; 97802; 99285; J7030; Q9967; A4216

== ENCOUNTER → 2022-11-20 05:00 | Outpatient (REF) | payer MEDICARE, MEDICAID, SELFPAY ==
[2022-11-20 09:29] LABS: Hemoglobin 12.6 g/dL (13.0-16.5); Mean Corp Hgb Conc 32.3 g/dL (32-36); Mean Corpuscular Hgb 27.7 pg (27.0-32.0); Mean Corpuscular Volume 85.7 fL (80-94); Mean Platelet Vol. 8.8 fl (6.2-12.0); Platelet Count 438 K/mm3 (150-450); RBC Distribution Width CV 14.6 % (11.6-14.6); RBC Distribution Width SD 44.9 fl (35.1-43.9); Red Blood Count 4.55 M/mm3 (4.6-6.2); White Blood Count 8.8 K/mm3 (4.4-11.0)
[2022-11-20 09:46] LABS: Anion Gap 4 (5-15); BUN 18 mg/dL (7-18); BUN/Creat Ratio 13.7 RATIO (10-20); Chloride 108 mmol/L (98-107); Creatinine, Serum 1.31 mg/dL (0.70-1.30); EST Glomerular Filtration Rate 58 mL/min (>60); Est Glom Filt Rate - Afr Amer 70 mL/min (>60); Glucose 137 mg/dL (74-106); Potassium 3.8 mmol/L (3.5-5.1); Sodium Level 141 mmol/L (136-145)
== END ==
LOC: OLS.SW 05:00
PROVIDERS: PCP Internal Medicine; Visit Provider Internal Medicine
DX: E11.65 Type 2 diabetes mellitus with hyperglycemia (principal); N17.9 Acute kidney failure, unspecified
CPT/HCPCS: 36415; 80048; 85027

== ENCOUNTER → 2023-02-07 | Outpatient (REF) | payer MEDICARE, MEDICAID, SELFPAY ==
[2023-02-07 09:33] LABS: Absolute Lymphocyte Count 3.16 X10^3/uL (0.83-4.51); Absolute Neutrophil Count 6.7 X10^3/uL (2.0-7.7); Basophil# 0.07 X10^3/uL; Basophil% 0.6 % (0-1); Eosinophil# 0.41 X10^3/uL; Eosinophils% 3.7 % (0-5); Hematocrit 43.3 % (40-54); Hemoglobin 13.9 g/dL (13.0-16.5); Lymphocyte # 3.16 X10^3/ul (0.83-4.51); Lymphocyte % 28.3 % (19-41); Mean Corp Hgb Conc 32.1 g/dL (32-36); Mean Corpuscular Volume 87.1 fL (80-94); Mean Platelet Vol. 10.4 fl (6.2-12.0); Monocyte# 0.84 X10^3/uL; Monocyte% 7.5 % (0-10); NRBC Flagged by Analyzer 0 % (0-5); Neutrophil # 6.65 X10^3/uL (2.7-7.7); Neutrophil % 59.5 % (47-70); Platelet Count 306 K/mm3 (150-450); RBC Distribution Width CV 13.6 % (11.6-14.6); RBC Distribution Width SD 42.9 fl (35.1-43.9); Red Blood Count 4.97 M/mm3 (4.6-6.2); White Blood Count 11.2 K/mm3 (4.4-11.0)
[2023-02-07 09:51] LABS: Anion Gap 8 (5-15); BUN 27 mg/dL (7-18); BUN/Creat Ratio 17.5 RATIO (10-20); Calcium,Total 8.7 mg/dL (8.5-10.1); Chloride 110 mmol/L (98-107); Creatinine, Serum 1.54 mg/dL (0.70-1.30); EST Glomerular Filtration Rate 48 mL/min (>60); Est Glom Filt Rate - Afr Amer 58 mL/min (>60); Glucose 165 mg/dL (74-106); Potassium 3.7 mmol/L (3.5-5.1); Sodium Level 142 mmol/L (136-145)
== END ==
LOC: OLS.SW 06:45
PROVIDERS: PCP Internal Medicine; Visit Provider Internal Medicine
DX: E11.9 Type 2 diabetes mellitus without complications (principal)
CPT/HCPCS: 36415; 80048; 85025

== ENCOUNTER → 2023-02-12 | Outpatient (REF) | payer MEDICARE, MEDICAID, SELFPAY ==
[2023-02-12 07:53] LABS: Bacteria 0 SEEN /hpf (None Seen); Mucous, Urine 0 SEEN /hpf (<or=2+); Red Blood Cells-Urine 0 SEEN /hpf (0-5); Squamous Epithelial Cells - UA 0 SEEN /hpf (0-5); White Blood Cells 0 SEEN /hpf (0-5)
[2023-02-12 08:22] LABS: Color, Urine Yellow (Yellow); Glucose, Dipstick 1000 mg/dl (Normal); Ketone-Dipstick 5 mg/dl (Negative); Leukocyte Esterase-Dipstick Negative /ul (Negative); Nitrite-Dipstick Negative (Negative); Occult Blood-Urine Negative /ul (Negative); Protein-Dipstick Negative (Negative); Urine Bilirubin Dipstick Negative (Negative); Urine Clarity Clear (Clear); Urine Urobilinogen Normal (Normal)
== END ==
LOC: OLS.SW 07:52
PROVIDERS: PCP Internal Medicine; Referring Provider Internal Medicine; Visit Provider Internal Medicine
DX: D72.829 Elevated white blood cell count, unspecified (principal); Z79.899 Other long term (current) drug therapy
CPT/HCPCS: 81001; 87086; 87088

== ENCOUNTER → 2023-02-26 | Outpatient (REF) | payer MEDICARE, MEDICAID, SELFPAY ==
[2023-02-26 08:56] LABS: Anion Gap 6 (5-15); BUN 22 mg/dL (7-18); BUN/Creat Ratio 15.6 RATIO (10-20); Chloride 109 mmol/L (98-107); Creatinine, Serum 1.41 mg/dL (0.70-1.30); EST Glomerular Filtration Rate 53 mL/min (>60); Est Glom Filt Rate - Afr Amer 64 mL/min (>60); Glucose 144 mg/dL (74-106); Potassium 4.9 mmol/L (3.5-5.1); Sodium Level 141 mmol/L (136-145)
== END ==
LOC: OLS.SW 06:45
PROVIDERS: PCP Internal Medicine; Visit Provider Internal Medicine
DX: E11.9 Type 2 diabetes mellitus without complications (principal); E78.5 Hyperlipidemia, unspecified
CPT/HCPCS: 36415; 80048

== ENCOUNTER → 2023-07-02 06:35 | Outpatient (REF) | payer MEDICARE, MEDICAID, SELFPAY ==
[2023-07-02 08:28] LABS: Hematocrit 41.2 % (40-54); Mean Corp Hgb Conc 31.6 g/dL (32-36); Mean Corpuscular Hgb 28.4 pg (27.0-32.0); Mean Corpuscular Volume 90.2 fL (80-94); Mean Platelet Vol. 10.2 fl (6.2-12.0); Platelet Count 327 K/mm3 (150-450); RBC Distribution Width SD 46.9 fl (35.1-43.9); Red Blood Count 4.57 M/mm3 (4.6-6.2); White Blood Count 13.3 K/mm3 (4.4-11.0)
[2023-07-02 08:43] LABS: ALB/GLOB Ratio 0.7 RATIO (0.9-2.4); AST(SGOT) 29 U/L (15-37); Alanine Aminotransfer ALT/SGPT 43 U/L (16-61); Albumin, Serum 3.1 g/dL (3.2-5.0); Alkaline Phosphatase 86 U/L (45-117); Anion Gap 6 (5-15); BUN 53 mg/dL (7-18); BUN/Creat Ratio 17.4 RATIO (10-20); Calcium,Total 8.6 mg/dL (8.5-10.1); Chloride 110 mmol/L (98-107); Creatinine, Serum 3.04 mg/dL (0.70-1.30); EST Glomerular Filtration Rate 22 mL/min (>60); Est Glom Filt Rate - Afr Amer 26 mL/min (>60); Globulin 4.5 g/dL (2.2-4.2); Glucose 191 mg/dL (74-106); Potassium 3.9 mmol/L (3.5-5.1); Protein, Total 7.6 g/dL (6.4-8.2); Sodium Level 141 mmol/L (136-145)
== END ==
LOC: OLS.SW 06:35
PROVIDERS: PCP Internal Medicine; Visit Provider Internal Medicine
DX: R10.9 Unspecified abdominal pain (principal)
CPT/HCPCS: 36415; 80053; 85027

== ENCOUNTER 2023-07-03 19:26 | Inpatient (IN) | payer MEDICARE, MEDICAID, SELFPAY ==
[2023-07-03 19:26] VITALS: BP 203/128; PULSE 92; RESP 17; TEMP 36.9; O2SAT 96; BMI 29.2
--- NOTE | 2023-07-03 20:03 | EKG12_ITS ---
Test Reason : Blood Pressure : / mmHG Vent. Rate : 086 BPM Atrial Rate : 086 BPM P-R Int : 152 ms QRS Dur : 084 ms QT Int : 382 ms P-R-T Axes : 064 -37 059 degrees QTc Int : 457 ms Sinus rhythm with occasional Premature ventricular complexes Left axis deviation Abnormal ECG Confirmed by Nishant Davis ([id number]), purchase request editor NAVNEET CHAMPION ([id number]) on 07/05/2023 11:00:09 AM Referred By: Confirmed By:Nishant Davis
--- NOTE | 2023-07-03 20:14 | EX.ED.DYSGE1 ---
HPI History of Present Illness Chief Complaint: Hypertension [facility] Medical History (Updated 07/03/23 @ 22:[address] Henry Moy MD) Anxiety and depression CKD (chronic kidney disease), stage II Dementia Diabetes GERD (gastroesophageal reflux disease) History of GI bleed Hyperlipidemia Hypertension Obesity RODRI on CPAP Home Medications lisinopril 40 mg tablet 40 mg PO DAILY ##30 02/27/20 [Rx Last Taken Unknown] apixaban 5 mg tablet (Eliquis) 5 mg PO BID 11/11/22 [History Last Taken Unknown] aspirin 81 mg tablet,delayed release (Adult Low Dose Aspirin) 81 mg PO DAILY 11/11/22 [History Last Taken Unknown] atorvastatin 40 mg tablet 40 mg PO QHS 11/11/22 [History Last Taken Unknown] donepezil 10 mg tablet 5 mg PO QHS 11/11/22 [History Last Taken Unknown] duloxetine 20 mg capsule,delayed release 20 mg PO DAILY 11/11/22 [History Last Taken Unknown] insulin glargine 100 unit/mL (3 mL) subcutaneous pen 28 unit subcut .afternoon 11/11/22 [History Last Taken Unknown] loperamide 2 mg capsule (Anti-Diarrheal (loperamide)) 2 mg PO DAILY 11/11/22 [History Last Taken Unknown] medroxyprogesterone 5 mg tablet 5 mg PO .qohs 11/11/22 [History Last Taken Unknown] mirabegron 25 mg tablet,extended release 24 hr (Myrbetriq) 25 mg PO DAILY 11/11/22 [History Last Taken Unknown] mirtazapine 15 mg tablet 15 mg PO QHS 11/11/22 [History Last Taken Unknown] omeprazole 20 mg capsule,delayed release 20 mg PO DAILY 11/11/22 [History Last Taken Unknown] acetaminophen 325 mg tablet 650 mg (2 x 325 mg) PO Q4H PRN PRN Fever, pain 1-01/23 #0 tabs 11/14/22 [Rx Last Taken Unknown] insulin lispro 100 unit/mL subcutaneous pen (Humalog KwikPen (U-100) Insulin) See Protocol subcut ACHS #0 mL 11/14/22 [Rx Last Taken Unknown] nutrition tx glu intol,lac-free,soy-fiber 0.06 gram-1.2 kcal/mL liquid (Glucerna 1.2 Massimo) 120 ml PO TIDCM #0 mL 11/14/22 [Rx Last Taken Unknown] Allergy/AdvReac Type Severity Reaction Status Date / Time No Known Allergies Allergy Verified 07/03/23 19:31 Family History (Updated 11/11/22 @ 21:[address] Jodi Perez MD) Mother Pulmonary disease Father CAD (coronary artery disease) Heart disease Hypertension Myocardial infarction Surgical History H/O cataract removal with insertion of prosthetic lens History of testicular surgery Social History (Updated 11/11/22 @ 21:[address] Jodi Perez MD) housing: care home Smoking Status: Former smoker how long ago did patient quit smoking: Smoked as a teenager very minimally. alcohol intake: never substance use type: does not use EXAM Physical Exam Const Vital Signs: 07/03/23 19:26 07/03/23 19:32 07/03/23 20:59 Temperature 98.4 F 98.1 F Temperature Source Oral Oral Pulse Rate 92 84 Respiratory Rate 17 18 Respiratory Effort Normal Respiratory Pattern Normal Blood Pressure 203/128 H 143/89 H Blood Pressure Mean 153 107 Pulse Ox 96 98 Oxygen Delivery Method Room Air Room Air MDM MDM MDM Narrative Medical decision making narrative: Apparently patient had blood work done between 4 AM and 7 AM. White count is elevated. Patient has stage V kidney disease with a GFR of approximately 15. CT was changed from IV contrast to unenhanced. Patient is not a good informant. He has dementia. He states he is here because he does not feel well. Per nurse he was sent in because of elevated blood pressure. Per my exam patient has a surgical abdomen. Of note patient's white count this morning was elevated with shift. Patient was made NPO. Prior records were reviewed since patient is a poor informant. Patient was treated with IV labetalol for his elevated blood pressure. History & Record Review Additional record(s) reviewed:: Prior inpatient record (Admitted October 2022 for acute kidney injury.), Prior outpatient record, Prior ED visit and Prior labs Lab Data Attestation: I reviewed the patient's lab results. Lab results narrative: White count is elevated and nonspecific. There is no shift. This was from blood work ordered earlier today. PT is elevated 18.7. PTT is normal. Renal function reveals a creatinine of 3.87 with an estimated GFR 17. This is markedly increased from January. Urine is unremarkable other than microscopic hematuria. Labs: Laboratory Results - last 24 hr 07/03/23 07/03/23 20:20 21:00 PT 18.7 H INR 1.6 APTT 35.4 Sodium 140 Potassium 4.1 Chloride 109 H Carbon Dioxide 21.0 Anion Gap 10 BUN 50 H Creatinine 3.87 H Estim Creat Clear Calc 19.37 Est GFR (MDRD) Af Amer 20 L Est GFR (MDRD) Non-Af 17 L BUN/Creatinine Ratio 12.9 Glucose 114 H Calcium 8.8 Total Bilirubin 0.50 AST 24 ALT 36 Alkaline Phosphatase 90 Total Protein 8.1 Albumin 3.4 Globulin 4.7 H Albumin/Globulin Ratio 0.7 L Lipase 90 H Urine Color Yellow Urine Clarity Clear Urine pH 5.0 Ur Specific [place] 1.010 Urine Protein Negative Urine Glucose (UA) Normal Urine Ketones Negative Urine Occult Blood 250 H Urine Nitrite Negative Urine Bilirubin Negative Urine Urobilinogen Normal Ur Leukocyte Esterase 25 H Urine RBC 5-10 SEEN Urine WBC 0-5 SEEN Ur Squamous Epith Cells 0 SEEN Urine Bacteria 0 SEEN Urine Mucus 0 SEEN Radiography Diagnostic Testing: Clinical Impression(s) from Imaging Studies Abdomen/Pelvis CT 07/03/23 20:34 IMPRESSION: Marked bladder overdistention with bilateral hydroureteronephrosis. No obstructing ureteral calculi. Hydronephrosis likely on the basis of bladder distention. Colonic diverticulosis without CT changes of acute diverticulitis. Electronically Signed: Nikolas Fernandez MD at 22:37 EDT , Brain CT 07/03/23 20:34 IMPRESSION: Volume loss with chronic white matter changes. No acute intracranial findings. Electronically Signed: Nikolas Fernandez MD at 21:47 EDT , EKG Initial EKG: Attestation: I personally reviewed and interpreted this EKG as follows: Interpretation: Sinus Rhythm (Rate is 86. There are premature ventricular beats. There is artifact as well. [place] interval is 152 ms. Cures duration 84 ms. QT duration 382 ms. [place] is to the left.) Management Discussion w/another healthcare provider: Hospitalist (Patient case was discussed with Dr. Perez. Patient be a full admission.) Treatment and Re-Evaluation :: Bell was placed for obstructive nephropathy. With acute rise in creatinine will admit. This probably explains his abdominal pain and his hypertension. Discharge Plan Dx/Rx/DC Orders Clinical Impression: Nephropathy, obstructive, HTN (hypertension), Diabetes, Acute on chronic kidney failure Disposition Disposition: Acute Care Hospital [facility]
[2023-07-03] MEDS: 0.9% Normal Saline (1000mL) 1,000 ML 150 ML IV (20:22)
[2023-07-03] MEDS: Labetalol (Prefilled) 20 MG/4 ML 10 MG IV (20:22)
--- NOTE | 2023-07-03 20:34 | CT_ITS ---
INDICATION: WEAKNESS EXAMINATION: CT BRAIN - CT Head or Brain W/O Contrast Injection TECHNIQUE: Multiple axial images were obtained of the head without intravenous contrast. A radiation dose optimization technique was used for this scan. IV Contrast dosage and agent: None. COMPARISON: 11/11/2022 FINDINGS: BRAIN PARENCHYMA: No intra- or extra-axial hemorrhage. No evidence of acute infarct. No intracranial mass or mass effect. There is preservation of the chaudhry/white matter interface. Posterior fossa structures are unremarkable. Stable volume loss with low attenuation of the periventricular white matter typical of chronic small vessel disease. CSF SPACES: Stable. No hydrocephalus. Basal cisterns are patent. CALVARIUM, SKULL BASE, PARANASAL SINUSES AND MASTOID AIR CELLS: Clear. No discrete lytic or blastic abnormalities. CT/Brain/Head without Contrast IMPRESSION: Volume loss with chronic white matter changes. No acute intracranial findings. Electronically Signed: Nikolas Fernandez MD at 21:47 EDT ,
--- NOTE | 2023-07-03 20:34 | CT_ITS ---
INDICATION: PAIN EXAMINATION: CT ABDOMEN AND PELVIS WITHOUT CONTRAST - CT Abdomen And Pelvis W/O Contrast Injection TECHNIQUE: Helically acquired images were obtained of the abdomen and pelvis without oral or IV contrast. A radiation dose optimization technique was used for this scan. IV Contrast dosage and agent: None. Oral contrast: None. COMPARISON: 02/25/2020 CT abdomen and pelvis FINDINGS: LOWER CHEST: Bibasilar dependent changes. No cardiomegaly or pericardial effusion. LIVER: Homogeneous. No focal mass. GALLBLADDER AND BILIARY TREE: No calcified gallstones. No gallbladder distension or wall edema. No intra- or extrahepatic biliary ductal dilation. PANCREAS: No focal cystic or solid mass. SPLEEN: Normal size without focal cystic or solid mass. ADRENAL GLANDS: No nodules. KIDNEYS AND URETERS: No nephrolithiasis. Bilateral hydroureteronephrosis without obstructing ureter in the lumen of the right or left ureter. PERITONEUM: No ascites or free air. BOWEL: No evidence of acute appendicitis. No stomach or bowel distension. Diffuse colonic diverticulosis without focal inflammatory bowel wall changes. LYMPH NODES: No enlarged mesenteric or retroperitoneal lymph nodes. VESSELS: Aorta is non-dilated. URINARY BLADDER: Markedly distended with dome at the level of the umbilicus. REPRODUCTIVE ORGANS: No pelvic masses. ABDOMINAL WALL: No discrete abdominal or pelvic wall hernia. BONES: No acute or aggressive abnormality. CT/Abdomen/Pelvis without Cont IMPRESSION: Marked bladder overdistention with bilateral hydroureteronephrosis. No obstructing ureteral calculi. Hydronephrosis likely on the basis of bladder distention. Colonic diverticulosis without CT changes of acute diverticulitis. Electronically Signed: Nikolas Fernandez MD at 22:37 EDT ,
[2023-07-03 20:50] LABS: International Normalized Ratio 1.6; Prothrombin Time (Protime)PT. 18.7 SECONDS (11.7-14.9)
[2023-07-03 20:51] LABS: Partial Thromboplast Time 35.4 Seconds (24.1-36.2)
[2023-07-03 20:59] VITALS: BP 143/89; PULSE 84; RESP 18; TEMP 36.7; O2SAT 98
[2023-07-03 21:02] LABS: ALB/GLOB Ratio 0.7 RATIO (0.9-2.4); AST(SGOT) 24 U/L (15-37); Alanine Aminotransfer ALT/SGPT 36 U/L (16-61); Albumin, Serum 3.4 g/dL (3.2-5.0); Alkaline Phosphatase 90 U/L (45-117); Anion Gap 10 (5-15); BUN 50 mg/dL (7-18); BUN/Creat Ratio 12.9 RATIO (10-20); Calcium,Total 8.8 mg/dL (8.5-10.1); Chloride 109 mmol/L (98-107); Creatinine, Serum 3.87 mg/dL (0.70-1.30); EST Glomerular Filtration Rate 17 mL/min (>60); Est Glom Filt Rate - Afr Amer 20 mL/min (>60); Estimated Creatinine Clearance 19.37 ml/min; Globulin 4.7 g/dL (2.2-4.2); Glucose 114 mg/dL (74-106); Lipase 90 U/L (13-75); Potassium 4.1 mmol/L (3.5-5.1); Protein, Total 8.1 g/dL (6.4-8.2); Sodium Level 140 mmol/L (136-145)
[2023-07-03 21:06] LABS: Bacteria 0 SEEN /hpf (None Seen); Mucous, Urine 0 SEEN /hpf (<or=2+); Squamous Epithelial Cells - UA 0 SEEN /hpf (0-5)
[2023-07-03 21:12] LABS: Color, Urine Yellow (Yellow); Glucose, Dipstick Normal (Normal); Ketone-Dipstick Negative (Negative); Leukocyte Esterase-Dipstick 25 /ul (Negative); Nitrite-Dipstick Negative (Negative); Occult Blood-Urine 250 /ul (Negative); Protein-Dipstick Negative (Negative); Urine Bilirubin Dipstick Negative (Negative); Urine Clarity Clear (Clear); Urine Urobilinogen Normal (Normal)
[2023-07-03 21:24] LABS: Red Blood Cells-Urine 5-10 SEEN /hpf (0-5); White Blood Cells 0-5 SEEN /hpf (0-5)
[2023-07-03 23:00] VITALS: BP 140/96; PULSE 86; RESP 18; O2SAT 97
--- NOTE | 2023-07-03 23:14 | HP.PCM.HOS_ITS ---
HPI - General General Date of Admission: 07/03/23 Date of Service: 07/03/23 Chief Complaint: Abdominal pain, elevated BP. HPI Narrative The patient is a 67 y/o M w/ PMHx: PAF, Obesity, Dementia unclear type with unclear behavioral disturbance history, HTN, HLD, RODRI on CPAP, GERD w/ Hx GI bleed, Anxiety and Depression, CKD stage II, Diabetes mellitus type II who presents to the [facility] ED on 07/03/23 with history of general fatigue and malaise as well as elevated blood pressure with significant abdominal discomfort especially lower suprapubic region with supposedly at facility mildly elevated white count earlier in the morning made n.p.o. at that time and transition to the ED for evaluation. Workup in the ED included T98.4, heart rate 92, BP initially 203/128 with most recent repeat 143/89, respiratory rate 17, 96% on room air, coags with PT 18.7 otherwise unremarkable, CMP with chloride 109, BUN/creatinine 50/3.87, glucose 114, lipase 90, urinalysis with occult blood 250, leukocyte Estrace 25 with urine RBCs 5-10 otherwise no evidence of UTI, CT of the brain with volume loss with chronic white matter changes with no acute intracranial findings, CT abdomen and pelvis with marked bladder over distention with bilateral hydrourete ronephrosis with no obvious obstructing ureteral calculi but hydronephrosis likely on the basis of bladder distention, colonic diverticulosis without CT changes of acute diverticulitis, EKG was sinus rhythm with no acute evidence of ischemia. In the ED patient had notable urinary obstruction with significant acute kidney injury with Bell catheter placed with notable UOP following. [facility] Medical History Anxiety and depression CKD (chronic kidney disease), stage II Dementia Diabetes GERD (gastroesophageal reflux disease) History of GI bleed Hyperlipidemia Hypertension Obesity RODRI on CPAP Home Medications apixaban 5 mg tablet (Eliquis) 5 mg PO BID see pcp 11/11/22 [History Last Taken Unknown] aspirin 81 mg tablet,delayed release (Adult Low Dose Aspirin) 81 mg PO DAILY see pcp 11/11/22 [History Last Taken Unknown] atorvastatin 40 mg tablet 40 mg PO QHS see pcp 11/11/22 [History Last Taken Unknown] donepezil 10 mg tablet 5 mg PO QHS see pcp 11/11/22 [History Last Taken Unknown] duloxetine 20 mg capsule,delayed release 20 mg PO DAILY see pcp 11/11/22 [History Last Taken Unknown] insulin glargine 100 unit/mL (3 mL) subcutaneous pen 30 unit subcut .afternoon see pcp 11/11/22 [History Last Taken Unknown] loperamide 2 mg capsule (Anti-Diarrheal (loperamide)) 2 mg PO DAILY see pcp 11/11/22 [History Last Taken Unknown] medroxyprogesterone 5 mg tablet 5 mg PO .qohs see pcp 11/11/22 [History Last Taken Unknown] mirabegron 25 mg tablet,extended release 24 hr (Myrbetriq) 25 mg PO DAILY see pcp 11/11/22 [History Last Taken Unknown] mirtazapine 15 mg tablet 15 mg PO QHS see pcp 11/11/22 [History Last Taken Unknown] omeprazole 20 mg capsule,delayed release 20 mg PO DAILY see pcp 11/11/22 [History Last Taken Unknown] acetaminophen 325 mg tablet 650 mg (2 x 325 mg) PO Q4H PRN PRN Fever, pain 1- 01/23 #0 tabs 11/14/22 [Rx Last Taken Unknown] insulin lispro 100 unit/mL subcutaneous pen (Humalog KwikPen (U-100) Insulin) See Protocol subcut ACHS see pcp #0 mL 11/14/22 [Rx Last Taken Unknown] benztropine 0.5 mg tablet 0.5 mg PO DAILY see pcp 07/04/23 [History Last Taken Unknown] dulaglutide 3 mg/0.5 mL subcutaneous pen injector (Trulicity) 3 mg subcut QWEEK see pcp 07/04/23 [History Last Taken Unknown] duloxetine 30 mg capsule,delayed release 30 mg PO DAILY see pcp 07/04/23 [History Last Taken Unknown] insulin lispro 100 unit/mL subcutaneous pen 5 unit subcut ACHS see pcp 07/04/23 [History Last Taken Unknown] lisinopril 40 mg tablet 20 mg PO DAILY see pcp 07/04/23 [History Last Taken Unknown] melatonin 5 mg capsule 5 mg PO QHS see pcp 07/04/23 [History Last Taken Unknown] simethicone 80 mg chewable tablet (Gas Relief (simethicone)) 80 mg PO TID see pcp 07/04/23 [History Last Taken Unknown] Allergy/AdvReac Type Severity Reaction Status Date / Time No Known Allergies Allergy Verified 07/03/23 19:31 Family History Mother Pulmonary disease Father CAD (coronary artery disease) Heart disease Hypertension Myocardial infarction Surgical History H/O cataract removal with insertion of prosthetic lens History of testicular surgery Social History housing: longterm Smoking Status: Former smoker how long ago did patient quit smoking: Smoked as a teenager very minimally. alcohol intake: never substance use type: does not use ROS Review of Systems ROS Unobtainable: due to mental condition Vital Signs Vital Signs Vital Signs: 07/03/23 19:26 07/03/23 19:32 07/03/23 20:59 Temperature 98.4 F 98.1 F Temperature Source Oral Oral Pulse Rate 92 84 Respiratory Rate 17 18 Respiratory Effort Normal Respiratory Pattern Normal Blood Pressure 203/128 H 143/89 H Blood Pressure Mean 153 107 Pulse Ox 96 98 Oxygen Delivery Method Room Air Room Air Weight Weight: 192 lb 10.944 oz Body Mass Index (BMI) 29.2 Physical Exam Narrative Physical Examination: General: Awake, alert, oriented to self and some events but underlying dementia, was initially calm but during later evaluation became agitated, following some commands, laying in the ED bed. Skin: Mildly flushed color, normal turgor, no icterus, no cyanosis, occasional staged ecchymoses. HEENT: AT/NC, EOMI, PERRLA, dry MM, no carotid bruits or JVD noted. Lungs: CTA bilaterally, moderate effort, mild decrease BL bases, no rales, ronchi or wheezing. Heart: Mildly tachycardic with regular rhythm; no gallop, rub audible. Abdomen: Soft, overweight, discomfort with palpation of the lower abdomen/suprapubic region, ND, hyperactive BS, no apprecaited HSM. Extremities: No cyanosis, clubbing, or edema. Neurological: Patient awake, alert, oriented as noted, cognitive function decreased baseline with underlying dementia but complicated by acute presenta tion, pupils equally reactive to light and accommodation, cranial nerves grossly normal, moving all 4 extremities, strength moderately to severely globally decreased. Psychiatric: Affect appears fatigued, flat initially, no acute evidence of depressive or anxiety feelings. Results Lab / Micro Data 07/03/23 20:20 Labs: Laboratory Results - last 24 hr 07/03/23 20:20: PT 18.7 H, INR 1.6, APTT 35.4, Sodium 140, Potassium 4.1, Chloride 109 H, Carbon Dioxide 21.0, Anion Gap 10, BUN 50 H, Creatinine 3.87 H, Estim Creat Clear Calc 19.37, Est GFR (MDRD) Af Amer 20 L, Est GFR (MDRD) Non-Af 17 L, BUN/Creatinine Ratio 12.9, Glucose 114 H, Calcium 8.8, Total Bilirubin 0.50, AST 24, ALT 36, Alkaline Phosphatase 90, Total Protein 8.1, Albumin 3.4, Globulin 4.7 H, Albumin/Globulin Ratio 0.7 L, Lipase 90 H 07/03/23 21:00: Urine Color Yellow, Urine Clarity Clear, Urine pH 5.0, Ur Specific [place] 1.010, Urine Protein Negative, Urine Glucose (UA) Normal, Urine Ketones Negative, Urine Occult Blood 250 H, Urine Nitrite Negative, Urine Bilirubin Negative, Urine Urobilinogen Normal, Ur Leukocyte Esterase 25 H, Urine RBC 5-10 SEEN, Urine WBC 0-5 SEEN, Ur Squamous Epith Cells 0 SEEN, Urine Bacteria 0 SEEN, Urine Mucus 0 SEEN Imaging Radiology Impression Abdomen/Pelvis CT 07/03/23 20:34 IMPRESSION: Marked bladder overdistention with bilateral hydroureteronephrosis. No obstructing ureteral calculi. Hydronephrosis likely on the basis of bladder distention. Colonic diverticulosis without CT changes of acute diverticulitis. Electronically Signed: Nikolas Fernandez MD at 22:37 EDT , Brain CT 07/03/23 20:34 IMPRESSION: Volume loss with chronic white matter changes. No acute intracranial findings. Electronically Signed: Nikolas Fernandez MD at 21:47 EDT Reading Location ID and State: [facility] / [place] Tel , Service support , Assessment & Plan Assessment/Plan (1) Acute on chronic kidney failure: PLAN: Plan The patient is a 67 y/o M w/ PMHx: PAF, Obesity, Dementia unclear type with unclear behavioral disturbance history, HTN, HLD, RODRI on CPAP, GERD w/ Hx GI bleed, Anxiety and Depression, CKD stage II, Diabetes mellitus type II who pre sents to the [facility] ED on 07/03/23 with history of general fatigue and malaise as well as elevated blood pressure with significant abdominal discomfort especially lower suprapubic region with supposedly at facility mildly elevated white count earlier in the morning made n.p.o. at that time and transition to the ED for evaluation. #1. Acute kidney injury on CKD stage II secondary to obstructive nephropathy with associated bilateral hydroureteronephrosis as a result: Admission BUN/Cr 50/3.87, prior baseline creatinine noted to be 1.3-1.5. Patient most recent previous trending however 07/02/2023 creatinine 3.04 and on 07/03/2023 earlier in the morning 3.51. Will admit to medical surgical floor, will continue judicious hydration, will hold all nephrotoxic medications, will continue Bell catheter placement, likely the bilateral hydroureteronephrosis will eventually improve now that the Bell catheter has been placed but will need to be closely followed thus will request urology involvement, will place on Flomax therapy as well. PT/OT/case management consulted for discharge planning. #2. Dementia, unclear type with unclear behavioral steroids history with cognitive impairment: Complicates presentation, maintain fall and aspiration precautions, continue patient home donepezil regimen, PT/OT/case management consulted for discharge planning. #3. Diabetes mellitus type II: Hold oral home regimen, continue home insulin regimen, ADA diet, accu checks w/ ISS. #4. Hypertension, transiently elevated likely secondary to #1, improved: Holding home lisinopril given #1 is noted, as needed IV hydralazine in interim. #5. Hyperlipidemia: Continue home statin regimen. #6. Anxiety and depression: Will temporally hold the patient home mirtazapine and duloxetine regimen given significant DIMITRI, resume as long as renal function is improving given interventions as noted above. #7. Obesity: Weight loss and lifestyle changes encouraged. #8. GERD with history of prior GI bleed: We will maintain on home PPI. #9. Possible PAF versus VTE: Unable to give appropriate history and not on chart SNF history but patient on eliquis regimen, possibly for VTE or PAF, will continue in the interim but does have prior GI bleed history also of note. #10. RODRI: CPAP nightly. #11. DVT prophylaxis: Continue patient home apixaban regimen. #12. CODE STATUS: Full Code per SNF paperwork. Charges/Coding Visit Charges Inpatient E&M: 94132 Init Hosp L3
[2023-07-04] VITALS (9 sets, daily range): BP systolic 125–151; BP diastolic 76–98; PULSE 91–102; RESP 16–21; TEMP 36.3–37.1; O2SAT 93–99; BMI 29.5
--- NOTE | 2023-07-04 02:12 | CPS ---
[0127] Pt. refused CPAP we could provide him at the hospital. Pt.'s agreeable to wearing 2L NC over night for comfort measures.
[2023-07-04] MEDS: 0.9% Normal Saline (1000mL) 1,000 ML 100 ML IV (02:29)
[2023-07-04] MEDS: Tamsulosin HCl 0.4 MG Capsule PO ×3 (02:30→20:20)
--- NOTE | 2023-07-04 06:46 | NURSING ---
dr woodruff paged about consult. dr henson then called and said she texted him about the consult
--- NOTE | 2023-07-04 07:26 | PN.HOSP_ITS ---
Reason for Visit Reason for Visit: Diagnoses Acute kidney failure, unspecified (07/03/23) Chronic kidney disease, unspecified (07/03/23) Subjective Subjective Denies complaints Objective Data Objective Data Vital Signs: Vital Signs Temp Pulse Resp BP Pulse Ox O2 Del Method O2 Flow Rate 37.1 C 102 H 18 140/83 H 99 Nasal Cannula 2 07/04/23 07:04 07/04/23 07:04 07/04/23 07:04 07/04/23 07:04 07/04/23 07:04 07/04/23 07:04 07/04/23 07:04 Oxygen Flow Rate (L/min) 2 Oxygen Delivery Method Nasal Cannula Weight: 88.2 kg Body Mass Index (BMI) 29.5 Intake & Output: Intake and Output for Last 24 Hours 07/02/23 07/03/23 07/04/23 23:59 23:59 23:59 Intake Total 0 / 0 917.5 / 917.5 Output Total 1400 / 1400 Balance 0 / 0 -482.5 / -482.5 Lab / Micro Data 07/04/23 07:22 07/04/23 07:22 Labs: Laboratory Results - last 24 hr 07/03/23 20:20: PT 18.7 H, INR 1.6, APTT 35.4, Sodium 140, Potassium 4.1, Chloride 109 H, Carbon Dioxide 21.0, Anion Gap 10, BUN 50 H, Creatinine 3.87 H, Estim Creat Clear Calc 19.37, Est GFR (MDRD) Af Amer 20 L, Est GFR (MDRD) Non-Af 17 L, BUN/Creatinine Ratio 12.9, Glucose 114 H, Calcium 8.8, Total Bilirubin 0.50, AST 24, ALT 36, Alkaline Phosphatase 90, Total Protein 8.1, Albumin 3.4, Globulin 4.7 H, Albumin/Globulin Ratio 0.7 L, Lipase 90 H 07/03/23 21:00: Urine Color Yellow, Urine Clarity Clear, Urine pH 5.0, Ur Specific [place] 1.010, Urine Protein Negative, Urine Glucose (UA) Normal, Urine Ketones Negative, Urine Occult Blood 250 H, Urine Nitrite Negative, Urine Bilirubin Negative, Urine Urobilinogen Normal, Ur Leukocyte Esterase 25 H, Urine RBC 5-10 SEEN, Urine WBC 0-5 SEEN, Ur Squamous Epith Cells 0 SEEN, Urine Bacteria 0 SEEN, Urine Mucus 0 SEEN Radiography Diagnostic Testing: Radiology Impression Abdomen/Pelvis CT 07/03/23 20:34 IMPRESSION: Marked bladder overdistention with bilateral hydroureteronephrosis. No obstructing ureteral calculi. Hydronephrosis likely on the basis of bladder distention. Colonic diverticulosis without CT changes of acute diverticulitis. Electronically Signed: Nikolas Fernandez MD at 22:37 EDT , Brain CT 07/03/23 20:34 IMPRESSION: Volume loss with chronic white matter changes. No acute intracranial findings. Electronically Signed: Nikolas Fernandez MD at 21:47 EDT Reading Location ID and State: [facility] / [place] Tel , Service support , Physical Exam Const alert Constitutional Narrative: sleeping. awoke, then quickly dozed off. Resp normal respiratory effort, no retractions, no use of accessory muscles and clear to auscultation bilaterally Cardio regular rate, regular rhythm, S1 normal heart sound and S2 normal heart sound GI normal to inspection, nondistended, normoactive bowel sounds, soft to palpation, non-tender and non-distended Neuro Sensorium / Orientation: awake and alert Assessment & Plan Assessment/Plan (1) Acute on chronic kidney failure: PLAN: Plan Acute kidney injury on CKD stage II * secondary to obstructive nephropathy with associated bilateral hydroureteronephrosis as a result: * hydration, * will hold all nephrotoxic medications, * will continue Bell catheter placement, * likely the bilateral hydroureteronephrosis will eventually improve now that the Bell catheter has been placed but will need to be closely followed thus will request urology involvement, will place on Flomax therapy as well. PT/OT/case management consulted for discharge planning. * consult. Chronic conditions: * Dementia, unclear type with unclear behavioral steroids history with cognitive impairment: Complicates presentation, maintain fall and aspiration precautions, continue patient home donepezil regimen, PT/OT/case management consulted for discharge planning. * Diabetes mellitus type II: Hold oral home regimen, continue home insulin regimen, ADA diet, accu checks w/ ISS. * Hypertension, transiently elevated likely secondary to #1, improved: Holding home lisinopril given #1 is noted, as needed IV hydralazine in interim. * Hyperlipidemia: Continue home statin regimen. * Anxiety and depression: Will temporally hold the patient home mirtazapine and duloxetine regimen given significant DIMITRI, resume as long as renal function is improving given interventions as noted above. * Obesity: Weight loss and lifestyle changes encouraged. * GERD with history of prior GI bleed: We will maintain on home PPI. * Possible PAF versus VTE: Unable to give appropriate history and not on chart SNF history but patient on eliquis regimen, possibly for VTE or PAF, will continue in the interim but does have prior GI bleed history also of note. * RODRI: CPAP nightly. DVT prophylaxis: Continue patient home apixaban regimen. CODE STATUS: Full Code per SNF paperwork. Charges/Coding Visit Charges Inpatient E&M: 20715 Subs Hosp L2
[2023-07-04 07:36] LABS: Absolute Lymphocyte Count 1.57 X10^3/uL (0.83-4.51); Absolute Neutrophil Count 8.9 X10^3/uL (2.0-7.7); Basophil# 0.03 X10^3/uL; Basophil% 0.3 % (0-1); Eosinophil# 0.14 X10^3/uL; Eosinophils% 1.2 % (0-5); Hematocrit 36.3 % (40-54); Hemoglobin 11.6 g/dL (13.0-16.5); Lymphocyte # 1.57 X10^3/ul (0.83-4.51); Lymphocyte % 13.4 % (19-41); Mean Corpuscular Hgb 27.8 pg (27.0-32.0); Mean Corpuscular Volume 86.8 fL (80-94); Mean Platelet Vol. 9.7 fl (6.2-12.0); Monocyte# 0.99 X10^3/uL; Monocyte% 8.5 % (0-10); NRBC Flagged by Analyzer 0 % (0-5); Neutrophil # 8.93 X10^3/uL (2.7-7.7); Neutrophil % 76.3 % (47-70); Platelet Count 300 K/mm3 (150-450); RBC Distribution Width CV 13.9 % (11.6-14.6); RBC Distribution Width SD 43.8 fl (35.1-43.9); Red Blood Count 4.18 M/mm3 (4.6-6.2); White Blood Count 11.7 K/mm3 (4.4-11.0)
[2023-07-04 07:57] LABS: ALB/GLOB Ratio 0.7 RATIO (0.9-2.4); AST(SGOT) 20 U/L (15-37); Alanine Aminotransfer ALT/SGPT 15 U/L (16-61); Albumin, Serum 2.8 g/dL (3.2-5.0); Alkaline Phosphatase 70 U/L (45-117); Anion Gap 7 (5-15); BUN 41 mg/dL (7-18); BUN/Creat Ratio 14.1 RATIO (10-20); Calcium,Total 8.4 mg/dL (8.5-10.1); Chloride 116 mmol/L (98-107); Creatinine, Serum 2.91 mg/dL (0.70-1.30); EST Glomerular Filtration Rate 23 mL/min (>60); Est Glom Filt Rate - Afr Amer 28 mL/min (>60); Estimated Creatinine Clearance 25.86 ml/min; Globulin 3.9 g/dL (2.2-4.2); Glucose 119 mg/dL (74-106); Potassium 3.8 mmol/L (3.5-5.1); Protein, Total 6.7 g/dL (6.4-8.2); Sodium Level 144 mmol/L (136-145)
--- NOTE | 2023-07-04 10:05 | CASEMGMT ---
Discharge Planning Updates sent via [facility] to [facility]. Jessica Christine, Discharge Planning Asst.
[2023-07-04] MEDS: Aspirin E.C. 81 MG Tablet PO (10:46)
[2023-07-04] MEDS: Benztropine Mesylate 0.5 MG TABLET PO (10:46)
[2023-07-04] MEDS: SimETHICONE 80 MG Chewable Tablet PO ×3 (10:46→17:27)
[2023-07-04] MEDS: Vibegron 75 MG TABLET PO (10:47)
[2023-07-04] MEDS: Pantoprazole Sodium 20 MG Tablet PO (10:47)
[2023-07-04] MEDS: APIXABAN 5 MG TABLET PO ×2 (10:47→20:20)
[2023-07-04] MEDS: Glucerna Shake 120 ML LIQUID PO ×3 (10:49→17:24)
[2023-07-04] MEDS: Insulin Lispro 100 UNIT/ML INSULN.PEN SC ×6 (10:55→21:02)
--- NOTE | 2023-07-04 11:38 | CASEMGMT ---
Social Work SW spoke with [facility]. Pt does not have a living will nor HCPOA. [facility] had discussed working on guardianship for pt in the past but has not pursued this process yet. Pt has a brother listed but when called, non working phone number. ROLANDA Davies
--- NOTE | 2023-07-04 11:40 | CASEMGMT ---
Social Work SW met with pt and introduced self and role of SW. Pt is able to state that he lives at [facility] and plans to return there upon discharge. Per [facility], pt does not need a precert and can return when medically ready. Attempted phone call to pt brother but a non working number. Plan: Return to [facility], when medicaly ready ROLANDA Davies
[2023-07-04 13:16] LABS: Bedside Glucose 297 mg/dL (74-106)
--- NOTE | 2023-07-04 14:22 | PCM.CONS.U ---
HPI Consult Data Date of Consult: 07/04/23 HPI Narrative Reason for Consultation: Retention of urine HPI Narrative: FRED ROUSE, is a 67 M who presents to the hospital with retention of urine and bilateral hydronephrosis and acute kidney failure he had a Bell catheter placed is now draining well. His multiple medical issues on review of the CAT scan he has a very small prostate extremely distended bladder bilateral hydronephrosis very low chance that surgery in the prostate would be effective he may have to learn how to do self intermittent catheterization but for now we can leave the catheter in he can leave this to gravity drainage go to follow-up as an outpatient with urology to determine best course of action on how to learn self intermittent catheterization but for now have to be discharged with a Bell catheter call me with questions. [facility] Medical History Anxiety and depression CKD (chronic kidney disease), stage II Dementia Diabetes GERD (gastroesophageal reflux disease) History of GI bleed Hyperlipidemia Hypertension Obesity RODRI on CPAP Home Medications apixaban 5 mg tablet (Eliquis) 5 mg PO BID see pcp 11/11/22 [History Last Taken Unknown] aspirin 81 mg tablet,delayed release (Adult Low Dose Aspirin) 81 mg PO DAILY see pcp 11/11/22 [History Last Taken Unknown] atorvastatin 40 mg tablet 40 mg PO QHS see pcp 11/11/22 [History Last Taken Unknown] donepezil 10 mg tablet 5 mg PO QHS see pcp 11/11/22 [History Last Taken Unknown] duloxetine 20 mg capsule,delayed release 20 mg PO DAILY see pcp 11/11/22 [History Last Taken Unknown] insulin glargine 100 unit/mL (3 mL) subcutaneous pen 30 unit subcut .afternoon see pcp 11/11/22 [History Last Taken Unknown] loperamide 2 mg capsule (Anti-Diarrheal (loperamide)) 2 mg PO DAILY see pcp 11/11/22 [History Last Taken Unknown] medroxyprogesterone 5 mg tablet 5 mg PO .qohs see pcp 11/11/22 [History Last Taken Unknown] mirabegron 25 mg tablet,extended release 24 hr (Myrbetriq) 25 mg PO DAILY see pcp 11/11/22 [History Last Taken Unknown] mirtazapine 15 mg tablet 15 mg PO QHS see pcp 11/11/22 [History Last Taken Unknown] omeprazole 20 mg capsule,delayed release 20 mg PO DAILY see pcp 11/11/22 [History Last Taken Unknown] acetaminophen 325 mg tablet 650 mg (2 x 325 mg) PO Q4H PRN PRN Fever, pain 1-01/23 #0 tabs 11/14/22 [Rx Last Taken Unknown] insulin lispro 100 unit/mL subcutaneous pen (Humalog KwikPen (U-100) Insulin) See Protocol subcut ACHS see pcp #0 mL 11/14/22 [Rx Last Taken Unknown] benztropine 0.5 mg tablet 0.5 mg PO DAILY see pcp 07/04/23 [History Last Taken Unknown] dulaglutide 3 mg/0.5 mL subcutaneous pen injector (Trulicity) 3 mg subcut QWEEK see pcp 07/04/23 [History Last Taken Unknown] duloxetine 30 mg capsule,delayed release 30 mg PO DAILY see pcp 07/04/23 [History Last Taken Unknown] insulin lispro 100 unit/mL subcutaneous pen 5 unit subcut ACHS see pcp 07/04/23 [History Last Taken Unknown] lisinopril 40 mg tablet 20 mg PO DAILY see pcp 07/04/23 [History Last Taken Unknown] melatonin 5 mg capsule 5 mg PO QHS see pcp 07/04/23 [History Last Taken Unknown] simethicone 80 mg chewable tablet (Gas Relief (simethicone)) 80 mg PO TID see pcp 07/04/23 [History Last Taken Unknown] Allergy/AdvReac Type Severity Reaction Status Date / Time No Known Allergies Allergy Verified 07/03/23 19:31 Family History Mother Pulmonary disease Father CAD (coronary artery disease) Heart disease Hypertension Myocardial infarction Surgical History H/O cataract removal with insertion of prosthetic lens History of testicular surgery Social History housing: group home Smoking Status: Former smoker how long ago did patient quit smoking: Smoked as a teenager very minimally. alcohol intake: never substance use type: does not use Lab / Micro Data 07/04/23 07:22 07/04/23 07:22 Labs: Laboratory Results - last 24 hr 07/03/23 20:20: PT 18.7 H, INR 1.6, APTT 35.4, Sodium 140, Potassium 4.1, Chloride 109 H, Carbon Dioxide 21.0, Anion Gap 10, BUN 50 H, Creatinine 3.87 H, Estim Creat Clear Calc 19.37, Est GFR (MDRD) Af Amer 20 L, Est GFR (MDRD) Non-Af 17 L, BUN/Creatinine Ratio 12.9, Glucose 114 H, Calcium 8.8, Total Bilirubin 0.50, AST 24, ALT 36, Alkaline Phosphatase 90, Total Protein 8.1, Albumin 3.4, Globulin 4.7 H, Albumin/Globulin Ratio 0.7 L, Lipase 90 H 07/03/23 21:00: Urine Color Yellow, Urine Clarity Clear, Urine pH 5.0, Ur Specific [place] 1.010, Urine Protein Negative, Urine Glucose (UA) Normal, Urine Ketones Negative, Urine Occult Blood 250 H, Urine Nitrite Negative, Urine Bilirubin Negative, Urine Urobilinogen Normal, Ur Leukocyte Esterase 25 H, Urine RBC 5-10 SEEN, Urine WBC 0-5 SEEN, Ur Squamous Epith Cells 0 SEEN, Urine Bacteria 0 SEEN, Urine Mucus 0 SEEN 07/04/23 07:22: WBC 11.7 H, RBC 4.18 L, Hgb 11.6 L, Hct 36.3 L, MCV 86.8, MCH 27.8, MCHC 32.0, RDW Std Deviation 43.8, RDW Coeff of [place] 13.9, Plt Count 300, MPV 9.7, Immature Gran % (Auto) 0.300, Neut % (Auto) 76.3 H, Lymph % (Auto) 13.4 L, [place] % (Auto) 8.5, Eos % (Auto) 1.2, Baso % (Auto) 0.3, Absolute Neuts (auto) 8.9 H, Absolute Lymphs (auto) 1.57, Nucleated RBC % 0, Sodium 144, Potassium 3.8, Chloride 116 H, Carbon Dioxide 21.0, Anion Gap 7, BUN 41 H, Creatinine 2.91 H, Estim Creat Clear Calc 25.86, Est GFR (MDRD) Af Amer 28 L, Est GFR (MDRD) Non-Af 23 L, BUN/Creatinine Ratio 14.1, Glucose 119 H, Calcium 8.4 L, Total Bilirubin 0.40, AST 20, ALT 15 L, Alkaline Phosphatase 70, Total Protein 6.7, Albumin 2.8 L, Globulin 3.9, Albumin/Globulin Ratio 0.7 L 07/04/23 12:57: POC Glucose 297 H Imaging Radiology Impression Abdomen/Pelvis CT 07/03/23 20:34 IMPRESSION: Marked bladder overdistention with bilateral hydroureteronephrosis. No obstructing ureteral calculi. Hydronephrosis likely on the basis of bladder distention. Colonic diverticulosis without CT changes of acute diverticulitis. Electronically Signed: Nikolas Fernandez MD at 22:37 EDT , Brain CT 07/03/23 20:34 IMPRESSION: Volume loss with chronic white matter changes. No acute intracranial findings. Electronically Signed: Nikolas Fernandez MD at 21:47 EDT ,
[2023-07-04] MEDS: Insulin Glargine-YFGN 100 UNIT/ML Pen 30 UNIT SC (17:25)
[2023-07-04 17:41] LABS: Bedside Glucose 176 mg/dL (74-106)
[2023-07-04] MEDS: Atorvastatin Calcium 40 MG Tablet PO (20:22)
[2023-07-04] MEDS: MELATONIN 10 MG TABLET 5 MG PO (20:22)
[2023-07-04] MEDS: Donepezil HCl 5 MG Tablet PO (20:22)
[2023-07-04 21:26] LABS: Bedside Glucose 134 mg/dL (74-106)
[2023-07-05 02:30] VITALS: BP 146/95; PULSE 86; RESP 16; TEMP 36.7; O2SAT 97
[2023-07-05 06:00] VITALS: BMI 29.5
[2023-07-05 07:35] LABS: Absolute Lymphocyte Count 2.01 X10^3/uL (0.83-4.51); Absolute Neutrophil Count 9.8 X10^3/uL (2.0-7.7); Basophil# 0.04 X10^3/uL; Basophil% 0.3 % (0-1); Eosinophil# 0.28 X10^3/uL; Eosinophils% 2.1 % (0-5); Hematocrit 36.7 % (40-54); Hemoglobin 11.4 g/dL (13.0-16.5); Lymphocyte # 2.01 X10^3/ul (0.83-4.51); Lymphocyte % 15.1 % (19-41); Mean Corp Hgb Conc 31.1 g/dL (32-36); Mean Corpuscular Hgb 27.7 pg (27.0-32.0); Mean Corpuscular Volume 89.3 fL (80-94); Mean Platelet Vol. 10.1 fl (6.2-12.0); Monocyte# 1.12 X10^3/uL; Monocyte% 8.4 % (0-10); NRBC Flagged by Analyzer 0 % (0-5); Neutrophil # 9.82 X10^3/uL (2.7-7.7); Neutrophil % 73.6 % (47-70); Platelet Count 290 K/mm3 (150-450); RBC Distribution Width CV 13.9 % (11.6-14.6); RBC Distribution Width SD 46.1 fl (35.1-43.9); Red Blood Count 4.11 M/mm3 (4.6-6.2); White Blood Count 13.3 K/mm3 (4.4-11.0)
--- NOTE | 2023-07-05 07:54 | PN.HOSP_ITS ---
Reason for Visit Reason for Visit: Diagnoses Acute kidney failure, unspecified (07/03/23) Chronic kidney disease, unspecified (07/03/23) Subjective Subjective Opens eyes to voice, then shrugs when asked how he is doing. Objective Data Objective Data Vital Signs: Vital Signs Temp Pulse Resp BP Pulse Ox O2 Del Method O2 Flow Rate 36.7 C 86 16 146/95 H 97 Nasal Cannula 2 07/05/23 02:30 07/05/23 02:30 07/05/23 02:30 07/05/23 02:30 07/05/23 02:30 07/05/23 02:30 07/05/23 02:30 Oxygen Flow Rate (L/min) 2 Oxygen Delivery Method Nasal Cannula Weight: 88.2 kg Body Mass Index (BMI) 29.5 Intake & Output: Intake and Output for Last 24 Hours 07/03/23 07/04/23 07/05/23 23:59 23:59 23:59 Intake Total 0 / 0 1917.5 / 1917.5 Output Total 5750 / 5750 750 / 750 Balance 0 / 0 -3832.5 / -3832.5 -750 / -750 Lab / Micro Data 07/05/23 06:42 07/05/23 06:42 Labs: Laboratory Results - last 24 hr 07/04/23 07:22: Sodium 144, Potassium 3.8, Chloride 116 H, Carbon Dioxide 21.0, Anion Gap 7, BUN 41 H, Creatinine 2.91 H, Estim Creat Clear Calc 25.86, Est GFR (MDRD) Af Amer 28 L, Est GFR (MDRD) Non-Af 23 L, BUN/Creatinine Ratio 14.1, Glucose 119 H, Calcium 8.4 L, Total Bilirubin 0.40, AST 20, ALT 15 L, Alkaline Phosphatase 70, Total Protein 6.7, Albumin 2.8 L, Globulin 3.9, Albumin/Globulin Ratio 0.7 L 07/04/23 12:57: POC Glucose 297 H 07/04/23 17:22: POC Glucose 176 H 07/04/23 20:59: POC Glucose 134 H 07/05/23 06:42: WBC 13.3 H, RBC 4.11 L, Hgb 11.4 L, Hct 36.7 L, MCV 89.3, MCH 27.7, MCHC 31.1 L, RDW Std Deviation 46.1 H, RDW Coeff of Tarik 13.9, Plt Count 290, MPV 10.1, Immature Gran % (Auto) 0.500, Neut % (Auto) 73.6 H, Lymph % (Auto) 15.1 L, [place] % (Auto) 8.4, Eos % (Auto) 2.1, Baso % (Auto) 0.3, Absolute Neuts (auto) 9.8 H, Absolute Lymphs (auto) 2.01, Nucleated RBC % 0 Physical Exam Const no apparent distress HEENT head/scalp atraumatic and moist oral mucous membranes Cardio regular rate, regular rhythm, S1 normal heart sound and S2 normal heart sound GI normal to inspection, nondistended, normoactive bowel sounds, soft to palpation and non-tender Assessment & Plan Assessment/Plan (1) Acute on chronic kidney failure: PLAN: Plan Acute kidney injury on CKD stage II * improved. secondary to obstructive nephropathy with associated bilateral hydroureteronephrosis as a result: * will hold all nephrotoxic medications, * will continue Bell catheter placement, * likely the bilateral hydroureteronephrosis will eventually improve now that the Bell catheter has been placed but will need to be closely followed thus will request urology involvement, will place on Flomax therapy as well. PT/OT/case management consulted for discharge planning. * consult, pt to follow up as oupt. Chronic conditions: * Dementia, unclear type with unclear behavioral steroids history with cognitive impairment: Complicates presentation, maintain fall and aspiration precautions, continue patient home donepezil regimen, PT/OT/case management consulted for discharge planning. * Diabetes mellitus type II: Hold oral home regimen, continue home insulin regimen, ADA diet, accu checks w/ ISS. * Hypertension, transiently elevated likely secondary to #1, improved: Holding home lisinopril given #1 is noted, as needed IV hydralazine in interim. * Hyperlipidemia: Continue home statin regimen. * Anxiety and depression: Will temporally hold the patient home mirtazapine and duloxetine regimen given significant DIMITRI, resume as long as renal function is improving given interventions as noted above. * Obesity: Weight loss and lifestyle changes encouraged. * GERD with history of prior GI bleed: We will maintain on home PPI. * Possible PAF versus VTE: Unable to give appropriate history and not on chart SNF history but patient on eliquis regimen, possibly for VTE or PAF, will continue in the interim but does have prior GI bleed history also of note. * RODRI: CPAP nightly. DVT prophylaxis: Continue patient home apixaban regimen. CODE STATUS: Full Code per SNF paperwork.
[2023-07-05 08:02] LABS: Anion Gap 7 (5-15); BUN 35 mg/dL (7-18); Calcium,Total 8.4 mg/dL (8.5-10.1); Chloride 112 mmol/L (98-107); Creatinine, Serum 2.92 mg/dL (0.70-1.30); EST Glomerular Filtration Rate 23 mL/min (>60); Est Glom Filt Rate - Afr Amer 28 mL/min (>60); Estimated Creatinine Clearance 25.77 ml/min; Glucose 158 mg/dL (74-106); Potassium 4.4 mmol/L (3.5-5.1); Sodium Level 144 mmol/L (136-145)
[2023-07-05 09:05] VITALS: BP 125/88; PULSE 88; RESP 18; TEMP 36.6; O2SAT 97
[2023-07-05] MEDS: Insulin Lispro 100 UNIT/ML INSULN.PEN SC ×2 (09:16→09:17)
--- NOTE | 2023-07-05 09:46 | TREXTCAR_ITS ---
Diet Diet Order/Speech Therapy: 07/04/23 01:08 Diet: Consistent Carb - Calorie Controlled Food consistency:: Regular Liquid Consistency:: Regular/Thin How many daily calories?: 1800 calorie Routine Orders/Code Status Bell Catheter Size: 18 Routine Lab Work: BMP (weekly) Code Status: Full Code Therapies Physical Therapy: Eval and Treat Occupational Therapy: Eval and Treat Problem/Diagnosis (1) Acute on chronic kidney failure: Status: Chronic Code(s): N17.9 - Acute kidney failure, unspecified; N18.9 - Chronic kidney disease, unspecified Plan Acute kidney injury on CKD stage II * improved. secondary to obstructive nephropathy with associated bilateral hydroureteronephrosis as a result: * will hold all nephrotoxic medications, * will continue Bell catheter placement, * likely the bilateral hydroureteronephrosis will eventually improve now that the Bell catheter has been placed but will need to be closely followed thus will request urology involvement, will place on Flomax therapy as well. PT/OT/case management consulted for discharge planning. * consult, pt to follow up as oupt. Chronic conditions: * Dementia, unclear type with unclear behavioral steroids history with cognitive impairment: Complicates presentation, maintain fall and aspiration precautions, continue patient home donepezil regimen, PT/OT/case management consulted for discharge planning. * Diabetes mellitus type II: Hold oral home regimen, continue home insulin regimen, ADA diet, accu checks w/ ISS. * Hypertension, transiently elevated likely secondary to #1, improved: Holding home lisinopril given #1 is noted, as needed IV hydralazine in interim. * Hyperlipidemia: Continue home statin regimen. * Anxiety and depression: Will temporally hold the patient home mirtazapine and duloxetine regimen given significant DIMITRI, resume as long as renal function is improving given interventions as noted above. * Obesity: Weight loss and lifestyle changes encouraged. * GERD with history of prior GI bleed: We will maintain on home PPI. * Possible PAF versus VTE: Unable to give appropriate history and not on chart SNF history but patient on eliquis regimen, possibly for VTE or PAF, will continue in the interim but does have prior GI bleed history also of note. * RODRI: CPAP nightly. DVT prophylaxis: Continue patient home apixaban regimen. CODE STATUS: Full Code per SNF paperwork. Allergies/Procedures Done in Hospital Allergies No Known Allergies Allergy (Verified 03/19/24 19:31) Procedures: None Type of Care/Length of Stay Estimated LOS: More Than 30 Days Type of Care Needed: Retirement/Assisted Living Rehab Potential: Fair Prognosis: Fair Additional Orders/Day of Discharge Day of Discharge: 07/05/23 Discharge Plan Admission Admit Date/Time: 07/03/23 23:26 Primary Reason for Your Visit: DIMITRI Attending Provider: Nolan Rodriguez Primary Care Provider: Enriqueta Flanagan Consulting Providers: Jodi Perez; Mejia Oseguera Discharge Orders/Prescriptions Prescriptions: New tamsulosin 0.4 mg Capsule 0.4 mg PO BID Qty: 0 0RF Continued donepezil 10 mg tablet 5 mg PO QHS aspirin [Adult Low Dose Aspirin] 81 mg tablet,delayed release (DR/EC) 81 mg PO DAILY atorvastatin 40 mg tablet 40 mg PO QHS duloxetine 20 mg capsule,delayed release(DR/EC) 20 mg PO DAILY loperamide [Anti-Diarrheal (loperamide)] 2 mg capsule 2 mg PO DAILY Rx Instructions: administer after each loose stool until symptoms controlled; do not exceed 8 mg per 24 hrs Myrbetriq 25 mg tablet extended release 24 hr 25 mg PO DAILY omeprazole 20 mg capsule,delayed release(DR/EC) 20 mg PO DAILY medroxyprogesterone 5 mg tablet 5 mg PO .qohs Eliquis 5 mg tablet 5 mg PO BID insulin glargine 100 UNITS/ML insulin pen 30 unit SC .afternoon acetaminophen 325 mg Tablet 650 mg PO Q4H PRN PRN (Reason: Fever, pain 1-01/23) Qty: 0 0RF insulin lispro [Humalog KwikPen Insulin] 100 unit/mL Insulin Pen See Protocol subcut ACHS Qty: 0 0RF Protocol: 3. Sliding Scale Insulin Med Dosing Condition: 150-189 mg/dl = 1 unit Condition: 190-229 mg/dl = 2 units Condition: 230-269 mg/dl = 3 units Condition: 270-309 mg/dl = 4 units Condition: 310-349 mg/dl = 5 units Condition: 350-399 mg/dl = 6 units Condition: 400-449 mg/dl = 7 units Condition: Greater than 449 call physician Protocol Text: - Use for Total Daily Dose of Insulin 37-55 units - Obsese, infected, or steroid patients MEDIUM DOSING ALGORITHIM duloxetine 30 mg capsule,delayed release(DR/EC) 30 mg PO DAILY benztropine 0.5 mg tablet 0.5 mg PO DAILY insulin lispro 100 unit/mL insulin pen 5 unit subcut ACHS melatonin 5 mg capsule 5 mg PO QHS simethicone [Gas Relief (simethicone)] 80 mg tablet,chewable 80 mg PO TID Rx Instructions: after meals Trulicity 3 mg/0.5 mL pen injector 3 mg subcut QWEEK Patient Comments: every sunday Discontinued mirtazapine 15 mg tablet 15 mg PO QHS lisinopril 40 MG tablet 20 mg PO DAILY Referrals / Follow Up: Enriqueta Flanagan MD [Primary Care Provider] - Enriqueta Flanagan MD [[facility]] - Disposition Disposition (needs filled in before D/C Order can be placed): NonSkilled NH/Intermed Care
[2023-07-05 09:51] LABS: Bedside Glucose 166 mg/dL (74-106)
--- NOTE | 2023-07-05 09:53 | DS.PCM_ITS ---
Providers Date of Admission: 07/03/23 Primary Care Physician: Dr. Enriqueta Flanagan MD Consultations 07/04/23 01:03 Consult: Urology Routine Consulting Provider: Mejia Oseguera Reason for Consult: obstructive nephropathy with associated bilateral hydroureteronephrosis EMERGENT Consult: No MD Notified: Yes Date Notified: 07/04/23 Time Notified: 06:45 Method of Notification: Text Reason For Visit: DIMITRI, OBSTRUCTIVE NEPHROPATHY Diagnosis Discharge Diagnosis (1) Acute on chronic kidney failure: Status: Chronic Code(s): N17.9 - Acute kidney failure, unspecified; N18.9 - Chronic kidney disease, unspecified Plan Acute kidney injury on CKD stage II * improved. secondary to obstructive nephropathy with associated bilateral hydroureteronephrosis as a result: * will hold all nephrotoxic medications, * will continue Bell catheter placement, * likely the bilateral hydroureteronephrosis will eventually improve now that the Bell catheter has been placed but will need to be closely followed thus will request urology involvement, will place on Flomax therapy as well. PT/OT/case management consulted for discharge planning. * consult, pt to follow up as oupt. Chronic conditions: * Dementia, unclear type with unclear behavioral steroids history with cognitive impairment: Complicates presentation, maintain fall and aspiration precautions, continue patient home donepezil regimen, PT/OT/case management consulted for discharge planning. * Diabetes mellitus type II: Hold oral home regimen, continue home insulin regimen, ADA diet, accu checks w/ ISS. * Hypertension, transiently elevated likely secondary to #1, improved: Holding home lisinopril given #1 is noted, as needed IV hydralazine in interim. * Hyperlipidemia: Continue home statin regimen. * Anxiety and depression: Will temporally hold the patient home mirtazapine and duloxetine regimen given significant DIMITRI, resume as long as renal function is improving given interventions as noted above. * Obesity: Weight loss and lifestyle changes encouraged. * GERD with history of prior GI bleed: We will maintain on home PPI. * Possible PAF versus VTE: Unable to give appropriate history and not on chart SNF history but patient on eliquis regimen, possibly for VTE or PAF, will continue in the interim but does have prior GI bleed history also of note. * RODRI: CPAP nightly. DVT prophylaxis: Continue patient home apixaban regimen. CODE STATUS: Full Code per SNF paperwork. Medications at Discharge Home Medications apixaban 5 mg tablet (Eliquis) 5 mg PO BID see pcp 11/11/22 aspirin 81 mg tablet,delayed release (Adult Low Dose Aspirin) 81 mg PO DAILY see pcp 11/11/22 atorvastatin 40 mg tablet 40 mg PO QHS see pcp 11/11/22 donepezil 10 mg tablet 5 mg PO QHS see pcp 11/11/22 duloxetine 20 mg capsule,delayed release 20 mg PO DAILY see pcp 11/11/22 insulin glargine 100 unit/mL (3 mL) subcutaneous pen 30 unit subcut .afternoon see pcp 11/11/22 loperamide 2 mg capsule (Anti-Diarrheal (loperamide)) 2 mg PO DAILY see pcp 11/11/22 medroxyprogesterone 5 mg tablet 5 mg PO .qohs see pcp 11/11/22 mirabegron 25 mg tablet,extended release 24 hr (Myrbetriq) 25 mg PO DAILY see pcp 11/11/22 omeprazole 20 mg capsule,delayed release 20 mg PO DAILY see pcp 11/11/22 acetaminophen 325 mg tablet 650 mg (2 x 325 mg) PO Q4H PRN PRN Fever, pain 1- 01/23 #0 tabs 11/14/22 insulin lispro 100 unit/mL subcutaneous pen (Humalog KwikPen (U-100) Insulin) See Protocol subcut ACHS see pcp #0 mL 11/14/22 benztropine 0.5 mg tablet 0.5 mg PO DAILY see pcp 07/04/23 dulaglutide 3 mg/0.5 mL subcutaneous pen injector (Trulicity) 3 mg subcut QWEEK see pcp 07/04/23 duloxetine 30 mg capsule,delayed release 30 mg PO DAILY see pcp 07/04/23 insulin lispro 100 unit/mL subcutaneous pen 5 unit subcut ACHS see pcp 07/04/23 melatonin 5 mg capsule 5 mg PO QHS see pcp 07/04/23 simethicone 80 mg chewable tablet (Gas Relief (simethicone)) 80 mg PO TID see pcp 07/04/23 tamsulosin 0.4 mg capsule 0.4 mg PO BID #0 caps 07/05/23 Hospital Course Operations None Procedures None Summary of Care Provided Minutes Spent on Discharge: 31 Hospital Course: Presents with DIMITRI. Patient postelective uropathy and Bell catheter was placed. Kidney function did improve though stabilized. Patient was seen by urology who recommends continue with tamsulosin and follow-up with urology. Weight / BMI Weight Weight: 88.2 kg Body Mass Index (BMI) 29.5 ABG / Lab / Microbiology Data 07/05/23 06:42 07/05/23 06:42 Laboratory: Laboratory Results - last 24 hr 07/04/23 12:57: POC Glucose 297 H 07/04/23 17:22: POC Glucose 176 H 07/04/23 20:59: POC Glucose 134 H 07/05/23 06:42: WBC 13.3 H, RBC 4.11 L, Hgb 11.4 L, Hct 36.7 L, MCV 89.3, MCH 27.7, MCHC 31.1 L, RDW Std Deviation 46.1 H, RDW Coeff of Tarik 13.9, Plt Count 290, MPV 10.1, Immature Gran % (Auto) 0.500, Neut % (Auto) 73.6 H, Lymph % (Auto) 15.1 L, [place] % (Auto) 8.4, Eos % (Auto) 2.1, Baso % (Auto) 0.3, Absolute Neuts (auto) 9.8 H, Absolute Lymphs (auto) 2.01, Nucleated RBC % 0, Sodium 144, Potassium 4.4, Chloride 112 H, Carbon Dioxide 25.0, Anion Gap 7, BUN 35 H, Creatinine 2.92 H, Estim Creat Clear Calc 25.77, Est GFR (MDRD) Af Amer 28 L, Est GFR (MDRD) Non-Af 23 L, BUN/Creatinine Ratio 12.0, Glucose 158 H, Calcium 8.4 L 07/05/23 09:15: POC Glucose 166 H D/C Instructions Discharge Diet: 2000 Calorie Control Diet Meaningful Use Info Meaningful Use Diagnoses (Choose all that apply): None applicable Discharge Plan Admission Admit Date/Time: 07/03/23 23:26 Primary Reason for Your Visit: DIMITRI Attending Provider: Nolan Rodriguez Primary Care Provider: Enriqueta Flanagan Consulting Providers: Jodi Perez; Mejia Oseguera Discharge Orders/Prescriptions Prescriptions: New tamsulosin 0.4 mg Capsule 0.4 mg PO BID Qty: 0 0RF Continued donepezil 10 mg tablet 5 mg PO QHS aspirin [Adult Low Dose Aspirin] 81 mg tablet,delayed release (DR/EC) 81 mg PO DAILY atorvastatin 40 mg tablet 40 mg PO QHS duloxetine 20 mg capsule,delayed release(DR/EC) 20 mg PO DAILY loperamide [Anti-Diarrheal (loperamide)] 2 mg capsule 2 mg PO DAILY Rx Instructions: administer after each loose stool until symptoms controlled; do not exceed 8 mg per 24 hrs Myrbetriq 25 mg tablet extended release 24 hr 25 mg PO DAILY omeprazole 20 mg capsule,delayed release(DR/EC) 20 mg PO DAILY medroxyprogesterone 5 mg tablet 5 mg PO .qohs Eliquis 5 mg tablet 5 mg PO BID insulin glargine 100 UNITS/ML insulin pen 30 unit SC .afternoon acetaminophen 325 mg Tablet 650 mg PO Q4H PRN PRN (Reason: Fever, pain 1-01/23) Qty: 0 0RF insulin lispro [Humalog KwikPen Insulin] 100 unit/mL Insulin Pen See Protocol subcut ACHS Qty: 0 0RF Protocol: 3. Sliding Scale Insulin Med Dosing Condition: 150-189 mg/dl = 1 unit Condition: 190-229 mg/dl = 2 units Condition: 230-269 mg/dl = 3 units Condition: 270-309 mg/dl = 4 units Condition: 310-349 mg/dl = 5 units Condition: 350-399 mg/dl = 6 units Condition: 400-449 mg/dl = 7 units Condition: Greater than 449 call physician Protocol Text: - Use for Total Daily Dose of Insulin 37-55 units - Obsese, infected, or steroid patients MEDIUM DOSING ALGORITHIM duloxetine 30 mg capsule,delayed release(DR/EC) 30 mg PO DAILY benztropine 0.5 mg tablet 0.5 mg PO DAILY insulin lispro 100 unit/mL insulin pen 5 unit subcut ACHS melatonin 5 mg capsule 5 mg PO QHS simethicone [Gas Relief (simethicone)] 80 mg tablet,chewable 80 mg PO TID Rx Instructions: after meals Trulicity 3 mg/0.5 mL pen injector 3 mg subcut QWEEK Patient Comments: every sunday Discontinued mirtazapine 15 mg tablet 15 mg PO QHS lisinopril 40 MG tablet 20 mg PO DAILY Referrals / Follow Up: Enriqueta Flanagan MD [Primary Care Provider] - Enriqueta Flanagan MD [[facility]] - Mejia Oseguera MD [Med Staff - Active Staff] - Within 1 Month Disposition Disposition (needs filled in before D/C Order can be placed): NonSkilled NH/Intermed Care Charges/Coding Visit Charges Inpatient E&M: 62412 Disch Hosp >30min
--- NOTE | 2023-07-05 10:24 | CASEMGMT ---
Discharge Planning Discharge orders, signed med list, and transport time sent to [facility] via [facility]. Physicians will transport patient by cot at 11a. Nursing, SW, and patient updated. Attempted to call both contacts with no results. Jessica Christine, Discharge Planning Asst.
--- NOTE | 2023-07-05 10:32 | NURSING ---
into room with primary RN as pt with lethargy, baseline unclear. Pt open eyes to verbal and tactile stimuli. pt would not answer any further questions or follow commands, would look at nurse then close his eyes. did open eyes and attempt to smile at one point. per primary RN, equal hand graps noted. pupils PERLLA. Noted VSS and OT stable. sent Dr. Rodriguez message.
[2023-07-05 10:35] VITALS: BP 104/75; PULSE 98; RESP 18; O2SAT 97
--- NOTE | 2023-07-05 10:42 | NURSING ---
This RN went into pt room and pt was very drowsy. Pt able to open eyes and answer yes/no questions. Vital signs stable. Pt hand grasp weak but equal. This RN and gas charger Olga eagle hospitalist Dr Rodriguez. This RN notified Dr Rodriguez of pt's status. According to Dr Rodriguez, pt was the same way yesterday and this seems to be his normal. No new orders. Pt to be picked up and transported back to [facility] at 1100.
--- NOTE | 2023-07-05 11:34 | PHA.DC.MC.R ---
Pharmacy [facility] has performed discharge medication reconciliation and counseling for this patient. The patient's discharge medication list was reviewed for discrepancies and discrepancies were resolved. The patient was counseled on the following discharge medications and changes in medications for homegoing were reviewed. 1. FLOMAX The Reason for Use, instructions for use, and potential side effects were reviewed for all new medications. The patient's questions regarding all of their medications were answered. The patient was able to verbally demonstrate an understanding of their discharge medications. Medications at Discharge Home Medications apixaban 5 mg tablet (Eliquis) 5 mg PO BID see pcp 11/11/22 aspirin 81 mg tablet,delayed release (Adult Low Dose Aspirin) 81 mg PO DAILY see pcp 11/11/22 atorvastatin 40 mg tablet 40 mg PO QHS see pcp 11/11/22 donepezil 10 mg tablet 5 mg PO QHS see pcp 11/11/22 duloxetine 20 mg capsule,delayed release 20 mg PO DAILY see pcp 11/11/22 insulin glargine 100 unit/mL (3 mL) subcutaneous pen 30 unit subcut .afternoon see pcp 11/11/22 loperamide 2 mg capsule (Anti-Diarrheal (loperamide)) 2 mg PO DAILY see pcp 11/11/22 medroxyprogesterone 5 mg tablet 5 mg PO .qohs see pcp 11/11/22 mirabegron 25 mg tablet,extended release 24 hr (Myrbetriq) 25 mg PO DAILY see pcp 11/11/22 omeprazole 20 mg capsule,delayed release 20 mg PO DAILY see pcp 11/11/22 acetaminophen 325 mg tablet 650 mg (2 x 325 mg) PO Q4H PRN PRN Fever, pain 1-01/23 #0 tabs 11/14/22 insulin lispro 100 unit/mL subcutaneous pen (Humalog KwikPen (U-100) Insulin) See Protocol subcut ACHS see pcp #0 mL 11/14/22 benztropine 0.5 mg tablet 0.5 mg PO DAILY see pcp 07/04/23 dulaglutide 3 mg/0.5 mL subcutaneous pen injector (Trulicity) 3 mg subcut QWEEK see pcp 07/04/23 duloxetine 30 mg capsule,delayed release 30 mg PO DAILY see pcp 07/04/23 insulin lispro 100 unit/mL subcutaneous pen 5 unit subcut ACHS see pcp 07/04/23 melatonin 5 mg capsule 5 mg PO QHS see pcp 07/04/23 simethicone 80 mg chewable tablet (Gas Relief (simethicone)) 80 mg PO TID see pcp 07/04/23 tamsulosin 0.4 mg capsule 0.4 mg PO BID #0 caps 07/05/23
== END 2023-07-05 10:53 | disposition intermediate care facility (04) | DRG 683 ==
LOC: ED 22:55 → MS3 23:38
PROVIDERS: Admitting Provider Family Medicine; Emergency Provider Emergency Medicine; PCP Internal Medicine
DX: N17.9 Acute kidney failure, unspecified (principal); N13.8 Other obstructive and reflux uropathy; F03.918 Unspecified dementia, unspecified severity, with other behavioral disturbance; E11.22 Type 2 diabetes mellitus with diabetic chronic kidney disease; Z79.4 Long term (current) use of insulin; I12.9 Hypertensive chronic kidney disease with stage 1 through stage 4 chronic kidney disease, or unspecified chronic kidney disease; G47.33 Obstructive sleep apnea (adult) (pediatric); K21.9 Gastro-esophageal reflux disease without esophagitis; N18.2 Chronic kidney disease, stage 2 (mild); E78.5 Hyperlipidemia, unspecified; F41.8 Other specified anxiety disorders; E66.9 Obesity, unspecified; Z87.891 Personal history of nicotine dependence; Z79.01 Long term (current) use of anticoagulants; Z99.89 Dependence on other enabling machines and devices; Z79.82 Long term (current) use of aspirin; Z79.899 Other long term (current) drug therapy; Z79.85 Long-term (current) use of injectable non-insulin antidiabetic drugs; Z68.29 Body mass index [BMI] 29.0-29.9, adult
CPT/HCPCS: 36415; 70450; 74176; 80048; 80053; 81001; 82962; 83690; 85025; 85610; 85730; 93005; 97162; 97166; 99285; J7030; P9612; A4216

== ENCOUNTER → 2023-07-03 | Outpatient (REF) | payer MEDICARE, MEDICAID, SELFPAY ==
[2023-07-03 09:37] LABS: Hematocrit 41.1 % (40-54); Hemoglobin 12.9 g/dL (13.0-16.5); Mean Corp Hgb Conc 31.4 g/dL (32-36); Mean Corpuscular Volume 89.3 fL (80-94); Mean Platelet Vol. 10.6 fl (6.2-12.0); Platelet Count 332 K/mm3 (150-450); RBC Distribution Width CV 14.2 % (11.6-14.6); RBC Distribution Width SD 46.3 fl (35.1-43.9)
[2023-07-03 10:06] LABS: ALB/GLOB Ratio 0.7 RATIO (0.9-2.4); AST(SGOT) 23 U/L (15-37); Alanine Aminotransfer ALT/SGPT 34 U/L (16-61); Albumin, Serum 3.1 g/dL (3.2-5.0); Alkaline Phosphatase 84 U/L (45-117); Anion Gap 8 (5-15); BUN 50 mg/dL (7-18); BUN/Creat Ratio 14.2 RATIO (10-20); Calcium,Total 8.6 mg/dL (8.5-10.1); Chloride 112 mmol/L (98-107); Creatinine, Serum 3.51 mg/dL (0.70-1.30); EST Glomerular Filtration Rate 19 mL/min (>60); Est Glom Filt Rate - Afr Amer 22 mL/min (>60); Globulin 4.5 g/dL (2.2-4.2); Glucose 148 mg/dL (74-106); Potassium 4.4 mmol/L (3.5-5.1); Protein, Total 7.6 g/dL (6.4-8.2); Sodium Level 140 mmol/L (136-145)
== END ==
LOC: OLS.SW 05:00
PROVIDERS: PCP Internal Medicine; Visit Provider Internal Medicine
DX: R10.9 Unspecified abdominal pain (principal)
CPT/HCPCS: 36415; 80053; 85027

== ENCOUNTER → 2023-07-17 05:00 | Outpatient (REF) | payer MEDICARE, MEDICAID, SELFPAY ==
[2023-07-17 09:55] LABS: Absolute Lymphocyte Count 2.17 X10^3/uL (0.83-4.51); Absolute Neutrophil Count 5.3 X10^3/uL (2.0-7.7); Basophil# 0.06 X10^3/uL; Basophil% 0.7 % (0-1); Eosinophil# 0.32 X10^3/uL; Eosinophils% 3.7 % (0-5); Hematocrit 37.9 % (40-54); Lymphocyte # 2.17 X10^3/ul (0.83-4.51); Lymphocyte % 25.4 % (19-41); Mean Corp Hgb Conc 31.7 g/dL (32-36); Mean Corpuscular Hgb 27.9 pg (27.0-32.0); Mean Corpuscular Volume 88.1 fL (80-94); Mean Platelet Vol. 9.6 fl (6.2-12.0); Monocyte# 0.68 X10^3/uL; NRBC Flagged by Analyzer 0 % (0-5); Neutrophil # 5.29 X10^3/uL (2.7-7.7); Neutrophil % 61.8 % (47-70); Platelet Count 395 K/mm3 (150-450); RBC Distribution Width CV 13.8 % (11.6-14.6); RBC Distribution Width SD 43.9 fl (35.1-43.9); White Blood Count 8.6 K/mm3 (4.4-11.0)
[2023-07-17 10:10] LABS: Anion Gap 5 (5-15); BUN 16 mg/dL (7-18); BUN/Creat Ratio 10.1 RATIO (10-20); Calcium,Total 8.6 mg/dL (8.5-10.1); Chloride 113 mmol/L (98-107); Creatinine, Serum 1.58 mg/dL (0.70-1.30); EST Glomerular Filtration Rate 46 mL/min (>60); Est Glom Filt Rate - Afr Amer 56 mL/min (>60); Glucose 161 mg/dL (74-106); Potassium 4.4 mmol/L (3.5-5.1); Sodium Level 142 mmol/L (136-145)
== END ==
LOC: OLS.SW 05:00
PROVIDERS: PCP Internal Medicine; Visit Provider Internal Medicine
DX: E11.65 Type 2 diabetes mellitus with hyperglycemia (principal); N18.2 Chronic kidney disease, stage 2 (mild); E11.22 Type 2 diabetes mellitus with diabetic chronic kidney disease
CPT/HCPCS: 36415; 80048; 85025

== ENCOUNTER → 2023-07-18 | Outpatient (REF) | payer MEDICARE, MEDICAID, SELFPAY ==
[2023-07-18 07:53] LABS: Absolute Lymphocyte Count 2.28 X10^3/uL (0.83-4.51); Absolute Neutrophil Count 5.7 X10^3/uL (2.0-7.7); Basophil# 0.03 X10^3/uL; Basophil% 0.3 % (0-1); Eosinophil# 0.29 X10^3/uL; Eosinophils% 3.3 % (0-5); Hematocrit 36.2 % (40-54); Hemoglobin 11.7 g/dL (13.0-16.5); Lymphocyte # 2.28 X10^3/ul (0.83-4.51); Lymphocyte % 25.8 % (19-41); Mean Corp Hgb Conc 32.3 g/dL (32-36); Mean Corpuscular Hgb 27.9 pg (27.0-32.0); Mean Corpuscular Volume 86.4 fL (80-94); Mean Platelet Vol. 9.5 fl (6.2-12.0); Monocyte# 0.55 X10^3/uL; Monocyte% 6.2 % (0-10); NRBC Flagged by Analyzer 0 % (0-5); Neutrophil # 5.65 X10^3/uL (2.7-7.7); Neutrophil % 64.1 % (47-70); Platelet Count 368 K/mm3 (150-450); RBC Distribution Width CV 13.8 % (11.6-14.6); RBC Distribution Width SD 42.9 fl (35.1-43.9); Red Blood Count 4.19 M/mm3 (4.6-6.2); White Blood Count 8.8 K/mm3 (4.4-11.0)
[2023-07-18 08:12] LABS: Anion Gap 7 (5-15); BUN 14 mg/dL (7-18); BUN/Creat Ratio 9.3 RATIO (10-20); Calcium,Total 8.4 mg/dL (8.5-10.1); Chloride 112 mmol/L (98-107); EST Glomerular Filtration Rate 49 mL/min (>60); Est Glom Filt Rate - Afr Amer 60 mL/min (>60); Glucose 118 mg/dL (74-106); Potassium 3.9 mmol/L (3.5-5.1); Sodium Level 140 mmol/L (136-145)
== END ==
LOC: OLS.SW 05:00
PROVIDERS: PCP Internal Medicine; Visit Provider Internal Medicine
DX: E11.42 Type 2 diabetes mellitus with diabetic polyneuropathy (principal)
CPT/HCPCS: 36415; 80048; 85025

== ENCOUNTER → 2023-07-20 05:00 | Outpatient (REF) | payer MEDICARE, MEDICAID, SELFPAY ==
[2023-07-20 08:19] LABS: Anion Gap 5 (5-15); BUN 12 mg/dL (7-18); BUN/Creat Ratio 8.5 RATIO (10-20); Calcium,Total 8.8 mg/dL (8.5-10.1); Chloride 110 mmol/L (98-107); Creatinine, Serum 1.41 mg/dL (0.70-1.30); EST Glomerular Filtration Rate 53 mL/min (>60); Est Glom Filt Rate - Afr Amer 64 mL/min (>60); Glucose 99 mg/dL (74-106); Potassium 3.7 mmol/L (3.5-5.1); Sodium Level 140 mmol/L (136-145)
== END ==
LOC: OLS.SW 05:00
PROVIDERS: PCP Internal Medicine; Visit Provider Internal Medicine
DX: E11.9 Type 2 diabetes mellitus without complications (principal)
CPT/HCPCS: 36415; 80048

== ENCOUNTER → 2023-07-24 05:00 | Outpatient (REF) | payer MEDICARE, MEDICAID, SELFPAY ==
[2023-07-24 08:36] LABS: Absolute Lymphocyte Count 2.14 X10^3/uL (0.83-4.51); Absolute Neutrophil Count 7.1 X10^3/uL (2.0-7.7); Basophil# 0.04 X10^3/uL; Basophil% 0.4 % (0-1); Eosinophil# 0.34 X10^3/uL; Eosinophils% 3.3 % (0-5); Hemoglobin 12.2 g/dL (13.0-16.5); Lymphocyte # 2.14 X10^3/ul (0.83-4.51); Lymphocyte % 20.9 % (19-41); Mean Corp Hgb Conc 32.1 g/dL (32-36); Mean Corpuscular Hgb 27.8 pg (27.0-32.0); Mean Corpuscular Volume 86.6 fL (80-94); Mean Platelet Vol. 9.4 fl (6.2-12.0); Monocyte# 0.62 X10^3/uL; NRBC Flagged by Analyzer 0 % (0-5); Neutrophil # 7.08 X10^3/uL (2.7-7.7); Platelet Count 301 K/mm3 (150-450); RBC Distribution Width SD 43.8 fl (35.1-43.9); Red Blood Count 4.39 M/mm3 (4.6-6.2); White Blood Count 10.3 K/mm3 (4.4-11.0)
[2023-07-24 13:49] LABS: Anion Gap 5 (5-15); BUN 22 mg/dL (7-18); BUN/Creat Ratio 15.3 RATIO (10-20); Calcium,Total 8.9 mg/dL (8.5-10.1); Chloride 109 mmol/L (98-107); Creatinine, Serum 1.44 mg/dL (0.70-1.30); EST Glomerular Filtration Rate 52 mL/min (>60); Est Glom Filt Rate - Afr Amer 62 mL/min (>60); Glucose 125 mg/dL (74-106); Potassium 3.8 mmol/L (3.5-5.1); Sodium Level 139 mmol/L (136-145)
== END ==
LOC: OLS.SW 05:00
PROVIDERS: PCP Internal Medicine; Visit Provider Internal Medicine
DX: E11.65 Type 2 diabetes mellitus with hyperglycemia (principal); E78.5 Hyperlipidemia, unspecified
CPT/HCPCS: 36415; 80048; 85025

== ENCOUNTER → 2023-07-27 05:00 | Outpatient (REF) | payer MEDICARE, MEDICAID, SELFPAY ==
[2023-07-27 09:35] LABS: Anion Gap 5 (5-15); BUN 18 mg/dL (7-18); BUN/Creat Ratio 13.8 RATIO (10-20); Calcium,Total 8.7 mg/dL (8.5-10.1); Chloride 111 mmol/L (98-107); EST Glomerular Filtration Rate 58 mL/min (>60); Est Glom Filt Rate - Afr Amer 70 mL/min (>60); Glucose 124 mg/dL (74-106); Potassium 3.8 mmol/L (3.5-5.1); Sodium Level 139 mmol/L (136-145)
== END ==
LOC: OLS.SW 05:00
PROVIDERS: PCP Internal Medicine; Visit Provider Internal Medicine
DX: N17.0 Acute kidney failure with tubular necrosis (principal)
CPT/HCPCS: 36415; 80048

== ENCOUNTER → 2023-08-03 04:00 | Outpatient (REF) | payer MEDICARE, MEDICAID, SELFPAY ==
[2023-08-03 08:36] LABS: Anion Gap 6 (5-15); BUN 18 mg/dL (7-18); BUN/Creat Ratio 14.3 RATIO (10-20); Calcium,Total 8.7 mg/dL (8.5-10.1); Chloride 106 mmol/L (98-107); Creatinine, Serum 1.26 mg/dL (0.70-1.30); EST Glomerular Filtration Rate 60 mL/min (>60); Est Glom Filt Rate - Afr Amer 73 mL/min (>60); Glucose 97 mg/dL (74-106); Potassium 4.1 mmol/L (3.5-5.1); Sodium Level 139 mmol/L (136-145)
== END ==
LOC: OLS.SW 04:00
PROVIDERS: PCP Internal Medicine; Referring Provider Internal Medicine; Visit Provider Internal Medicine
DX: N17.0 Acute kidney failure with tubular necrosis (principal)
CPT/HCPCS: 36415; 80048

== ENCOUNTER → 2023-08-10 05:00 | Outpatient (REF) | payer MEDICARE, MEDICAID, SELFPAY ==
[2023-08-10 07:57] LABS: Anion Gap 6 (5-15); BUN 21 mg/dL (7-18); BUN/Creat Ratio 15.1 RATIO (10-20); Calcium,Total 8.6 mg/dL (8.5-10.1); Chloride 112 mmol/L (98-107); Creatinine, Serum 1.39 mg/dL (0.70-1.30); EST Glomerular Filtration Rate 54 mL/min (>60); Est Glom Filt Rate - Afr Amer 65 mL/min (>60); Glucose 93 mg/dL (74-106); Potassium 3.7 mmol/L (3.5-5.1); Sodium Level 141 mmol/L (136-145)
== END ==
LOC: OLS.SW 05:00
PROVIDERS: PCP Internal Medicine; Visit Provider Internal Medicine
DX: N17.0 Acute kidney failure with tubular necrosis (principal)
CPT/HCPCS: 36415; 80048

== ENCOUNTER → 2023-08-17 05:00 | Outpatient (REF) | payer MEDICARE, MEDICAID, SELFPAY ==
[2023-08-17 08:57] LABS: Anion Gap 7 (5-15); BUN 15 mg/dL (7-18); BUN/Creat Ratio 12.2 RATIO (10-20); Calcium,Total 8.8 mg/dL (8.5-10.1); Chloride 111 mmol/L (98-107); Creatinine, Serum 1.23 mg/dL (0.70-1.30); EST Glomerular Filtration Rate 62 mL/min (>60); Est Glom Filt Rate - Afr Amer 75 mL/min (>60); Glucose 102 mg/dL (74-106); Potassium 4.1 mmol/L (3.5-5.1); Sodium Level 143 mmol/L (136-145)
== END ==
LOC: OLS.SW 05:00
PROVIDERS: PCP Internal Medicine; Visit Provider Internal Medicine
DX: N17.0 Acute kidney failure with tubular necrosis (principal)
CPT/HCPCS: 36415; 80048

== ENCOUNTER 2023-08-23 22:36 | Inpatient (IN) | payer MEDICARE, MEDICAID, SELFPAY ==
[2023-08-23 22:37] VITALS: BP 132/80; PULSE 94; RESP 20; TEMP 37.4; O2SAT 96; BMI 30.5
[2023-08-23 22:38] VITALS: BP 132/80; PULSE 97; RESP 20; TEMP 37.4; O2SAT 97
[2023-08-23 23:18] LABS: Absolute Lymphocyte Count 1.64 X10^3/uL (0.83-4.51); Absolute Neutrophil Count 15.8 X10^3/uL (2.0-7.7); Basophil# 0.06 X10^3/uL; Basophil% 0.3 % (0-1); Eosinophil# 0.07 X10^3/uL; Eosinophils% 0.4 % (0-5); Hematocrit 40.4 % (40-54); Hemoglobin 12.4 g/dL (13.0-16.5); Lymphocyte # 1.64 X10^3/ul (0.83-4.51); Lymphocyte % 8.8 % (19-41); Mean Corp Hgb Conc 30.7 g/dL (32-36); Mean Platelet Vol. 9.6 fl (6.2-12.0); Monocyte# 0.87 X10^3/uL; Monocyte% 4.7 % (0-10); NRBC Flagged by Analyzer 0 % (0-5); Neutrophil # 15.84 X10^3/uL (2.7-7.7); Neutrophil % 85.4 % (47-70); Platelet Count 293 K/mm3 (150-450); RBC Distribution Width CV 14.4 % (11.6-14.6); RBC Distribution Width SD 45.6 fl (35.1-43.9); Red Blood Count 4.59 M/mm3 (4.6-6.2); White Blood Count 18.6 K/mm3 (4.4-11.0)
[2023-08-23 23:27] LABS: International Normalized Ratio 1.3; Prothrombin Time (Protime)PT. 15.7 SECONDS (11.7-14.9)
[2023-08-23 23:28] LABS: Partial Thromboplast Time 31.4 Seconds (24.1-36.2)
[2023-08-23 23:36] LABS: Anion Gap 8 (5-15); BUN 18 mg/dL (7-18); BUN/Creat Ratio 10.3 RATIO (10-20); Calcium,Total 8.6 mg/dL (8.5-10.1); Chloride 108 mmol/L (98-107); Creatinine, Serum 1.75 mg/dL (0.70-1.30); EST Glomerular Filtration Rate 41 mL/min (>60); Est Glom Filt Rate - Afr Amer 50 mL/min (>60); Estimated Creatinine Clearance 43.68 ml/min; Glucose 114 mg/dL (74-106); Potassium 4.1 mmol/L (3.5-5.1); Sodium Level 140 mmol/L (136-145)
[2023-08-23 23:38] VITALS: BP 125/83; PULSE 130; RESP 29; TEMP 39.8; O2SAT 92
--- NOTE | 2023-08-23 23:55 | CON.PCM.UR_ITS ---
HPI Consult Data Date of Consult: 08/23/23 HPI Narrative HPI Narrative: FRED ROUSE, is a 67 M who presents who is a chronic group home patient mental status is not known to me when he comes in here he is shaking uncontrollably unresponsive and he has blood coming from the meatus of was called in because catheter was traumatically removed by the patient about 24 hours ago reported that no urine output and patient came in emergency emergency room department attempted to place a Blel catheter but because of the traumatic removal of the prior catheter that was unable to. So I came in and at the bedside I did a flexible cystoscopy was able to get through what appeared to be a traumatic prostate injury from prior Bell catheter was able to navigate thro ugh the prostate and into the bladder and the bladder was severely distended. I then put a wire through the flexible cystoscope and then placed an 18 [place] tip catheter into the bladder. Once the catheter was then the urine was draining it was minimally bloody should be okay to drain the patient will be admitted for probably infection and UTI may be sepsis. Catheter can be kept in please unchanged catheter and then the group home will be allowed to change the catheter in 6 weeks. Okay to manually irrigate the catheter as necessary. [facility] Medical History Anxiety and depression CKD (chronic kidney disease), stage II Dementia Diabetes GERD (gastroesophageal reflux disease) History of GI bleed Hyperlipidemia Hypertension Obesity RODRI on CPAP Home Medications apixaban 5 mg tablet (Eliquis) 5 mg PO BID see pcp 11/11/22 [History Last Taken Unknown] aspirin 81 mg tablet,delayed release (Adult Low Dose Aspirin) 81 mg PO DAILY see pcp 11/11/22 [History Last Taken Unknown] atorvastatin 40 mg tablet 40 mg PO QHS see pcp 11/11/22 [History Last Taken Unknown] donepezil 10 mg tablet 5 mg PO QHS see pcp 11/11/22 [History Last Taken Unknown] duloxetine 20 mg capsule,delayed release 20 mg PO DAILY see pcp 11/11/22 [History Last Taken Unknown] insulin glargine 100 unit/mL (3 mL) subcutaneous pen 30 unit subcut .afternoon see pcp 11/11/22 [History Last Taken Unknown] loperamide 2 mg capsule (Anti-Diarrheal (loperamide)) 2 mg PO DAILY see pcp 11/11/22 [History Last Taken Unknown] medroxyprogesterone 5 mg tablet 5 mg PO .qohs see pcp 11/11/22 [History Last Taken Unknown] mirabegron 25 mg tablet,extended release 24 hr (Myrbetriq) 25 mg PO DAILY see pcp 11/11/22 [History Last Taken Unknown] omeprazole 20 mg capsule,delayed release 20 mg PO DAILY see pcp 11/11/22 [History Last Taken Unknown] acetaminophen 325 mg tablet 650 mg (2 x 325 mg) PO Q4H PRN PRN Fever, pain 1- 01/23 #0 tabs 11/14/22 [Rx Last Taken Unknown] insulin lispro 100 unit/mL subcutaneous pen (Humalog KwikPen (U-100) Insulin) See Protocol subcut ACHS see pcp #0 mL 11/14/22 [Rx Last Taken Unknown] benztropine 0.5 mg tablet 0.5 mg PO DAILY see pcp 07/04/23 [History Last Taken Unknown] dulaglutide 3 mg/0.5 mL subcutaneous pen injector (Trulicity) 3 mg subcut QWEEK see pcp 07/04/23 [History Last Taken Unknown] duloxetine 30 mg capsule,delayed release 30 mg PO DAILY see pcp 07/04/23 [History Last Taken Unknown] insulin lispro 100 unit/mL subcutaneous pen 5 unit subcut ACHS see pcp 07/04/23 [History Last Taken Unknown] melatonin 5 mg capsule 5 mg PO QHS see pcp 07/04/23 [History Last Taken Unknown] simethicone 80 mg chewable tablet (Gas Relief (simethicone)) 80 mg PO TID see pcp 07/04/23 [History Last Taken Unknown] tamsulosin 0.4 mg capsule 0.4 mg PO BID #0 caps 07/05/23 [Rx Last Taken Unknown] Allergy/AdvReac Type Severity Reaction Status Date / Time No Known Allergies Allergy Verified 07/03/23 19:31 Family History Mother Pulmonary disease Father CAD (coronary artery disease) Heart disease Hypertension Myocardial infarction Surgical History H/O cataract removal with insertion of prosthetic lens History of testicular surgery Social History housing: group home Smoking Status: Former smoker how long ago did patient quit smoking: Smoked as a teenager very minimally. alcohol intake: never substance use type: does not use Lab / Micro Data 08/23/23 23:09 08/23/23 23:09 Labs: Laboratory Results - last 24 hr 08/23/23 23:09: WBC 18.6 H, RBC 4.59 L, Hgb 12.4 L, Hct 40.4, MCV 88.0, MCH 27.0, MCHC 30.7 L, RDW Std Deviation 45.6 H, RDW Coeff of Tarik 14.4, Plt Count 293, MPV 9.6, Immature Gran % (Auto) 0.400, Neut % (Auto) 85.4 H, Lymph % (Auto) 8.8 L, Dunn % (Auto) 4.7, Eos % (Auto) 0.4, Baso % (Auto) 0.3, Absolute Neuts (auto) 15.8 H, Absolute Lymphs (auto) 1.64, Nucleated RBC % 0, PT 15.7 H, INR 1.3, APTT 31.4, Sodium 140, Potassium 4.1, Chloride 108 H, Carbon Dioxide 24.0, Anion Gap 8, BUN 18, Creatinine 1.75 H, Estim Creat Clear Calc 43.68, Est GFR (MDRD) Af Amer 50 L, Est GFR (MDRD) Non-Af 41 L, BUN/Creatinine Ratio 10.3, Glucose 114 H, Calcium 8.6
[2023-08-24] VITALS (20 sets, daily range): BP systolic 125–150; BP diastolic 79–115; PULSE 76–129; RESP 13–29; TEMP 36.2–39.8; O2SAT 92–100; BMI 26.5
[2023-08-24] MEDS: Acetaminophen 650 MG Suppository RC (00:20)
[2023-08-24] MEDS: Ceftriaxone 1 GM/50 ML BAG IV (00:23)
[2023-08-24 00:26] LABS: Mucous, Urine 0 SEEN /hpf (<or=2+)
[2023-08-24] MEDS: 0.9% Normal Saline (1000mL) 1,000 ML 999 ML IV ×3 (00:28→02:09)
[2023-08-24 00:32] LABS: Color, Urine Yellow (Yellow); Glucose, Dipstick Normal (Normal); Ketone-Dipstick 5 mg/dl (Negative); Leukocyte Esterase-Dipstick 500 /ul (Negative); Nitrite-Dipstick Negative (Negative); Occult Blood-Urine 250 /ul (Negative); Protein-Dipstick 100 mg/dl (Negative); Specific Gravity, Urine 1.015 (1.002-1.030); Urine Bilirubin Dipstick Negative (Negative); Urine Clarity Sl. Cloudy (Clear); Urine Urobilinogen Normal (Normal)
--- NOTE | 2023-08-24 00:40 | HP.PCM.HOS_ITS ---
[facility] - General General Date of Admission: 08/24/23 Date of Service: 08/24/23 Chief Complaint: Fever, Confusion and Urinary Retention. HPI Narrative FRED ROUSE, is a 67 M with a past medical history of essential hypertension, hyperlipidemia, obesity; with BMI of 30.6 this admission, RODRI; on CPAP, DM-2; of unknown control, history of X; on Apixaban, history of GI Bleed, CKD; stage II, GERD, depression with anxiety, chronic dementia; with patient A&Ox1 at baseline and BPH; with chronic indwelling Bell that he inadvertently ripped out y esterday with severe urine retention since that time who presents to [facility] ER complaining of fever, confusion and urinary retention. Mr. Rouse is not a reliable historian at this time so information was gathered from chart, medical staff and computer. According to the records he ripped out his Bell catheter yesterday and though it was replaced it seems to have not been in good position with patient found to have ~1L of urine in his bladder on ultrasound. The ER consulted Dr. Oseguera of urology to re-place the Bell with good result and with his help greatly appreciated. Unfortunately, the patient was showing several signs of UTI; with microscopic hematuria after Bell trauma with subsequent sepsis: with fever of 103.6, tachycardic @ 129 bpm, leukocytosis of 18.6 this admission and lactic acidosis of 4.7 mmol/L this admission complicated by DIMITRI; with elevated serum creatinine of 1.75 mg/dL present on admission (up from his baseline of 1.23 mg/dL one week ago) compounded by acute metabolic encephalopathy in the setting of chronic dementia and he was then admitted to the ICU for treatment under the sepsis protocol for a stay that is expected to be greater than 2 midnights. [facility] Medical History Anxiety and depression CKD (chronic kidney disease), stage II Dementia Diabetes GERD (gastroesophageal reflux disease) History of GI bleed Hyperlipidemia Hypertension Nephropathy, obstructive Obesity RODRI on CPAP Home Medications apixaban 5 mg tablet (Eliquis) 5 mg PO BID see pcp 11/11/22 [History Last Taken Unknown] aspirin 81 mg tablet,delayed release (Adult Low Dose Aspirin) 81 mg PO DAILY see pcp 11/11/22 [History Last Taken Unknown] atorvastatin 40 mg tablet 40 mg PO QHS see pcp 11/11/22 [History Last Taken Unknown] donepezil 10 mg tablet 5 mg PO QHS see pcp 11/11/22 [History Last Taken Unknown] duloxetine 20 mg capsule,delayed release 20 mg PO DAILY see pcp 11/11/22 [History Last Taken Unknown] insulin glargine 100 unit/mL (3 mL) subcutaneous pen 30 unit subcut .afternoon see pcp 11/11/22 [History Last Taken Unknown] loperamide 2 mg capsule (Anti-Diarrheal (loperamide)) 2 mg PO DAILY see pcp 11/11/22 [History Last Taken Unknown] medroxyprogesterone 5 mg tablet 5 mg PO .qohs see pcp 11/11/22 [History Last Taken Unknown] omeprazole 20 mg capsule,delayed release 20 mg PO DAILY see pcp 11/11/22 [History Last Taken Unknown] acetaminophen 325 mg tablet 650 mg (2 x 325 mg) PO Q4H PRN PRN Fever, pain - 01/23 #0 tabs 11/14/22 [Rx Last Taken Unknown] benztropine 0.5 mg tablet 0.5 mg PO DAILY see pcp 07/04/23 [History Last Taken Unknown] duloxetine 30 mg capsule,delayed release 30 mg PO DAILY see pcp 07/04/23 [History Last Taken Unknown] insulin lispro 100 unit/mL subcutaneous pen 5 unit subcut ACHS see pcp 07/04/23 [History Last Taken Unknown] melatonin 5 mg capsule 5 mg PO QHS see pcp 07/04/23 [History Last Taken Unknown] tamsulosin 0.4 mg capsule 0.4 mg PO BID #0 caps 07/05/23 [Rx Last Taken Unknown] donepezil 5 mg tablet 5 mg PO QHS 08/24/23 [History Last Taken Unknown] exenatide microspheres 2 mg/0.85 mL subcutaneous auto-injector (Bydureon BCise) 2 mg subcut QWEEK 08/24/23 [History Last Taken Unknown] insulin glargine 100 unit/mL (3 mL) subcutaneous pen (Basaglar KwikPen U-100 Insulin) 34 unit subcut DAILY 08/24/23 [History Last Taken Unknown] insulin lispro 100 unit/mL subcutaneous pen (Humalog KwikPen (U-100) Insulin) 1 sliding scale dose subcut ACHS see pcp 08/24/23 [History Last Taken Unknown] Allergy/AdvReac Type Severity Reaction Status Date / Time No Known Allergies Allergy Verified 07/03/23 19:31 Family History Mother Pulmonary disease Father CAD (coronary artery disease) Heart disease Hypertension Myocardial infarction Surgical History H/O cataract removal with insertion of prosthetic lens History of testicular surgery Social History housing: [facility] Smoking Status: Former smoker how long ago did patient quit smoking: Smoked as a teenager very minimally. alcohol intake: never substance use type: does not use ROS ROS Narrative Patient is confused and lethargic due to sepsis in the setting of chronic dementia with acute metabolic encephalopathy and therefore cannot complete review of systems at this time. Vital Signs Vital Signs Vital Signs: 08/23/23 22:37 08/23/23 22:38 08/23/23 23:38 Temperature 99.4 F H 99.4 F H 103.6 F H Temperature Source Oral Oral Axillary Pulse Rate 94 97 130 H Respiratory Rate 20 H 20 H 29 H Blood Pressure 132/80 H 132/80 H 125/83 H Blood Pressure Mean 97 97 97 Pulse Ox 96 97 92 Oxygen Delivery Method Room Air Room Air Nasal Cannula Oxygen Flow Rate (L/min) 2 08/24/23 00:00 Temperature 103.6 F H Temperature Source Axillary Pulse Rate 129 H Respiratory Rate 29 H Blood Pressure 125/89 H Blood Pressure Mean 101 Pulse Ox 92 Oxygen Delivery Method Nasal Cannula Oxygen Flow Rate (L/min) 2 Weight Weight: 201 lb 0.985 oz Body Mass Index (BMI) 30.5 Physical Exam Const alert Constitutional Narrative: Patient is alert but confused. General Appearance: cooperative Orientation / Consciousness: confused HEENT normocephalic, head/scalp atraumatic and hearing grossly normal bilaterally HEENT Narrative: Mucous membranes dry. Eyes PERRL and EOMs intact bilaterally Neck no lymphadenopathy and supple Resp normal respiratory effort, no retractions, no use of accessory muscles and clear to auscultation bilaterally Cardio regular rate and regular rhythm GI normal to inspection, nondistended, normoactive bowel sounds, soft to palpation, non-tender and non-distended Extremity normal to inspection, full ROM and no clubbing, cyanosis or edema Skin Skin Narrative: Patient has no evidence of jaundice or rash. Neuro CN's II-XII intact bilaterally, moves all extremities and no focal motor deficits Sensorium / Orientation: awake, alert and oriented to person Speech: speech normal Psych affect normal Results Medical Records Data Attestation: I reviewed the patient's medical records Lab / Micro Data Attestation: I reviewed the patient's lab results. 08/24/23 04:25 08/24/23 04:25 Labs: Laboratory Results - last 24 hr 08/23/23 23:09: WBC 18.6 H, RBC 4.59 L, Hgb 12.4 L, Hct 40.4, MCV 88.0, MCH 27.0, MCHC 30.7 L, RDW Std Deviation 45.6 H, RDW Coeff of Tarik 14.4, Plt Count 293, MPV 9.6, Immature Gran % (Auto) 0.400, Neut % (Auto) 85.4 H, Lymph % (Auto) 8.8 L, [place] % (Auto) 4.7, Eos % (Auto) 0.4, Baso % (Auto) 0.3, Absolute Neuts (auto) 15.8 H, Absolute Lymphs (auto) 1.64, Nucleated RBC % 0, PT 15.7 H, INR 1.3, APTT 31.4, Sodium 140, Potassium 4.1, Chloride 108 H, Carbon Dioxide 24.0, Anion Gap 8, BUN 18, Creatinine 1.75 H, Estim Creat Clear Calc 43.68, Est GFR (MDRD) Af Amer 50 L, Est GFR (MDRD) Non-Af 41 L, BUN/Creatinine Ratio 10.3, Glucose 114 H, Calcium 8.6 Assessment & Plan Assessment/Plan (1) Sepsis: QUALIFIERS: Sepsis acute organ dysfunction status: with acute organ dysfunction Sepsis type: sepsis due to unspecified organism Severe sepsis acute organ dysfunction type: encephalopathy Severe sepsis shock status: without septic shock Qualified Code(s): A41.9 - Sepsis, unspecified organism; R65.20 - Severe sepsis without septic shock; G93.41 - Metabolic encephalopathy (2) Acute cystitis with hematuria: (3) Bell catheter problem: QUALIFIERS: Encounter type: initial encounter Qualified Code(s): T83.9XXA - Unspecified complication of genitourinary prosthetic device, implant and graft, initial encounter (4) DIMITRI (acute kidney injury): (5) Lactic acidosis: (6) Hypophosphatasia: (7) Metabolic encephalopathy: (8) Chronic dementia: (9) Urinary retention: PLAN: Plan 1. Sepsis due to acute cystitis; microscopic hematuria and Lactic Acidosis of 4.7 mmol/L present on admission in the setting of recent inadvertent traumatic Bell removal with subsequent urinary retention - Admit to ICU for treatment under the sepsis protocol. Continue empiric IV Rocephin begun in the ER and await culture and sensitivity data. Serialize lactate. Follow strict I's & O's. Give Tylenol prn pain or fever. 2. Suspected DIMITRI; in the setting of CKD; stage II with elevated serum creatinine of 1.75 mg/dL present on admission (up from his baseline of 1.23 mg/dL one week ago) complicating #1 - Volume resuscitate and then recheck BMP in the AM to ensure improvement. 3. Acute metabolic encephalopathy in the setting of chronic dementia arising from #1 & #2 - Continue supportive care outlined above and monitor for improvement. Minimize DIPLOMA MAKER-active medications. Check TSH, B12, folate and UDS to evaluate for potential reversible causes of confusion. 4. Hypophosphatemia of 1.6 mmol/L present on admission compounding #1 - #3 - Supplemental phosphorus ordered with level to be rechecked after repletion to confirm normalization. 5. History of PAF; on Apixaban - Hold Apixaban until infection and elevated bleeding risk after recent Bell trauma resolves. 6. Essential hypertension - Hold scheduled antihypertensives until infection o utlined above has been neutralized. 7. Hyperlipidemia - Resume statin. 8. Obesity; with BMI of 30.6 this admission - Weight loss will be recommended. 9. RODRI; on CPAP - Resume nocturnal CPAP as previous. 10. DM-2; of unknown control - ADA diet. FSBS q. AC/HS plus SSI. Check HgbA1c to objectively evaluate quality of diabetic control. 11. History of GI Bleed - Stable with no evidence of recurrence at this time. 12. GERD - Resume PPI as previous. 13. Depression with anxiety - Continue home regimen. 14. DVT prophylaxis - SCD's only with recent Bell trauma. Total time: Approximately 85 minutes. Update: With leukocytosis increasing from 18.6 present on admission up to 27.2 IV Rocephin was stopped and patient was started on broadened coverage IV Zosyn plus IV Levaquin to double-cover Gram-negatives. His serum creatinine also decreased to 1.33 mg/dL after initial round of treatment confirming acute renal impairment. Sepsis Attestation Sepsis Alert: Yes Sepsis Attestation: Agree w/Sepsis Date exam was performed: 08/24/23 Time exam was performed: 01:00 Possible Source of Sepsis: Genitourinary Sepsis Organ Dysfunction Criteria Present: Lactic Acid > 2 mmol/L and New/Unexplained change in mental status Fluid Resuscitation Fluid resuscitation indicated?: Yes Fluid Resuscitation ordered: 30 ml/kg fluid bolus ordered Amount of fluid ordered: 3 Sepsis Note Date exam was performed: 08/24/23 Time exam was performed: 05:00 Sepsis Attestation: Sepsis re-evaluation was performed Response to fluids: Fluid responsive hypotension Charges/Coding Visit Charges Inpatient E&M: 30238 Init Hosp L3
[2023-08-24 00:59] LABS: Bacteria 4+ /hpf (None Seen); Red Blood Cells-Urine 5-10 SEEN /hpf (0-5); Squamous Epithelial Cells - UA 0-5 SEEN /hpf (0-5); White Blood Cells 10-25 SEEN /hpf (0-5)
--- NOTE | 2023-08-24 01:15 | EX.ED.DYSGE1 ---
HPI History of Present Illness Chief Complaint: Complaint Informant: EMS and SNF Narrative Narrative: Patient is a 67-year-old male from the alf with past medical history of dementia as well as chronic urinary retention with indwelling Bell catheter. According to alf staff he is A&O x 1 at baseline. shelter states that he got up in the middle of the night yesterday and caught his catheter on a piece of furniture and dislodged the catheter. They state they replaced the catheter during the day on but noticed that there was no output. Secondary to this they remove the catheter and patient had persistent bleeding from the penis and therefore he was sent to the hospital for evaluation. Based on his history of dementia he cannot offer any further history [facility] Medical History Anxiety and depression CKD (chronic kidney disease), stage II Dementia Diabetes GERD (gastroesophageal reflux disease) History of GI bleed Hyperlipidemia Hypertension Nephropathy, obstructive Obesity RODRI on CPAP Home Medications apixaban 5 mg tablet (Eliquis) 5 mg PO BID see pcp 11/11/22 [History Last Taken Unknown] aspirin 81 mg tablet,delayed release (Adult Low Dose Aspirin) 81 mg PO DAILY see pcp 11/11/22 [History Last Taken Unknown] atorvastatin 40 mg tablet 40 mg PO QHS see pcp 11/11/22 [History Last Taken Unknown] donepezil 10 mg tablet 5 mg PO QHS see pcp 11/11/22 [History Last Taken Unknown] duloxetine 20 mg capsule,delayed release 20 mg PO DAILY see pcp 11/11/22 [History Last Taken Unknown] insulin glargine 100 unit/mL (3 mL) subcutaneous pen 30 unit subcut .afternoon see pcp 11/11/22 [History Last Taken Unknown] loperamide 2 mg capsule (Anti-Diarrheal (loperamide)) 2 mg PO DAILY see pcp 11/11/22 [History Last Taken Unknown] medroxyprogesterone 5 mg tablet 5 mg PO .qohs see pcp 11/11/22 [History Last Taken Unknown] omeprazole 20 mg capsule,delayed release 20 mg PO DAILY see pcp 11/11/22 [History Last Taken Unknown] acetaminophen 325 mg tablet 650 mg (2 x 325 mg) PO Q4H PRN PRN Fever, pain 1-01/23 #0 tabs 11/14/22 [Rx Last Taken Unknown] benztropine 0.5 mg tablet 0.5 mg PO DAILY see pcp 07/04/23 [History Last Taken Unknown] duloxetine 30 mg capsule,delayed release 30 mg PO DAILY see pcp 07/04/23 [History Last Taken Unknown] insulin lispro 100 unit/mL subcutaneous pen 5 unit subcut ACHS see pcp 07/04/23 [History Last Taken Unknown] melatonin 5 mg capsule 5 mg PO QHS see pcp 07/04/23 [History Last Taken Unknown] tamsulosin 0.4 mg capsule 0.4 mg PO BID #0 caps 07/05/23 [Rx Last Taken Unknown] donepezil 5 mg tablet 5 mg PO QHS 08/24/23 [History Last Taken Unknown] exenatide microspheres 2 mg/0.85 mL subcutaneous auto-injector (Bydureon BCise) 2 mg subcut QWEEK 08/24/23 [History Last Taken Unknown] insulin glargine 100 unit/mL (3 mL) subcutaneous pen (Basaglar KwikPen U-100 Insulin) 34 unit subcut DAILY 08/24/23 [History Last Taken Unknown] insulin lispro 100 unit/mL subcutaneous pen (Humalog KwikPen (U-100) Insulin) 1 sliding scale dose subcut ACHS see pcp 08/24/23 [History Last Taken Unknown] Allergy/AdvReac Type Severity Reaction Status Date / Time No Known Allergies Allergy Verified 07/03/23 19:31 Family History Mother Pulmonary disease Father CAD (coronary artery disease) Heart disease Hypertension Myocardial infarction Surgical History H/O cataract removal with insertion of prosthetic lens History of testicular surgery Social History housing: alf Smoking Status: Former smoker how long ago did patient quit smoking: Smoked as a teenager very minimally. alcohol intake: never substance use type: does not use ROS ROS ED ROS Narrative Unable to obtain review of systems as patient has dementia Review of Systems ROS Unobtainable: due to mental status EXAM Physical Exam Const Vital Signs: 08/23/23 22:37 08/23/23 22:38 08/23/23 23:38 Temperature 99.4 F H 99.4 F H 103.6 F H Temperature Source Oral Oral Axillary Pulse Rate 94 97 130 H Respiratory Rate 20 H 20 H 29 H Blood Pressure 132/80 H 132/80 H 125/83 H Blood Pressure Mean 97 97 97 Pulse Ox 96 97 92 Oxygen Delivery Method Room Air Room Air Nasal Cannula Oxygen Flow Rate (L/min) 2 08/24/23 00:00 08/24/23 01:00 08/24/23 01:25 Temperature 103.6 F H 102.3 F H 102.8 F H Temperature Source Axillary Axillary Pulse Rate 129 H 112 H 111 H Respiratory Rate 29 H 28 H 23 H Blood Pressure 125/89 H 138/95 H 140/90 H Blood Pressure Mean 101 109 106 Pulse Ox 92 94 96 Oxygen Delivery Method Nasal Cannula Nasal Cannula Oxygen Flow Rate (L/min) 2 3 08/24/23 02:00 Temperature 102.8 F H Temperature Source Axillary Pulse Rate 107 H Respiratory Rate 27 H Blood Pressure 138/94 H Blood Pressure Mean 108 Pulse Ox 97 Oxygen Delivery Method Nasal Cannula Oxygen Flow Rate (L/min) 2 Positive well nourished, well developed and obese General Appearance ED: well developed; Negative for pallor Nutritional Appearance: obese HEENT HEENT Narrative: Normocephalic atraumatic Eyes PERRL and EOMs intact bilaterally General Eye ED: Negative for scleral icterus Neck supple Neck Narrative: No nuchal rigidity or meningeal signs Chest Wall palpation of chest normal Chest Narrative: No bony deformity or crepitance Resp Resp Narrative: Breath sounds are diminished but overall clear to auscultation Patient has tachypnea without nasal flaring retractions or accessory muscle use Cardio regular rhythm Rate: tachycardic and other Other Details: Tachycardic rate with regular rhythm Radial and carotid pulses are equal and symmetric GI GI Narrative: There is organomegaly/distention in the suprapubic/lower midline abdomen consistent with a distended bladder. There is pain on palpation at this site but the remainder the exam is soft and nontender Auscultation: normoactive bowel sounds Palpation: soft Narrative: Normal circumcised male. There is dried blood with mild ooze of dark red blood from the urethral meatus. No purulent discharge noted. No testicular swelling or masses. No soft tissue changes to suggest Kristopher's gangrene. Extremity normal to inspection Neuro CN's II-XII intact bilaterally Neuro Narrative: Patient is at his baseline mental status without focal neurologic deficit Sensorium / Orientation: orientation impaired Skin no rashes or lesions noted General Skin Exam: Negative for jaundice or pallor MDM MDM MDM Narrative Medical decision making narrative: Patient arrived to the ER at his baseline mental status and with dementia cannot offer any further history. Based on nursing report there is concern for acute urinary retention as well as potential infection. Differential diagnosis is for UTI versus urosepsis versus acute kidney injury versus acute blood loss anemia. A Bell catheter was attempted to be placed upon arrival secondary to bladder scan showing greater than 999 mL in the urinary bladder. Despite trying to place a Bell catheter we were unsuccessful. Therefore urology was consulted and came to the hospital and placed a catheter into the patient. The urine sample that resulted have +4 bacteria without contamination and he does have an elevated white blood cell count concerning for infection. The urine was sent for culture and on repeat evaluation the patient has now spiked a fever so he was given rectal Tylenol and with his elevated white count and source of infection he now qualifies as sepsis. Blood cultures were obtained he was started on Rocephin secondary to the UTI and given 30 mL/kg fluid bolus. Medicine was then contacted and they do agree to keep the patient to the ICU for further care Lab Data Attestation: I reviewed the patient's lab results. Labs: Laboratory Results - last 24 hr 08/23/23 08/24/23 23:09 00:14 WBC 18.6 H RBC 4.59 L Hgb 12.4 L Hct 40.4 MCV 88.0 MCH 27.0 MCHC 30.7 L RDW Std Deviation 45.6 H RDW Coeff of Tarik 14.4 Plt Count 293 MPV 9.6 Immature Gran % (Auto) 0.400 Neut % (Auto) 85.4 H Lymph % (Auto) 8.8 L [place] % (Auto) 4.7 Eos % (Auto) 0.4 Baso % (Auto) 0.3 Absolute Neuts (auto) 15.8 H Absolute Lymphs (auto) 1.64 Nucleated RBC % 0 PT 15.7 H INR 1.3 APTT 31.4 Sodium 140 Potassium 4.1 Chloride 108 H Carbon Dioxide 24.0 Anion Gap 8 BUN 18 Creatinine 1.75 H Estim Creat Clear Calc 43.68 Est GFR (MDRD) Af Amer 50 L Est GFR (MDRD) Non-Af 41 L BUN/Creatinine Ratio 10.3 Glucose 114 H Lactic Acid 4.7 H* Calcium 8.6 Folate 15.00 TSH 1.57 Urine Color Yellow Urine Clarity Sl. Cloudy Urine pH 5.0 Ur Specific [place] 1.015 Urine Protein 100 H Urine Glucose (UA) Normal Urine Ketones 5 H Urine Occult Blood 250 H Urine Nitrite Negative Urine Bilirubin Negative Urine Urobilinogen Normal Ur Leukocyte Esterase 500 H Urine RBC 5-10 SEEN Urine WBC 10-25 SEEN Ur Squamous Epith Cells 0-5 SEEN Urine Bacteria 4+ Urine Mucus 0 SEEN Management Discussion w/another healthcare provider: Hospitalist and [employer] Discharge Plan Dx/Rx/DC Orders Clinical Impression: Sepsis, Acute cystitis with hematuria, Bell catheter problem, Urinary retention, Current use of half-way anticoagulation Disposition Disposition: [facility] Discharge Date/Time: 08/24/23 02:31
[2023-08-24 01:34] LABS: Lactic Acid 4.7 mmol/L (0.4-1.9)
[2023-08-24 01:56] LABS: Thyroid Stim Hormone (TSH) 1.57 uIU/mL (0.358-3.74)
[2023-08-24] MEDS: 0.9% Normal Saline (1000mL) 1,000 ML 75 ML IV ×2 (03:04→14:45)
[2023-08-24 04:23] LABS: Reflex Lactate? Y
[2023-08-24 04:38] LABS: Absolute Lymphocyte Count 0.76 X10^3/uL (0.83-4.51); Absolute Neutrophil Count 24.4 X10^3/uL (2.0-7.7); Basophil# 0.06 X10^3/uL; Basophil% 0.2 % (0-1); Hemoglobin 11.1 g/dL (13.0-16.5); Lymphocyte # 0.76 X10^3/ul (0.83-4.51); Lymphocyte % 2.8 % (19-41); Mean Corp Hgb Conc 31.7 g/dL (32-36); Mean Corpuscular Hgb 27.5 pg (27.0-32.0); Mean Corpuscular Volume 86.8 fL (80-94); Mean Platelet Vol. 9.9 fl (6.2-12.0); Monocyte# 1.72 X10^3/uL; Monocyte% 6.3 % (0-10); NRBC Flagged by Analyzer 0 % (0-5); Neutrophil # 24.41 X10^3/uL (2.7-7.7); Neutrophil % 89.8 % (47-70); POSITIVE DIFFERENTIAL YES; Platelet Count 245 K/mm3 (150-450); RBC Distribution Width CV 14.4 % (11.6-14.6); RBC Distribution Width SD 46.1 fl (35.1-43.9); Red Blood Count 4.03 M/mm3 (4.6-6.2); White Blood Count 27.2 K/mm3 (4.4-11.0)
[2023-08-24 04:39] LABS: Differential Indicated SCAN CRITERIA MET
[2023-08-24 05:00] LABS: Vitamin B12 368 pg/mL (211-911)
[2023-08-24 05:01] LABS: ALB/GLOB Ratio 0.8 RATIO (0.9-2.4); AST(SGOT) 13 U/L (15-37); Alanine Aminotransfer ALT/SGPT 23 U/L (16-61); Albumin, Serum 2.8 g/dL (3.2-5.0); Alkaline Phosphatase 73 U/L (45-117); Anion Gap 5 (5-15); BUN 14 mg/dL (7-18); BUN/Creat Ratio 10.5 RATIO (10-20); Calcium,Total 7.8 mg/dL (8.5-10.1); Chloride 113 mmol/L (98-107); Creatinine, Serum 1.33 mg/dL (0.70-1.30); EST Glomerular Filtration Rate 57 mL/min (>60); Est Glom Filt Rate - Afr Amer 68 mL/min (>60); Estimated Creatinine Clearance 55.83 ml/min; Globulin 3.3 g/dL (2.2-4.2); Glucose 130 mg/dL (74-106); Magnesium 1.7 mg/dL (1.6-2.6); Phosphorus 1.6 mg/dL (2.5-4.9); Potassium 3.3 mmol/L (3.5-5.1); Protein, Total 6.1 g/dL (6.4-8.2); Sodium Level 141 mmol/L (136-145)
[2023-08-24 05:32] LABS: Differential Comment SCANNED
[2023-08-24] MEDS: Piperacil/Tazobactam 3.375 GM in 0.9% Normal Saline (50mL MB+) 50 ML IV ×3 (06:22→22:22)
[2023-08-24] MEDS: Potassium Phosphate 40 MM in 0.9% Normal Saline (500mL Bag) 500 ML 62.5 MM IV (06:22)
[2023-08-24 06:41] LABS: Bedside Glucose 126 mg/dL (74-106)
[2023-08-24 07:06] LABS: Lactic Acid 2.8 mmol/L (0.4-1.9)
--- NOTE | 2023-08-24 07:13 | EX.PCM.CONCC ---
Assessment & Plan Assessment/Plan (1) Sepsis: QUALIFIERS: Sepsis type: sepsis due to unspecified organism Sepsis acute organ dysfunction status: with acute organ dysfunction Severe sepsis acute organ dysfunction type: encephalopathy Severe sepsis shock status: without septic shock Qualified Code(s): A41.9 - Sepsis, unspecified organism; R65.20 - Severe sepsis without septic shock; G93.41 - Metabolic encephalopathy PLAN: Plan RECOMMENDATIONS: 1. Continue antimicrobial therapy. 2. Gentle IV fluid hydration. 3. Encourage incentive spirometer use and mobilize patient as tolerated. 4. If the patient remains clinically stable throughout the day, he can be transferred out of the medical intensive care unit. IMPRESSIONS: 1. Sepsis The patient presented to the hospital with sepsis due to probable urinary tract source of infection with acute sepsis related organ dysfunction as evidenced by lactic acidemia. The patient remains hemodynamically stable on appropriate broad-spectrum antimicrobial therapy. Continue supportive care, pending finalized culture results. 2. DIMITRI on CKD Most likely prerenal in etiology. Renal function has improved with volume expansion. Continue to monitor urine output. No current indication for renal replacement therapy. 3. History of paroxysmal atrial fibrillation/obesity/RODRI on CPAP/diabetes mellitus/hyperlipidemia Complicates care, management, recovery and prognosis. Resume PAP therapy per home regimen with sleep. This note was generated with [employer] dictation software. It may contain incorrect words, spelling, and punctuation that were not noted in checking the note before signing. HPI Consult Data Date of Consult: 08/24/23 HPI Narrative Reason for Consultation: Sepsis HPI Narrative: The patient is a 67-year-old male, with a history as outlined below, who presented to the emergency department on August 22 with urinary retention, fever and altered mentation. The patient has a medical history significant for obstructive sleep apnea on PAP therapy, chronic kidney disease, dementia and BPH with chronic indwelling Bell catheter. The patient had traumatically pulled out his Bell catheter 24 hours prior to his arrival to the emergency department. The patient is a poor historian and not able to provide any details pertinent to his hospitalization. On presentation to the emergency department, the patient was documented to be febrile, tachycardic and tachypneic. However, he was otherwise hemodynamically stable. Initial laboratory evaluation revealed an elevated white blood cell count to 19,000. Chemistry profile was notable for a creatinine of 1.75. Lactate was elevated at 4.7. Urine analysis was positive for leukocyte esterase and 4+ urine bacteria. Blood and urine cultures were collected. The patient received supplemental IV fluid hydration and was initiated on antimicrobial therapy. Ultimately, the patient's Bell catheter was replaced with the assistance of urology. [facility] Medical History Anxiety and depression CKD (chronic kidney disease), stage II Dementia Diabetes GERD (gastroesophageal reflux disease) History of GI bleed Hyperlipidemia Hypertension Nephropathy, obstructive Obesity RODRI on CPAP Home Medications apixaban 5 mg tablet (Eliquis) 5 mg PO BID see pcp 11/11/22 [History Last Taken Unknown] aspirin 81 mg tablet,delayed release (Adult Low Dose Aspirin) 81 mg PO DAILY see pcp 11/11/22 [History Last Taken Unknown] atorvastatin 40 mg tablet 40 mg PO QHS see pcp 11/11/22 [History Last Taken Unknown] donepezil 10 mg tablet 5 mg PO QHS see pcp 11/11/22 [History Last Taken Unknown] duloxetine 20 mg capsule,delayed release 20 mg PO DAILY see pcp 11/11/22 [History Last Taken Unknown] insulin glargine 100 unit/mL (3 mL) subcutaneous pen 30 unit subcut .afternoon see pcp 11/11/22 [History Last Taken Unknown] loperamide 2 mg capsule (Anti-Diarrheal (loperamide)) 2 mg PO DAILY see pcp 11/11/22 [History Last Taken Unknown] medroxyprogesterone 5 mg tablet 5 mg PO .qohs see pcp 11/11/22 [History Last Taken Unknown] omeprazole 20 mg capsule,delayed release 20 mg PO DAILY see pcp 11/11/22 [History Last Taken Unknown] acetaminophen 325 mg tablet 650 mg (2 x 325 mg) PO Q4H PRN PRN Fever, pain 1-01/23 #0 tabs 11/14/22 [Rx Last Taken Unknown] benztropine 0.5 mg tablet 0.5 mg PO DAILY see pcp 07/04/23 [History Last Taken Unknown] duloxetine 30 mg capsule,delayed release 30 mg PO DAILY see pcp 07/04/23 [History Last Taken Unknown] insulin lispro 100 unit/mL subcutaneous pen 5 unit subcut ACHS see pcp 07/04/23 [History Last Taken Unknown] melatonin 5 mg capsule 5 mg PO QHS see pcp 07/04/23 [History Last Taken Unknown] tamsulosin 0.4 mg capsule 0.4 mg PO BID #0 caps 07/05/23 [Rx Last Taken Unknown] donepezil 5 mg tablet 5 mg PO QHS 08/24/23 [History Last Taken Unknown] exenatide microspheres 2 mg/0.85 mL subcutaneous auto-injector (Bydureon BCise) 2 mg subcut QWEEK 08/24/23 [History Last Taken Unknown] insulin glargine 100 unit/mL (3 mL) subcutaneous pen (Basaglar KwikPen U-100 Insulin) 34 unit subcut DAILY 08/24/23 [History Last Taken Unknown] insulin lispro 100 unit/mL subcutaneous pen (Humalog KwikPen (U-100) Insulin) 1 sliding scale dose subcut ACHS see pcp 08/24/23 [History Last Taken Unknown] Allergy/AdvReac Type Severity Reaction Status Date / Time No Known Allergies Allergy Verified 07/03/23 19:31 Family History Mother Pulmonary disease Father CAD (coronary artery disease) Heart disease Hypertension Myocardial infarction Surgical History H/O cataract removal with insertion of prosthetic lens History of testicular surgery Social History housing: halfway Smoking Status: Former smoker how long ago did patient quit smoking: Smoked as a teenager very minimally. alcohol intake: never substance use type: does not use ROS Review of Systems ROS Unobtainable: due to mental status Physical Exam Const alert and no apparent distress Constitutional Narrative: Baseline confusion present. General Appearance: cooperative HEENT normocephalic and head/scalp atraumatic Eyes PERRL, EOMs intact bilaterally and conjunctivae normal Neck supple General: trachea midline Chest inspection of chest normal Resp normal respiratory effort Auscultation: Negative for rales, rhonchi or wheezes Cardio regular rate and regular rhythm GI normal to inspection, nondistended, normoactive bowel sounds Extremity no clubbing, cyanosis or edema Skin no rashes or lesions noted Neuro CN's II-XII intact bilaterally and no focal motor deficits Psych Mood & Affect: flat affect Lab / Micro Data 08/24/23 04:25 08/24/23 04:25 Labs: Laboratory Results - last 24 hr 08/23/23 23:09: WBC 18.6 H, RBC 4.59 L, Hgb 12.4 L, Hct 40.4, MCV 88.0, MCH 27.0, MCHC 30.7 L, RDW Std Deviation 45.6 H, RDW Coeff of Tarik 14.4, Plt Count 293, MPV 9.6, Immature Gran % (Auto) 0.400, Neut % (Auto) 85.4 H, Lymph % (Auto) 8.8 L, [place] % (Auto) 4.7, Eos % (Auto) 0.4, Baso % (Auto) 0.3, Absolute Neuts (auto) 15.8 H, Absolute Lymphs (auto) 1.64, Nucleated RBC % 0, PT 15.7 H, INR 1.3, APTT 31.4, Sodium 140, Potassium 4.1, Chloride 108 H, Carbon Dioxide 24.0, Anion Gap 8, BUN 18, Creatinine 1.75 H, Estim Creat Clear Calc 43.68, Est GFR (MDRD) Af Amer 50 L, Est GFR (MDRD) Non-Af 41 L, BUN/Creatinine Ratio 10.3, Glucose 114 H, Calcium 8.6, Folate 15.00, TSH 1.57 08/24/23 00:14: Lactic Acid 4.7 H*, Urine Color Yellow, Urine Clarity Sl. Cloudy, Urine pH 5.0, Ur Specific [place] 1.015, Urine Protein 100 H, Urine Glucose (UA) Normal, Urine Ketones 5 H, Urine Occult Blood 250 H, Urine Nitrite Negative, Urine Bilirubin Negative, Urine Urobilinogen Normal, Ur Leukocyte Esterase 500 H, Urine RBC 5-10 SEEN, Urine WBC 10-25 SEEN, Ur Squamous Epith Cells 0-5 SEEN, Urine Bacteria 4+, Urine Mucus 0 SEEN 08/24/23 04:25: WBC 27.2 H, RBC 4.03 L, Hgb 11.1 L, Hct 35.0 L, MCV 86.8, MCH 27.5, MCHC 31.7 L, RDW Std Deviation 46.1 H, RDW Coeff of Tarik 14.4, Plt Count 245, MPV 9.9, Immature Gran % (Auto) 0.900, Neut % (Auto) 89.8 H, Lymph % (Auto) 2.8 L, [place] % (Auto) 6.3, Eos % (Auto) 0.0, Baso % (Auto) 0.2, Absolute Neuts (auto) 24.4 H, Absolute Lymphs (auto) 0.76 L, Nucleated RBC % 0, Differential Comment SCANNED, Diff Path Review August, Sodium 141, Potassium 3.3 L, Chloride 113 H, Carbon Dioxide 23.0, Anion Gap 5, BUN 14, Creatinine 1.33 H, Estim Creat Clear Calc 55.83, Est GFR (MDRD) Af Amer 68, Est GFR (MDRD) Non-Af 57 L, BUN/Creatinine Ratio 10.5, Glucose 130 H, Calcium 7.8 L, Phosphorus 1.6 L, Magnesium 1.7, Total Bilirubin 0.40, AST 13 L, ALT 23, Alkaline Phosphatase 73, Total Protein 6.1 L, Albumin 2.8 L, Globulin 3.3, Albumin/Globulin Ratio 0.8 L, Vitamin B12 368 08/24/23 06:00: POC Glucose 126 H 08/24/23 06:20: Lactic Acid 2.8 H* Charges/Coding Visit Charges Inpatient E&M: 88322 Init Hosp L3
--- NOTE | 2023-08-24 09:18 | CASEMGMT ---
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 SW sent updates to [facility] and also asked if patient will need a pre-cert to return. SW will also clarify with family that the plan is to return. Judith COLON
--- NOTE | 2023-08-24 09:48 | CASEMGMT ---
Per CC patient does not need a pre-cert to return to [facility]. Plan: d/c back to [facility] under intermediate level of care, unless patient's family does not want patient to return to [facility]. SW to talk with family. Judith Sorensen [employer] ISAIAH
[2023-08-24] MEDS: Loperamide 2 MG Capsule PO (09:50)
[2023-08-24] MEDS: Vibegron 75 MG TABLET PO (09:50)
[2023-08-24] MEDS: Lactobacillis Acidophilus 2 CAP PO ×2 (09:50→22:23)
[2023-08-24] MEDS: DULoxetine Hcl 20 MG Capsule PO (09:50)
[2023-08-24] MEDS: Pantoprazole Sodium 20 MG Tablet PO (09:50)
[2023-08-24] MEDS: Benztropine Mesylate 0.5 MG TABLET PO (09:50)
[2023-08-24] MEDS: levoFLOXacin IV 750 MG/150 ML BAG 100 MG IV (09:51)
[2023-08-24] MEDS: SimETHICONE 80 MG Chewable Tablet PO ×2 (09:51→18:51)
[2023-08-24] MEDS: Tamsulosin HCl 0.4 MG Capsule PO ×2 (09:51→22:22)
--- NOTE | 2023-08-24 13:05 | CASEMGMT ---
Discharge Planning Msg sent to [facility] via [facility] requesting names/numbers for emergency contacts and status of guardianship. Jessica Christine, Discharge Planning Asst.
[2023-08-24 14:39] LABS: Pathologist Review Reviewed
--- NOTE | 2023-08-24 16:41 | CASEMGMT ---
[facility] had no family listed for patient and the number listed for his brother does not work. Plan is for patient to return to [facility]. Juidth COLON
[2023-08-24 17:38] LABS: Bedside Glucose 112 mg/dL (74-106)
[2023-08-24] MEDS: Insulin Lispro 100 UNIT/ML INSULN.PEN SC ×2 (18:52→22:29)
[2023-08-24] MEDS: Atorvastatin Calcium 40 MG Tablet PO (22:23)
[2023-08-24] MEDS: Donepezil HCl 10 MG Tablet 5 MG PO (22:23)
[2023-08-24] MEDS: MELATONIN 10 MG TABLET 5 MG PO (22:23)
[2023-08-24 22:49] LABS: Bedside Glucose 146 mg/dL (74-106)
[2023-08-25 03:51] VITALS: BP 120/77; PULSE 90; RESP 18; TEMP 37.2; O2SAT 98
[2023-08-25] MEDS: 0.9% Normal Saline (1000mL) 1,000 ML 75 ML IV ×2 (03:54→19:58)
[2023-08-25 04:01] VITALS: BMI 26.6
[2023-08-25] MEDS: Piperacil/Tazobactam 3.375 GM in 0.9% Normal Saline (50mL MB+) 50 ML IV ×3 (06:09→21:26)
[2023-08-25 07:30] VITALS: O2SAT 97
[2023-08-25 08:25] VITALS: BP 142/89; PULSE 84; RESP 14; TEMP 36.6; O2SAT 97
[2023-08-25] MEDS: Insulin Lispro 100 UNIT/ML INSULN.PEN SC ×4 (08:28→21:35)
[2023-08-25] MEDS: Lactobacillis Acidophilus 2 CAP PO ×2 (08:28→21:29)
[2023-08-25] MEDS: SimETHICONE 80 MG Chewable Tablet PO ×2 (08:29→16:51)
[2023-08-25] MEDS: Benztropine Mesylate 0.5 MG TABLET PO (08:29)
[2023-08-25] MEDS: Tamsulosin HCl 0.4 MG Capsule PO ×2 (08:29→21:29)
[2023-08-25] MEDS: DULoxetine Hcl 20 MG Capsule PO (08:29)
[2023-08-25] MEDS: Pantoprazole Sodium 20 MG Tablet PO (08:30)
[2023-08-25] MEDS: Vibegron 75 MG TABLET PO (08:30)
[2023-08-25] MEDS: levoFLOXacin IV 750 MG/150 ML BAG 100 MG IV (08:38)
[2023-08-25 09:32] LABS: Bedside Glucose 145 mg/dL (74-106)
[2023-08-25 11:46] LABS: Bedside Glucose 161 mg/dL (74-106)
--- NOTE | 2023-08-25 11:51 | PCM.PN.HOSP ---
Subjective Subjective Feels better today, no issues overnight Objective Data Objective Data Vital Signs: Vital Signs Temp Pulse Resp BP Pulse Ox O2 Del Method O2 Flow Rate 97.8 F 84 14 142/89 H 97 Room Air 2 08/25/23 08:25 08/25/23 08:25 08/25/23 08:25 08/25/23 08:25 08/25/23 08:25 08/25/23 08:25 08/24/23 07:20 Oxygen Flow Rate (L/min) 2 Oxygen Delivery Method Room Air Weight: 190 lb 11.198 oz Body Mass Index (BMI) 26.6 Intake & Output: Intake and Output for Last 24 Hours 08/24/23 08/25/23 08/26/23 03:59 03:59 03:59 Intake Total 2899.15 / 2899.15 3425.8333 / 3425.8333 200 / 200 Output Total 4500 / 4500 250 / 250 Balance 2899.15 / 1499.15 -1074.1667 / -1074.1667 -50 / -50 Lab / Micro Data 08/24/23 04:25 08/24/23 04:25 Labs: Laboratory Results - last 24 hr 08/24/23 04:25: Diff Path Review Reviewed 08/24/23 17:11: POC Glucose 112 H 08/24/23 22:29: POC Glucose 146 H 08/25/23 08:22: POC Glucose 145 H 08/25/23 11:24: POC Glucose 161 H Micro: Microbiology 08/24/23 00:14 Blood Culture (Wb) - Right Forearm Blood Culture - Preliminary GNR lactose metal can inspector 08/24/23 00:14 Blood Culture (Wb) - Left Wrist Blood Culture - Preliminary GNR lactose metal can inspector 08/24/23 00:14 Urine Catheter - Bell Urine Culture - Preliminary Presumptive E. coli Physical Exam Narrative General: Alert, confused, Cooperative, No apparent distress HEENT: Atraumatic, PERRLA, EOMI, Normocephalic Oral: Moist Mucosa Neck: Supple, No JVD Lungs: Diminished, Normal air movement, No rhonchi, No wheeze, No rales Cardiovascular: Regular rate, Regular Rhythm, Normal S1, Normal S2, No murmurs Abdomen: Soft, Non Tender, Non-Distended, No Hepato-splenomegaly Extremities: No edema, Capillary Refill Less than 3 Seconds Skin: No rashes, No breakdown Musculoskeletal: No Tenderness to Palpation of Joints or Extremities Neurological: No focal neurological deficits, Motor Exam 5/5 strength throughout, Sensory exam intact to light touch and pain, trauma Psych/Mental Status: Flat Assessment & Plan Assessment/Plan (1) Sepsis: QUALIFIERS: Sepsis type: sepsis due to unspecified organism Sepsis acute organ dysfunction status: with acute organ dysfunction Severe sepsis acute organ dysfunction type: encephalopathy Severe sepsis shock status: without septic shock Qualified Code(s): A41.9 - Sepsis, unspecified organism; R65.20 - Severe sepsis without septic shock; G93.41 - Metabolic encephalopathy (2) Acute cystitis with hematuria: (3) Bell catheter problem: QUALIFIERS: Encounter type: initial encounter Qualified Code(s): T83.9XXA - Unspecified complication of genitourinary prosthetic device, implant and graft, initial encounter (4) DIMITRI (acute kidney injury): (5) Lactic acidosis: (6) Hypophosphatasia: (7) Metabolic encephalopathy: (8) Chronic dementia: (9) Urinary retention: PLAN: Plan 1. Sepsis secondary to acute UTI/gram-negative nicci bacteremia/metabolic encephalopathy in the setting of dementia ? Will discontinue Levaquin, unclear if the double coverage is necessary at this time ? Gram-negative nicci, presumptive E. coli in both the urine and blood ? Continue with IV fluids, it is difficult to ascertain what his baseline renal function is 2. Paroxysmal A-fib//HLD ? Can restart Eliquis ? Can continue with his home statin 3. RODRI ? Stable ? Continue with CPAP 4. DM2 ? Continue with insulin ? Accu-Cheks ACHS ? Sliding scale insulin ? We will monitor make adjustments as necessary 5. GERD with a history of GI bleed ? Stable ? Continue with PPI 6. Anxiety/depression ? Stable ? Continue with his home medications DVT: Eliquis Charges/Coding Visit Charges Inpatient E&M: 29590 Subs Hosp L2
[2023-08-25 14:01] VITALS: BP 132/90; PULSE 81; RESP 16; TEMP 36.5; O2SAT 98
[2023-08-25 17:11] LABS: Bedside Glucose 149 mg/dL (74-106)
[2023-08-25 21:24] VITALS: BP 148/94; PULSE 77; RESP 18; TEMP 36.3; O2SAT 98
[2023-08-25] MEDS: Atorvastatin Calcium 40 MG Tablet PO (21:28)
[2023-08-25] MEDS: Donepezil HCl 10 MG Tablet 5 MG PO (21:29)
[2023-08-25] MEDS: APIXABAN 5 MG TABLET PO (21:29)
[2023-08-25] MEDS: MELATONIN 10 MG TABLET 5 MG PO (21:30)
[2023-08-25 23:04] LABS: Bedside Glucose 173 mg/dL (74-106)
[2023-08-26] VITALS (8 sets, daily range): BP systolic 123–163; BP diastolic 71–105; PULSE 64–76; RESP 14–18; TEMP 36.3–36.9; O2SAT 96–100; BMI 26.2
[2023-08-26] MEDS: Piperacil/Tazobactam 3.375 GM in 0.9% Normal Saline (50mL MB+) 50 ML IV (05:16)
[2023-08-26 06:05] LABS: Absolute Neutrophil Count 6.5 X10^3/uL (2.0-7.7); Basophil# 0.03 X10^3/uL; Basophil% 0.3 % (0-1); Eosinophil# 0.42 X10^3/uL; Eosinophils% 4.6 % (0-5); Hematocrit 33.8 % (40-54); Hemoglobin 10.4 g/dL (13.0-16.5); Lymphocyte % 15.2 % (19-41); Mean Corp Hgb Conc 30.8 g/dL (32-36); Mean Corpuscular Hgb 26.8 pg (27.0-32.0); Mean Corpuscular Volume 87.1 fL (80-94); Mean Platelet Vol. 9.5 fl (6.2-12.0); Monocyte# 0.83 X10^3/uL; NRBC Flagged by Analyzer 0 % (0-5); Neutrophil # 6.48 X10^3/uL (2.7-7.7); Neutrophil % 70.5 % (47-70); Platelet Count 247 K/mm3 (150-450); RBC Distribution Width CV 14.1 % (11.6-14.6); RBC Distribution Width SD 44.5 fl (35.1-43.9); Red Blood Count 3.88 M/mm3 (4.6-6.2); White Blood Count 9.2 K/mm3 (4.4-11.0)
[2023-08-26 06:28] LABS: Anion Gap 6 (5-15); BUN 9 mg/dL (7-18); BUN/Creat Ratio 6.8 RATIO (10-20); Calcium,Total 7.9 mg/dL (8.5-10.1); Chloride 110 mmol/L (98-107); Creatinine, Serum 1.32 mg/dL (0.70-1.30); EST Glomerular Filtration Rate 57 mL/min (>60); Est Glom Filt Rate - Afr Amer 69 mL/min (>60); Estimated Creatinine Clearance 56.25 ml/min; Glucose 133 mg/dL (74-106); Magnesium 1.8 mg/dL (1.6-2.6); Phosphorus 2.9 mg/dL (2.5-4.9); Potassium 3.5 mmol/L (3.5-5.1); Sodium Level 139 mmol/L (136-145)
[2023-08-26] MEDS: 0.9% Normal Saline (1000mL) 1,000 ML 75 ML IV ×2 (07:53→21:39)
[2023-08-26 09:02] LABS: Bedside Glucose 129 mg/dL (74-106)
[2023-08-26] MEDS: Tamsulosin HCl 0.4 MG Capsule PO ×2 (09:39→21:40)
[2023-08-26] MEDS: Pantoprazole Sodium 20 MG Tablet PO (09:39)
[2023-08-26] MEDS: Vibegron 75 MG TABLET PO (09:39)
[2023-08-26] MEDS: Loperamide 2 MG Capsule PO (09:39)
[2023-08-26] MEDS: DULoxetine Hcl 20 MG Capsule PO (09:39)
[2023-08-26] MEDS: APIXABAN 5 MG TABLET PO ×2 (09:39→21:40)
[2023-08-26] MEDS: Lactobacillis Acidophilus 2 CAP PO ×2 (09:39→21:39)
[2023-08-26] MEDS: SimETHICONE 80 MG Chewable Tablet PO ×3 (09:40→17:32)
[2023-08-26] MEDS: Benztropine Mesylate 0.5 MG TABLET PO (09:40)
[2023-08-26] MEDS: Insulin Lispro 100 UNIT/ML INSULN.PEN SC ×4 (09:40→21:38)
[2023-08-26] MEDS: Insulin Glargine-YFGN 100 UNIT/ML Pen 20 UNIT SC (09:40)
--- NOTE | 2023-08-26 11:14 | PCM.PN.HOSP ---
Subjective Subjective Doing well, no changes overnight. Urine cultures did come back with ESBL E. coli Objective Data Objective Data Vital Signs: Vital Signs Temp Pulse Resp BP Pulse Ox O2 Del Method O2 Flow Rate 97.3 F L 74 18 163/98 H 96 Room Air 2 08/26/23 03:10 08/26/23 03:10 08/26/23 03:10 08/26/23 03:10 08/26/23 08:00 08/26/23 08:00 08/24/23 07:20 Oxygen Flow Rate (L/min) 2 Oxygen Delivery Method Room Air Weight: 187 lb 13.341 oz Body Mass Index (BMI) 26.2 Intake & Output: Intake and Output for Last 24 Hours 08/25/23 08/26/23 08/27/23 03:59 03:59 03:59 Intake Total 3425.8333 / 3425.8333 1780 / 1780 943.75 / 943.75 Output Total 4500 / 4500 1800 / 1800 1350 / 1350 Balance -1074.1667 / -1074.1667 -20 / -20 -406.25 / -406.25 Lab / Micro Data 08/26/23 05:50 08/26/23 05:50 Labs: Laboratory Results - last 24 hr 08/25/23 11:24: POC Glucose 161 H 08/25/23 16:48: POC Glucose 149 H 08/25/23 21:35: POC Glucose 173 H 08/26/23 05:50: WBC 9.2, RBC 3.88 L, Hgb 10.4 L, Hct 33.8 L, MCV 87.1, MCH 26.8 L, MCHC 30.8 L, RDW Std Deviation 44.5 H, RDW Coeff of Tarik 14.1, Plt Count 247, MPV 9.5, Immature Gran % (Auto) 0.400, Neut % (Auto) 70.5 H, Lymph % (Auto) 15.2 L, [place] % (Auto) 9.0, Eos % (Auto) 4.6, Baso % (Auto) 0.3, Absolute Neuts (auto) 6.5, Absolute Lymphs (auto) 1.40, Nucleated RBC % 0, Sodium 139, Potassium 3.5, Chloride 110 H, Carbon Dioxide 23.0, Anion Gap 6, BUN 9, Creatinine 1.32 H, Estim Creat Clear Calc 56.25, Est GFR (MDRD) Af Amer 69, Est GFR (MDRD) Non-Af 57 L, BUN/Creatinine Ratio 6.8 L, Glucose 133 H, Calcium 7.9 L, Phosphorus 2.9, Magnesium 1.8 08/26/23 08:27: POC Glucose 129 H Micro: Microbiology 08/24/23 00:14 Blood Culture (Wb) - Right Forearm Blood Culture - Final GNR lactose early years teacher 08/24/23 00:14 Blood Culture (Wb) - Left Wrist Blood Culture - Preliminary ESBL Escherichia coli 08/24/23 00:14 Urine Catheter - Bell Urine Culture - Preliminary ESBL Escherichia coli Physical Exam Narrative General: Alert, confused, Cooperative, No apparent distress HEENT: Atraumatic, PERRLA, EOMI, Normocephalic Oral: Moist Mucosa Neck: Supple, No JVD Lungs: Diminished, Normal air movement, No rhonchi, No wheeze, No rales Cardiovascular: Regular rate, Regular Rhythm, Normal S1, Normal S2, No murmurs Abdomen: Soft, Non Tender, Non-Distended, No Hepato-splenomegaly Extremities: No edema, Capillary Refill Less than 3 Seconds Skin: No rashes, No breakdown Musculoskeletal: No Tenderness to Palpation of Joints or Extremities Neurological: No focal neurological deficits, Motor Exam 5/5 strength throughout, Sensory exam intact to light touch and pain, trauma Psych/Mental Status: Flat Assessment & Plan Assessment/Plan (1) Sepsis: QUALIFIERS: Sepsis type: sepsis due to unspecified organism Sepsis acute organ dysfunction status: with acute organ dysfunction Severe sepsis acute organ dysfunction type: encephalopathy Severe sepsis shock status: without septic shock Qualified Code(s): A41.9 - Sepsis, unspecified organism; R65.20 - Severe sepsis without septic shock; G93.41 - Metabolic encephalopathy (2) Acute cystitis with hematuria: (3) Bell catheter problem: QUALIFIERS: Encounter type: initial encounter Qualified Code(s): T83.9XXA - Unspecified complication of genitourinary prosthetic device, implant and graft, initial encounter (4) DIMITRI (acute kidney injury): (5) Lactic acidosis: (6) Hypophosphatasia: (7) Metabolic encephalopathy: (8) Chronic dementia: (9) Urinary retention: PLAN: Plan 1. Sepsis secondary to acute UTI due to ESBL E. coli/gram-negative nicci bacteremia/metabolic encephalopathy in the setting of dementia ? Will discontinue Zosyn and transition to IV Invanz to give first dose today ? Gram-negative nicci, presumptive E. coli in both the urine and blood ? Continue with IV fluids, it is difficult to ascertain what his baseline renal function is 2. Paroxysmal A-fib//HLD ? Can restart Eliquis ? Can continue with his home statin 3. RODRI ? Stable ? Continue with CPAP 4. DM2 ? Continue with insulin ? Accu-Cheks ACHS ? Sliding scale insulin ? We will monitor make adjustments as necessary 5. GERD with a history of GI bleed ? Stable ? Continue with PPI 6. Anxiety/depression ? Stable ? Continue with his home medications DVT: Mario Charges/Coding Visit Charges Inpatient E&M: 27367 Subs Hosp L2
[2023-08-26 11:28] LABS: Bedside Glucose 186 mg/dL (74-106)
[2023-08-26] MEDS: Ertapenem Sod 1 GM in 0.9% Normal Saline (50mL MB+) 50 ML IV (12:17)
[2023-08-26 16:32] LABS: Bedside Glucose 192 mg/dL (74-106)
[2023-08-26] MEDS: Atorvastatin Calcium 40 MG Tablet PO (21:39)
[2023-08-26] MEDS: MELATONIN 10 MG TABLET 5 MG PO (21:40)
[2023-08-26 21:42] LABS: Bedside Glucose 163 mg/dL (74-106)
[2023-08-26] MEDS: Donepezil HCl 10 MG Tablet 5 MG PO (21:42)
[2023-08-27 04:00] VITALS: BP 138/96; PULSE 65; RESP 14; TEMP 36.9; O2SAT 99
[2023-08-27 06:00] VITALS: BMI 26.2
[2023-08-27 06:53] LABS: Absolute Lymphocyte Count 1.81 X10^3/uL (0.83-4.51); Basophil# 0.04 X10^3/uL; Basophil% 0.4 % (0-1); Eosinophil# 0.44 X10^3/uL; Eosinophils% 4.9 % (0-5); Hematocrit 34.6 % (40-54); Hemoglobin 11.2 g/dL (13.0-16.5); Lymphocyte # 1.81 X10^3/ul (0.83-4.51); Mean Corp Hgb Conc 32.4 g/dL (32-36); Mean Corpuscular Volume 86.5 fL (80-94); Mean Platelet Vol. 9.6 fl (6.2-12.0); Monocyte# 0.73 X10^3/uL; Monocyte% 8.1 % (0-10); NRBC Flagged by Analyzer 0 % (0-5); Neutrophil # 6.01 X10^3/uL (2.7-7.7); Neutrophil % 66.3 % (47-70); Platelet Count 283 K/mm3 (150-450); RBC Distribution Width CV 13.9 % (11.6-14.6); White Blood Count 9.1 K/mm3 (4.4-11.0)
[2023-08-27 07:22] LABS: Anion Gap 6 (5-15); BUN 6 mg/dL (7-18); BUN/Creat Ratio 5.4 RATIO (10-20); Calcium,Total 8.3 mg/dL (8.5-10.1); Chloride 108 mmol/L (98-107); Creatinine, Serum 1.11 mg/dL (0.70-1.30); EST Glomerular Filtration Rate 70 mL/min (>60); Est Glom Filt Rate - Afr Amer 84 mL/min (>60); Glucose 124 mg/dL (74-106); Potassium 3.2 mmol/L (3.5-5.1); Sodium Level 138 mmol/L (136-145)
[2023-08-27 07:50] VITALS: O2SAT 97
[2023-08-27 08:11] VITALS: BP 168/97; PULSE 69; RESP 12; TEMP 36.6; O2SAT 97
[2023-08-27] MEDS: Insulin Lispro 100 UNIT/ML INSULN.PEN SC ×4 (08:14→21:29)
[2023-08-27] MEDS: SimETHICONE 80 MG Chewable Tablet PO ×3 (08:14→18:05)
[2023-08-27] MEDS: Vibegron 75 MG TABLET PO (08:14)
[2023-08-27] MEDS: DULoxetine Hcl 20 MG Capsule PO (08:14)
[2023-08-27] MEDS: Insulin Glargine-YFGN 100 UNIT/ML Pen 20 UNIT SC (08:15)
[2023-08-27] MEDS: Loperamide 2 MG Capsule PO (08:15)
[2023-08-27] MEDS: Tamsulosin HCl 0.4 MG Capsule PO ×2 (08:15→21:30)
[2023-08-27] MEDS: APIXABAN 5 MG TABLET PO ×2 (08:15→21:30)
[2023-08-27] MEDS: Lactobacillis Acidophilus 2 CAP PO ×2 (08:15→21:29)
[2023-08-27] MEDS: Pantoprazole Sodium 20 MG Tablet PO (08:16)
[2023-08-27] MEDS: Ertapenem Sod 1 GM in 0.9% Normal Saline (50mL MB+) 50 ML IV (08:24)
--- NOTE | 2023-08-27 10:57 | CASEMGMT ---
SW let [facility] know that patient will likely return today. Judith Sorensen DIRECTOR CALL ISAIAH
[2023-08-27] MEDS: Benztropine Mesylate 0.5 MG TABLET PO (11:36)
[2023-08-27 12:03] LABS: Bedside Glucose 141 mg/dL (74-106)
[2023-08-27 14:22] VITALS: BP 148/92; PULSE 82; RESP 12; TEMP 36.9; O2SAT 97
--- NOTE | 2023-08-27 15:43 | PN_ITS ---
Subjective Subjective Patient seen and examined. He had no complaints. Review of systems otherwise negative. He has remained hemodynamically stable. Objective Data Objective Data Vital Signs: Vital Signs Temp Pulse Resp BP Pulse Ox O2 Del Method O2 Flow Rate 98.4 F 82 12 148/92 H 97 Room Air 2 08/27/23 14:22 08/27/23 14:22 08/27/23 14:22 08/27/23 14:22 08/27/23 14:22 08/27/23 14:22 08/24/23 07:20 Oxygen Flow Rate (L/min) 2 Oxygen Delivery Method Room Air Weight: 188 lb 7.924 oz Body Mass Index (BMI) 26.2 Intake & Output: Intake and Output for Last 24 Hours 08/25/23 08/26/23 08/27/23 23:59 23:59 23:59 Intake Total 2766.25 / 2766.25 2053.75 / 2413.75 1660 / 1660 Output Total 1800 / 1800 4050 / 5300 1950 / 1950 Balance 966.25 / 966.25 -1996.25 / -2886.25 -290 / -290 Lab / Micro Data 08/27/23 06:15 08/27/23 06:15 Labs: Laboratory Results - last 24 hr 08/26/23 16:07: POC Glucose 192 H 08/26/23 20:35: POC Glucose 163 H 08/27/23 06:15: WBC 9.1, RBC 4.00 L, Hgb 11.2 L, Hct 34.6 L, MCV 86.5, MCH 28.0, MCHC 32.4 D, RDW Std Deviation 44.0 H, RDW Coeff of Tarik 13.9, Plt Count 283, MPV 9.6, Immature Gran % (Auto) 0.300, Neut % (Auto) 66.3, Lymph % (Auto) 20.0, [place] % (Auto) 8.1, Eos % (Auto) 4.9, Baso % (Auto) 0.4, Absolute Neuts (auto) 6.0, Absolute Lymphs (auto) 1.81, Nucleated RBC % 0, Sodium 138, Potassium 3.2 L , Chloride 108 H, Carbon Dioxide 24.0, Anion Gap 6, BUN 6 L, Creatinine 1.11, Estim Creat Clear Calc 66.90, Est GFR (MDRD) Af Amer 84, Est GFR (MDRD) Non-Af 70, BUN/Creatinine Ratio 5.4 L, Glucose 124 H, Calcium 8.3 L 08/27/23 11:34: POC Glucose 141 H Micro: Microbiology 08/24/23 00:14 Urine Catheter - Bell Urine Culture - Final ESBL Escherichia coli 08/24/23 00:14 Blood Culture (Wb) - Left Wrist Blood Culture - Final ESBL Escherichia coli 08/24/23 00:14 Blood Culture (Wb) - Right Forearm Blood Culture - Final GNR lactose automotive designer Physical Exam Const alert, oriented x3 and no apparent distress General Appearance: cooperative and well developed HEENT normocephalic, head/scalp atraumatic, moist oral mucous membranes and oropharynx normal Eyes PERRL and EOMs intact bilaterally Neck no lymphadenopathy and supple Lymph Lymphatic: no lymphadenopathy noted and no lymphedema noted Resp normal respiratory effort, normal air movement and clear to auscultation bilaterally Cardio regular rate, regular rhythm, S1 normal heart sound, S2 normal heart sound and no murmurs GI normal to inspection, nondistended, normoactive bowel sounds, soft to palpation, non-tender and non-distended Extremity normal capillary refill General Extremity: no tenderness to palpation of joints or extremities Skin General Skin Exam: no breakdown Neuro CN's II-XII intact bilaterally, no focal motor deficits, no sensory deficits noted and deep tendon reflexes 2+ bilaterally Motor Exam: general weakness Psych thought process normal, cooperative and affect normal Assessment & Plan Assessment/Plan (1) Acute cystitis with hematuria: PLAN: Plan #Sepsis due to UTI * urine cultures growing ESBL E coli and gram negative E coli. * blood cultures positive for E coli * on invanz. * #Paroxysmal afib: on eliquis. Not on any beta geoffrey #Hypokalemia: K is 3.2. Will replace and trend. #Hyperlipidemia: on statin #RODRI: on CPAP qhs #Type 2 diabetes mellitu: on lantus. ISS. Accuchecks ACHS #GERD: on PPI #ANxiety and depression;stable DVT prophylaxis: on eliquis. Charges/Coding Visit Charges Inpatient E&M: 09703 Subs Hosp L2
[2023-08-27 16:09] LABS: Bedside Glucose 162 mg/dL (74-106)
[2023-08-27 21:14] VITALS: BP 157/87; PULSE 90; RESP 20; TEMP 36.6; O2SAT 98
[2023-08-27] MEDS: MELATONIN 10 MG TABLET 5 MG PO (21:30)
[2023-08-27] MEDS: Atorvastatin Calcium 40 MG Tablet PO (21:30)
[2023-08-27] MEDS: Donepezil HCl 10 MG Tablet 5 MG PO (21:30)
[2023-08-27 22:17] LABS: Bedside Glucose 168 mg/dL (74-106)
[2023-08-28] VITALS (7 sets, daily range): BP systolic 132–159; BP diastolic 91–104; PULSE 75–87; RESP 12–20; TEMP 36.5–37.2; O2SAT 95–98; BMI 25.7
[2023-08-28 05:39] LABS: Absolute Lymphocyte Count 2.04 X10^3/uL (0.83-4.51); Absolute Neutrophil Count 4.5 X10^3/uL (2.0-7.7); Basophil# 0.06 X10^3/uL; Basophil% 0.8 % (0-1); Eosinophil# 0.43 X10^3/uL; Eosinophils% 5.6 % (0-5); Hematocrit 35.1 % (40-54); Hemoglobin 11.4 g/dL (13.0-16.5); Lymphocyte # 2.04 X10^3/ul (0.83-4.51); Lymphocyte % 26.4 % (19-41); Mean Corp Hgb Conc 32.5 g/dL (32-36); Mean Corpuscular Hgb 27.3 pg (27.0-32.0); Mean Corpuscular Volume 84.2 fL (80-94); Mean Platelet Vol. 9.4 fl (6.2-12.0); Monocyte# 0.65 X10^3/uL; Monocyte% 8.4 % (0-10); NRBC Flagged by Analyzer 0 % (0-5); Neutrophil # 4.52 X10^3/uL (2.7-7.7); Neutrophil % 58.3 % (47-70); Platelet Count 316 K/mm3 (150-450); RBC Distribution Width CV 13.9 % (11.6-14.6); RBC Distribution Width SD 42.9 fl (35.1-43.9); Red Blood Count 4.17 M/mm3 (4.6-6.2); White Blood Count 7.7 K/mm3 (4.4-11.0)
[2023-08-28 06:11] LABS: Anion Gap 7 (5-15); BUN 8 mg/dL (7-18); BUN/Creat Ratio 6.4 RATIO (10-20); Calcium,Total 8.4 mg/dL (8.5-10.1); Chloride 108 mmol/L (98-107); Creatinine, Serum 1.25 mg/dL (0.70-1.30); EST Glomerular Filtration Rate 61 mL/min (>60); Est Glom Filt Rate - Afr Amer 74 mL/min (>60); Glucose 201 mg/dL (74-106); Potassium 3.1 mmol/L (3.5-5.1); Sodium Level 139 mmol/L (136-145)
[2023-08-28] MEDS: Insulin Lispro 100 UNIT/ML INSULN.PEN SC ×2 (08:19→16:31)
[2023-08-28] MEDS: Insulin Glargine-YFGN 100 UNIT/ML Pen 20 UNIT SC (08:21)
[2023-08-28] MEDS: Ertapenem Sod 1 GM in 0.9% Normal Saline (50mL MB+) 50 ML IV (08:29)
--- NOTE | 2023-08-28 10:11 | CASEMGMT ---
Dr Acosta provided with a prescription for IM Ertapenem. DINESH sent this prescription to [facility] and let them know patient will be coming today. Await orders. Judith COLON
--- NOTE | 2023-08-28 10:36 | PCM.CONS.GEN ---
Assessment & Plan Assessment/Plan (1) Sepsis: QUALIFIERS: Sepsis type: sepsis due to unspecified organism Sepsis acute organ dysfunction status: with acute organ dysfunction Severe sepsis acute organ dysfunction type: encephalopathy Severe sepsis shock status: without septic shock Qualified Code(s): A41.9 - Sepsis, unspecified organism; R65.20 - Severe sepsis without septic shock; G93.41 - Metabolic encephalopathy PLAN: sepsis due to esbl ecoli bacteremia from urinary source - improved, out of icu. On ertapenem since 08/26/23. Will order one more week IM ertapenem at [facility], stop date 09/04/23. Will follow, thank you, d/w nursing. (2) Bacteremia due to Escherichia coli: (3) Chronic dementia: HPI Consult Data Date of Consult: 08/28/23 HPI Narrative Reason for Consultation: bacteremia HPI Narrative: FRED ROUSE, is a 67 M who presented 08/22 after pulling his melendez out at [facility]. H/o dementia, CKD, BPH, chronic melendez. Had acute onset confusion, fever, and urinary retention prior to transfer. Seen by urology, melendez replaced, found to have uti and sepsis, given ceftriaxone, admitted to icu on zosyn and levaquin. Ucx and bcx with ESBL ecoli, changed to ertapenem 08/25. Feeling better, out of icu. Denies abd pain. Full ROS performed and neg except as noted above. [facility] Medical History Nephropathy, obstructive CKD (chronic kidney disease), stage II Dementia GERD (gastroesophageal reflux disease) Obesity RODRI on CPAP History of GI bleed Anxiety and depression Hyperlipidemia Hypertension Diabetes Home Medications ?Medication ?Instructions ?Recorded ?Last Taken ?Type apixaban 5 mg tablet (Eliquis) 5 mg PO BID see pcp 11/11/22 Unknown History aspirin 81 mg tablet,delayed 81 mg PO DAILY see pcp 11/11/22 Unknown History release (Adult Low Dose Aspirin) atorvastatin 40 mg tablet 40 mg PO QHS see pcp 11/11/22 Unknown History donepezil 10 mg tablet 5 mg PO QHS see pcp 11/11/22 Unknown History duloxetine 20 mg capsule,delayed 20 mg PO DAILY see pcp 11/11/22 Unknown History release insulin glargine 100 unit/mL (3 30 unit subcut .afternoon see pcp 11/11/22 Unknown History mL) subcutaneous pen loperamide 2 mg capsule 2 mg PO DAILY see pcp 11/11/22 Unknown History (Anti-Diarrheal (loperamide)) medroxyprogesterone 5 mg tablet 5 mg PO .qohs see pcp 11/11/22 Unknown History omeprazole 20 mg capsule,delayed 20 mg PO DAILY see pcp 11/11/22 Unknown History release acetaminophen 325 mg tablet 650 mg (2 x 325 mg) PO Q4H PRN PRN 11/14/22 Unknown Rx Fever, pain -01/23 #0 tabs benztropine 0.5 mg tablet 0.5 mg PO DAILY see pcp 07/04/23 Unknown History duloxetine 30 mg capsule,delayed 30 mg PO DAILY see pcp 07/04/23 Unknown History release insulin lispro 100 unit/mL 5 unit subcut ACHS see pcp 07/04/23 Unknown History subcutaneous pen melatonin 5 mg capsule 5 mg PO QHS see pcp 07/04/23 Unknown History tamsulosin 0.4 mg capsule 0.4 mg PO BID #0 caps 07/05/23 Unknown Rx donepezil 5 mg tablet 5 mg PO QHS 08/24/23 Unknown History exenatide microspheres 2 mg/0.85 2 mg subcut QWEEK 08/24/23 Unknown History mL subcutaneous auto-injector (Bydureon BCise) insulin glargine 100 unit/mL (3 34 unit subcut DAILY 08/24/23 Unknown History mL) subcutaneous pen (Basaglar KwikPen U-100 Insulin) insulin lispro 100 unit/mL 1 sliding scale dose subcut ACHS 08/24/23 Unknown History subcutaneous pen (Humalog KwikPen see pcp (U-100) Insulin) ertapenem 1 gram solution for 1 g IM DAILY #7 ea 08/28/23 Unknown Rx injection Allergy/AdvReac Type Severity Reaction Status Date / Time No Known Allergies Allergy Verified 07/03/23 19:31 Family History Mother Pulmonary disease Father CAD (coronary artery disease) Heart disease Hypertension Myocardial infarction Surgical History H/O cataract removal with insertion of prosthetic lens History of testicular surgery Social History housing: shelter Smoking Status: Former smoker how long ago did patient quit smoking: Smoked as a teenager very minimally. alcohol intake: never substance use type: does not use Physical Exam Const no apparent distress Constitutional Narrative: able to nod yes/no to some questions General Appearance: cooperative HEENT normocephalic and head/scalp atraumatic Eyes PERRL and EOMs intact bilaterally Neck supple and No nodes Resp normal air movement and clear to auscultation bilaterally Cardio regular rate and regular rhythm GI soft to palpation, non-tender and non-distended Extremity General Extremity: Negative for edema Skin no rashes or lesions noted Neuro CN's II-XII intact bilaterally Lab / Micro Data Attestation: I reviewed the patient's lab results. 08/28/23 05:15 08/28/23 05:15 Labs: Laboratory Results - last 24 hr 08/27/23 11:34: POC Glucose 141 H 08/27/23 15:48: POC Glucose 162 H 08/27/23 21:28: POC Glucose 168 H 08/28/23 05:15: WBC 7.7, RBC 4.17 L, Hgb 11.4 L, Hct 35.1 L, MCV 84.2, MCH 27.3, MCHC 32.5, RDW Std Deviation 42.9, RDW Coeff of Tarik 13.9, Plt Count 316, MPV 9.4, Immature Gran % (Auto) 0.500, Neut % (Auto) 58.3, Lymph % (Auto) 26.4, [place] % (Auto) 8.4, Eos % (Auto) 5.6 H, Baso % (Auto) 0.8, Absolute Neuts (auto) 4.5, Absolute Lymphs (auto) 2.04, Nucleated RBC % 0, Sodium 139, Potassium 3.1 L, Chloride 108 H, Carbon Dioxide 24.0, Anion Gap 7, BUN 8, Creatinine 1.25, Estim Creat Clear Calc 59.40, Est GFR (MDRD) Af Amer 74, Est GFR (MDRD) Non-Af 61, BUN/Creatinine Ratio 6.4 L, Glucose 201 H, Calcium 8.4 L Micro: Microbiology 08/24/23 00:14 Urine Catheter - Melendez Urine Culture - Final ESBL Escherichia coli 05/10/24 00:14 Blood Culture (Wb) - Left Wrist Blood Culture - Final ESBL Escherichia coli
[2023-08-28 11:32] LABS: Bedside Glucose 131 mg/dL (74-106)
--- NOTE | 2023-08-28 11:49 | CT_ITS ---
STUDY: CT BRAIN WITHOUT CONTRAST REASON FOR EXAM: Male, 67 years old. Altered mental status RADIATION DOSAGE (If Supplied By Facility): CTDIvol = ( 44.99 ) mGy, DLP = ( 863.60 ) mGycm TECHNIQUE: Transaxial CT imaging of the brain was performed without administration of intravenous contrast material. Individualized dose optimization techniques were used for this CT. COMPARISON: Comparison is made with prior study July 03, 2023. FINDINGS: Normal soft tissue structures. Normal calvarium. There is mild cerebral atrophy with widening of the extra-axial spaces and ventricular dilatation. There are areas of decreased attenuation within the white matter tracts of the supratentorial brain, consistent with microvascular disease changes. Normal basal ganglia and thalami. Normal brainstem. Normal cerebellum. There is no intracranial hemorrhage. There are no findings of an acute ischemic infarction. Atherosclerotic calcification of the vertebral arteries and cavernous portions of the internal carotid arteries bilaterally. Normal visualized paranasal sinuses. CT/Brain/Head without Contrast IMPRESSION: Chronic involutional changes of the brain. Electronically Signed: Archie Garcia MD at 12:39 EDT ,
--- NOTE | 2023-08-28 12:57 | PN_ITS ---
Subjective Subjective Patient seen and examined. Patient noted to be more confused and lethargic today. He opens his eyes in response to sternal rub but does not answer any questions. Unable to do comprehensive review of systems. He has however remained hemodynamically stable. Objective Data Objective Data Vital Signs: Vital Signs Temp Pulse Resp BP Pulse Ox O2 Del Method O2 Flow Rate 97.7 F L 75 12 132/93 H 97 Room Air 2 08/28/23 08:15 08/28/23 08:15 08/28/23 08:15 08/28/23 08:15 08/28/23 08:15 08/28/23 08:15 08/24/23 07:20 Oxygen Flow Rate (L/min) 2 Oxygen Delivery Method Room Air Weight: 184 lb 11.958 oz Body Mass Index (BMI) 25.7 Intake & Output: Intake and Output for Last 24 Hours 08/26/23 08/27/23 08/28/23 23:59 23:59 23:59 Intake Total 2053.75 / 2413.75 1660 / 2060 860 / 860 Output Total 4050 / 5300 2550 / 3050 1200 / 1200 Balance -1996.25 / -2886.25 -890 / -990 -340 / -340 Lab / Micro Data 08/28/23 05:15 08/28/23 05:15 Labs: Laboratory Results - last 24 hr 08/27/23 15:48: POC Glucose 162 H 08/27/23 21:28: POC Glucose 168 H 08/28/23 05:15: WBC 7.7, RBC 4.17 L, Hgb 11.4 L, Hct 35.1 L, MCV 84.2, MCH 27.3, MCHC 32.5, RDW Std Deviation 42.9, RDW Coeff of Tarik 13.9, Plt Count 316, MPV 9.4, Immature Gran % (Auto) 0.500, Neut % (Auto) 58.3, Lymph % (Auto) 26.4, [place] % (Auto) 8.4, Eos % (Auto) 5.6 H, Baso % (Auto) 0.8, Absolute Neuts (auto) 4.5, Absolute Lymphs (auto) 2.04, Nucleated RBC % 0, Sodium 139, Potassium 3.1 L, C hloride 108 H, Carbon Dioxide 24.0, Anion Gap 7, BUN 8, Creatinine 1.25, Estim Creat Clear Calc 59.40, Est GFR (MDRD) Af Amer 74, Est GFR (MDRD) Non-Af 61, B UN/Creatinine Ratio 6.4 L, Glucose 201 H, Calcium 8.4 L 08/28/23 11:13: POC Glucose 131 H Micro: Microbiology 08/24/23 00:14 Urine Catheter - Bell Urine Culture - Final ESBL Escherichia coli 08/24/23 00:14 Blood Culture (Wb) - Left Wrist Blood Culture - Final ESBL Escherichia coli 08/24/23 00:14 Blood Culture (Wb) - Right Forearm Blood Culture - Final GNR lactose cafeteria assistant Radiography Diagnostic Testing: Radiology Impression Brain CT 08/28/23 11:49 IMPRESSION: Chronic involutional changes of the brain. Electronically Signed: Archie Garcia MD at 12:39 EDT , Physical Exam Const Constitutional Narrative: lethargic Orientation / Consciousness: confused HEENT normocephalic, head/scalp atraumatic, hearing grossly normal bilaterally, moist oral mucous membranes and oropharynx normal Eyes PERRL and EOMs intact bilaterally Neck no lymphadenopathy and supple Lymph Lymphatic: no lymphadenopathy noted and no lymphedema noted Resp normal respiratory effort, normal air movement, no retractions, no use of accessory muscles and clear to auscultation bilaterally Cardio regular rate, regular rhythm, S1 normal heart sound, S2 normal heart sound and no murmurs GI normal to inspection, nondistended, normoactive bowel sounds, soft to palpation, non-tender and non-distended Extremity normal to inspection, full ROM, normal capillary refill and no clubbing, cyanosis or edema General Extremity: no tenderness to palpation of joints or extremities Skin General Skin Exam: no breakdown Neuro Neuro Narrative: confused, moves all extremities. Sensorium / Orientation: awake, alert and oriented to person Speech: speech normal Motor Exam: general weakness Psych Psych Narrative: confused Assessment & Plan Assessment/Plan (1) Acute cystitis with hematuria: PLAN: Plan #Sepsis due to UTI * urine cultures growing ESBL E coli and gram negative E coli. * blood cultures positive for E coli * on invanz.ID consulted; to be on IV ertapenem till 09/04/2023. * * #Acute metabolic encephalopathy: * Patient is quite confused and lethargic today. * This opens his eyes in response to voice but does not answer any questions. * There is a significant change from yesterday. * CT of the brain without contrast ordered and ammonia level also ordered. * #Paroxysmal afib: on eliquis. Not on any beta geoffrey #Hypokalemia: K is 3.1. Will replace and trend. #Hyperlipidemia: on statin #RODRI: on CPAP qhs #Type 2 diabetes mellitus: on lantus. ISS. Accuchecks ACHS #GERD: on PPI #ANxiety and depression;stable DVT prophylaxis: on eliquis. Disposition: for likely dc within the next 1-2 days once encephalopathy resolves. Charges/Coding Visit Charges Inpatient E&M: 63330 Subs Hosp L3
[2023-08-28] MEDS: Lactulose 20 GM/30 ML UDC PO (14:34)
[2023-08-28] MEDS: Potassium Chloride Oral Tablet 20 MEQ 40 MEQ PO (14:39)
[2023-08-28 16:52] LABS: Bedside Glucose 147 mg/dL (74-106)
[2023-08-28] MEDS: APIXABAN 5 MG TABLET PO (20:17)
[2023-08-28] MEDS: Lactobacillis Acidophilus 2 CAP PO (20:17)
[2023-08-28] MEDS: Donepezil HCl 10 MG Tablet 5 MG PO (20:17)
[2023-08-28] MEDS: Atorvastatin Calcium 40 MG Tablet PO (20:18)
[2023-08-28] MEDS: Tamsulosin HCl 0.4 MG Capsule PO (20:18)
[2023-08-28 21:39] LABS: Bedside Glucose 135 mg/dL (74-106)
[2023-08-29 03:11] VITALS: BP 154/95; PULSE 97; RESP 18; TEMP 36.8; O2SAT 95
[2023-08-29 06:00] VITALS: BMI 26.2
[2023-08-29 07:38] LABS: Absolute Lymphocyte Count 2.72 X10^3/uL (0.83-4.51); Absolute Neutrophil Count 8.1 X10^3/uL (2.0-7.7); Basophil# 0.07 X10^3/uL; Basophil% 0.6 % (0-1); Eosinophils% 4.8 % (0-5); Hematocrit 38.3 % (40-54); Hemoglobin 12.1 g/dL (13.0-16.5); Lymphocyte # 2.72 X10^3/ul (0.83-4.51); Lymphocyte % 21.9 % (19-41); Mean Corp Hgb Conc 31.6 g/dL (32-36); Mean Corpuscular Hgb 27.3 pg (27.0-32.0); Mean Corpuscular Volume 86.3 fL (80-94); Mean Platelet Vol. 9.3 fl (6.2-12.0); Monocyte% 7.2 % (0-10); NRBC Flagged by Analyzer 0 % (0-5); Neutrophil # 8.06 X10^3/uL (2.7-7.7); Neutrophil % 64.8 % (47-70); Platelet Count 381 K/mm3 (150-450); RBC Distribution Width CV 14.3 % (11.6-14.6); RBC Distribution Width SD 44.4 fl (35.1-43.9); Red Blood Count 4.44 M/mm3 (4.6-6.2); White Blood Count 12.4 K/mm3 (4.4-11.0)
[2023-08-29 08:27] LABS: Anion Gap 8 (5-15); BUN 10 mg/dL (7-18); BUN/Creat Ratio 7.5 RATIO (10-20); Calcium,Total 8.8 mg/dL (8.5-10.1); Chloride 110 mmol/L (98-107); Creatinine, Serum 1.34 mg/dL (0.70-1.30); EST Glomerular Filtration Rate 56 mL/min (>60); Est Glom Filt Rate - Afr Amer 68 mL/min (>60); Estimated Creatinine Clearance 55.41 ml/min; Glucose 122 mg/dL (74-106); Potassium 3.4 mmol/L (3.5-5.1); Sodium Level 141 mmol/L (136-145)
[2023-08-29 08:38] LABS: Bedside Glucose 168 mg/dL (74-106)
[2023-08-29 10:00] VITALS: BP 128/88; PULSE 86; RESP 18; TEMP 36.9; O2SAT 96
[2023-08-29] MEDS: SimETHICONE 80 MG Chewable Tablet PO ×2 (10:29→12:24)
[2023-08-29] MEDS: Benztropine Mesylate 0.5 MG TABLET PO (10:29)
[2023-08-29] MEDS: Tamsulosin HCl 0.4 MG Capsule PO (10:29)
[2023-08-29] MEDS: APIXABAN 5 MG TABLET PO (10:29)
[2023-08-29] MEDS: DULoxetine Hcl 20 MG Capsule PO (10:29)
[2023-08-29] MEDS: Lactobacillis Acidophilus 2 CAP PO (10:29)
[2023-08-29] MEDS: Pantoprazole Sodium 20 MG Tablet PO (10:29)
[2023-08-29] MEDS: Loperamide 2 MG Capsule PO (10:29)
[2023-08-29] MEDS: Vibegron 75 MG TABLET PO (10:29)
[2023-08-29] MEDS: Ertapenem Sod 1 GM in 0.9% Normal Saline (50mL MB+) 50 ML IV (10:31)
[2023-08-29] MEDS: Insulin Glargine-YFGN 100 UNIT/ML Pen 20 UNIT SC (10:31)
[2023-08-29] MEDS: Insulin Lispro 100 UNIT/ML INSULN.PEN SC ×2 (10:31→12:23)
--- NOTE | 2023-08-29 11:23 | TREXTCAR_ITS ---
Diet Diet Order/Speech Therapy: 08/27/23 14:36 Diet: Consistent Carb - Calorie Controlled Food consistency:: Regular Liquid Consistency:: Regular/Thin Is pt able to select menu?: Yes Diet Comments: Meds in applesauce or pudding How many daily calories?: 2000 calorie Routine Orders/Code Status Enema Type: Fleetz Enema Frequency: Daily PRN Suppository Type: Dulcolax 10mg Suppository Frequency: Daily PRN O2 Frequency: PRN Keep PO Greater than or Equal to (%): 90 Therapies Weight Bearing: Weight bearing as tolerated Physical Therapy: Eval and Treat Occupational Therapy: Eval and Treat Problem/Diagnosis (1) Acute cystitis with hematuria: Status: Acute Code(s): N30.01 - Acute cystitis with hematuria Plan #Sepsis due to UTI * urine cultures growing ESBL E coli and gram negative E coli. * blood cultures positive for E coli * on invanz.ID consulted; to be on IV ertapenem till 09/04/2023. * * #Acute metabolic encephalopathy: * Patient is quite confused and lethargic today. * This opens his eyes in response to voice but does not answer any questions. * There is a significant change from yesterday. * CT of the brain without contrast ordered and ammonia level also ordered. * #Paroxysmal afib: on eliquis. Not on any beta geoffrey #Hypokalemia: K is 3.1. Will replace and trend. #Hyperlipidemia: on statin #RODRI: on CPAP qhs #Type 2 diabetes mellitus: on lantus. ISS. Accuchecks ACHS #GERD: on PPI #ANxiety and depression;stable DVT prophylaxis: on eliquis. Disposition: for likely dc within the next 1-2 days once encephalopathy resolves. Allergies/Procedures Done in Hospital Allergies No Known Allergies Allergy (Verified 07/03/23 19:31) Procedures: None Type of Care/Length of Stay Estimated LOS: More Than 30 Days Type of Care Needed: Intermediate Rehab Potential: Fair Prognosis: Fair Additional Orders/Day of Discharge Day of Discharge: 08/29/23 Dietary and Speech Recommendations Dietitian Recommendations/Changes: RD will change diet to 2000CCD diet to manage blood sugars. Discharge Plan Admission Admit Date/Time: 08/24/23 01:11 Primary Reason for Your Visit: UTI Attending Provider: Tri Ross Primary Care Provider: Enriqueta Flanagan Consulting Providers: Leonard Neff; Héctor Brumfield; Saul Acosta Instructions Patient Instructions: ED Urinary Tract Infections in Men Discharge Orders/Prescriptions Prescriptions: New ertapenem 1 gram recon soln 1 g IM DAILY Qty: 7 0RF Rx Instructions: stop date 09/04/23. IM ertapenem, can reconstitute with lidocaine. Dx: esbl ecoli bacteremia. lactulose 20 gram/30 mL solution 20 g PO TID PRN (Reason: confusion) Qty: 2880 0RF Rx Instructions: titrate until 2-3 loose stools daily Continued donepezil 10 mg tablet 5 mg PO QHS aspirin [Adult Low Dose Aspirin] 81 mg tablet,delayed release (DR/EC) 81 mg PO DAILY atorvastatin 40 mg tablet 40 mg PO QHS duloxetine 20 mg capsule,delayed release(DR/EC) 20 mg PO DAILY loperamide [Anti-Diarrheal (loperamide)] 2 mg capsule 2 mg PO DAILY Rx Instructions: administer after each loose stool until symptoms controlled; do not exceed 8 mg per 24 hrs omeprazole 20 mg capsule,delayed release(DR/EC) 20 mg PO DAILY medroxyprogesterone 5 mg tablet 5 mg PO .qohs Eliquis 5 mg tablet 5 mg PO BID insulin glargine 100 UNITS/ML insulin pen 30 unit SC .afternoon acetaminophen 325 mg Tablet 650 mg PO Q4H PRN PRN (Reason: Fever, pain 1-01/23) Qty: 0 0RF insulin glargine [Basaglar KwikPen U-100 Insulin] 100 unit/mL (3 mL) insulin pen 34 unit subcut DAILY Rx Instructions: in the afternoon Bydureon BCise 2 mg/0.85 mL auto-injector 2 mg subcut QWEEK Rx Instructions: every Sunday donepezil 5 mg tablet 5 mg PO QHS insulin lispro [Humalog KwikPen Insulin] 100 unit/mL Insulin Pen 1 sliding scale dose subcut ACHS Protocol: 3. Sliding Scale Insulin Med Dosing Condition: 150-189 mg/dl = 1 unit Condition: 190-229 mg/dl = 2 units Condition: 230-269 mg/dl = 3 units Condition: 270-309 mg/dl = 4 units Condition: 310-349 mg/dl = 5 units Condition: 350-399 mg/dl = 6 units Condition: 400-449 mg/dl = 7 units Condition: Greater than 449 call physician Protocol Text: - Use for Total Daily Dose of Insulin 37-55 units - Obsese, infected, or steroid patients MEDIUM DOSING ALGORITHIM duloxetine 30 mg capsule,delayed release(DR/EC) 30 mg PO DAILY benztropine 0.5 mg tablet 0.5 mg PO DAILY insulin lispro 100 unit/mL insulin pen 5 unit subcut ACHS melatonin 5 mg capsule 5 mg PO QHS tamsulosin 0.4 mg Capsule 0.4 mg PO BID Qty: 0 0RF Referrals / Follow Up: Enriqueta Flanagan MD [Primary Care Provider] - Within 2 Weeks Disposition Disposition (needs filled in before D/C Order can be placed): Intermediate Facility
--- NOTE | 2023-08-29 11:24 | DS.PCM_ITS ---
Providers Date of Admission: 08/24/23 Date of Discharge: 08/29/23 Primary Care Physician: Dr. Enriqueta Flanagan MD Consultations 08/24/23 02:43 Consult: Dispatcher [employer] / Pulmonary Medicine Routine Consulting Provider: Intensivists/Pulmonary Med Reason for Consult: Sepsis due to UTI after recent Thomas trauma plus DIMITRI due to urinary retenti EMERGENT Consult: No Notified: Yes Date Notified: 08/24/23 Time Notified: 01:15 Method of Notification: Text 08/27/23 16:03 Consult: Infectious Disease Routine Consulting Provider: Saul Acosta Reason for Consult: ESBL E coli bacteremia EMERGENT Consult: No Notified: Yes Date Notified: 08/27/23 Time Notified: 16:33 Method of Notification: Text Reason For Visit: SEPSIS DUE TO UTI WITH THOMAS TRAMA AND DIMITRI Diagnosis Discharge Diagnosis (1) Acute cystitis with hematuria: Status: Acute Code(s): N30.01 - Acute cystitis with hematuria Plan #Sepsis due to UTI * urine cultures growing ESBL E coli and gram negative E coli. * blood cultures positive for E coli * on invanz.ID consulted; to be on IV ertapenem till 09/04/2023. * * #Acute metabolic encephalopathy: * Patient is quite confused and lethargic today. * This opens his eyes in response to voice but does not answer any questions. * There is a significant change from yesterday. * CT of the brain without contrast ordered and ammonia level also ordered. * #Paroxysmal afib: on eliquis. Not on any beta geoffrey #Hypokalemia: K is 3.1. Will replace and trend. #Hyperlipidemia: on statin #RODRI: on CPAP qhs #Type 2 diabetes mellitus: on lantus. ISS. Accuchecks ACHS #GERD: on PPI #ANxiety and depression;stable DVT prophylaxis: on eliquis. Disposition: for likely dc within the next 1-2 days once encephalopathy resolves. Medications at Discharge Home Medications apixaban 5 mg tablet (Eliquis) 5 mg PO BID see pcp 11/11/22 aspirin 81 mg tablet,delayed release (Adult Low Dose Aspirin) 81 mg PO DAILY see pcp 11/11/22 atorvastatin 40 mg tablet 40 mg PO QHS see pcp 11/11/22 donepezil 10 mg tablet 5 mg PO QHS see pcp 11/11/22 duloxetine 20 mg capsule,delayed release 20 mg PO DAILY see pcp 11/11/22 insulin glargine 100 unit/mL (3 mL) subcutaneous pen 30 unit subcut .afternoon see pcp 11/11/22 loperamide 2 mg capsule (Anti-Diarrheal (loperamide)) 2 mg PO DAILY see pcp 11/11/22 medroxyprogesterone 5 mg tablet 5 mg PO .qohs see pcp 11/11/22 omeprazole 20 mg capsule,delayed release 20 mg PO DAILY see pcp 11/11/22 acetaminophen 325 mg tablet 650 mg (2 x 325 mg) PO Q4H PRN PRN Fever, pain - 01/23 #0 tabs 11/14/22 benztropine 0.5 mg tablet 0.5 mg PO DAILY see pcp 07/04/23 duloxetine 30 mg capsule,delayed release 30 mg PO DAILY see pcp 07/04/23 insulin lispro 100 unit/mL subcutaneous pen 5 unit subcut ACHS see pcp 07/04/23 melatonin 5 mg capsule 5 mg PO QHS see pcp 07/04/23 tamsulosin 0.4 mg capsule 0.4 mg PO BID #0 caps 07/05/23 donepezil 5 mg tablet 5 mg PO QHS 08/24/23 exenatide microspheres 2 mg/0.85 mL subcutaneous auto-injector (Bydureon BCise) 2 mg subcut QWEEK 08/24/23 insulin glargine 100 unit/mL (3 mL) subcutaneous pen (Basaglar KwikPen U-100 Insulin) 34 unit subcut DAILY 08/24/23 insulin lispro 100 unit/mL subcutaneous pen (Humalog KwikPen (U-100) Insulin) 1 sliding scale dose subcut ACHS see pcp 08/24/23 ertapenem 1 gram solution for injection 1 g IM DAILY #7 ea 08/28/23 lactulose 20 gram/30 mL oral solution 20 g (30 mL) PO TID PRN confusion #2,880 mL 08/29/23 Hospital Course Operations None Procedures None Summary of Care Provided Minutes Spent on Discharge: 55 Hospital Course: Patient is a 67-year-old male with a past medical history as outlined was admitted through the ED on 08/24/2023 with a complaint of fever and confusion as well as urinary retention. He had a chronic indwelling Thomas catheter but he had accidentally ripped it out to the day before admission with resultant severe urinary retention. The Thomas catheter was replaced but did not seem to have been in a good position. On admission in the ED, blood ultrasound showed that he had about 1 L of urine in his bladder. Urology was consulted in the ED and he had the Thomas catheter replaced with subsequent drainage of his bladder. Urinalysis showed evidence of UTI. Patient was also febrile and tachycardic and had elevated white cell count of 18.6. Lactic acid was also elevated at 4.7 and he also had DIMITRI with creatinine of 1.75 with his baseline of around 1.2. He was therefore admitted and managed for acute metabolic encephalopathy due to sepsis in the setting of UTI as well as DIMITRI and urinary retention. He was placed on IV ceftriaxone and hydrated with IV fluids in the setting of DIMITRI. However on admission to the floor, antibiotics were broadened to IV Zosyn and IV Levaquin. Creatinine improved. Urine cultures grew ESBL E. coli. Based on sensitivities, patient was switched to IV ertapenem. ID was consulted and recommended that patient continue on IV ertapenem for for 1 more week till 09/04/2023. Hospital course was complicated by worsening encephalopathy and ammonia levels were checked which was slightly elevated at 33. He was therefore placed on lactulose and his mentation improved. Of note liver enzymes were not checked. Patient remained stable and [facility]. He is to follow-up with his PCP within 1-2 weeks. Patient seen and examined prior to discharge. He was much more alert today and communicative. He had no active complaints. Review of systems otherwise negative. Labs and vitals reviewed. Home medication reviewed and reconciled. Physical Exam Const alert, oriented x3 and no apparent distress General Appearance: cooperative and comfortable HEENT normocephalic, head/scalp atraumatic, hearing grossly normal bilaterally, moist oral mucous membranes and oropharynx normal Eyes PERRL and EOMs intact bilaterally Neck no lymphadenopathy and supple Lymph Lymphatic: no lymphadenopathy noted and no lymphedema noted Resp normal respiratory effort, normal air movement, no retractions, no use of accessory muscles and clear to auscultation bilaterally Cardio regular rate, regular rhythm, S1 normal heart sound, S2 normal heart sound and no murmurs GI normal to inspection, nondistended, normoactive bowel sounds, soft to palpation, non-tender and non-distended Extremity normal to inspection, full ROM, normal capillary refill and no clubbing, cyanosis or edema General Extremity: no tenderness to palpation of joints or extremities Skin General Skin Exam: no breakdown Neuro oriented x3, CN's II-XII intact bilaterally, moves all extremities, no focal motor deficits, no sensory deficits noted and deep tendon reflexes 2+ bilaterally Sensorium / Orientation: awake, alert and oriented to person Speech: speech normal Motor Exam: general weakness Psych thought process normal, cooperative and affect normal Weight / BMI Weight Weight: 187 lb 13.341 oz Body Mass Index (BMI) 26.2 ABG / Lab / Microbiology Data 08/29/23 07:00 08/29/23 07:00 Laboratory: Laboratory Results - last 24 hr 08/28/23 11:13: POC Glucose 131 H 08/28/23 12:30: Ammonia 33.0 H 08/28/23 16:30: POC Glucose 147 H 08/28/23 20:13: POC Glucose 135 H 08/29/23 07:00: WBC 12.4 H, RBC 4.44 L, Hgb 12.1 L, Hct 38.3 L, MCV 86.3, MCH 27.3, MCHC 31.6 L, RDW Std Deviation 44.4 H, RDW Coeff of Tarik 14.3, Plt Count 381, MPV 9.3, Immature Gran % (Auto) 0.700, Neut % (Auto) 64.8, Lymph % (Auto) 21.9, Mitchell % (Auto) 7.2, Eos % (Auto) 4.8, Baso % (Auto) 0.6, Absolute Neuts (auto) 8.1 H, Absolute Lymphs (auto) 2.72, Nucleated RBC % 0, Sodium 141, P otassium 3.4 L, Chloride 110 H, Carbon Dioxide 23.0, Anion Gap 8, BUN 10, C reatinine 1.34 H, Estim Creat Clear Calc 55.41, Est GFR (MDRD) Af Amer 68, Est GFR (MDRD) Non-Af 56 L, BUN/Creatinine Ratio 7.5 L, Glucose 122 H, Calcium 8.8 08/29/23 08:17: Ammonia 31.0 08/29/23 08:19: POC Glucose 168 H Microbiology: Microbiology 08/24/23 00:14 Blood Culture (Wb) - Right Forearm Blood Culture - Final GNR lactose casing blower 08/24/23 00:14 Urine Catheter - Thomas Urine Culture - Final ESBL Escherichia coli 08/24/23 00:14 Blood Culture (Wb) - Left Wrist Blood Culture - Final ESBL Escherichia coli Radiography Diagnostic Testing: Radiology Impression Brain CT 08/28/23 11:49 IMPRESSION: Chronic involutional changes of the brain. Electronically Signed: Archie Garcia MD at 12:39 EDT , D/C Instructions Discharge Diet: Low fat / Low cholesterol Discharge Activity: Return to Normal Activity Weight Bearing Status: Weight bearing as tolerated Call your doctor if you observe: Fever of 101 or Higher, Shortness of breath, Dizziness, Swelling in the ankles and Chest pain Meaningful Use Info Meaningful Use Meaningful Use Diagnoses (Choose all that apply): None applicable Ischemic Stroke Statin Dosing Therapy Reference: STATIN DOSE THERAPY REFERENCE: * Patients > 75 years receive moderate or high dose statin therapy. * Patients 75 years or YOUNGER should receive HIGH intensity statin dose unless contraindicated. You will be required to document reason for non-treatment if statin daily dose does not meet guidelines. HIGH DOSE STATIN THERAPY DAILY Atorvastatin > than or = to 40 mg Rosuvastatin > than or = to 20 mg Amlodipine + Atorvastatin > than or = to 2.5/40 mg Ezetimibe + Simvastatin 10/80 mg Simvastatin 80mg Discharge Plan Admission Admit Date/Time: 08/24/23 01:11 Primary Reason for Your Visit: UTI Attending Provider: Tri Ross Primary Care Provider: Enriqueta Flanagan Consulting Providers: Leonard Neff; Héctor Brumfield; Saul Acosta Instructions Patient Instructions: ED Urinary Tract Infections in Men Discharge Orders/Prescriptions Prescriptions: New ertapenem 1 gram recon soln 1 g IM DAILY Qty: 7 0RF Rx Instructions: stop date 09/04/23. IM ertapenem, can reconstitute with lidocaine. Dx: esbl ecoli bacteremia. lactulose 20 gram/30 mL solution 20 g PO TID PRN (Reason: confusion) Qty: 2880 0RF Rx Instructions: titrate until 2-3 loose stools daily Continued donepezil 10 mg tablet 5 mg PO QHS aspirin [Adult Low Dose Aspirin] 81 mg tablet,delayed release (DR/EC) 81 mg PO DAILY atorvastatin 40 mg tablet 40 mg PO QHS duloxetine 20 mg capsule,delayed release(DR/EC) 20 mg PO DAILY loperamide [Anti-Diarrheal (loperamide)] 2 mg capsule 2 mg PO DAILY Rx Instructions: administer after each loose stool until symptoms controlled; do not exceed 8 mg per 24 hrs omeprazole 20 mg capsule,delayed release(DR/EC) 20 mg PO DAILY medroxyprogesterone 5 mg tablet 5 mg PO .qohs Eliquis 5 mg tablet 5 mg PO BID insulin glargine 100 UNITS/ML insulin pen 30 unit SC .afternoon acetaminophen 325 mg Tablet 650 mg PO Q4H PRN PRN (Reason: Fever, pain -01/23) Qty: 0 0RF insulin glargine [Basaglar KwikPen U-100 Insulin] 100 unit/mL (3 mL) insulin pen 34 unit subcut DAILY Rx Instructions: in the afternoon Bydureon BCise 2 mg/0.85 mL auto-injector 2 mg subcut QWEEK Rx Instructions: every Sunday donepezil 5 mg tablet 5 mg PO QHS insulin lispro [Humalog KwikPen Insulin] 100 unit/mL Insulin Pen 1 sliding scale dose subcut ACHS Protocol: 3. Sliding Scale Insulin Med Dosing Condition: 150-189 mg/dl = 1 unit Condition: 190-229 mg/dl = 2 units Condition: 230-269 mg/dl = 3 units Condition: 270-309 mg/dl = 4 units Condition: 310-349 mg/dl = 5 units Condition: 350-399 mg/dl = 6 units Condition: 400-449 mg/dl = 7 units Condition: Greater than 449 call physician Protocol Text: - Use for Total Daily Dose of Insulin 37-55 units - Obsese, infected, or steroid patients MEDIUM DOSING ALGORITHIM duloxetine 30 mg capsule,delayed release(DR/EC) 30 mg PO DAILY benztropine 0.5 mg tablet 0.5 mg PO DAILY insulin lispro 100 unit/mL insulin pen 5 unit subcut ACHS melatonin 5 mg capsule 5 mg PO QHS tamsulosin 0.4 mg Capsule 0.4 mg PO BID Qty: 0 0RF Referrals / Follow Up: Enriqueta Flanagan MD [Primary Care Provider] - Within 2 Weeks Disposition Disposition (needs filled in before D/C Order can be placed): Nursing Home Facility Charges/Coding Visit Charges Inpatient E&M: 36369 Disch Hosp >30min
[2023-08-29 11:56] LABS: Bedside Glucose 170 mg/dL (74-106)
--- NOTE | 2023-08-29 12:41 | CASEMGMT ---
Patient is ready for discharge back to [facility]. SW notified [facility]. Plan: d/c back to [facility] under intermediate level of care. Physicians will transport patient via cot. Judith COLON
--- NOTE | 2023-08-29 12:48 | NURSING ---
Called report to nurse Valverde at [facility]
--- NOTE | 2023-08-29 12:58 | CASEMGMT ---
Discharge Planning Discharge orders, signed med list, and transport time sent to [facility] via [facility]. Physicians will transport patient by cot at 1:15p. Nursing and SW updated. Patient has no friends/family contacts. Jessica Christine, Discharge Planning Asst.
--- NOTE | 2023-08-29 14:15 | PHA.DC_ITS ---
Pharmacy [facility] Med Reconciliation Pharmacy Service has performed discharge medication reconciliation for this patient. The patient's discharge medication list was reviewed for discrepancies and discrepancies were resolved. Medications at Discharge Home Medications apixaban 5 mg tablet (Eliquis) 5 mg PO BID see pcp 11/11/22 aspirin 81 mg tablet,delayed release (Adult Low Dose Aspirin) 81 mg PO DAILY see pcp 11/11/22 atorvastatin 40 mg tablet 40 mg PO QHS see pcp 11/11/22 donepezil 10 mg tablet 5 mg PO QHS see pcp 11/11/22 duloxetine 20 mg capsule,delayed release 20 mg PO DAILY see pcp 11/11/22 insulin glargine 100 unit/mL (3 mL) subcutaneous pen 30 unit subcut .afternoon see pcp 11/11/22 loperamide 2 mg capsule (Anti-Diarrheal (loperamide)) 2 mg PO DAILY see pcp 11/11/22 medroxyprogesterone 5 mg tablet 5 mg PO .qohs see pcp 11/11/22 omeprazole 20 mg capsule,delayed release 20 mg PO DAILY see pcp 11/11/22 acetaminophen 325 mg tablet 650 mg (2 x 325 mg) PO Q4H PRN PRN Fever, pain - 01/23 #0 tabs 11/14/22 benztropine 0.5 mg tablet 0.5 mg PO DAILY see pcp 07/04/23 duloxetine 30 mg capsule,delayed release 30 mg PO DAILY see pcp 07/04/23 insulin lispro 100 unit/mL subcutaneous pen 5 unit subcut ACHS see pcp 07/04/23 melatonin 5 mg capsule 5 mg PO QHS see pcp 07/04/23 tamsulosin 0.4 mg capsule 0.4 mg PO BID #0 caps 07/05/23 donepezil 5 mg tablet 5 mg PO QHS 08/24/23 exenatide microspheres 2 mg/0.85 mL subcutaneous auto-injector (Bydureon BCise) 2 mg subcut QWEEK 08/24/23 insulin glargine 100 unit/mL (3 mL) subcutaneous pen (Basaglar KwikPen U-100 Insulin) 34 unit subcut DAILY 08/24/23 insulin lispro 100 unit/mL subcutaneous pen (Humalog KwikPen (U-100) Insulin) 1 sliding scale dose subcut ACHS see pcp 08/24/23 ertapenem 1 gram solution for injection 1 g IM DAILY #7 ea 08/28/23 lactulose 20 gram/30 mL oral solution 20 g (30 mL) PO TID PRN confusion #2,880 mL 08/29/23
== END 2023-08-29 14:04 | disposition skilled nursing facility (03) | DRG 698 ==
LOC: ED 08-24 01:16 → ICU 08-24 02:39 → PCU 08-24 15:26
PROVIDERS: Family Medicine; Admitting Provider Internal Medicine; Emergency Provider Emergency Medicine; PCP Internal Medicine; Visit Provider Student in an Organized Health Care Education/Training Program
DX: T83.511A Infection and inflammatory reaction due to indwelling urethral catheter, initial encounter (principal); A41.51 Sepsis due to Escherichia coli [E. coli]; G93.41 Metabolic encephalopathy; R65.20 Severe sepsis without septic shock; N17.9 Acute kidney failure, unspecified; N30.01 Acute cystitis with hematuria; E87.20 Acidosis, unspecified; E11.22 Type 2 diabetes mellitus with diabetic chronic kidney disease; F03.90 Unspecified dementia, unspecified severity, without behavioral disturbance, psychotic disturbance, mood disturbance, and anxiety; Z79.4 Long term (current) use of insulin; I48.0 Paroxysmal atrial fibrillation; I12.9 Hypertensive chronic kidney disease with stage 1 through stage 4 chronic kidney disease, or unspecified chronic kidney disease; F32.A Depression, unspecified; E83.39 Other disorders of phosphorus metabolism; E78.5 Hyperlipidemia, unspecified; N18.2 Chronic kidney disease, stage 2 (mild); G47.33 Obstructive sleep apnea (adult) (pediatric); K21.9 Gastro-esophageal reflux disease without esophagitis; E87.6 Hypokalemia; F41.9 Anxiety disorder, unspecified; Z68.30 Body mass index [BMI] 30.0-30.9, adult; N32.89 Other specified disorders of bladder; R33.9 Retention of urine, unspecified; E66.9 Obesity, unspecified; Z79.01 Long term (current) use of anticoagulants; Z87.891 Personal history of nicotine dependence
CPT/HCPCS: 36415; 51702; 70450; 80048; 80053; 81001; 82140; 82607; 82746; 82962; 83605; 83735; 84100; 84443; 85025; 85610; 85730; 87040; 87077; 87086; 87088; 87186; 92610; 97802; 99285; J7030; J7040; A4216

== ENCOUNTER → 2023-09-11 | Outpatient (REF) | payer MEDICARE, MEDICAID, SELFPAY ==
[2023-09-11 08:22] LABS: Hemoglobin 10.8 g/dL (13.0-16.5); Mean Corp Hgb Conc 30.9 g/dL (32-36); Mean Corpuscular Hgb 27.3 pg (27.0-32.0); Mean Corpuscular Volume 88.4 fL (80-94); Mean Platelet Vol. 9.6 fl (6.2-12.0); Platelet Count 433 K/mm3 (150-450); RBC Distribution Width CV 14.3 % (11.6-14.6); Red Blood Count 3.96 M/mm3 (4.6-6.2); White Blood Count 9.4 K/mm3 (4.4-11.0)
[2023-09-11 08:39] LABS: Anion Gap 7 (5-15); BUN 21 mg/dL (7-18); BUN/Creat Ratio 13.8 RATIO (10-20); Calcium,Total 8.6 mg/dL (8.5-10.1); Chloride 113 mmol/L (98-107); Creatinine, Serum 1.52 mg/dL (0.70-1.30); EST Glomerular Filtration Rate 48 mL/min (>60); Est Glom Filt Rate - Afr Amer 59 mL/min (>60); Glucose 140 mg/dL (74-106); Magnesium 2.3 mg/dL (1.6-2.6); Potassium 4.3 mmol/L (3.5-5.1); Sodium Level 142 mmol/L (136-145)
[2023-09-14 00:07] LABS: QNTFERON TB Mitogen Value > 10.00 IU/mL (.); QNTFERON TB Nil Value 0.03 IU/mL (.); QNTFERON TB1+ Ag Value 2.57 IU/mL (.); QNTFERON TB2+ Ag Value 2.71 IU/mL (.); QNTIFERON TB Positive Criteria Positive (Negative)
== END ==
LOC: OLS.SW 05:00
PROVIDERS: PCP Internal Medicine; Visit Provider Internal Medicine
DX: E11.65 Type 2 diabetes mellitus with hyperglycemia (principal); N17.9 Acute kidney failure, unspecified; M62.81 Muscle weakness (generalized)
CPT/HCPCS: 36415; 80048; 83735; 85027; 86480

== ENCOUNTER 2023-09-28 14:45 | Emergency (ER) | payer MEDICARE, MEDICAID, SELFPAY ==
[2023-09-28] VITALS (7 sets, daily range): BP systolic 143–175; BP diastolic 89–117; PULSE 80–95; RESP 13–22; TEMP 36.1–36.6; O2SAT 95–99; BMI 26.6
--- NOTE | 2023-09-28 15:07 | EDS_ITS ---
<Statement entered by Alana Borjas MD - 09/28/23 19:51> I have personally performed a face to face assessment of the patient and have reviewed the MARLYS Note. Patient presents secondary to blood in his Bell catheter. Patient is a history of dementia and is currently at a local [facility]. He has a chronic indwelling Bell catheter and is on Eliquis. He was recently treated for TB with a medication that we will discolor his urine. They thought that was the initial cause of his dark urine, but after stopping the medication the urine has become even more bloody with some clots. Patient lying in bed no acute distress. Alert and pleasant. Head and neck examination unremarkable. Heart is regular rate and rhythm. Lung sounds are clear. Abdomen is soft with no focal tenderness. CBC was a white count of 12.8 with 70% neutrophils. Hemoglobin is 9.3 which is down about a gram and a half from 6 weeks ago. BUN is 27 creatinine is 2.14, increased over his baseline. Patient's catheter was irrigated but continued to be bloody with clots. This was switched out to a three-way in anticipation of continuous irrigation. After nursing staff switched out the catheter and irrigated with approximately 300 cc of fluid the urine returned clear. This urine was sent for a urinalysis and does reveal greater than 100 red cells, greater than 100 white cells, 0 bacteria, but positive nitrites. Patient discussed with Dr. Oseguera. Patient will have urine culture sent and he will be treated with Keflex. He is to hold Eliquis for the next 5 days. Return instructions provided. HPI History of Present Illness Chief Complaint: Complaint Narrative Narrative: 67-year-old male with PMH of HTN, HLD, DM2, CKD, A-fib on Eliquis presents via EMS from [facility] after staff noticed there was blood and clots in his indwelling Bell catheter. The timeline is not clear but he recently had urosepsis and a Bell catheter placed. He tested positive for TB and recently took isoniazid which she finished on 09/26/2023. His urine was discolored for a few days but they thought it could be secondary to medication but today when [facility]. Patient has dementia and is a poor informant. He denies abdominal pain or vomiting. [facility] Medical History Nephropathy, obstructive CKD (chronic kidney disease), stage II Dementia GERD (gastroesophageal reflux disease) Obesity RODRI on CPAP History of GI bleed Anxiety and depression Hyperlipidemia Hypertension Diabetes Home Medications ?Medication ?Instructions ?Recorded ?Last Taken ?Type apixaban 5 mg tablet (Eliquis) 5 mg PO BID see pcp 11/11/22 Unknown History aspirin 81 mg tablet,delayed 81 mg PO DAILY see pcp 11/11/22 Unknown History release (Adult Low Dose Aspirin) atorvastatin 40 mg tablet 40 mg PO QHS see pcp 11/11/22 Unknown History donepezil 10 mg tablet 5 mg PO QHS see pcp 11/11/22 Unknown History duloxetine 20 mg capsule,delayed 20 mg PO DAILY see pcp 11/11/22 Unknown History release insulin glargine 100 unit/mL (3 30 unit subcut .afternoon see pcp 11/11/22 Unknown History mL) subcutaneous pen loperamide 2 mg capsule 2 mg PO DAILY see pcp 11/11/22 Unknown History (Anti-Diarrheal (loperamide)) medroxyprogesterone 5 mg tablet 5 mg PO .qohs see pcp 11/11/22 Unknown History omeprazole 20 mg capsule,delayed 20 mg PO DAILY see pcp 11/11/22 Unknown History release acetaminophen 325 mg tablet 650 mg (2 x 325 mg) PO Q4H PRN PRN 11/14/22 Unknown Rx Fever, pain 1-01/23 #0 tabs benztropine 0.5 mg tablet 0.5 mg PO DAILY see pcp 07/04/23 Unknown History duloxetine 30 mg capsule,delayed 30 mg PO DAILY see pcp 07/04/23 Unknown History release insulin lispro 100 unit/mL 5 unit subcut ACHS see pcp 07/04/23 Unknown History subcutaneous pen melatonin 5 mg capsule 5 mg PO QHS see pcp 07/04/23 Unknown History tamsulosin 0.4 mg capsule 0.4 mg PO BID #0 caps 07/05/23 Unknown Rx donepezil 5 mg tablet 5 mg PO QHS 08/24/23 Unknown History exenatide microspheres 2 mg/0.85 2 mg subcut QWEEK 08/24/23 Unknown History mL subcutaneous auto-injector (Bygeoffrey BCi) insulin glargine 100 unit/mL (3 34 unit subcut DAILY 08/24/23 Unknown History mL) subcutaneous pen (Basaglar KwikPen U-100 Insulin) insulin lispro 100 unit/mL 1 sliding scale dose subcut ACHS 08/24/23 Unknown History subcutaneous pen (Humalog KwikPen see pcp (U-100) Insulin) ertapenem 1 gram solution for 1 g IM DAILY #7 ea 08/28/23 Unknown Rx injection lactulose 20 gram/30 mL oral 20 g (30 mL) PO TID PRN confusion 08/29/23 Unknown Rx solution #2,880 mL cephalexin 500 mg capsule 500 mg PO Q6 7 days #28 CAPSULES 09/28/23 Unknown Rx Allergy/AdvReac Type Severity Reaction Status Date / Time No Known Allergies Allergy Verified 07/03/23 19:31 Family History Mother Pulmonary disease Father CAD (coronary artery disease) Heart disease Hypertension Myocardial infarction Surgical History H/O cataract removal with insertion of prosthetic lens History of testicular surgery Social History housing: halfway Smoking Status: Former smoker how long ago did patient quit smoking: Smoked as a teenager very minimally. alcohol intake: never substance use type: does not use ROS ROS ED ROS Narrative Unable to obtain due to dementia. He denies vomiting or abdominal pain. EXAM Physical Exam Narrative Exam Narrative: CONST: Patient sitting in no acute distress. EYES: Normal inspection. ENT: Normal inspection, moist mucous membranes. NECK: Normal inspection. RESP: No respiratory distress, CTAB. CVS: Regular rate and rhythm, no murmur, no gallop. ABD: Soft and nontender, no guarding or rebound, nondistended. : Normal external genitalia with indwelling Bell catheter with no signs of blood at the urethral meatus, 100 cc of gross blood in Bell bag. Back: Normal inspection, no CVA tenderness. SKIN: Color normal, no rash, warm, dry, intact. EXTREMITIES: Normal appearance, no pedal edema. NEURO: Alert to self and answering questions appropriately. PSYCH: Normal affect. Const Vital Signs: 09/28/23 14:45 09/28/23 14:47 09/28/23 15:47 Temperature 97.7 F L 97.7 F L 97.7 F L Temperature Source Temporal Temporal Temporal Pulse Rate 83 83 80 Respiratory Rate 13 13 22 H Blood Pressure 155/117 H 155/117 H 172/89 H Blood Pressure Mean 129 129 116 Pulse Ox 98 98 97 Oxygen Delivery Method Room Air Room Air Room Air 09/28/23 16:00 09/28/23 17:00 09/28/23 18:00 Temperature 97 F L 97.7 F L 97 F L Temperature Source Temporal Temporal Temporal Pulse Rate 82 89 95 Respiratory Rate 20 H 17 18 Blood Pressure 167/100 H 143/114 H 175/101 H Blood Pressure Mean 122 123 125 Pulse Ox 99 97 97 Oxygen Delivery Method Room Air Room Air Room Air MDM MDM MDM Narrative Medical decision making narrative: History gathered from: Patient, EMS Consults: Urology Differential: UTI, Bell catheter occlusion from blood clots, DIMITRI Patient was sent in after there was gross hematuria and clots in his indwelling Bell catheter. Reportedly there has been discolored urine over the last several days. He is on Eliquis for A-fib. He has dementia and is a poor informant with no acute complaints. Vital signs stable. Abdomen soft and nontender. There is about 100 cc of gross bloody urine in the Bell bag. Nursing staff irrigated and states there was multiple clots in the urine is now clearing. They replaced the Bell catheter. It has been about 5 weeks since it was changed last by urology (see records below). Labs show WBC of 12.8. Hemoglobin is 9.3 down from 10.8 about 2 weeks ago. BUN 27, creatinine 2.14 (previously 1.52). After Bell catheter was changed and he was given 1 L IV fluids and is draining clear light yellow urine. UA is consistent with UTI. I discussed the case with Dr. Oseguera who recommended outpatient antibiotics and to hold Eliquis for 5 days. He was given a dose of IV Rocephin and prescribed Keflex. Nurse will give report and discuss return precautions with SNF. He was discharged in stable condition. External records reviewed: Urology consult note on 08/23/2023 Patient pulled out his indwelling catheter which was replaced by Dr. Oseguera with flexible cystoscopy through traumatic prostate injury. Patient was admitted for UTI. He advised a catheter change in 6 weeks. Lab Data Attestation: I reviewed the patient's lab results. Labs: Laboratory Results - last 24 hr 09/28/23 09/28/23 16:02 17:55 WBC 12.8 H RBC 3.54 L Hgb 9.3 L Hct 30.2 L MCV 85.3 MCH 26.3 L MCHC 30.8 L RDW Std Deviation 43.4 RDW Coeff of Tarik 13.9 Plt Count 373 MPV 8.9 Immature Gran % (Auto) 0.500 Neut % (Auto) 70.6 H Lymph % (Auto) 18.2 L Morgan % (Auto) 7.5 Eos % (Auto) 2.9 Baso % (Auto) 0.3 Absolute Neuts (auto) 9.0 H Absolute Lymphs (auto) 2.33 Nucleated RBC % 0 Sodium 139 Potassium 4.0 Chloride 107 Carbon Dioxide 26.0 Anion Gap 6 BUN 27 H Creatinine 2.14 H Estim Creat Clear Calc 34.70 Est GFR (MDRD) Af Amer 40 L Est GFR (MDRD) Non-Af 33 L BUN/Creatinine Ratio 12.6 Glucose 98 Calcium 8.9 Urine Color Xenia Urine Clarity Cloudy Urine pH 6.0 Ur Specific Norton 1.020 Urine Protein 100 H Urine Glucose (UA) Normal Urine Ketones Negative Urine Occult Blood 250 H Urine Nitrite Positive H Urine Bilirubin Negative Urine Urobilinogen 1 H Ur Leukocyte Esterase 500 H Urine RBC > 100 SEEN Urine WBC >100 SEEN Ur Squamous Epith Cells 0 SEEN Urine Bacteria 0 SEEN Urine Mucus 0 SEEN Discharge Plan Triage Chief Complaint: Complaint ED Midlevel Provider: Mary Burrell ED Provider: Alana Borjas Dx/Rx/DC Orders Clinical Impression: Complicated urinary tract infection, Complication, blocked Bell catheter, Hematuria, Anemia Instructions: Anemia, Urinary Tract Infections in Men, ED Hematuria Prescriptions: New cephalexin 500 mg capsule 500 mg PO Q6 7 Days Qty: 28 0RF No Action donepezil 10 mg tablet 5 mg PO QHS aspirin [Adult Low Dose Aspirin] 81 mg tablet,delayed release (DR/EC) 81 mg PO DAILY atorvastatin 40 mg tablet 40 mg PO QHS duloxetine 20 mg capsule,delayed release(DR/EC) 20 mg PO DAILY loperamide [Anti-Diarrheal (loperamide)] 2 mg capsule 2 mg PO DAILY Rx Instructions: administer after each loose stool until symptoms controlled; do not exceed 8 mg per 24 hrs omeprazole 20 mg capsule,delayed release(DR/EC) 20 mg PO DAILY medroxyprogesterone 5 mg tablet 5 mg PO .qohs Eliquis 5 mg tablet 5 mg PO BID insulin glargine 100 UNITS/ML insulin pen 30 unit SC .afternoon acetaminophen 325 mg Tablet 650 mg PO Q4H PRN PRN (Reason: Fever, pain -01/23) Qty: 0 0RF insulin glargine [Basaglar KwikPen U-100 Insulin] 100 unit/mL (3 mL) insulin pen 34 unit subcut DAILY Rx Instructions: in the afternoon Bydureon BCise 2 mg/0.85 mL auto-injector 2 mg subcut QWEEK Rx Instructions: every Sunday donepezil 5 mg tablet 5 mg PO QHS insulin lispro [Humalog KwikPen Insulin] 100 unit/mL Insulin Pen 1 sliding scale dose subcut ACHS Protocol: 3. Sliding Scale Insulin Med Dosing Condition: 150-189 mg/dl = 1 unit Condition: 190-229 mg/dl = 2 units Condition: 230-269 mg/dl = 3 units Condition: 270-309 mg/dl = 4 units Condition: 310-349 mg/dl = 5 units Condition: 350-399 mg/dl = 6 units Condition: 400-449 mg/dl = 7 units Condition: Greater than 449 call physician Protocol Text: - Use for Total Daily Dose of Insulin 37-55 units - Obsese, infected, or steroid patients MEDIUM DOSING ALGORITHIM ertapenem 1 gram recon soln 1 g IM DAILY Qty: 7 0RF Rx Instructions: stop date 09/04/23. IM ertapenem, can reconstitute with lidocaine. Dx: esbl ecoli bacteremia. lactulose 20 gram/30 mL solution 20 g PO TID PRN (Reason: confusion) Qty: 2880 0RF Rx Instructions: titrate until 2-3 loose stools daily duloxetine 30 mg capsule,delayed release(DR/EC) 30 mg PO DAILY benztropine 0.5 mg tablet 0.5 mg PO DAILY insulin lispro 100 unit/mL insulin pen 5 unit subcut ACHS melatonin 5 mg capsule 5 mg PO QHS tamsulosin 0.4 mg Capsule 0.4 mg PO BID Qty: 0 0RF Primary Care Provider: Enriqueta Flanagan Referrals: Enriqueta Flanagan MD [Primary Care Provider] - Activity Restrictions/Additional Instructions: His Bell catheter was changed and irrigated and urine appears more clear. There is a UTI so I prescribed Keflex. The urologist recommended stopping his Eliquis for 5 days and follow-up in the urology office. I recommend his primary care doctor rechecks his blood counts and kidney function next week. If symptoms worsen return to the ER. Print Language: German Disposition Disposition: Home, Self Care
[2023-09-28 16:09] LABS: Absolute Lymphocyte Count 2.33 X10^3/uL (0.83-4.51); Basophil# 0.04 X10^3/uL; Basophil% 0.3 % (0-1); Eosinophil# 0.37 X10^3/uL; Eosinophils% 2.9 % (0-5); Hematocrit 30.2 % (40-54); Hemoglobin 9.3 g/dL (13.0-16.5); Lymphocyte # 2.33 X10^3/ul (0.83-4.51); Lymphocyte % 18.2 % (19-41); Mean Corp Hgb Conc 30.8 g/dL (32-36); Mean Corpuscular Hgb 26.3 pg (27.0-32.0); Mean Corpuscular Volume 85.3 fL (80-94); Mean Platelet Vol. 8.9 fl (6.2-12.0); Monocyte# 0.96 X10^3/uL; Monocyte% 7.5 % (0-10); NRBC Flagged by Analyzer 0 % (0-5); Neutrophil # 9.03 X10^3/uL (2.7-7.7); Neutrophil % 70.6 % (47-70); Platelet Count 373 K/mm3 (150-450); RBC Distribution Width CV 13.9 % (11.6-14.6); RBC Distribution Width SD 43.4 fl (35.1-43.9); Red Blood Count 3.54 M/mm3 (4.6-6.2); White Blood Count 12.8 K/mm3 (4.4-11.0)
[2023-09-28 16:26] LABS: Anion Gap 6 (5-15); BUN 27 mg/dL (7-18); BUN/Creat Ratio 12.6 RATIO (10-20); Calcium,Total 8.9 mg/dL (8.5-10.1); Chloride 107 mmol/L (98-107); Creatinine, Serum 2.14 mg/dL (0.70-1.30); EST Glomerular Filtration Rate 33 mL/min (>60); Est Glom Filt Rate - Afr Amer 40 mL/min (>60); Glucose 98 mg/dL (74-106); Sodium Level 139 mmol/L (136-145)
[2023-09-28] MEDS: 0.9% Normal Saline (1000mL) 1,000 ML 999 ML IV (16:57)
[2023-09-28 18:01] LABS: Bacteria 0 SEEN /hpf (None Seen); Mucous, Urine 0 SEEN /hpf (<or=2+); Squamous Epithelial Cells - UA 0 SEEN /hpf (0-5)
[2023-09-28 18:03] LABS: Color, Urine Amber (Yellow); Glucose, Dipstick Normal (Normal); Ketone-Dipstick Negative (Negative); Leukocyte Esterase-Dipstick 500 /ul (Negative); Nitrite-Dipstick Positive (Negative); Occult Blood-Urine 250 /ul (Negative); Protein-Dipstick 100 mg/dl (Negative); Urine Bilirubin Dipstick Negative (Negative); Urine Clarity Cloudy (Clear); Urine Urobilinogen 1 mg/dl (Normal)
[2023-09-28 18:14] LABS: Red Blood Cells-Urine > 100 SEEN /hpf (0-5); White Blood Cells >100 SEEN /hpf (0-5)
[2023-09-28] MEDS: Ceftriaxone 1 GM/50 ML BAG IV (18:42)
--- NOTE | 2023-09-28 18:59 | ED.RN ---
Report given to [facility] about pt, updated on plan of care.
== END 2023-09-28 20:00 | disposition home or self-care (01) ==
PROVIDERS: Physician Assistant; Emergency Provider Emergency Medicine; PCP Internal Medicine; Visit Provider Emergency Medicine
DX: N39.0 Urinary tract infection, site not specified (principal); F03.90 Unspecified dementia, unspecified severity, without behavioral disturbance, psychotic disturbance, mood disturbance, and anxiety; I48.91 Unspecified atrial fibrillation; E11.22 Type 2 diabetes mellitus with diabetic chronic kidney disease; Z79.4 Long term (current) use of insulin; Z87.891 Personal history of nicotine dependence; E78.5 Hyperlipidemia, unspecified; D64.9 Anemia, unspecified; I12.9 Hypertensive chronic kidney disease with stage 1 through stage 4 chronic kidney disease, or unspecified chronic kidney disease; R31.9 Hematuria, unspecified; T83.091A Other mechanical complication of indwelling urethral catheter, initial encounter; Z79.01 Long term (current) use of anticoagulants; N18.9 Chronic kidney disease, unspecified; G47.33 Obstructive sleep apnea (adult) (pediatric); Z99.89 Dependence on other enabling machines and devices; Z79.82 Long term (current) use of aspirin; Z79.899 Other long term (current) drug therapy; F41.8 Other specified anxiety disorders; K21.9 Gastro-esophageal reflux disease without esophagitis
CPT/HCPCS: 51702; 80048; 81001; 85025; 87086; 87088; 87186; 96361; 96365; 99284; J7030; J7040; A4216

== ENCOUNTER → 2023-10-06 08:00 | Outpatient (REF) | payer MEDICARE, MEDICAID, SELFPAY ==
[2023-10-06 08:43] LABS: Hemoglobin 8.8 g/dL (13.0-16.5); Mean Corp Hgb Conc 31.4 g/dL (32-36); Mean Corpuscular Volume 82.8 fL (80-94); Mean Platelet Vol. 9.1 fl (6.2-12.0); Platelet Count 435 K/mm3 (150-450); RBC Distribution Width CV 13.5 % (11.6-14.6); Red Blood Count 3.38 M/mm3 (4.6-6.2)
[2023-10-06 08:56] LABS: ALB/GLOB Ratio 0.7 RATIO (0.9-2.4); AST(SGOT) 28 U/L (15-37); Alanine Aminotransfer ALT/SGPT 27 U/L (16-61); Alkaline Phosphatase 80 U/L (45-117); Anion Gap 7 (5-15); BUN 19 mg/dL (7-18); BUN/Creat Ratio 9.6 RATIO (10-20); Calcium,Total 8.8 mg/dL (8.5-10.1); Chloride 108 mmol/L (98-107); Creatinine, Serum 1.98 mg/dL (0.70-1.30); EST Glomerular Filtration Rate 36 mL/min (>60); Est Glom Filt Rate - Afr Amer 43 mL/min (>60); Globulin 4.1 g/dL (2.2-4.2); Glucose 119 mg/dL (74-106); Potassium 4.1 mmol/L (3.5-5.1); Protein, Total 7.1 g/dL (6.4-8.2); Sodium Level 137 mmol/L (136-145)
== END ==
LOC: OLS.SW 08:00
PROVIDERS: PCP Internal Medicine; Referring Provider Internal Medicine; Visit Provider Internal Medicine
DX: N30.01 Acute cystitis with hematuria (principal); I12.9 Hypertensive chronic kidney disease with stage 1 through stage 4 chronic kidney disease, or unspecified chronic kidney disease
CPT/HCPCS: 80053; 85027

== ENCOUNTER → 2023-10-08 05:00 | Outpatient (REF) | payer MEDICARE, MEDICAID, SELFPAY ==
[2023-10-08 08:35] LABS: Hematocrit 26.7 % (40-54); Hemoglobin 8.2 g/dL (13.0-16.5); Mean Corp Hgb Conc 30.7 g/dL (32-36); Mean Corpuscular Hgb 25.9 pg (27.0-32.0); Mean Corpuscular Volume 84.2 fL (80-94); Mean Platelet Vol. 9.1 fl (6.2-12.0); Platelet Count 461 K/mm3 (150-450); RBC Distribution Width CV 13.4 % (11.6-14.6); RBC Distribution Width SD 41.4 fl (35.1-43.9); Red Blood Count 3.17 M/mm3 (4.6-6.2); White Blood Count 11.2 K/mm3 (4.4-11.0)
[2023-10-08 08:55] LABS: ALB/GLOB Ratio 0.7 RATIO (0.9-2.4); AST(SGOT) 21 U/L (15-37); Alanine Aminotransfer ALT/SGPT 33 U/L (16-61); Albumin, Serum 2.8 g/dL (3.2-5.0); Alkaline Phosphatase 82 U/L (45-117); Anion Gap 5 (5-15); BUN 22 mg/dL (7-18); BUN/Creat Ratio 10.5 RATIO (10-20); Calcium,Total 8.2 mg/dL (8.5-10.1); Chloride 108 mmol/L (98-107); Creatinine, Serum 2.09 mg/dL (0.70-1.30); EST Glomerular Filtration Rate 34 mL/min (>60); Est Glom Filt Rate - Afr Amer 41 mL/min (>60); Globulin 3.9 g/dL (2.2-4.2); Glucose 196 mg/dL (74-106); Potassium 4.5 mmol/L (3.5-5.1); Protein, Total 6.7 g/dL (6.4-8.2); Sodium Level 138 mmol/L (136-145)
== END ==
LOC: OLS.SW 05:00
PROVIDERS: PCP Internal Medicine; Visit Provider Internal Medicine
DX: N30.01 Acute cystitis with hematuria (principal); I12.9 Hypertensive chronic kidney disease with stage 1 through stage 4 chronic kidney disease, or unspecified chronic kidney disease; N18.9 Chronic kidney disease, unspecified
CPT/HCPCS: 36415; 80053; 85027

== ENCOUNTER → 2023-10-11 04:50 | Outpatient (REF) | payer MEDICARE, MEDICAID, SELFPAY ==
[2023-10-11 08:28] LABS: Mucous, Urine 0 SEEN /hpf (<or=2+); Squamous Epithelial Cells - UA 0 SEEN /hpf (0-5)
[2023-10-11 09:02] LABS: Color, Urine Yellow (Yellow); Glucose, Dipstick Normal (Normal); Ketone-Dipstick Negative (Negative); Leukocyte Esterase-Dipstick 500 /ul (Negative); Nitrite-Dipstick Negative (Negative); Occult Blood-Urine 150 /ul (Negative); Protein-Dipstick 30 mg/dl (Negative); Specific Gravity, Urine 1.015 (1.002-1.030); Urine Bilirubin Dipstick Negative (Negative); Urine Clarity Sl. Cloudy (Clear); Urine Urobilinogen Normal (Normal)
[2023-10-11 09:26] LABS: Bacteria 1+ /hpf (None Seen); Red Blood Cells-Urine 10-25 SEEN /hpf (0-5); White Blood Cells 50-100 SEEN /hpf (0-5)
== END ==
LOC: OLS.SW 04:50
PROVIDERS: PCP Internal Medicine; Referring Provider Internal Medicine; Visit Provider Internal Medicine
DX: N39.0 Urinary tract infection, site not specified (principal)
CPT/HCPCS: 81001; 87077; 87086; 87088

== ENCOUNTER → 2023-10-15 05:00 | Outpatient (REF) | payer MEDICARE, MEDICAID, SELFPAY ==
[2023-10-15 08:31] LABS: Hematocrit 27.6 % (40-54); Hemoglobin 8.5 g/dL (13.0-16.5); Mean Corp Hgb Conc 30.8 g/dL (32-36); Mean Corpuscular Hgb 25.1 pg (27.0-32.0); Mean Corpuscular Volume 81.7 fL (80-94); Platelet Count 509 K/mm3 (150-450); RBC Distribution Width CV 13.8 % (11.6-14.6); RBC Distribution Width SD 41.2 fl (35.1-43.9); Red Blood Count 3.38 M/mm3 (4.6-6.2); White Blood Count 11.3 K/mm3 (4.4-11.0)
[2023-10-15 08:55] LABS: Anion Gap 6 (5-15); BUN 29 mg/dL (7-18); BUN/Creat Ratio 13.4 RATIO (10-20); Chloride 108 mmol/L (98-107); Creatinine, Serum 2.17 mg/dL (0.70-1.30); EST Glomerular Filtration Rate 32 mL/min (>60); Est Glom Filt Rate - Afr Amer 39 mL/min (>60); Glucose 148 mg/dL (74-106); Potassium 4.4 mmol/L (3.5-5.1); Sodium Level 137 mmol/L (136-145)
== END ==
LOC: OLS.SW 05:00
PROVIDERS: PCP Internal Medicine; Referring Provider Internal Medicine; Visit Provider Internal Medicine
DX: I48.91 Unspecified atrial fibrillation (principal); E78.5 Hyperlipidemia, unspecified; F03.90 Unspecified dementia, unspecified severity, without behavioral disturbance, psychotic disturbance, mood disturbance, and anxiety; E11.9 Type 2 diabetes mellitus without complications; K21.9 Gastro-esophageal reflux disease without esophagitis; E87.6 Hypokalemia; I12.9 Hypertensive chronic kidney disease with stage 1 through stage 4 chronic kidney disease, or unspecified chronic kidney disease; N18.9 Chronic kidney disease, unspecified
CPT/HCPCS: 36415; 80048; 85027

== ENCOUNTER → 2023-10-29 | Outpatient (REF) | payer MEDICARE, MEDICAID, SELFPAY ==
[2023-10-29 08:19] LABS: Hematocrit 27.8 % (40-54); Hemoglobin 8.4 g/dL (13.0-16.5); Mean Corp Hgb Conc 30.2 g/dL (32-36); Mean Corpuscular Hgb 24.2 pg (27.0-32.0); Mean Corpuscular Volume 80.1 fL (80-94); Mean Platelet Vol. 9.4 fl (6.2-12.0); Platelet Count 466 K/mm3 (150-450); RBC Distribution Width CV 14.1 % (11.6-14.6); RBC Distribution Width SD 40.7 fl (35.1-43.9); Red Blood Count 3.47 M/mm3 (4.6-6.2); White Blood Count 8.9 K/mm3 (4.4-11.0)
[2023-10-29 08:43] LABS: Anion Gap 8 (5-15); BUN 22 mg/dL (7-18); BUN/Creat Ratio 10.3 RATIO (10-20); Calcium,Total 8.5 mg/dL (8.5-10.1); Chloride 109 mmol/L (98-107); Creatinine, Serum 2.14 mg/dL (0.70-1.30); EST Glomerular Filtration Rate 33 mL/min (>60); Est Glom Filt Rate - Afr Amer 40 mL/min (>60); Glucose 118 mg/dL (74-106); Sodium Level 138 mmol/L (136-145)
== END ==
LOC: OLS.SW 05:40
PROVIDERS: PCP Internal Medicine; Referring Provider Internal Medicine; Visit Provider Internal Medicine
DX: D64.9 Anemia, unspecified (principal)
CPT/HCPCS: 36415; 80048; 85027

== ENCOUNTER 2023-11-09 13:07 | Emergency (ER) | payer MEDICARE, MEDICAID, SELFPAY ==
[2023-11-09 13:08] VITALS: BP 142/95; PULSE 84; RESP 19; TEMP 36.4; O2SAT 96; BMI 28.8
--- NOTE | 2023-11-09 13:23 | CT_ITS ---
STUDY: CT BRAIN WITHOUT CONTRAST REASON FOR EXAM: Male, 68 years old. Head injury. RADIATION DOSAGE (If Supplied By Facility): CTDIvol = ( 44.99 ) mGy, DLP = ( 796.11 ) mGycm TECHNIQUE: Transaxial CT imaging of the brain was performed without administration of intravenous contrast material. Individualized dose optimization techniques were used for this CT. COMPARISON: Comparison is made with prior study August 28, 2023. FINDINGS: Normal soft tissue structures. Normal calvarium. There is mild cerebral atrophy with widening of the extra-axial spaces and ventricular dilatation. There are areas of decreased attenuation within the white matter tracts of the supratentorial brain, consistent with microvascular disease changes. Normal basal ganglia and thalami. Normal brainstem. Normal cerebellum. There is no intracranial hemorrhage. There are no findings of an acute ischemic infarction. Atherosclerotic calcification of the vertebral arteries worse on the left side in the cavernous portions of the internal carotid arteries bilaterally. Normal visualized paranasal sinuses. CT/Brain/Head without Contrast IMPRESSION: Chronic involutional changes of the brain. Electronically Signed: Archie Garcia MD at 14:05 EDT ,
--- NOTE | 2023-11-09 13:23 | CT_ITS ---
STUDY: CT CERVICAL SPINE WITHOUT CONTRAST REASON FOR EXAM: Male, 68 years old. Neck injury. RADIATION DOSAGE (If Supplied By Facility): CTDIvol = ( 26.51 ) mGy, DLP = ( 624.06 ) mGycm TECHNIQUE: High resolution transaxial imaging was performed without contrast material. Sagittal and coronal images were reconstructed. Individualized dose optimization techniques were used for this CT. COMPARISON: None FINDINGS: Normal craniovertebral junction. There are degenerative changes of the anterior atlantoaxial articulation. Normal odontoid process. There is straightening of the normal cervical lordosis. Normal vertebral bodies and posterior osseous elements. C2-3: Normal endplates. Normal disc height and morphology. Normal central canal and intervertebral neuroforamina. C3-4: Mild degree of disc space narrowing. Facet joint osteoarthritis and hypertrophy and uncovertebral arthrosis. Mild degree of bilateral neural foraminal stenosis. C4-5: Mild degree of disc space narrowing. Uncovertebral arthrosis. Mild bilateral neural foraminal stenosis. C5-6: Moderate degree of disc space narrowing. Spondylosis. Uncovertebral arthrosis. Moderate degree of bilateral neural foraminal stenosis. C6-7: Moderate degree of disc space narrowing. Spondylosis. No significant abnormality is seen. C7-T1: Normal endplates. Normal disc height and morphology. Normal central canal and intervertebral neuroforamina. Atherosclerotic plaque formation of the vertebral arteries. CT/Spine Cervical without Contras IMPRESSION: Multilevel degenerative changes, as described above. Electronically Signed: Archie Garcia MD at 14:13 EDT ,
--- NOTE | 2023-11-09 13:24 | ED.VIS.FALL ---
HPI HPI - Fall History of Present Illness Chief Complaint: Fall Informant: patient and SNF Narrative Narrative: Patient presents from local [facility] secondary to a fall. Patient has a history of dementia and cannot provide much history. He reportedly fell backwards in a wheelchair hitting his head on the floor. There was reportedly no loss of consciousness. Patient has not complained of any injury. 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 anticoagulation Urinary retention Bell catheter problem Chronic dementia Metabolic encephalopathy Nephropathy, obstructive CKD (chronic kidney disease), stage II Dementia GERD (gastroesophageal reflux disease) Obesity RODRI on CPAP History of GI bleed Anxiety and depression Hyperlipidemia Hypertension Diabetes Home Medications ?Medication ?Instructions ?Recorded ?Last Taken ?Type apixaban 5 mg tablet (Eliquis) 5 mg PO BID see pcp 11/11/22 Unknown History aspirin 81 mg tablet,delayed 81 mg PO DAILY see pcp 11/11/22 Unknown History release (Adult Low Dose Aspirin) atorvastatin 40 mg tablet 40 mg PO QHS see pcp 11/11/22 Unknown History donepezil 10 mg tablet 5 mg PO QHS see pcp 11/11/22 Unknown History duloxetine 20 mg capsule,delayed 20 mg PO DAILY see pcp 11/11/22 Unknown History release insulin glargine 100 unit/mL (3 30 unit subcut .afternoon see pcp 11/11/22 Unknown History mL) subcutaneous pen loperamide 2 mg capsule 2 mg PO DAILY see pcp 11/11/22 Unknown History (Anti-Diarrheal (loperamide)) medroxyprogesterone 5 mg tablet 5 mg PO .qohs see pcp 11/11/22 Unknown History omeprazole 20 mg capsule,delayed 20 mg PO DAILY see pcp 11/11/22 Unknown History release acetaminophen 325 mg tablet 650 mg (2 x 325 mg) PO Q4H PRN PRN 11/14/22 Unknown Rx Fever, pain 1-01/23 #0 tabs benztropine 0.5 mg tablet 0.5 mg PO DAILY see pcp 07/04/23 Unknown History duloxetine 30 mg capsule,delayed 30 mg PO DAILY see pcp 07/04/23 Unknown History release insulin lispro 100 unit/mL 5 unit subcut ACHS see pcp 07/04/23 Unknown History subcutaneous pen melatonin 5 mg capsule 5 mg PO QHS see pcp 07/04/23 Unknown History tamsulosin 0.4 mg capsule 0.4 mg PO BID #0 caps 07/05/23 Unknown Rx donepezil 5 mg tablet 5 mg PO QHS 08/24/23 Unknown History exenatide microspheres 2 mg/0.85 2 mg subcut QWEEK 08/24/23 Unknown History mL subcutaneous auto-injector (Bydureon BCise) insulin glargine 100 unit/mL (3 34 unit subcut DAILY 08/24/23 Unknown History mL) subcutaneous pen (Basaglar KwikPen U-100 Insulin) insulin lispro 100 unit/mL 1 sliding scale dose subcut ACHS 08/24/23 Unknown History subcutaneous pen (Humalog KwikPen see pcp (U-100) Insulin) ertapenem 1 gram solution for 1 g IM DAILY #7 ea 08/28/23 Unknown Rx injection lactulose 20 gram/30 mL oral 20 g (30 mL) PO TID PRN confusion 08/29/23 Unknown Rx solution #2,880 mL cephalexin 500 mg capsule 500 mg PO Q6 7 days #28 CAPSULES 09/28/23 Unknown Rx Allergy/AdvReac Type Severity Reaction Status Date / Time No Known Allergies Allergy Verified 11/09/23 13:08 Family History Mother Pulmonary disease Father CAD (coronary artery disease) Heart disease Hypertension Myocardial infarction Surgical History History of testicular surgery H/O cataract removal with insertion of prosthetic lens Social History housing: jail Smoking Status: Former smoker how long ago did patient quit smoking: Smoked as a teenager very minimally. alcohol intake: never substance use type: does not use ROS ROS ED ROS Narrative Limited review of systems secondary to patient's baseline dementia. At this time he denies headache, neck pain, or any other injury. Review of Systems ROS Unobtainable: due to mental condition EXAM Physical Exam Const Vital Signs: 11/09/23 13:08 11/09/23 13:25 Temperature 97.6 F L Temperature Source Temporal Pulse Rate 84 Respiratory Rate 19 H Respiratory Effort Normal Respiratory Depth Normal Respiratory Pattern Normal Blood Pressure 142/95 H Blood Pressure Mean 110 Pulse Ox 96 Oxygen Delivery Method Room Air Room Air Positive well nourished and well developed General Appearance ED: well developed HEENT Reports normocephalic HEENT Narrative: No palpable hematoma on the scalp. Eyes EOMs intact bilaterally Neck full ROM Neck Narrative: No C-spine tenderness. Chest Wall inspection of chest normal and palpation of chest normal Resp normal respiratory effort and clear to auscultation bilaterally Cardio regular rate and regular rhythm GI non-tender Palpation: soft Neuro oriented x3 and moves all extremities Psych mental status grossly normal MDM MDM MDM Narrative Medical decision making narrative: Patient sent for CT imaging of the head and C-spine to evaluate for any acute fracture or intracranial bleed, edema. Radiography Diagnostic Testing: Clinical Impression(s) from Imaging Studies Brain CT 11/09/23 13:23 IMPRESSION: Chronic involutional changes of the brain. Electronically Signed: Archie Garcia MD at 14:05 EDT , Cervical Spine CT 11/09/23 13:23 IMPRESSION: Multilevel degenerative changes, as described above. Electronically Signed: Archie Garcia MD at 14:13 EDT , Treatment and Re-Evaluation Narrative: CT scan of the head reveals chronic involutional changes. CT the C-spine reveals multilevel degenerative changes. Patient appears to be at his baseline mental status. He will be discharged back to the [facility]. Addendum: When I went in the patient's room to let him know that the scans were normal, he was standing at the bedside with both rails up. He had pulled his Bell catheter out and it was found at the foot of the bed with balloon intact. Patient was assisted back to bed. Nursing staff was able to replace his Bell catheter without difficulty. There is some blood noted in the urine at this time. This should clear as this is secondary to localized trauma. Discharge Plan Triage Chief Complaint: Fall ED Provider: Alana Borjas Dx/Rx/DC Orders Clinical Impression: Fall, Closed head injury Instructions: ED Mechanical Fall, ED Head Injury (Adult) Prescriptions: No Action donepezil 10 mg tablet 5 mg PO QHS aspirin [Adult Low Dose Aspirin] 81 mg tablet,delayed release (DR/EC) 81 mg PO DAILY atorvastatin 40 mg tablet 40 mg PO QHS duloxetine 20 mg capsule,delayed release(DR/EC) 20 mg PO DAILY loperamide [Anti-Diarrheal (loperamide)] 2 mg capsule 2 mg PO DAILY Rx Instructions: administer after each loose stool until symptoms controlled; do not exceed 8 mg per 24 hrs omeprazole 20 mg capsule,delayed release(DR/EC) 20 mg PO DAILY medroxyprogesterone 5 mg tablet 5 mg PO .qohs Eliquis 5 mg tablet 5 mg PO BID insulin glargine 100 UNITS/ML insulin pen 30 unit SC .afternoon acetaminophen 325 mg Tablet 650 mg PO Q4H PRN PRN (Reason: Fever, pain -01/23) Qty: 0 0RF insulin glargine [Basaglar KwikPen U-100 Insulin] 100 unit/mL (3 mL) insulin pen 34 unit subcut DAILY Rx Instructions: in the afternoon Bydureon BCise 2 mg/0.85 mL auto-injector 2 mg subcut QWEEK Rx Instructions: every Sunday donepezil 5 mg tablet 5 mg PO QHS insulin lispro [Humalog KwikPen Insulin] 100 unit/mL Insulin Pen 1 sliding scale dose subcut ACHS Protocol: 3. Sliding Scale Insulin Med Dosing Condition: 150-189 mg/dl = 1 unit Condition: 190-229 mg/dl = 2 units Condition: 230-269 mg/dl = 3 units Condition: 270-309 mg/dl = 4 units Condition: 310-349 mg/dl = 5 units Condition: 350-399 mg/dl = 6 units Condition: 400-449 mg/dl = 7 units Condition: Greater than 449 call physician Protocol Text: - Use for Total Daily Dose of Insulin 37-55 units - Obsese, infected, or steroid patients MEDIUM DOSING ALGORITHIM ertapenem 1 gram recon soln 1 g IM DAILY Qty: 7 0RF Rx Instructions: stop date 09/04/23. IM ertapenem, can reconstitute with lidocaine. Dx: esbl ecoli bacteremia. lactulose 20 gram/30 mL solution 20 g PO TID PRN (Reason: confusion) Qty: 2880 0RF Rx Instructions: titrate until 2-3 loose stools daily duloxetine 30 mg capsule,delayed release(DR/EC) 30 mg PO DAILY benztropine 0.5 mg tablet 0.5 mg PO DAILY insulin lispro 100 unit/mL insulin pen 5 unit subcut ACHS melatonin 5 mg capsule 5 mg PO QHS tamsulosin 0.4 mg Capsule 0.4 mg PO BID Qty: 0 0RF cephalexin 500 mg capsule 500 mg PO Q6 7 Days Qty: 28 0RF Primary Care Provider: Enriqueta Flanagan Referrals: Enriqueta Flanagan MD [Primary Care Provider] - 3-5 Days Print Language: Irish Disposition Disposition: [facility] Facility Discharge Location: [facility]
[2023-11-09 18:00] VITALS: BP 145/76; PULSE 79; RESP 16; O2SAT 98
[2023-11-09 18:29] VITALS: BP 140/61; PULSE 81; RESP 14; TEMP 36.6; O2SAT 98
--- NOTE | 2023-11-09 18:48 | ED.RN ---
REPORT CALLED TO KEIKO AT [facility].
== END 2023-11-09 18:34 | disposition skilled nursing facility (03) ==
PROVIDERS: Emergency Provider Emergency Medicine; PCP Internal Medicine; Visit Provider Emergency Medicine
DX: S09.90XA Unspecified injury of head, initial encounter (principal); F03.90 Unspecified dementia, unspecified severity, without behavioral disturbance, psychotic disturbance, mood disturbance, and anxiety; E11.22 Type 2 diabetes mellitus with diabetic chronic kidney disease; Z79.4 Long term (current) use of insulin; E78.5 Hyperlipidemia, unspecified; I12.9 Hypertensive chronic kidney disease with stage 1 through stage 4 chronic kidney disease, or unspecified chronic kidney disease; Z87.891 Personal history of nicotine dependence; W05.0XXA Fall from non-moving wheelchair, initial encounter; N18.2 Chronic kidney disease, stage 2 (mild); G47.33 Obstructive sleep apnea (adult) (pediatric); Z99.89 Dependence on other enabling machines and devices; Z79.01 Long term (current) use of anticoagulants; Z79.82 Long term (current) use of aspirin; Z79.899 Other long term (current) drug therapy; F41.8 Other specified anxiety disorders; Y92.129 Unspecified place in nursing home as the place of occurrence of the external cause
CPT/HCPCS: 70450; 72125; 99282

== ENCOUNTER → 2023-12-03 | Outpatient (REF) | payer MEDICARE, MEDICAID, SELFPAY ==
[2023-12-03 07:44] LABS: Absolute Lymphocyte Count 2.13 X10^3/uL (0.83-4.51); Absolute Neutrophil Count 7.3 X10^3/uL (2.0-7.7); Basophil# 0.06 X10^3/uL; Basophil% 0.6 % (0-1); Eosinophil# 0.35 X10^3/uL; Eosinophils% 3.3 % (0-5); Hematocrit 28.3 % (40-54); Hemoglobin 8.1 g/dL (13.0-16.5); Lymphocyte # 2.13 X10^3/ul (0.83-4.51); Mean Corp Hgb Conc 28.6 g/dL (32-36); Mean Corpuscular Hgb 22.3 pg (27.0-32.0); Mean Corpuscular Volume 77.7 fL (80-94); Mean Platelet Vol. 9.8 fl (6.2-12.0); Monocyte# 0.77 X10^3/uL; Monocyte% 7.2 % (0-10); NRBC Flagged by Analyzer 0 % (0-5); Neutrophil % 68.3 % (47-70); Platelet Count 424 K/mm3 (150-450); RBC Distribution Width SD 41.9 fl (35.1-43.9); Red Blood Count 3.64 M/mm3 (4.6-6.2); White Blood Count 10.7 K/mm3 (4.4-11.0)
[2023-12-03 08:06] LABS: Color, Urine Yellow (Yellow); Glucose, Dipstick Normal (Normal); Ketone-Dipstick Negative (Negative); Leukocyte Esterase-Dipstick 500 /ul (Negative); Nitrite-Dipstick Positive (Negative); Occult Blood-Urine 250 /ul (Negative); Protein-Dipstick 30 mg/dl (Negative); Specific Gravity, Urine 1.015 (1.002-1.030); Urine Bilirubin Dipstick Negative (Negative); Urine Clarity Sl. Cloudy (Clear); Urine Urobilinogen Normal (Normal)
[2023-12-03 08:16] LABS: Bacteria 3+ /hpf (None Seen); Squamous Epithelial Cells - UA 0-5 SEEN /hpf (0-5); White Blood Cells >100 SEEN /hpf (0-5)
[2023-12-03 08:17] LABS: Mucous, Urine RARE /hpf (<or=2+); Red Blood Cells-Urine 50-100 SEEN /hpf (0-5)
[2023-12-03 09:48] LABS: Anion Gap 6 (5-15); BUN 29 mg/dL (7-18); BUN/Creat Ratio 15.1 RATIO (10-20); Calcium,Total 8.9 mg/dL (8.5-10.1); Chloride 112 mmol/L (98-107); Creatinine, Serum 1.92 mg/dL (0.70-1.30); EST Glomerular Filtration Rate 37 mL/min (>60); Est Glom Filt Rate - Afr Amer 45 mL/min (>60); Glucose 114 mg/dL (74-106); Potassium 3.9 mmol/L (3.5-5.1); Sodium Level 139 mmol/L (136-145)
== END ==
LOC: OLS.SW 05:00
PROVIDERS: PCP Internal Medicine; Visit Provider Internal Medicine
DX: R45.1 Restlessness and agitation (principal)
CPT/HCPCS: 36415; 80048; 81001; 85025

== ENCOUNTER → 2023-12-07 05:00 | Outpatient (REF) | payer MEDICARE, MEDICAID, SELFPAY ==
[2023-12-07 07:39] LABS: Absolute Lymphocyte Count 2.11 X10^3/uL (0.83-4.51); Absolute Neutrophil Count 6.4 X10^3/uL (2.0-7.7); Basophil# 0.05 X10^3/uL; Basophil% 0.5 % (0-1); Eosinophil# 0.32 X10^3/uL; Eosinophils% 3.3 % (0-5); Hematocrit 27.7 % (40-54); Hemoglobin 8.1 g/dL (13.0-16.5); Lymphocyte # 2.11 X10^3/ul (0.83-4.51); Mean Corp Hgb Conc 29.2 g/dL (32-36); Mean Corpuscular Hgb 22.4 pg (27.0-32.0); Mean Corpuscular Volume 76.7 fL (80-94); Mean Platelet Vol. 9.9 fl (6.2-12.0); Monocyte# 0.68 X10^3/uL; Monocyte% 7.1 % (0-10); NRBC Flagged by Analyzer 0 % (0-5); Neutrophil # 6.36 X10^3/uL (2.7-7.7); Neutrophil % 66.6 % (47-70); Platelet Count 422 K/mm3 (150-450); RBC Distribution Width CV 15.3 % (11.6-14.6); Red Blood Count 3.61 M/mm3 (4.6-6.2); White Blood Count 9.6 K/mm3 (4.4-11.0)
[2023-12-07 08:33] LABS: Anion Gap 7 (5-15); BUN 27 mg/dL (7-18); BUN/Creat Ratio 13.6 RATIO (10-20); Calcium,Total 8.4 mg/dL (8.5-10.1); Chloride 112 mmol/L (98-107); Creatinine, Serum 1.99 mg/dL (0.70-1.30); EST Glomerular Filtration Rate 36 mL/min (>60); Est Glom Filt Rate - Afr Amer 43 mL/min (>60); Glucose 113 mg/dL (74-106); Sodium Level 141 mmol/L (136-145)
== END ==
LOC: OLS.SW 05:00
PROVIDERS: PCP Internal Medicine; Visit Provider Internal Medicine
DX: N39.0 Urinary tract infection, site not specified (principal); F01.50 Vascular dementia, unspecified severity, without behavioral disturbance, psychotic disturbance, mood disturbance, and anxiety
CPT/HCPCS: 36415; 80048; 85025; 87077; 87086; 87088; 87186

== ENCOUNTER → 2023-12-31 | Outpatient (REF) | payer MEDICARE, MEDICAID, SELFPAY ==
[2023-12-31 08:59] LABS: Hemoglobin 8.2 g/dL (13.0-16.5); Mean Corp Hgb Conc 29.3 g/dL (32-36); Mean Corpuscular Hgb 21.9 pg (27.0-32.0); Mean Corpuscular Volume 74.9 fL (80-94); Mean Platelet Vol. 9.8 fl (6.2-12.0); Platelet Count 384 K/mm3 (150-450); RBC Distribution Width SD 45.7 fl (35.1-43.9); Red Blood Count 3.74 M/mm3 (4.6-6.2); White Blood Count 7.3 K/mm3 (4.4-11.0)
[2023-12-31 09:11] LABS: Anion Gap 10 (5-15); BUN 26 mg/dL (7-18); BUN/Creat Ratio 13.1 RATIO (10-20); Calcium,Total 9.2 mg/dL (8.5-10.1); Chloride 112 mmol/L (98-107); Creatinine, Serum 1.98 mg/dL (0.70-1.30); EST Glomerular Filtration Rate 36 mL/min (>60); Est Glom Filt Rate - Afr Amer 43 mL/min (>60); Glucose 133 mg/dL (74-106); Potassium 3.9 mmol/L (3.5-5.1); Sodium Level 142 mmol/L (136-145)
== END ==
LOC: OLS.SW 05:00
PROVIDERS: PCP Internal Medicine; Visit Provider Internal Medicine
DX: R31.9 Hematuria, unspecified (principal)
CPT/HCPCS: 36415; 80048; 85027

== ENCOUNTER → 2024-01-03 | Outpatient (REF) | payer MEDICARE, MEDICAID, SELFPAY ==
[2024-01-03 09:27] LABS: Hematocrit 25.7 % (40-54); Hemoglobin 7.6 g/dL (13.0-16.5); Mean Corp Hgb Conc 29.6 g/dL (32-36); Mean Corpuscular Volume 74.5 fL (80-94); Mean Platelet Vol. 10.1 fl (6.2-12.0); Platelet Count 322 K/mm3 (150-450); RBC Distribution Width SD 45.1 fl (35.1-43.9); Red Blood Count 3.45 M/mm3 (4.6-6.2); White Blood Count 7.1 K/mm3 (4.4-11.0)
== END ==
LOC: OLS.SW 05:00
PROVIDERS: PCP Internal Medicine; Visit Provider Internal Medicine
DX: D64.9 Anemia, unspecified (principal)
CPT/HCPCS: 36415; 85027

== ENCOUNTER → 2024-01-07 | Outpatient (REF) | payer MEDICARE, MEDICAID, SELFPAY ==
[2024-01-07 08:45] LABS: Hematocrit 27.6 % (40-54); Mean Corpuscular Hgb 21.2 pg (27.0-32.0); Mean Platelet Vol. 10.2 fl (6.2-12.0); Platelet Count 332 K/mm3 (150-450); RBC Distribution Width CV 17.2 % (11.6-14.6); RBC Distribution Width SD 45.1 fl (35.1-43.9); Red Blood Count 3.78 M/mm3 (4.6-6.2)
== END ==
LOC: OLS.SW 05:00
PROVIDERS: PCP Internal Medicine; Visit Provider Internal Medicine
DX: D64.9 Anemia, unspecified (principal)
CPT/HCPCS: 36415; 85027

== ENCOUNTER → 2024-01-14 | Outpatient (REF) | payer MEDICARE, MEDICAID, SELFPAY ==
[2024-01-14 08:02] LABS: Hematocrit 28.7 % (40-54); Hemoglobin 8.2 g/dL (13.0-16.5); Mean Corp Hgb Conc 28.6 g/dL (32-36); Mean Corpuscular Hgb 21.3 pg (27.0-32.0); Mean Corpuscular Volume 74.5 fL (80-94); Mean Platelet Vol. 10.4 fl (6.2-12.0); Platelet Count 276 K/mm3 (150-450); RBC Distribution Width CV 17.7 % (11.6-14.6); RBC Distribution Width SD 46.8 fl (35.1-43.9); Red Blood Count 3.85 M/mm3 (4.6-6.2); White Blood Count 8.8 K/mm3 (4.4-11.0)
== END ==
LOC: OLS.SW 04:00
PROVIDERS: PCP Internal Medicine; Visit Provider Internal Medicine
DX: D64.9 Anemia, unspecified (principal)
CPT/HCPCS: 36415; 85027

== ENCOUNTER → 2024-01-21 | Outpatient (REF) | payer MEDICARE, MEDICAID, SELFPAY ==
[2024-01-21 07:44] LABS: Hematocrit 30.1 % (40-54); Hemoglobin 8.8 g/dL (13.0-16.5); Mean Corp Hgb Conc 29.2 g/dL (32-36); Mean Corpuscular Hgb 21.4 pg (27.0-32.0); Mean Corpuscular Volume 73.1 fL (80-94); Mean Platelet Vol. 10.9 fl (6.2-12.0); Platelet Count 306 K/mm3 (150-450); RBC Distribution Width CV 18.3 % (11.6-14.6); RBC Distribution Width SD 47.4 fl (35.1-43.9); Red Blood Count 4.12 M/mm3 (4.6-6.2); White Blood Count 11.9 K/mm3 (4.4-11.0)
[2024-01-21 19:23] LABS: Mucous, Urine 0 SEEN /hpf (<or=2+); Squamous Epithelial Cells - UA 0 SEEN /hpf (0-5)
[2024-01-21 19:28] LABS: Color, Urine Straw (Yellow); Glucose, Dipstick Normal (Normal); Ketone-Dipstick Negative (Negative); Leukocyte Esterase-Dipstick 500 /ul (Negative); Nitrite-Dipstick Positive (Negative); Occult Blood-Urine 50 /ul (Negative); Protein-Dipstick 100 mg/dl (Negative); Urine Bilirubin Dipstick Negative (Negative); Urine Clarity Sl. Cloudy (Clear); Urine Urobilinogen Normal (Normal)
[2024-01-21 19:35] LABS: Bacteria 1+ /hpf (None Seen); Red Blood Cells-Urine 0-5 SEEN /hpf (0-5); White Blood Cells 25-50 SEEN /hpf (0-5)
[2024-01-21 19:36] LABS: Coarse Granular Cast 5-10 SEEN /lpf (0-5 /lpf)
== END ==
LOC: OLS.SW 05:00
PROVIDERS: PCP Internal Medicine; Visit Provider Internal Medicine
DX: I48.91 Unspecified atrial fibrillation (principal); D64.9 Anemia, unspecified; E11.22 Type 2 diabetes mellitus with diabetic chronic kidney disease; E78.5 Hyperlipidemia, unspecified; N18.9 Chronic kidney disease, unspecified; R39.9 Unspecified symptoms and signs involving the genitourinary system
CPT/HCPCS: 36415; 81001; 85027; 87077; 87086; 87088; 87186

== ENCOUNTER → 2024-01-22 | Outpatient (REF) | payer MEDICARE, MEDICAID, SELFPAY ==
[2024-01-22 09:06] LABS: Absolute Lymphocyte Count 1.77 X10^3/uL (0.83-4.51); Absolute Neutrophil Count 7.8 X10^3/uL (2.0-7.7); Basophil# 0.04 X10^3/uL; Basophil% 0.4 % (0-1); Eosinophil# 0.18 X10^3/uL; Eosinophils% 1.6 % (0-5); Hematocrit 29.3 % (40-54); Hemoglobin 8.6 g/dL (13.0-16.5); Lymphocyte # 1.77 X10^3/ul (0.83-4.51); Lymphocyte % 16.2 % (19-41); Mean Corp Hgb Conc 29.4 g/dL (32-36); Mean Corpuscular Hgb 21.2 pg (27.0-32.0); Mean Corpuscular Volume 72.3 fL (80-94); Mean Platelet Vol. 10.5 fl (6.2-12.0); Monocyte# 0.97 X10^3/uL; Monocyte% 8.9 % (0-10); NRBC Flagged by Analyzer 0 % (0-5); Neutrophil # 7.75 X10^3/uL (2.7-7.7); Platelet Count 329 K/mm3 (150-450); RBC Distribution Width CV 18.2 % (11.6-14.6); RBC Distribution Width SD 47.4 fl (35.1-43.9); Red Blood Count 4.05 M/mm3 (4.6-6.2); White Blood Count 10.9 K/mm3 (4.4-11.0)
[2024-01-22 09:53] LABS: Anion Gap 12 (5-15); BUN 33 mg/dL (7-18); BUN/Creat Ratio 14.2 RATIO (10-20); Calcium,Total 9.3 mg/dL (8.5-10.1); Chloride 102 mmol/L (98-107); Creatinine, Serum 2.32 mg/dL (0.70-1.30); EST Glomerular Filtration Rate 30 mL/min (>60); Est Glom Filt Rate - Afr Amer 36 mL/min (>60); Glucose 139 mg/dL (74-106); Potassium 3.8 mmol/L (3.5-5.1); Sodium Level 135 mmol/L (136-145)
== END ==
LOC: OLS.SW 05:00
PROVIDERS: PCP Internal Medicine; Visit Provider Internal Medicine
DX: N39.0 Urinary tract infection, site not specified (principal); F03.90 Unspecified dementia, unspecified severity, without behavioral disturbance, psychotic disturbance, mood disturbance, and anxiety; E11.9 Type 2 diabetes mellitus without complications; E78.5 Hyperlipidemia, unspecified
CPT/HCPCS: 36415; 80048; 85025

== ENCOUNTER 2024-01-25 15:56 | Inpatient (IN) | payer MEDICARE, MEDICAID, SELFPAY ==
[2024-01-25 15:57] VITALS: BP 142/102; PULSE 95; RESP 18; TEMP 37.2; O2SAT 97; BMI 26.1
--- NOTE | 2024-01-25 16:21 | CT_ITS ---
EXAM: CT HEAD WITHOUT INTRAVENOUS CONTRAST CLINICAL INDICATION: mental status change TECHNIQUE: Multiple axial images were obtained of the head without intravenous contrast. This CT exam was performed using one or more of the following dose reduction techniques: automated exposure control, adjustment of the mA and/or kV according to patient size, and/or use of iterative reconstruction technique. COMPARISON: 11/09/2023 FINDINGS: BRAIN AND EXTRA-AXIAL SPACES: There is enlargement of ventricular system and cortical sulci. There is hypoattenuation in the periventricular white matter. No intra- or extra-axial hemorrhage. No evidence of acute infarct. No intracranial mass or mass effect. There is preservation of the chaudhry/white matter interface. Posterior fossa structures are unremarkable. Basal cisterns are patent. BONES/JOINTS: Unremarkable. No discrete lytic or blastic abnormalities. SINUSES: There is a small air-fluid level in the left sphenoid sinus which is stable. MASTOID AIR CELLS: Unremarkable. Clear. ORBITS: Visualized globes, extraocular muscles, optic nerves and retrobulbar fat appear unremarkable. CT/Brain/Head without Contrast IMPRESSION: 1. No acute intracranial abnormality. There has been no significant change from the reference exam. 2. Stable senescent change with small vessel ischemia. Electronically Signed: Kaleb Bowman MD at 17:22 EDT ,
--- NOTE | 2024-01-25 16:22 | EDS_ITS ---
HPI History of Present Illness Chief Complaint: Alt LOC Detail of Chief Complaint: Mental status change Informant: EMS and SNF Narrative Narrative: Patient brought to the emergency department via EMS from intermediate with concern for possible sepsis due to mental status change today. Patient has an indwelling Bell catheter and has history of UTIs apparently. Patient unable to give any history as he has history of dementia. Patient denied any pain when I asked if anything hurt. No history of falls. He is on Eliquis. [facility] Medical History Bacteremia due to Escherichia coli Hypophosphatasia Current use of technician terminal and repeater anticoagulation Urinary retention Bell catheter problem Chronic dementia Metabolic encephalopathy Nephropathy, obstructive CKD (chronic kidney disease), stage II Dementia GERD (gastroesophageal reflux disease) Obesity RODRI on CPAP History of GI bleed Anxiety and depression Hyperlipidemia Hypertension Diabetes Home Medications ?Medication ?Instructions ?Recorded ?Last Taken ?Type atorvastatin 40 mg tablet 40 mg PO QHS 11/11/22 Unknown History duloxetine 20 mg capsule,delayed 20 mg PO DAILY see pcp 11/11/22 Unknown History release insulin glargine 100 unit/mL (3 30 unit subcut DAILY see pcp 11/11/22 Unknown History mL) subcutaneous pen loperamide 2 mg capsule 2 mg PO DAILY see pcp 11/11/22 Unknown History (Anti-Diarrheal (loperamide)) omeprazole 20 mg capsule,delayed 20 mg PO DAILY see pcp 11/11/22 Unknown History release acetaminophen 325 mg tablet 650 mg (2 x 325 mg) PO Q4H PRN PRN 11/14/22 Unknown Rx Fever, pain -01/23 #0 tabs benztropine 0.5 mg tablet 0.5 mg PO DAILY see pcp 07/04/23 Unknown History duloxetine 30 mg capsule,delayed 30 mg PO DAILY see pcp 07/04/23 Unknown History release insulin lispro 100 unit/mL 7 unit subcut ACHS see pcp 07/04/23 Unknown History subcutaneous pen melatonin 5 mg capsule 5 mg PO QHS see pcp 07/04/23 Unknown History tamsulosin 0.4 mg capsule 0.4 mg PO BID #0 caps 07/05/23 Unknown Rx donepezil 5 mg tablet 5 mg PO QHS 08/24/23 Unknown History exenatide microspheres 2 mg/0.85 2 mg subcut WE 08/24/23 Unknown History mL subcutaneous auto-injector (Bydureon BCise) insulin glargine 100 unit/mL (3 40 unit subcut 1200 08/24/23 Unknown History mL) subcutaneous pen (Basaglar KwikPen U-100 Insulin) insulin lispro 100 unit/mL 1 sliding scale dose subcut ACHS 08/24/23 Unknown History subcutaneous pen (Humalog KwikPen (U-100) Insulin) aluminum-mag hydroxide-simethicone 30 ml PO Q4H PRN GI DISTRESS 01/25/24 Unknown History 200 mg-200 mg-20 mg/5 mL oral susp (Antacid) bisacodyl 10 mg rectal suppository 10 mg ND DAILY PRN constipation 01/25/24 Unknown History chlorhexidine gluconate 0.12 % 15 ml PO BID 01/25/24 Unknown History mouthwash gentamicin 40 mg/mL injection 80 mg IM BID UTI 01/25/24 Unknown History solution guaifenesin 100 mg/5 mL oral liquid 200 mg PO Q4H PRN cough 01/25/24 Unknown History lactulose 20 gram/30 mL oral 30 ml PO QHS PRN constipation 01/25/24 Unknown History solution lorazepam 0.5 mg tablet 0.5 mg PO DAILY 01/25/24 Unknown History medroxyprogesterone 10 mg tablet 10 mg PO DAILY 01/25/24 Unknown History nitrofurantoin 100 mg PO BID 01/25/24 Unknown History monohydrate/macrocrystals 100 mg capsule sodium phosphates 19 gram-7 118 ml ND DAILY PRN constipation 01/25/24 Unknown History gram/118 mL enema (Enema) trazodone 50 mg tablet 50 mg PO QHS 01/25/24 Unknown History Allergy/AdvReac Type Severity Reaction Status Date / Time No Known Allergies Allergy Verified 01/25/24 16:00 Family History Mother Pulmonary disease Father CAD (coronary artery disease) Heart disease Hypertension Myocardial infarction Surgical History History of testicular surgery H/O cataract removal with insertion of prosthetic lens Social History housing: intermediate Smoking Status: Former smoker how long ago did patient quit smoking: Smoked as a teenager very minimally. alcohol intake: never substance use type: does not use ROS ROS ED Review of Systems ROS Unobtainable: due to mental condition EXAM Physical Exam Const Vital Signs: 01/25/24 15:57 01/25/24 17:00 01/25/24 18:00 Temperature 98.9 F 98.2 F 98.5 F Temperature Source Oral Oral Oral Pulse Rate 95 86 84 Respiratory Rate 18 16 16 Blood Pressure 142/102 H 137/69 H 139/86 H Blood Pressure Mean 115 91 103 Pulse Ox 97 95 97 Oxygen Delivery Method Room Air Room Air Room Air 01/25/24 18:13 Temperature 98.5 F Temperature Source Pulse Rate 84 Respiratory Rate 17 Blood Pressure 139/86 H Blood Pressure Mean 103 Pulse Ox 99 Oxygen Delivery Method Positive well nourished and well developed General Appearance ED: well developed and NAD HEENT Reports TM's clear and moist mucous membranes normocephalic and atraumatic; Negative for trauma or tenderness Tympanic Membrane ED: Yes TM's clear Eyes PERRL and EOMs intact bilaterally General Eye ED: Negative for pale conjunctiva or scleral icterus Neck no lymphadenopathy, supple and no JVD General: Negative for tenderness Chest Wall inspection of chest normal and palpation of chest normal Chest: Negative for tenderness Resp normal respiratory effort and clear to auscultation bilaterally Effort and Inspection: Negative for respiratory distress or pain with movement Auscultation: Negative for rhonchi, wheezes or diminished lung sounds Cardio regular rate, regular rhythm, S1 normal heart sound, S2 normal heart sound and no murmurs Peripheral Pulses: pulses 2+ throughout GI normal to inspection, nondistended, normoactive bowel sounds, soft to palpation, non-tender, non-distended and no masses Back/Spine no CVA tenderness and no thoracic nor lumbar tenderness Extremity normal to inspection General Extremety ED: Negative for edema General Extremity: Negative for edema Neuro No oriented x3, CN's II-XII intact bilaterally, no sensory deficits noted and gait normal Neuro Narrative: Awake and opens his eyes to voice. Follows commands. Unable to give history. Sensorium / Orientation: awake, alert, oriented to person, oriented to place and oriented to time Motor Exam: strength 5/5 throughout and strength abnormal Psych mental status grossly normal Skin no rashes or lesions noted and no wounds MDM MDM MDM Narrative Medical decision making narrative: Patient presents with mental status change and after arrival a physician did call in the state that patient grew out ESBL and MRSA in the urine and they were going to switch him to gentamicin. He is out of 10. 10 pound weight loss in the last month. Patient also is a full code. IV line established. Blood cultures obtained. Urine culture sent. CBC with differential white count 9.7 with hemoglobin 7.6 and platelet count of 317. Chemistries unremarkable. BUN 30 and creatinine 1.92 which is not significant change from prior. Lactate was normal at 1.1. Urinalysis positive for greater than 100 WBCs and +2 bacteria as well as 500 leukocyte esterase and positive nitrites. Patient was started on gentamicin IV. CT scan of the brain without contrast also obtained showed no acute process. Case discussed with hospitalist to evaluate patient for admission Lab Data Attestation: I reviewed the patient's lab results. Labs: Laboratory Results - last 24 hr 01/25/24 16:35 WBC 9.7 RBC 3.60 L Hgb 7.6 L Hct 26.0 L MCV 72.2 L MCH 21.1 L MCHC 29.2 L RDW Std Deviation 49.0 H RDW Coeff of Tarik 18.6 H Plt Count 317 MPV 10.0 Immature Gran % (Auto) 2.100 H Neut % (Auto) 72.2 H Lymph % (Auto) 14.9 L [place] % (Auto) 9.2 Eos % (Auto) 1.4 Baso % (Auto) 0.2 Absolute Neuts (auto) 7.0 Absolute Lymphs (auto) 1.45 Nucleated RBC % 0 Sodium 140 Potassium 4.2 Chloride 110 H Carbon Dioxide 23.0 Anion Gap 7 BUN 30 H Creatinine 1.92 H Estim Creat Clear Calc 34.64 Est GFR (MDRD) Af Amer 45 L Est GFR (MDRD) Non-Af 37 L BUN/Creatinine Ratio 15.6 Glucose 145 H Lactic Acid 1.1 Calcium 9.2 Total Bilirubin 0.40 AST 126 H ALT 26 Alkaline Phosphatase 197 H Troponin I High Sens 8 Total Protein 7.7 Albumin 2.6 L Globulin 5.1 H Albumin/Globulin Ratio 0.5 L Urine Color Yellow Urine Clarity Cloudy Urine pH 6.0 Ur Specific [place] 1.020 Urine Protein 100 H Urine Glucose (UA) Normal Urine Ketones Negative Urine Occult Blood 50 H Urine Nitrite Positive H Urine Bilirubin Negative Urine Urobilinogen Normal Ur Leukocyte Esterase 500 H Urine RBC 5-10 SEEN Urine WBC >100 SEEN Ur Squamous Epith Cells 0-5 SEEN Ur Renal Epithelial Cell 0-5 SEEN Urine Bacteria 2+ Hyaline Casts 0-5 SEEN Fine Granular Casts 0-5 SEEN Urine Mucus 0 SEEN Radiography Diagnostic Testing: Clinical Impression(s) from Imaging Studies Brain CT 01/25/24 16:21 IMPRESSION: 1. No acute intracranial abnormality. There has been no significant change from the reference exam. 2. Stable senescent change with small vessel ischemia. Electronically Signed: Kaleb Bowman MD at 17:22 EDT , EKG Initial EKG: Attestation: I personally reviewed and interpreted this EKG as follows: Comments: Sinus rhythm with ventricular rate of 99 bpm with occasional PACs Discharge Plan Triage Chief Complaint: Alt LOC ED Provider: Deep Claudio Dx/Rx/DC Orders Clinical Impression: Acute UTI, Dementia, Anemia, Chronic kidney disease, Altered mental status Prescriptions: No Action atorvastatin 40 mg tablet 40 mg PO QHS duloxetine 20 mg capsule,delayed release(DR/EC) 20 mg PO DAILY loperamide [Anti-Diarrheal (loperamide)] 2 mg capsule 2 mg PO DAILY Rx Instructions: administer after each loose stool until symptoms controlled; do not exceed 8 mg per 24 hrs omeprazole 20 mg capsule,delayed release(DR/EC) 20 mg PO DAILY insulin glargine 100 UNITS/ML insulin pen 30 unit SC DAILY acetaminophen 325 mg Tablet 650 mg PO Q4H PRN PRN (Reason: Fever, pain -01/23) Qty: 0 0RF insulin glargine [Basaglar KwikPen U-100 Insulin] 100 unit/mL (3 mL) insulin pen 40 unit subcut 1200 Rx Instructions: in the afternoon Bydureon BCise 2 mg/0.85 mL auto-injector 2 mg subcut WE Rx Instructions: every Sunday donepezil 5 mg tablet 5 mg PO QHS insulin lispro [Humalog KwikPen Insulin] 100 unit/mL Insulin Pen 1 sliding scale dose subcut ACHS Protocol: 3. Sliding Scale Insulin Med Dosing Condition: 150-189 mg/dl = 1 unit Condition: 190-229 mg/dl = 2 units Condition: 230-269 mg/dl = 3 units Condition: 270-309 mg/dl = 4 units Condition: 310-349 mg/dl = 5 units Condition: 350-399 mg/dl = 6 units Condition: 400-449 mg/dl = 7 units Condition: Greater than 449 call physician Protocol Text: - Use for Total Daily Dose of Insulin 37-55 units - Obsese, infected, or steroid patients MEDIUM DOSING ALGORITHIM duloxetine 30 mg capsule,delayed release(DR/EC) 30 mg PO DAILY benztropine 0.5 mg tablet 0.5 mg PO DAILY insulin lispro 100 unit/mL insulin pen 7 unit subcut ACHS melatonin 5 mg capsule 5 mg PO QHS tamsulosin 0.4 mg Capsule 0.4 mg PO BID Qty: 0 0RF alum-mag hydroxide-simeth [Antacid] 200-200-20 mg/5 mL suspension 30 ml PO Q4H PRN (Reason: GI DISTRESS) bisacodyl 10 mg suppository 10 mg ND DAILY PRN (Reason: constipation) Rx Instructions: GIVE 1 PER EPISODE IF MOM IS INEFFECTIVE, NOTIFY PHYSICIAN IF NO BM X 4 DAYS chlorhexidine gluconate 0.12 % mouthwash 15 ml PO BID Rx Instructions: SWISH AND SPIT Enema 19-7 gram/118 mL enema 118 ml ND DAILY PRN (Reason: constipation) Rx Instructions: IF DULCOLAX SUPP INEFFECTIVE. CALL MD IF NO BM IN 4 DAYS gentamicin 40 mg/mL solution 80 mg IM BID Rx Instructions: START DATE- 01/25/24 END DATE-02/01/24 guaifenesin 100 mg/5 mL liquid 200 mg PO Q4H PRN (Reason: cough) medroxyprogesterone 10 mg tablet 10 mg PO DAILY lorazepam 0.5 mg tablet 0.5 mg PO DAILY nitrofurantoin monohyd/m-cryst 100 mg capsule 100 mg PO BID Rx Instructions: START DATE- 01/23/24 END DATE- 01/30/24 trazodone 50 mg tablet 50 mg PO QHS lactulose 20 gram/30 mL solution 30 ml PO QHS PRN (Reason: constipation) Rx Instructions: titrate until 2-3 loose stools daily Primary Care Provider: Enriqueta Flanagan Referrals: Enriqueta Flanagan MD [Primary Care Provider] - Print Language: Guinean Disposition Disposition: Acute Care Hospital [facility]
[2024-01-25] MEDS: 0.9% Normal Saline (1000mL) 1,000 ML 1000 ML IV (16:40)
[2024-01-25 16:41] LABS: Mucous, Urine 0 SEEN /hpf (<or=2+)
[2024-01-25 16:43] LABS: Color, Urine Yellow (Yellow); Glucose, Dipstick Normal (Normal); Ketone-Dipstick Negative (Negative); Leukocyte Esterase-Dipstick 500 /ul (Negative); Nitrite-Dipstick Positive (Negative); Occult Blood-Urine 50 /ul (Negative); Protein-Dipstick 100 mg/dl (Negative); Urine Bilirubin Dipstick Negative (Negative); Urine Clarity Cloudy (Clear); Urine Urobilinogen Normal (Normal)
[2024-01-25 16:45] LABS: Absolute Lymphocyte Count 1.45 X10^3/uL (0.83-4.51); Basophil# 0.02 X10^3/uL; Basophil% 0.2 % (0-1); Eosinophil# 0.14 X10^3/uL; Eosinophils% 1.4 % (0-5); Hemoglobin 7.6 g/dL (13.0-16.5); Lymphocyte # 1.45 X10^3/ul (0.83-4.51); Lymphocyte % 14.9 % (19-41); Mean Corp Hgb Conc 29.2 g/dL (32-36); Mean Corpuscular Hgb 21.1 pg (27.0-32.0); Mean Corpuscular Volume 72.2 fL (80-94); Monocyte# 0.89 X10^3/uL; Monocyte% 9.2 % (0-10); NRBC Flagged by Analyzer 0 % (0-5); Neutrophil % 72.2 % (47-70); Platelet Count 317 K/mm3 (150-450); RBC Distribution Width CV 18.6 % (11.6-14.6); White Blood Count 9.7 K/mm3 (4.4-11.0)
[2024-01-25 16:56] LABS: White Blood Cells >100 SEEN /hpf (0-5)
[2024-01-25 16:57] LABS: Bacteria 2+ /hpf (None Seen)
[2024-01-25 16:59] LABS: Red Blood Cells-Urine 5-10 SEEN /hpf (0-5); Squamous Epithelial Cells - UA 0-5 SEEN /hpf (0-5)
[2024-01-25 17:00] VITALS: BP 137/69; PULSE 86; RESP 16; TEMP 36.8; O2SAT 95
[2024-01-25 17:00] LABS: Hyaline Cast 0-5 SEEN /lpf (0-5); Renal Epithelial Cells 0-5 SEEN /hpf (0-5)
[2024-01-25 17:01] LABS: Fine Granular Cast- Urine 0-5 SEEN /lpf (0-5)
[2024-01-25 17:05] LABS: ALB/GLOB Ratio 0.5 RATIO (0.9-2.4); AST(SGOT) 126 U/L (15-37); Alanine Aminotransfer ALT/SGPT 26 U/L (16-61); Albumin, Serum 2.6 g/dL (3.2-5.0); Alkaline Phosphatase 197 U/L (45-117); Anion Gap 7 (5-15); BUN 30 mg/dL (7-18); BUN/Creat Ratio 15.6 RATIO (10-20); Calcium,Total 9.2 mg/dL (8.5-10.1); Chloride 110 mmol/L (98-107); Creatinine, Serum 1.92 mg/dL (0.70-1.30); EST Glomerular Filtration Rate 37 mL/min (>60); Est Glom Filt Rate - Afr Amer 45 mL/min (>60); Estimated Creatinine Clearance 34.64 ml/min; Globulin 5.1 g/dL (2.2-4.2); Glucose 145 mg/dL (74-106); Potassium 4.2 mmol/L (3.5-5.1); Protein, Total 7.7 g/dL (6.4-8.2); Sodium Level 140 mmol/L (136-145); Troponin-I HS 8 pg/mL (3.0-78.0)
[2024-01-25 17:15] LABS: Lactic Acid 1.1 mmol/L (0.4-1.9)
[2024-01-25 18:00] VITALS: BP 139/86; PULSE 84; RESP 16; TEMP 36.9; O2SAT 97
[2024-01-25 18:13] VITALS: BP 139/86; PULSE 84; RESP 17; TEMP 36.9; O2SAT 99
[2024-01-25] MEDS: GENTAMICIN IVPB (18:45)
[2024-01-25] MEDS: WATER IVPB (18:45)
[2024-01-25] MEDS: DEXTROSE 5% IVPB (18:45)
[2024-01-25 19:00] VITALS: BP 123/71; PULSE 85; RESP 16; TEMP 36.6; O2SAT 98
--- NOTE | 2024-01-25 19:11 | PCM.HP.STD ---
HPI - General General Date of Admission: 01/25/24 Date of Service: 01/25/24 Chief Complaint: AMS HPI Narrative FRED ROUSE, is a 68 M with history of chronic indwelling Bell, CKD, anemia, dementia, diabetes, GERD, BPH who presented to [facility] ED [facility] from [facility] for [facility] status changes. Patient unable to answer questions and no family members at bedside so history limited and obtained through report. [facility] in bed at [facility] and is usually ANO x 3 however had decreased level of consciousness and was ANO x 1, had not been eating or drinking well. Had a UA at [facility] and ED physician was informed that it grew ESBL and MRSA. In the ED patient vitally stable but UA was suggestive of UTI and given history polymicrobial UTIs with resistance pattern hospitalization warranted for IV antibiotics and further management. Hospitalist contacted for admission. Patient evaluated at bedside and would open eyes and easily awoke but did not answer questions. Unable to obtain any further history. [facility] Medical History Bacteremia due to Escherichia coli Hypophosphatasia Current use of shelter anticoagulation Urinary retention Bell catheter problem Chronic dementia Metabolic encephalopathy Nephropathy, obstructive CKD (chronic kidney disease), stage II Dementia GERD (gastroesophageal reflux disease) Obesity RODRI on CPAP History of GI bleed Anxiety and depression Hyperlipidemia Hypertension Diabetes Home Medications ?Medication ?Instructions ?Recorded ?Last Taken ?Type atorvastatin 40 mg tablet 40 mg PO QHS 11/11/22 Unknown History duloxetine 20 mg capsule,delayed 20 mg PO DAILY see pcp 11/11/22 Unknown History release insulin glargine 100 unit/mL (3 30 unit subcut DAILY see pcp 11/11/22 Unknown History mL) subcutaneous pen loperamide 2 mg capsule 2 mg PO DAILY see pcp 11/11/22 Unknown History (Anti-Diarrheal (loperamide)) omeprazole 20 mg capsule,delayed 20 mg PO DAILY see pcp 11/11/22 Unknown History release acetaminophen 325 mg tablet 650 mg (2 x 325 mg) PO Q4H PRN PRN 11/14/22 Unknown Rx Fever, pain 1-01/23 #0 tabs benztropine 0.5 mg tablet 0.5 mg PO DAILY see pcp 07/04/23 Unknown History duloxetine 30 mg capsule,delayed 30 mg PO DAILY see pcp 07/04/23 Unknown History release insulin lispro 100 unit/mL 7 unit subcut ACHS see pcp 07/04/23 Unknown History subcutaneous pen melatonin 5 mg capsule 5 mg PO QHS see pcp 07/04/23 Unknown History tamsulosin 0.4 mg capsule 0.4 mg PO BID #0 caps 07/05/23 Unknown Rx donepezil 5 mg tablet 5 mg PO QHS 08/24/23 Unknown History exenatide microspheres 2 mg/0.85 2 mg subcut WE 08/24/23 Unknown History mL subcutaneous auto-injector (Bydureon BCise) insulin glargine 100 unit/mL (3 40 unit subcut 1200 08/24/23 Unknown History mL) subcutaneous pen (Basaglar KwikPen U-100 Insulin) insulin lispro 100 unit/mL 1 sliding scale dose subcut ACHS 08/24/23 Unknown History subcutaneous pen (Humalog KwikPen (U-100) Insulin) aluminum-mag hydroxide-simethicone 30 ml PO Q4H PRN GI DISTRESS 01/25/24 Unknown History 200 mg-200 mg-20 mg/5 mL oral susp (Antacid) bisacodyl 10 mg rectal suppository 10 mg ME DAILY PRN constipation 01/25/24 Unknown History chlorhexidine gluconate 0.12 % 15 ml PO BID 01/25/24 Unknown History mouthwash gentamicin 40 mg/mL injection 80 mg IM BID UTI 01/25/24 Unknown History solution guaifenesin 100 mg/5 mL oral liquid 200 mg PO Q4H PRN cough 01/25/24 Unknown History lactulose 20 gram/30 mL oral 30 ml PO QHS PRN constipation 01/25/24 Unknown History solution lorazepam 0.5 mg tablet 0.5 mg PO DAILY 01/25/24 Unknown History medroxyprogesterone 10 mg tablet 10 mg PO DAILY 01/25/24 Unknown History nitrofurantoin 100 mg PO BID 01/25/24 Unknown History monohydrate/macrocrystals 100 mg capsule sodium phosphates 19 gram-7 118 ml ME DAILY PRN constipation 01/25/24 Unknown History gram/118 mL enema (Enema) trazodone 50 mg tablet 50 mg PO QHS 01/25/24 Unknown History Allergy/AdvReac Type Severity Reaction Status Date / Time No Known Allergies Allergy Verified 01/25/24 16:00 Family History Mother Pulmonary disease Father CAD (coronary artery disease) Heart disease Hypertension Myocardial infarction Surgical History History of testicular surgery H/O cataract removal with insertion of prosthetic lens Social History housing: [facility] Smoking Status: Former smoker how long ago did patient quit smoking: Smoked as a teenager very minimally. alcohol intake: never substance use type: does not use ROS ROS Narrative Unable to obtain due to patient mental status Vital Signs Vital Signs Vital Signs: 01/25/24 15:57 01/25/24 17:00 01/25/24 18:00 Temperature 98.9 F 98.2 F 98.5 F Temperature Source Oral Oral Oral Pulse Rate 95 86 84 Respiratory Rate 18 16 16 Blood Pressure 142/102 H 137/69 H 139/86 H Blood Pressure Mean 115 91 103 Pulse Ox 97 95 97 Oxygen Delivery Method Room Air Room Air Room Air 01/25/24 18:13 Temperature 98.5 F Temperature Source Pulse Rate 84 Respiratory Rate 17 Blood Pressure 139/86 H Blood Pressure Mean 103 Pulse Ox 99 Oxygen Delivery Method Weight Weight: 77.9 kg Body Mass Index (BMI) 26.1 Physical Exam Narrative General: Wakes up but does not meaningfully participate in exam, not lethargic HEENT: Atraumatic Eyes: Anicteric, normal conjunctiva, extraocular movements grossly intact Neck: Supple Respiratory: Clear to auscultation bilaterally, normal respiratory effort Cardiovascular: Regular rate and rhythm GI: Soft, nondistended, not rigid Extremities: No edema Musculoskeletal: Moving all extremities Neuro: Unable to cooperate neuroexam Skin: No rashes appreciated Psych: Patient would not open eyes but not cooperative with exam Results Lab / Micro Data 01/25/24 16:35 01/25/24 16:35 Labs: Laboratory Results - last 24 hr 01/25/24 16:35: WBC 9.7, RBC 3.60 L, Hgb 7.6 L, Hct 26.0 L, MCV 72.2 L, MCH 21.1 L, MCHC 29.2 L, RDW Std Deviation 49.0 H, RDW Coeff of Tarik 18.6 H, Plt Count 317, MPV 10.0, Immature Gran % (Auto) 2.100 H, Neut % (Auto) 72.2 H, Lymph % (Auto) 14.9 L, [place] % (Auto) 9.2, Eos % (Auto) 1.4, Baso % (Auto) 0.2, Absolute Neuts (auto) 7.0, Absolute Lymphs (auto) 1.45, Nucleated RBC % 0, Sodium 140, Potassium 4.2, Chloride 110 H, Carbon Dioxide 23.0, Anion Gap 7, BUN 30 H, Creatinine 1.92 H, Estim Creat Clear Calc 34.64, Est GFR (MDRD) Af Amer 45 L, Est GFR (MDRD) Non-Af 37 L, BUN/Creatinine Ratio 15.6, Glucose 145 H, Lactic Acid 1.1, Calcium 9.2, Total Bilirubin 0.40, AST 126 H, ALT 26, Alkaline Phosphatase 197 H, Troponin I High Sens 8, Total Protein 7.7, Albumin 2.6 L, Globulin 5.1 H, Albumin/Globulin Ratio 0.5 L, Urine Color Yellow, Urine Clarity Cloudy, Urine pH 6.0, Ur Specific [place] 1.020, Urine Protein 100 H, Urine Glucose (UA) Normal, Urine Ketones Negative, Urine Occult Blood 50 H, Urine Nitrite Positive H, Urine Bilirubin Negative, Urine Urobilinogen Normal, Ur Leukocyte Esterase 500 H, Urine RBC 5-10 SEEN, Urine WBC >100 SEEN, Ur Squamous Epith Cells 0-5 SEEN, Ur Renal Epithelial Cell 0-5 SEEN, Urine Bacteria 2+, Hyaline Casts 0-5 SEEN, Fine Granular Casts 0-5 SEEN, Urine Mucus 0 SEEN Micro: Microbiology 01/25/24 16:35 Mucosa - Nose SARS-CoV-2, Influenza & RSV (PCR) - Final Imaging Radiology Impression Brain CT 01/25/24 16:21 IMPRESSION: 1. No acute intracranial abnormality. There has been no significant change from the reference exam. 2. Stable senescent change with small vessel ischemia. Electronically Signed: Kaleb Bowman MD at 17:22 EDT , Assessment & Plan Assessment/Plan (1) Acute UTI: PLAN: Plan # Urinary tract infection secondary to enteric coccus, MRSA, ESBL associated with chronic indwelling Bell catheter -Reportedly has chronic indwelling Bell catheter -UA obtained 01/20 demonstrated ESBL E. coli, MRSA, enteric coccus -Given resistance patterns will start meropenem and vancomycin (gentamicin was ordered to start today but had not yet been initiated) -Will consult infectious disease -Will follow blood culture and repeat urine culture was sent ED # Acute metabolic encephalopathy -Suspect secondary to UTI -Treat underlying etiology #Type 2 diabetes mellitus -Glucose checks and sliding scale insulin -Glucose only 145, patient with poor p.o. intake, will scale back long-acting insulin and can always uptitrate as needed # Chronic microcytic anemia -Patient usually in 7-9 range, seems to be close to baseline, no reported evidence of ongoing blood loss, repeat in a.m. #GERD -Continue PPI # CKD stage III b -Appears to be at baseline -Avoid nephrotoxic agents -Daily BMPs #DVT ppx: Heparin subcu Heather Whitmore MD Charges/Coding Visit Charges Inpatient E&M: 28207 Init Hosp L2
[2024-01-25] MEDS: Meropenem 1 GM in 0.9% Normal Saline (100mL MB+) 100 ML IV (19:50)
[2024-01-25 20:15] VITALS: BP 150/87; PULSE 87; RESP 16; TEMP 36.9; O2SAT 100
[2024-01-25] MEDS: 0.9% Normal Saline (1000mL) 1,000 ML 100 ML IV (20:47)
[2024-01-25] MEDS: 0.9% Saline Lock 10 ML Syringe IV (20:54)
[2024-01-25] MEDS: Vancomycin HCl 2,000 MG in 0.9% Normal Saline (500mL Bag) 500 ML 250 MG IV (22:21)
[2024-01-25] MEDS: Tamsulosin HCl 0.4 MG Capsule PO (22:21)
[2024-01-25] MEDS: Atorvastatin Calcium 40 MG Tablet PO (22:21)
[2024-01-25] MEDS: traZODone 50 MG Tablet PO (22:21)
[2024-01-25] MEDS: Heparin Injection (Vial) 5,000 UNIT/ML VIAL 5000 UNIT SC (22:22)
[2024-01-25 22:27] LABS: Bedside Glucose 134 mg/dL (74-106)
--- NOTE | 2024-01-25 23:43 | PCM.RX.CS ---
Consult Antibiotic Management Pharmacy has been consulted to manage selected antibiotic: Vancomycin Type of Intervention Type of Consult: New start Labs Labs: Sodium 140 mmol/L (136-145) 01/25/24 16:35 Potassium 4.2 mmol/L (3.5-5.1) 01/25/24 16:35 Chloride 110 mmol/L (98-107) H 01/25/24 16:35 Carbon Dioxide 23.0 mmol/L (21.0-32.0) 01/25/24 16:35 Anion Gap 7 (5-15) 01/25/24 16:35 BUN 30 mg/dL (7-18) H 01/25/24 16:35 Creatinine 1.92 mg/dL (0.70-1.30) H 01/25/24 16:35 Est GFR (MDRD) Af Amer 45 mL/min (>60) L 01/25/24 16:35 Est GFR (MDRD) Non-Af 37 mL/min (>60) L 01/25/24 16:35 BUN/Creatinine Ratio 15.6 RATIO (10-20) 01/25/24 16:35 Glucose 145 mg/dL (74-106) H 01/25/24 16:35 Microbiology Microbiology: Microbiology 01/25/24 16:35 Mucosa - Nose SARS-CoV-2, Influenza & RSV (PCR) - Final Dosing Weight Weight used for dosin.8 kg Estimated Creatinine Clearance Estimated Creatinine Clearance: 35 Goal Trough Goal Trough: 15-20 mcg/mL Pharmacy Plan for Drug Dosing Pharmacy Plan for Drug Dosing: Pharmacy Service will continue to monitor and adjust dosing as required. Follow-Up Labs Follow-Up Labs: Trough: Vancomycin Date/Time Labs Ordered Labs to be done on [date and time ordered]: 01/27/24 @2200
--- NOTE | 2024-01-25 23:53 | ED.RN ---
This RN has attempted to call the patient's brother, Nishant Stanley, three times throughout this shift in order to obtain consent to treat d/t the patient's decreased LOC. Unable to reach him each time.
[2024-01-26] VITALS (8 sets, daily range): BP systolic 133–167; BP diastolic 81–95; PULSE 84–96; RESP 16–18; TEMP 36.2–36.8; O2SAT 98–100
[2024-01-26] MEDS: Insulin Glargine-YFGN 100 UNIT/ML Pen 15 UNIT SC ×2 (06:24→12:03)
[2024-01-26 06:44] LABS: Bedside Glucose 125 mg/dL (74-106)
[2024-01-26 08:18] LABS: Absolute Lymphocyte Count 1.17 X10^3/uL (0.83-4.51); Absolute Neutrophil Count 6.5 X10^3/uL (2.0-7.7); Basophil# 0.01 X10^3/uL; Basophil% 0.1 % (0-1); Eosinophil# 0.18 X10^3/uL; Eosinophils% 2.1 % (0-5); Hematocrit 24.2 % (40-54); Hemoglobin 6.9 g/dL (13.0-16.5); Lymphocyte # 1.17 X10^3/ul (0.83-4.51); Lymphocyte % 13.6 % (19-41); Mean Corp Hgb Conc 28.5 g/dL (32-36); Mean Corpuscular Hgb 20.8 pg (27.0-32.0); Mean Corpuscular Volume 73.1 fL (80-94); Mean Platelet Vol. 9.5 fl (6.2-12.0); Monocyte# 0.65 X10^3/uL; Monocyte% 7.5 % (0-10); NRBC Flagged by Analyzer 0 % (0-5); Neutrophil # 6.47 X10^3/uL (2.7-7.7); Neutrophil % 75.1 % (47-70); Platelet Count 291 K/mm3 (150-450); RBC Distribution Width CV 18.6 % (11.6-14.6); RBC Distribution Width SD 49.5 fl (35.1-43.9); Red Blood Count 3.31 M/mm3 (4.6-6.2); White Blood Count 8.6 K/mm3 (4.4-11.0)
--- NOTE | 2024-01-26 09:55 | CASEMGMT ---
Addendum entered by Judith Sorensen 01/26/24 14:05: [facility] did respond they are working on guardianship of patient. Judith COLON Original Note: Patient is a intermediate resident from [facility]. Phone number listed for patient's brother is not a working number. This has been the case with the last 3 admissions for patient. reviewed [facility]'s demographics sheet and there are now no contacts listed. Back in June of 2023 inquired if [facility] has pursued guardianship and they had thought about it, but have not pursued it. sent updates to [facility] and also asked about guardianship. [facility] did say patient is a Medicaid bed hold and does not need a pre-cert to return. Plan: d/c back to [facility] under intermediate level of care. Judith COLON
[2024-01-26 10:19] LABS: ALB/GLOB Ratio 0.5 RATIO (0.9-2.4); AST(SGOT) 77 U/L (15-37); Alanine Aminotransfer ALT/SGPT 24 U/L (16-61); Albumin, Serum 2.3 g/dL (3.2-5.0); Alkaline Phosphatase 157 U/L (45-117); Anion Gap 9 (5-15); BUN 27 mg/dL (7-18); BUN/Creat Ratio 16.1 RATIO (10-20); Calcium,Total 8.7 mg/dL (8.5-10.1); Chloride 111 mmol/L (98-107); Creatinine, Serum 1.68 mg/dL (0.70-1.30); EST Glomerular Filtration Rate 43 mL/min (>60); Est Glom Filt Rate - Afr Amer 52 mL/min (>60); Estimated Creatinine Clearance 39.58 ml/min; Globulin 4.6 g/dL (2.2-4.2); Glucose 135 mg/dL (74-106); Magnesium 2.2 mg/dL (1.6-2.6); Potassium 3.9 mmol/L (3.5-5.1); Protein, Total 6.9 g/dL (6.4-8.2); Sodium Level 138 mmol/L (136-145)
[2024-01-26] MEDS: MEDROXYPROGESTERONE ACETATE 10 MG TABLET PO (10:47)
[2024-01-26] MEDS: DULoxetine Hcl 30 MG Capsule PO (10:48)
[2024-01-26] MEDS: Heparin Injection (Vial) 5,000 UNIT/ML VIAL 5000 UNIT SC (10:48)
[2024-01-26] MEDS: Tamsulosin HCl 0.4 MG Capsule PO ×2 (10:48→22:31)
[2024-01-26] MEDS: Pantoprazole Sodium 20 MG Tablet PO (10:48)
[2024-01-26] MEDS: DULoxetine Hcl 20 MG Capsule PO (10:48)
[2024-01-26] MEDS: Benztropine Mesylate 0.5 MG TABLET PO (10:48)
[2024-01-26] MEDS: 0.9% Saline Lock 10 ML Syringe IV (10:49)
[2024-01-26] MEDS: Meropenem 1 GM in 0.9% Normal Saline (100mL MB+) 100 ML IV ×2 (10:49→22:58)
[2024-01-26 12:21] LABS: Bedside Glucose 120 mg/dL (74-106)
--- NOTE | 2024-01-26 15:53 | PCM.PN.HOSP ---
Subjective Subjective Drowsy but arousable. No issues overnight Objective Data Objective Data Vital Signs: Vital Signs Temp Pulse Resp BP Pulse Ox O2 Del Method 98.3 F 94 16 153/91 H 99 Room Air 01/26/24 10:00 01/26/24 10:00 01/26/24 10:00 01/26/24 10:00 01/26/24 10:00 01/26/24 14:00 Oxygen Delivery Method Room Air Weight: 167 lb 1.766 oz Body Mass Index (BMI) 26.1 Intake & Output: Intake and Output for Last 24 Hours 01/25/24 01/26/24 01/27/24 03:59 03:59 03:59 Intake Total 2468.5 / 2468.5 1120 / 1120 Output Total 750 / 750 650 / 650 Balance 1718.5 / 1718.5 470 / 470 Lab / Micro Data 01/26/24 07:52 01/26/24 07:52 Labs: Laboratory Results - last 24 hr 01/25/24 16:35: WBC 9.7, RBC 3.60 L, Hgb 7.6 L, Hct 26.0 L, MCV 72.2 L, MCH 21.1 L, MCHC 29.2 L, RDW Std Deviation 49.0 H, RDW Coeff of Tarik 18.6 H, Plt Count 317, MPV 10.0, Immature Gran % (Auto) 2.100 H, Neut % (Auto) 72.2 H, Lymph % (Auto) 14.9 L, [place] % (Auto) 9.2, Eos % (Auto) 1.4, Baso % (Auto) 0.2, Absolute Neuts (auto) 7.0, Absolute Lymphs (auto) 1.45, Nucleated RBC % 0, Sodium 140, Potassium 4.2, Chloride 110 H, Carbon Dioxide 23.0, Anion Gap 7, BUN 30 H, Creatinine 1.92 H, Estim Creat Clear Calc 34.64, Est GFR (MDRD) Af Amer 45 L, Est GFR (MDRD) Non-Af 37 L, BUN/Creatinine Ratio 15.6, Glucose 145 H, Lactic Acid 1.1, Calcium 9.2, Total Bilirubin 0.40, AST 126 H, ALT 26, Alkaline Phosphatase 197 H, Troponin I High Sens 8, Total Protein 7.7, Albumin 2.6 L, Globulin 5.1 H, Albumin/Globulin Ratio 0.5 L, Urine Color Yellow, Urine Clarity Cloudy, Urine pH 6.0, Ur Specific [place] 1.020, Urine Protein 100 H, Urine Glucose (UA) Normal, Urine Ketones Negative, Urine Occult Blood 50 H, Urine Nitrite Positive H, Urine Bilirubin Negative, Urine Urobilinogen Normal, Ur Leukocyte Esterase 500 H, Urine RBC 5-10 SEEN, Urine WBC >100 SEEN, Ur Squamous Epith Cells 0-5 SEEN, Ur Renal Epithelial Cell 0-5 SEEN, Urine Bacteria 2+, Hyaline Casts 0-5 SEEN, Fine Granular Casts 0-5 SEEN, Urine Mucus 0 SEEN 01/25/24 22:08: POC Glucose 134 H 01/26/24 06:23: POC Glucose 125 H 01/26/24 07:52: WBC 8.6, RBC 3.31 L, Hgb 6.9 L, Hct 24.2 L, MCV 73.1 L, MCH 20.8 L, MCHC 28.5 L, RDW Std Deviation 49.5 H, RDW Coeff of Tarik 18.6 H, Plt Count 291, MPV 9.5, Immature Gran % (Auto) 1.600 H, Neut % (Auto) 75.1 H, Lymph % (Auto) 13.6 L, Orange % (Auto) 7.5, Eos % (Auto) 2.1, Baso % (Auto) 0.1, Absolute Neuts (auto) 6.5, Absolute Lymphs (auto) 1.17, Nucleated RBC % 0, Sodium 138, Potassium 3.9, Chloride 111 H, Carbon Dioxide 18.0 L, Anion Gap 9, BUN 27 H, Creatinine 1.68 H, Estim Creat Clear Calc 39.58, Est GFR (MDRD) Af Amer 52 L, Est GFR (MDRD) Non-Af 43 L, BUN/Creatinine Ratio 16.1, Glucose 135 H, Calcium 8.7, Magnesium 2.2, Total Bilirubin 0.50, AST 77 H, ALT 24, Alkaline Phosphatase 157 H, Total Protein 6.9, Albumin 2.3 L, Globulin 4.6 H, Albumin/Globulin Ratio 0.5 L 01/26/24 12:00: POC Glucose 120 H Micro: Microbiology 01/25/24 16:35 Urine Catheter - Bell Urine Culture - Preliminary Presumptive E. coli 01/25/24 16:35 Mucosa - Nose SARS-CoV-2, Influenza & RSV (PCR) - Final Radiography Diagnostic Testing: Radiology Impression Brain CT 01/25/24 16:21 IMPRESSION: 1. No acute intracranial abnormality. There has been no significant change from the reference exam. 2. Stable senescent change with small vessel ischemia. Electronically Signed: Kaleb Bowman MD at 17:22 EDT , Physical Exam Narrative General: Drowsy, Oriented x1, Cooperative, No apparent distress HEENT: Atraumatic, PERRLA, EOMI, Normocephalic Oral: Moist Mucosa Neck: Supple, No JVD Lungs: Diminished, Normal air movement, No rhonchi, No wheeze, No rales Cardiovascular: Regular rate, Regular Rhythm, Normal S1, Normal S2, No murmurs Abdomen: Soft, Non Tender, Non-Distended, No Hepato-splenomegaly Extremities: No edema, Capillary Refill Less than 3 Seconds Skin: No rashes, No breakdown Musculoskeletal: No Tenderness to Palpation of Joints or Extremities Neurological: Does not cooperate with exam, moves all extremities Psych/Mental Status: Flat Assessment & Plan Assessment/Plan (1) Acute UTI: PLAN: Plan 1. Acute metabolic encephalopathy in the setting of a UTI due to Enterococcus, MRSA, ESBL E. coli ? This is related to his chronic indwelling Bell catheter ? Continue with meropenem and vancomycin ? Consult infectious disease ? Repeat urine cultures and blood cultures are pending 2. DM2 and CKD 3B ? Sliding scale insulin ? Accu-Cheks ACHS ? Will monitor and make adjustments as necessary 3. Chronic microcytic anemia ? Hemoglobin today 6.9, will transfuse ? Will obtain a fecal occult ? Continue with iron study evaluation, he does not appear to be on iron supplementation as an outpatient 4. GERD ? Stable ? Continue with PPI DVT: SCDs Charges/Coding Visit Charges Inpatient E&M: 46167 Subs Hosp L2
[2024-01-26 16:54] LABS: Ferritin 245 ng/mL (26-388); Iron 25 ug/dL (65-175); Iron Binding Capacity,Total 208 ug/dL (250-450)
[2024-01-26 18:21] LABS: Bedside Glucose 122 mg/dL (74-106)
[2024-01-26] MEDS: traZODone 50 MG Tablet PO (22:31)
[2024-01-26] MEDS: Atorvastatin Calcium 40 MG Tablet PO (22:31)
[2024-01-26] MEDS: Vancomycin IV 1,000 MG/200 ML BAG 200 MG IV (22:59)
[2024-01-26 23:20] LABS: Bedside Glucose 120 mg/dL (74-106)
[2024-01-27] VITALS (8 sets, daily range): BP systolic 118–150; BP diastolic 62–91; PULSE 62–101; RESP 16–18; TEMP 36.1–36.9; O2SAT 94–99
[2024-01-27] MEDS: Insulin Glargine-YFGN 100 UNIT/ML Pen 15 UNIT SC ×2 (06:40→11:20)
[2024-01-27 07:05] LABS: Bedside Glucose 118 mg/dL (74-106)
[2024-01-27 07:16] LABS: Absolute Neutrophil Count 6.1 X10^3/uL (2.0-7.7); Basophil# 0.03 X10^3/uL; Basophil% 0.4 % (0-1); Eosinophil# 0.23 X10^3/uL; Eosinophils% 2.7 % (0-5); Hemoglobin 8.3 g/dL (13.0-16.5); Lymphocyte % 15.3 % (19-41); Mean Corp Hgb Conc 29.6 g/dL (32-36); Mean Corpuscular Volume 74.1 fL (80-94); Monocyte# 0.59 X10^3/uL; Monocyte% 6.9 % (0-10); NRBC Flagged by Analyzer 0 % (0-5); Neutrophil # 6.13 X10^3/uL (2.7-7.7); Neutrophil % 71.9 % (47-70); Platelet Count 338 K/mm3 (150-450); RBC Distribution Width CV 18.6 % (11.6-14.6); RBC Distribution Width SD 49.5 fl (35.1-43.9); Red Blood Count 3.78 M/mm3 (4.6-6.2); White Blood Count 8.5 K/mm3 (4.4-11.0)
[2024-01-27 07:42] LABS: Anion Gap 9 (5-15); BUN 26 mg/dL (7-18); BUN/Creat Ratio 15.8 RATIO (10-20); Calcium,Total 9.2 mg/dL (8.5-10.1); Chloride 105 mmol/L (98-107); Creatinine, Serum 1.65 mg/dL (0.70-1.30); EST Glomerular Filtration Rate 44 mL/min (>60); Est Glom Filt Rate - Afr Amer 53 mL/min (>60); Glucose 136 mg/dL (74-106); Potassium 3.8 mmol/L (3.5-5.1); Sodium Level 136 mmol/L (136-145)
[2024-01-27] MEDS: Meropenem 1 GM in 0.9% Normal Saline (100mL MB+) 100 ML IV ×2 (09:07→22:26)
[2024-01-27] MEDS: 0.9% Saline Lock 10 ML Syringe IV (09:10)
--- NOTE | 2024-01-27 09:30 | PCM.PN.HOSP ---
Subjective Subjective Doing well, no issues overnight Objective Data Objective Data Vital Signs: Vital Signs Temp Pulse Resp BP Pulse Ox O2 Del Method 98.4 F 90 16 149/71 H 97 Room Air 01/27/24 08:34 01/27/24 08:34 01/27/24 08:34 01/27/24 08:34 01/27/24 08:34 01/27/24 08:34 Oxygen Delivery Method Room Air Weight: 167 lb 1.766 oz Body Mass Index (BMI) 26.1 Intake & Output: Intake and Output for Last 24 Hours 01/26/24 01/27/24 01/28/24 03:59 03:59 03:59 Intake Total 2468.5 / 2468.5 2290 / 2290 100 / 100 Output Total 750 / 750 1150 / 1150 200 / 200 Balance 1718.5 / 1718.5 1140 / 1140 -100 / -100 Lab / Micro Data 01/27/24 07:00 01/27/24 07:00 Labs: Laboratory Results - last 24 hr 01/26/24 07:52: Sodium 138, Potassium 3.9, Chloride 111 H, Carbon Dioxide 18.0 L, Anion Gap 9, BUN 27 H, Creatinine 1.68 H, Estim Creat Clear Calc 39.58, Est GFR (MDRD) Af Amer 52 L, Est GFR (MDRD) Non-Af 43 L, BUN/Creatinine Ratio 16.1, Glucose 135 H, Calcium 8.7, Magnesium 2.2, Total Bilirubin 0.50, AST 77 H, ALT 24, Alkaline Phosphatase 157 H, Total Protein 6.9, Albumin 2.3 L, Globulin 4.6 H, Albumin/Globulin Ratio 0.5 L 01/26/24 12:00: POC Glucose 120 H 01/26/24 16:19: Iron 25 L, TIBC 208 L, Iron Saturation 12.0 L, Ferritin 245, Blood Type B POSITIVE, Antibody Screen NEGATIVE, Crossmatch See Detail 01/26/24 17:33: POC Glucose 122 H 01/26/24 22:36: POC Glucose 120 H 01/27/24 06:37: POC Glucose 118 H 01/27/24 07:00: WBC 8.5, RBC 3.78 L, Hgb 8.3 L, Hct 28.0 L, MCV 74.1 L, MCH 22.0 L, MCHC 29.6 L, RDW Std Deviation 49.5 H, RDW Coeff of Tarik 18.6 H, Plt Count 338, MPV 9.0, Immature Gran % (Auto) 2.800 H, Neut % (Auto) 71.9 H, Lymph % (Auto) 15.3 L, [place] % (Auto) 6.9, Eos % (Auto) 2.7, Baso % (Auto) 0.4, Absolute Neuts (auto) 6.1, Absolute Lymphs (auto) 1.30, Nucleated RBC % 0, Sodium 136, Potassium 3.8, Chloride 105, Carbon Dioxide 22.0, Anion Gap 9, BUN 26 H, Creatinine 1.65 H, Estim Creat Clear Calc 40.30, Est GFR (MDRD) Af Amer 53 L, Est GFR (MDRD) Non-Af 44 L, BUN/Creatinine Ratio 15.8, Glucose 136 H, Calcium 9.2 Micro: Microbiology 01/25/24 16:35 Urine Catheter - Bell Urine Culture - Preliminary Presumptive E. coli 01/25/24 16:35 Mucosa - Nose SARS-CoV-2, Influenza & RSV (PCR) - Final Physical Exam Narrative General: Drowsy, Oriented x1, Cooperative, No apparent distress HEENT: Atraumatic, PERRLA, EOMI, Normocephalic Oral: Moist Mucosa Neck: Supple, No JVD Lungs: Diminished, Normal air movement, No rhonchi, No wheeze, No rales Cardiovascular: Regular rate, Regular Rhythm, Normal S1, Normal S2, No murmurs Abdomen: Soft, Non Tender, Non-Distended, No Hepato-splenomegaly Extremities: No edema, Capillary Refill Less than 3 Seconds Skin: No rashes, No breakdown Musculoskeletal: No Tenderness to Palpation of Joints or Extremities Neurological: Does not cooperate with exam, moves all extremities Psych/Mental Status: Flat Assessment & Plan Assessment/Plan (1) Acute UTI: PLAN: Plan 1. Acute metabolic encephalopathy in the setting of a UTI due to Enterococcus, MRSA, ESBL E. coli ? This is related to his chronic indwelling Bell catheter ? Continue with meropenem and vancomycin ? Consult infectious disease ? Repeat urine cultures and blood cultures are pending, greater than 100,000 presumptive E. coli currently on repeat urine culture on 01/25/2024 2. DM2 and CKD 3B ? Sliding scale insulin ? Accu-Cheks ACHS ? Will monitor and make adjustments as necessary 3. Chronic microcytic anemia ? Hemoglobin today 8.3, status post 1 unit PRBCs on 01/26/2024 ? Will obtain a fecal occult ? Iron studies with an iron level of 25 and a TIBC of 208 with an iron saturation of 12 and a ferritin of 245 likely chronic disease, may benefit from p.o. iron as an outpatient 4. GERD ? Stable ? Continue with PPI DVT: SCDs Charges/Coding Visit Charges Inpatient E&M: 20651 Subs Hosp L2
[2024-01-27] MEDS: Pantoprazole Sodium 20 MG Tablet PO (11:06)
[2024-01-27] MEDS: DULoxetine Hcl 20 MG Capsule PO (11:06)
[2024-01-27] MEDS: Tamsulosin HCl 0.4 MG Capsule PO ×2 (11:06→22:25)
[2024-01-27] MEDS: Benztropine Mesylate 0.5 MG TABLET PO (11:06)
[2024-01-27] MEDS: DULoxetine Hcl 30 MG Capsule PO (11:06)
[2024-01-27] MEDS: MEDROXYPROGESTERONE ACETATE 10 MG TABLET PO (11:06)
[2024-01-27 11:39] LABS: Bedside Glucose 117 mg/dL (74-106)
[2024-01-27 17:05] LABS: Bedside Glucose 133 mg/dL (74-106)
[2024-01-27 22:13] LABS: Vancomycin, Trough Level 15.9 ug/mL (5.0-15.0)
[2024-01-27] MEDS: Atorvastatin Calcium 40 MG Tablet PO (22:25)
[2024-01-27] MEDS: traZODone 50 MG Tablet PO (22:25)
[2024-01-27] MEDS: Vancomycin IV 1,000 MG/200 ML BAG 200 MG IV (22:26)
--- NOTE | 2024-01-27 22:36 | PCM.RX.CS ---
Consult Antibiotic Management Pharmacy has been consulted to manage selected antibiotic: Vancomycin Type of Intervention Type of Consult: Follow-up Labs Labs: Sodium 136 mmol/L (136-145) 01/27/24 07:00 Potassium 3.8 mmol/L (3.5-5.1) 01/27/24 07:00 Chloride 105 mmol/L (98-107) 01/27/24 07:00 Carbon Dioxide 22.0 mmol/L (21.0-32.0) 01/27/24 07:00 Anion Gap 9 (5-15) 01/27/24 07:00 BUN 26 mg/dL (7-18) H 01/27/24 07:00 Creatinine 1.65 mg/dL (0.70-1.30) H 01/27/24 07:00 Est GFR (MDRD) Af Amer 53 mL/min (>60) L 01/27/24 07:00 Est GFR (MDRD) Non-Af 44 mL/min (>60) L 01/27/24 07:00 BUN/Creatinine Ratio 15.8 RATIO (10-20) 01/27/24 07:00 Glucose 136 mg/dL (74-106) H 01/27/24 07:00 Vancomycin Trough 15.9 ug/mL (5.0-15.0) H 01/27/24 21:30 Microbiology Microbiology: Microbiology 01/25/24 16:35 Urine Catheter - Bell Urine Culture - Preliminary Presumptive E. coli 01/25/24 16:35 Mucosa - Nose SARS-CoV-2, Influenza & RSV (PCR) - Final Dosing Weight Weight used for dosin.8 kg Estimated Creatinine Clearance Estimated Creatinine Clearance: 40 Goal Trough Goal Trough: 15-20 mcg/mL Pharmacy Plan for Drug Dosing Pharmacy Plan for Drug Dosing: Vancomycin trough level of 15.9, drawn 10.5hrs post-dose, was within the target range of 15-20. Will continue dosing at 1000mg q24h, and will draw another trough in two days. Pharmacy Service will continue to monitor and adjust dosing as required. Follow-Up Labs Follow-Up Labs: Trough: Vancomycin Date/Time Labs Ordered Labs to be done on [date and time ordered]: 01/29/24 @2200
[2024-01-27 22:52] LABS: Bedside Glucose 120 mg/dL (74-106)
[2024-01-28 04:10] VITALS: BP 143/98; PULSE 84; RESP 18; TEMP 36.9; O2SAT 95; O2SAT 98
[2024-01-28 06:09] LABS: Hematocrit 29.5 % (40-54); Hemoglobin 8.7 g/dL (13.0-16.5); Mean Corp Hgb Conc 29.5 g/dL (32-36); Mean Corpuscular Hgb 21.9 pg (27.0-32.0); Mean Corpuscular Volume 74.3 fL (80-94); POSITIVE COUNT YES; POSITIVE MORPHOLOGY YES; Platelet Count 371 K/mm3 (150-450); RBC Distribution Width CV 18.6 % (11.6-14.6); RBC Distribution Width SD 49.6 fl (35.1-43.9); Red Blood Count 3.97 M/mm3 (4.6-6.2); White Blood Count 9.7 K/mm3 (4.4-11.0)
[2024-01-28 06:13] LABS: Differential Indicated MANUAL DIFF
[2024-01-28 06:37] LABS: Anion Gap 9 (5-15); BUN 24 mg/dL (7-18); BUN/Creat Ratio 13.8 RATIO (10-20); Calcium,Total 9.5 mg/dL (8.5-10.1); Chloride 103 mmol/L (98-107); Creatinine, Serum 1.74 mg/dL (0.70-1.30); EST Glomerular Filtration Rate 41 mL/min (>60); Est Glom Filt Rate - Afr Amer 50 mL/min (>60); Estimated Creatinine Clearance 38.22 ml/min; Glucose 117 mg/dL (74-106); Potassium 3.7 mmol/L (3.5-5.1); Sodium Level 131 mmol/L (136-145)
[2024-01-28 09:50] LABS: Eosinophil 1 % (0-5); Lymphocyte 21 % (19-41); Monocyte 10 % (0-10); Myelocyte 1 % (0-0); Neutrophil-Segmented 67 % (47-70); Total Cells Counted 100 (MANUAL DIFF)
[2024-01-28 09:51] LABS: Absolute Lymphocyte Count 2.04 X10^3/uL (0.83-4.51); Absolute Neutrophil Count 6.5 X10^3/uL (2.0-7.7)
[2024-01-28 09:56] LABS: Acanthocytes 1+; Anisocytosis 1+; Crenated RBC 2+; Hypochromasia 1+; Ovalocyte 2+; Platelet Estimate ADEQUATE (ADEQ); Schistocytes 1+; Tear Drop Cell 1+
[2024-01-28 10:25] VITALS: BP 138/86; PULSE 84; RESP 16; TEMP 36.6; O2SAT 100
[2024-01-28] MEDS: Meropenem 1 GM in 0.9% Normal Saline (100mL MB+) 100 ML IV ×2 (10:30→20:18)
[2024-01-28] MEDS: Pantoprazole Sodium 20 MG Tablet PO (11:35)
[2024-01-28] MEDS: DULoxetine Hcl 20 MG Capsule PO (11:35)
[2024-01-28] MEDS: DULoxetine Hcl 30 MG Capsule PO (11:36)
[2024-01-28] MEDS: Benztropine Mesylate 0.5 MG TABLET PO (11:36)
[2024-01-28] MEDS: MEDROXYPROGESTERONE ACETATE 10 MG TABLET PO (11:36)
[2024-01-28] MEDS: Tamsulosin HCl 0.4 MG Capsule PO ×2 (11:36→20:18)
[2024-01-28 12:00] LABS: Bedside Glucose 117 mg/dL (74-106)
--- NOTE | 2024-01-28 13:32 | PCM.CONS.GEN ---
Assessment & Plan Assessment/Plan (1) Altered mental status: (2) Chronic kidney disease: (3) Acute UTI: PLAN: Ucx with esbl ecoli, MRSA, and enterococcus. On vanc/nikhil here, sx improved. Will follow, thank you (4) Dementia: HPI Consult Data Date of Consult: 01/28/24 HPI Narrative Reason for Consultation: uti HPI Narrative: FRED ROUSE, is a 68 M with CKD, dementia, chronic melendez, ECF resident, admitted 01/24 from ED after acute onset altered mental status. Had been dx with UTI, started on macrobid 01/22, then IM gentamicin added 01/24. Sent to ED, now on vanc and meropenem. Feeling ok, no complaints, no abd pain, no fever. Full ROS performed and neg except as noted above. 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 Urinary retention Melendez catheter problem Chronic dementia Metabolic encephalopathy Nephropathy, obstructive CKD (chronic kidney disease), stage II Dementia GERD (gastroesophageal reflux disease) Obesity RODRI on CPAP History of GI bleed Anxiety and depression Hyperlipidemia Hypertension Diabetes Home Medications ?Medication ?Instructions ?Recorded ?Last Taken ?Type atorvastatin 40 mg tablet 40 mg PO QHS 11/11/22 Unknown History duloxetine 20 mg capsule,delayed 20 mg PO DAILY see pcp 11/11/22 Unknown History release insulin glargine 100 unit/mL (3 30 unit subcut DAILY see pcp 11/11/22 Unknown History mL) subcutaneous pen loperamide 2 mg capsule 2 mg PO DAILY see pcp 11/11/22 01/25/24 History (Anti-Diarrheal (loperamide)) omeprazole 20 mg capsule,delayed 20 mg PO DAILY see pcp 11/11/22 01/25/24 History release acetaminophen 325 mg tablet 650 mg (2 x 325 mg) PO Q4H PRN PRN 11/14/22 Unknown Rx Fever, pain 1-01/23 #0 tabs benztropine 0.5 mg tablet 0.5 mg PO DAILY see pcp 07/04/23 Unknown History duloxetine 30 mg capsule,delayed 30 mg PO DAILY see pcp 07/04/23 Unknown History release insulin lispro 100 unit/mL 7 unit subcut ACHS see pcp 07/04/23 Unknown History subcutaneous pen melatonin 5 mg capsule 5 mg PO QHS see pcp 07/04/23 Unknown History tamsulosin 0.4 mg capsule 0.4 mg PO BID #0 caps 07/05/23 Unknown Rx donepezil 5 mg tablet 5 mg PO QHS 08/24/23 Unknown History exenatide microspheres 2 mg/0.85 2 mg subcut WE 08/24/23 Unknown History mL subcutaneous auto-injector (Bydureon BCise) insulin glargine 100 unit/mL (3 40 unit subcut 1200 08/24/23 Unknown History mL) subcutaneous pen (Basaglar KwikPen U-100 Insulin) insulin lispro 100 unit/mL 1 sliding scale dose subcut ACHS 08/24/23 Unknown History subcutaneous pen (Humalog KwikPen (U-100) Insulin) aluminum-mag hydroxide-simethicone 30 ml PO Q4H PRN GI DISTRESS 01/25/24 Unknown History 200 mg-200 mg-20 mg/5 mL oral susp (Antacid) bisacodyl 10 mg rectal suppository 10 mg AL DAILY PRN constipation 01/25/24 Unknown History chlorhexidine gluconate 0.12 % 15 ml PO BID 01/25/24 Unknown History mouthwash gentamicin 40 mg/mL injection 80 mg IM BID UTI 01/25/24 Unknown History solution guaifenesin 100 mg/5 mL oral liquid 200 mg PO Q4H PRN cough 01/25/24 Unknown History lactulose 20 gram/30 mL oral 30 ml PO QHS PRN constipation 01/25/24 Unknown History solution lorazepam 0.5 mg tablet 0.5 mg PO DAILY 01/25/24 Unknown History medroxyprogesterone 10 mg tablet 10 mg PO DAILY 01/25/24 Unknown History nitrofurantoin 100 mg PO BID 01/25/24 Unknown History monohydrate/macrocrystals 100 mg capsule sodium phosphates 19 gram-7 118 ml AL DAILY PRN constipation 01/25/24 Unknown History gram/118 mL enema (Enema) trazodone 50 mg tablet 50 mg PO QHS 01/25/24 Unknown History Allergy/AdvReac Type Severity Reaction Status Date / Time No Known Allergies Allergy Verified 01/25/24 16:00 Family History Mother Pulmonary disease Father CAD (coronary artery disease) Heart disease Hypertension Myocardial infarction Surgical History History of testicular surgery H/O cataract removal with insertion of prosthetic lens Social History housing: [facility] Smoking Status: Former smoker how long ago did patient quit smoking: Smoked as a teenager very minimally. alcohol intake: never substance use type: does not use Physical Exam Const alert and no apparent distress Constitutional Narrative: oriented x1 General Appearance: lethargic HEENT normocephalic and head/scalp atraumatic Eyes PERRL and EOMs intact bilaterally Neck supple and No nodes Resp normal air movement and clear to auscultation bilaterally Cardio regular rate and regular rhythm GI soft to palpation, non-tender and non-distended Extremity General Extremity: Negative for edema Skin no rashes or lesions noted Neuro CN's II-XII intact bilaterally Lab / Micro Data Attestation: I reviewed the patient's lab results. 01/28/24 05:53 01/28/24 05:53 Labs: Laboratory Results - last 24 hr 01/26/24 16:19: Crossmatch See Detail 01/27/24 16:47: POC Glucose 133 H 01/27/24 21:30: Vancomycin Trough 15.9 H 01/27/24 22:24: POC Glucose 120 H 01/28/24 05:53: WBC 9.7, RBC 3.97 L, Hgb 8.7 L, Hct 29.5 L, MCV 74.3 L, MCH 21.9 L, MCHC 29.5 L, RDW Std Deviation 49.6 H, RDW Coeff of Tarik 18.6 H, Plt Count 371, MPV 9.0, Neut % (Auto) Not Reportable, Absolute Neuts (auto) 6.5, Absolute Lymphs (auto) 2.04, Total Counted 100, Neutrophils % (Manual) 67, Lymphocytes % (Manual) 21, Monocytes % (Manual) 10, Eosinophils % (Manual) 1, Myelocytes % 1 H, Diff Path Review May foll, Platelet Estimate ADEQUATE, Hypochromasia 1+, Anisocytosis 1+, Tear Drop Cells 1+, Ovalocytes 2+, Crenated Cell 2+, Acanthocytes (Spur) 1+, Schistocytes 1+, Sodium 131 L, Potassium 3.7, Chloride 103, Carbon Dioxide 19.0 L, Anion Gap 9, BUN 24 H, Creatinine 1.74 H, Estim Creat Clear Calc 38.22, Est GFR (MDRD) Af Amer 50 L, Est GFR (MDRD) Non-Af 41 L, BUN/Creatinine Ratio 13.8, Glucose 117 H, Calcium 9.5 01/28/24 11:33: POC Glucose 117 H Micro: Microbiology 01/25/24 16:35 Urine Catheter - Melendez Urine Culture - Preliminary ESBL Escherichia coli Staphylococcus aureus Gram positive organism
[2024-01-28 16:57] VITALS: BP 145/90; PULSE 96; RESP 17; TEMP 37.2; O2SAT 97
[2024-01-28 17:25] LABS: Bedside Glucose 119 mg/dL (74-106)
--- NOTE | 2024-01-28 19:06 | PN.HOSP_ITS ---
Reason for Visit Reason for Visit: Diagnoses Unspecified dementia, unspecified severity, without behavioral disturbance, psychotic disturbance, mood disturbance, and anxiety (01/25/24) Chronic kidney disease, unspecified (01/25/24) Urinary tract infection, site not specified (01/25/24) Altered mental status, unspecified (01/25/24) Subjective Subjective Patient was seen and examined today, he is nonverbal, he does nod his head when I ask him if he is okay. Patient was seen by infectious diseases, it was recommended that the patient continue on vancomycin and meropenem. Objective Data Objective Data Vital Signs: Vital Signs Temp Pulse Resp BP Pulse Ox O2 Del Method 98.9 F 96 17 145/90 H 97 Room Air 01/28/24 16:57 01/28/24 16:57 01/28/24 16:57 01/28/24 16:57 01/28/24 16:57 01/28/24 17:01 Oxygen Delivery Method Room Air Weight: 75.8 kg Body Mass Index (BMI) 26.1 Intake & Output: Intake and Output for Last 24 Hours 01/26/24 01/27/24 01/28/24 23:59 23:59 23:59 Intake Total 3030 / 3380 1326.67 / 1326.67 227.8 / 227.8 Output Total 1400 / 1900 1350 / 1350 1000 / 1000 Balance 1630 / 1480 -23.33 / -23.33 -772.2 / -772.2 Lab / Micro Data 01/28/24 05:53 01/28/24 05:53 Labs: Laboratory Results - last 24 hr 01/26/24 16:19: Crossmatch See Detail 01/27/24 21:30: Vancomycin Trough 15.9 H 01/27/24 22:24: POC Glucose 120 H 01/28/24 05:53: WBC 9.7, RBC 3.97 L, Hgb 8.7 L, Hct 29.5 L, MCV 74.3 L, MCH 21.9 L, MCHC 29.5 L, RDW Std Deviation 49.6 H, RDW Coeff of Tarik 18.6 H, Plt Count 371, MPV 9.0, Neut % (Auto) Not Reportable, Absolute Neuts (auto) 6.5, Absolute Lymphs (auto) 2.04, Total Counted 100, Neutrophils % (Manual) 67, Lymphocytes % (Manual) 21, Monocytes % (Manual) 10, Eosinophils % (Manual) 1, Myelocytes % 1 H , Diff Path Review May foll, Platelet Estimate ADEQUATE, Hypochromasia 1+, Anisocytosis 1+, Tear Drop Cells 1+, Ovalocytes 2+, Crenated Cell 2+, Acanthocytes (Spur) 1+, Schistocytes 1+, Sodium 131 L, Potassium 3.7, Chloride 103, Carbon Dioxide 19.0 L, Anion Gap 9, BUN 24 H, Creatinine 1.74 H, Estim Creat Clear Calc 38.22, Est GFR (MDRD) Af Amer 50 L, Est GFR (MDRD) Non-Af 41 L, BUN/Creatinine Ratio 13.8, Glucose 117 H, Calcium 9.5 01/28/24 11:33: POC Glucose 117 H 01/28/24 17:06: POC Glucose 119 H Micro: Microbiology 01/25/24 16:35 Blood Culture (Wb) - Right Wrist Blood Culture - Preliminary No growth in 48 hours. 01/25/24 16:35 Urine Catheter - Bell Urine Culture - Preliminary ESBL Escherichia coli Staphylococcus aureus Gram positive organism 01/25/24 16:35 Mucosa - Nose SARS-CoV-2, Influenza & RSV (PCR) - Final Physical Exam Const alert and no apparent distress Constitutional Narrative: Patient is nonverbal General Appearance: well developed Orientation / Consciousness: awake HEENT normocephalic, head/scalp atraumatic and moist oral mucous membranes Eyes PERRL, EOMs intact bilaterally and conjunctivae normal Neck supple, no JVD, thyroid normal and no carotid bruits General: trachea midline Resp normal respiratory effort, no retractions, no use of accessory muscles and clear to auscultation bilaterally Auscultation: Negative for rales, rhonchi or wheezes Cardio regular rate, regular rhythm, S1 normal heart sound, S2 normal heart sound, no murmurs, no rub and no gallops GI normal to inspection, nondistended, normoactive bowel sounds, soft to palpation, non-tender and non-distended Extremity no clubbing, cyanosis or edema Skin no rashes or lesions noted General Skin Exam: no breakdown Neuro CN's II-XII intact bilaterally and moves all extremities Sensorium / Orientation: awake and alert Psych Psych Narrative: Patient was nonverbal Assessment & Plan Assessment/Plan (1) Dementia: PLAN: Plan 1. Acute cystitis secondary to chronic Bell catheter-infectious diseases recommended continuing current antibiotics #2 metabolic encephalopathy on a backdrop of chronic dementia-this is difficult to assess due to the patient's dementia, complicates care, management, recovery, and prognosis #3 chronic kidney disease stage IIIb-labs will be monitored as necessary #4 chronic dementia #5 type 2 diabetes-patient's blood sugar will be monitored, sliding scale insulin will be administered as needed Total clinical time spent by myself addressing the patient's medical issues, reviewing all of his data, and collaborating with patient's care team: 35-minute Charges/Coding Visit Charges Inpatient E&M: 33892 Subs Hosp L2
[2024-01-28] MEDS: traZODone 50 MG Tablet PO (20:18)
[2024-01-28] MEDS: Atorvastatin Calcium 40 MG Tablet PO (20:18)
[2024-01-28 20:22] VITALS: BP 144/94; PULSE 103; RESP 16; TEMP 37.3; O2SAT 98
[2024-01-28 21:10] LABS: Bedside Glucose 135 mg/dL (74-106)
[2024-01-28] MEDS: Vancomycin IV 1,000 MG/200 ML BAG 200 MG IV (23:50)
[2024-01-29 02:40] VITALS: BP 130/78; PULSE 90; RESP 16; TEMP 37; O2SAT 98
[2024-01-29 06:56] LABS: Bedside Glucose 123 mg/dL (74-106)
[2024-01-29 08:21] VITALS: BP 137/93; PULSE 95; RESP 16; TEMP 37.1; O2SAT 97
[2024-01-29] MEDS: Meropenem 1 GM in 0.9% Normal Saline (100mL MB+) 100 ML IV (10:30)
[2024-01-29] MEDS: 0.9% Saline Lock 10 ML Syringe IV (10:30)
--- NOTE | 2024-01-29 10:35 | PCM.PN.ID ---
Physical Exam Narrative No fever, no events overnight Const no apparent distress Constitutional Narrative: opens eyes to voice Orientation / Consciousness: lethargic Resp normal air movement and clear to auscultation bilaterally Cardio regular rate and regular rhythm GI soft to palpation, non-tender and non-distended Skin no rashes or lesions noted ID ID: Route of nutrition/ use of supplements: [] Nutritional Intake: [] IV Site: [] Bell Catheter: [] Assessment & Plan Assessment/Plan (1) Altered mental status: (2) Chronic kidney disease: (3) Acute UTI: PLAN: Ucx with esbl ecoli, MRSA, and enterococcus. On vanc/nikhil here, sx improved. Day 5 of abx, ok for discharge back to ECF later today off of abx. Will follow prn (4) Dementia:
[2024-01-29] MEDS: MEDROXYPROGESTERONE ACETATE 10 MG TABLET PO (11:21)
[2024-01-29] MEDS: DULoxetine Hcl 30 MG Capsule PO (11:21)
[2024-01-29] MEDS: Benztropine Mesylate 0.5 MG TABLET PO (11:21)
[2024-01-29] MEDS: Pantoprazole Sodium 20 MG Tablet PO (11:21)
[2024-01-29] MEDS: Insulin Glargine-YFGN 100 UNIT/ML Pen 15 UNIT SC (11:22)
[2024-01-29] MEDS: DULoxetine Hcl 20 MG Capsule PO (11:22)
[2024-01-29 11:49] LABS: Bedside Glucose 120 mg/dL (74-106)
--- NOTE | 2024-01-29 13:35 | TREXTCAR_ITS ---
Diet Diet Order/Speech Therapy: 01/29/24 12:04 Diet: Regular - General Food consistency:: Regular Liquid Consistency:: Regular/Thin Type of Dietary Supplement:: 8oz Glucerna w/ B and D Diet Comments: magic cup w/ lunch tray Routine Orders/Code Status Routine Lab Work: - (Fingerstick blood sugars AC nightly, sliding scale insulin subcu as directed) Code Status: Full Code Therapies Weight Bearing: Weight bearing as tolerated Problem/Diagnosis (1) Altered mental status: Status: Acute Code(s): R41.82 - Altered mental status, unspecified (2) Chronic kidney disease: Status: Chronic Code(s): N18.9 - Chronic kidney disease, unspecified (3) Acute UTI: Status: Acute Code(s): N39.0 - Urinary tract infection, site not specified (4) Dementia: Status: Acute Code(s): F03.90 - Unspecified dementia, unspecified severity, without behavioral disturbance, psychotic disturbance, mood disturbance, and anxiety Plan 1. Acute cystitis secondary to chronic Bell catheter-infectious diseases recommended continuing current antibiotics #2 metabolic encephalopathy on a backdrop of chronic dementia-this is difficult to assess due to the patient's dementia, complicates care, management, recovery, and prognosis #3 chronic kidney disease stage IIIb-labs will be monitored as necessary #4 chronic dementia #5 type 2 diabetes-patient's blood sugar will be monitored, sliding scale insulin will be administered as needed Total clinical time spent by myself addressing the patient's medical issues, reviewing all of his data, and collaborating with patient's care team: 35-minute Allergies/Procedures Done in Hospital Allergies No Known Allergies Allergy (Verified 01/25/24 16:00) Type of Care/Length of Stay Estimated LOS: More Than 30 Days Type of Care Needed: Intermediate Rehab Potential: Fair Prognosis: Fair Additional Orders/Day of Discharge Day of Discharge: 01/29/24 Dietary and Speech Recommendations Dietitian Recommendations/Changes: Will liberalize diet to regular given recent unintentional weight loss; monitor blood glucose closely and restrict carbohydrates as needed. Will add 240mL glucerna shake BID w/ breakfast and dinner meals. Will add magic cup w/ lunch tray. Discharge Plan Admission Admit Date/Time: 01/25/24 19:11 Primary Reason for Your Visit: cystitis Attending Provider: Mark Knutson Primary Care Provider: Enriqueta Flanagan Consulting Providers: Heather Whitmore; Saul Acosta; Héctor Brumfield; Mark Knutson Discharge Orders/Prescriptions Prescriptions: New insulin glargine-yfgn 100 unit/mL (3 mL) Insulin Pen 15 unit subcut 1200 Qty: 0 0RF insulin glargine-yfgn 100 unit/mL (3 mL) Insulin Pen 15 unit subcut 0600 Qty: 0 0RF Continued atorvastatin 40 mg tablet 40 mg PO QHS duloxetine 20 mg capsule,delayed release(DR/EC) 20 mg PO DAILY omeprazole 20 mg capsule,delayed release(DR/EC) 20 mg PO DAILY insulin glargine 100 UNITS/ML insulin pen 30 unit SC DAILY acetaminophen 325 mg Tablet 650 mg PO Q4H PRN PRN (Reason: Fever, pain 1-01/23) Qty: 0 0RF Bydureon BCise 2 mg/0.85 mL auto-injector 2 mg subcut WE Rx Instructions: every Sunday donepezil 5 mg tablet 5 mg PO QHS insulin lispro [Humalog KwikPen Insulin] 100 unit/mL Insulin Pen 1 sliding scale dose subcut [facility] Protocol: 3. Sliding Scale Insulin Med Dosing Condition: 150-189 mg/dl = 1 unit Condition: 190-229 mg/dl = 2 units Condition: 230-269 mg/dl = 3 units Condition: 270-309 mg/dl = 4 units Condition: 310-349 mg/dl = 5 units Condition: 350-399 mg/dl = 6 units Condition: 400-449 mg/dl = 7 units Condition: Greater than 449 call physician Protocol Text: - Use for Total Daily Dose of Insulin 37-55 units - Obsese, infected, or steroid patients MEDIUM DOSING ALGORITHIM duloxetine 30 mg capsule,delayed release(DR/EC) 30 mg PO DAILY benztropine 0.5 mg tablet 0.5 mg PO DAILY melatonin 5 mg capsule 5 mg PO QHS tamsulosin 0.4 mg Capsule 0.4 mg PO BID Qty: 0 0RF alum-mag hydroxide-simeth [Antacid] 200-200-20 mg/5 mL suspension 30 ml PO Q4H PRN (Reason: GI DISTRESS) bisacodyl 10 mg suppository 10 mg NM DAILY PRN (Reason: constipation) Rx Instructions: GIVE 1 PER EPISODE IF MOM IS INEFFECTIVE, NOTIFY PHYSICIAN IF NO BM X 4 DAYS chlorhexidine gluconate 0.12 % mouthwash 15 ml PO BID Rx Instructions: SWISH AND SPIT Enema 19-7 gram/118 mL enema 118 ml NM DAILY PRN (Reason: constipation) Rx Instructions: IF DULCOLAX SUPP INEFFECTIVE. CALL MD IF NO BM IN 4 DAYS guaifenesin 100 mg/5 mL liquid 200 mg PO Q4H PRN (Reason: cough) medroxyprogesterone 10 mg tablet 10 mg PO DAILY trazodone 50 mg tablet 50 mg PO QHS lactulose 20 gram/30 mL solution 30 ml PO QHS PRN (Reason: constipation) Rx Instructions: titrate until 2-3 loose stools daily Discontinued loperamide [Anti-Diarrheal (loperamide)] 2 mg capsule 2 mg PO DAILY Rx Instructions: administer after each loose stool until symptoms controlled; do not exceed 8 mg per 24 hrs insulin glargine [Basaglar KwikPen U-100 Insulin] 100 unit/mL (3 mL) insulin pen 40 unit subcut 1200 Rx Instructions: in the afternoon insulin lispro 100 unit/mL insulin pen 7 unit subcut [facility] gentamicin 40 mg/mL solution 80 mg IM BID Rx Instructions: START DATE- 01/25/24 END DATE-02/01/24 lorazepam 0.5 mg tablet 0.5 mg PO DAILY nitrofurantoin monohyd/m-cryst 100 mg capsule 100 mg PO BID Rx Instructions: START DATE- 01/23/24 END DATE- 01/30/24 Referrals / Follow Up: Enriqueta Flanagan MD [Primary Care Provider] - Disposition Disposition (needs filled in before D/C Order can be placed): NonSkilled NH/Intermed Care
[2024-01-29 14:38] LABS: Pathologist Review Reviewed
[2024-01-29 14:47] VITALS: BP 131/82; PULSE 101; RESP 16; TEMP 36.7; O2SAT 97
--- NOTE | 2024-01-29 14:55 | CASEMGMT ---
Patient is ready to be discharged back to [facility]. Plan: d/c back to [facility] under intermediate level of care. Physicians will transport patient. Judith COLON
--- NOTE | 2024-01-29 15:22 | CASEMGMT ---
Discharge Planning Discharge orders, signed med list, and transport time sent to [facility] via [facility]. Physicians will transport patient by cot at 5:30p. Nursing, SW, and patient updated. Jessica Christine DC Planning Asst.
[2024-01-29 16:48] LABS: Bedside Glucose 136 mg/dL (74-106)
--- NOTE | 2024-02-25 08:13 | PCM.DC.SUM ---
Providers Date of Admission: 01/25/24 Date of Discharge: 02/29/24 Primary Care Physician: Dr. Enriqueta Flanagan MD Consultations 01/25/24 20:15 Consult: Infectious Disease Routine Consulting Provider: Saul Acosta Reason for Consult: ESBL and MRSA and enterococcus UTI EMERGENT Consult: No MD Notified: Yes Date Notified: 01/28/24 Time Notified: 06:23 Method of Notification: Text Reason For Visit: UTI,AMS Diagnosis Discharge Diagnosis (1) Altered mental status: Status: Inactive Code(s): R41.82 - Altered mental status, unspecified (2) Chronic kidney disease: Status: Inactive Code(s): N18.9 - Chronic kidney disease, unspecified (3) Acute UTI: Status: Inactive Code(s): N39.0 - Urinary tract infection, site not specified (4) Dementia: Status: Acute Code(s): F03.90 - Unspecified dementia, unspecified severity, without behavioral disturbance, psychotic disturbance, mood disturbance, and anxiety Plan 1. Acute cystitis secondary to chronic Bell catheter-infectious diseases recommended continuing current antibiotics #2 metabolic encephalopathy on a backdrop of chronic dementia-this is difficult to assess due to the patient's dementia, complicates care, management, recovery, and prognosis #3 chronic kidney disease stage IIIb-labs will be monitored as necessary #4 chronic dementia #5 type 2 diabetes-patient's blood sugar will be monitored, sliding scale insulin will be administered as needed Total clinical time spent by myself addressing the patient's medical issues, reviewing all of his data, and collaborating with patient's care team: 35-minute Medications at Discharge Home Medications atorvastatin 40 mg tablet 40 mg PO QHS 11/11/22 duloxetine 20 mg capsule,delayed release 20 mg PO DAILY see pcp 11/11/22 insulin glargine 100 unit/mL (3 mL) subcutaneous pen 30 unit subcut DAILY see pcp 11/11/22 omeprazole 20 mg capsule,delayed release 20 mg PO DAILY see pcp 11/11/22 acetaminophen 325 mg tablet 650 mg (2 x 325 mg) PO Q4H PRN PRN Fever, pain 1-01/23 #0 tabs 11/14/22 benztropine 0.5 mg tablet 0.5 mg PO DAILY see pcp 07/04/23 duloxetine 30 mg capsule,delayed release 30 mg PO DAILY see pcp 07/04/23 melatonin 5 mg capsule 5 mg PO QHS see pcp 07/04/23 tamsulosin 0.4 mg capsule 0.4 mg PO BID #0 caps 07/05/23 donepezil 5 mg tablet 5 mg PO QHS 08/24/23 exenatide microspheres 2 mg/0.85 mL subcutaneous auto-injector (Bydureon BCise) 2 mg subcut WE 08/24/23 insulin lispro 100 unit/mL subcutaneous pen (Humalog KwikPen (U-100) Insulin) 1 sliding scale dose subcut [facility] 08/24/23 aluminum-mag hydroxide-simethicone 200 mg-200 mg-20 mg/5 mL oral susp (Antacid) 30 ml PO Q4H PRN GI DISTRESS 01/25/24 bisacodyl 10 mg rectal suppository 10 mg [place] DAILY PRN constipation 01/25/24 chlorhexidine gluconate 0.12 % mouthwash 15 ml PO BID 01/25/24 guaifenesin 100 mg/5 mL oral liquid 200 mg PO Q4H PRN cough 01/25/24 lactulose 20 gram/30 mL oral solution 30 ml PO QHS PRN constipation 01/25/24 medroxyprogesterone 10 mg tablet 10 mg PO DAILY 01/25/24 sodium phosphates 19 gram-7 gram/118 mL enema (Enema) 118 ml [place] DAILY PRN constipation 01/25/24 trazodone 50 mg tablet 50 mg PO QHS 01/25/24 insulin glargine-yfgn 100 unit/mL (3 mL) subcutaneous pen 15 unit (0.15 mL) subcut 0600 #0 mL 01/29/24 insulin glargine-yfgn 100 unit/mL (3 mL) subcutaneous pen 15 unit (0.15 mL) subcut 1200 #0 mL 01/29/24 Hospital Course Operations None Procedures None Summary of Care Provided Minutes Spent on Discharge: 32 Hospital Course: This 68-year-old white male was seen in the emergency room at [facility] after being transferred from a local nursing facility at which she was receiving intermediate care due to mental status changes. History was not able to be obtained from the patient, patient has not been eating or drinking well according to the senior care. UA at the senior care was reported to show ESBL and MRSA, UA was obtained in the emergency room suggestive of a urinary tract infection, patient was admitted to PCU on IV antibiotics per the hospitalist service. Patient was seen in consultation by infectious diseases, patient's mental status improved somewhat during his hospitalization, patient did have baseline chronic dementia. On 01/29/2024, patient was seen and examined: On examination he appeared older than his stated age, he had baseline confusion. Vital signs as documented. Skin warm and dry and without overt rashes. Neck without JVD, neck was supple, trachea midline, thyroid was normal. Lungs clear bilaterally, normal air movement was noted. Heart exam notable for regular rhythm, normal sounds and absence of murmurs, rubs or gallops. Abdomen unremarkable and without evidence of organomegaly, masses, or abdominal aortic enlargement. Bowel sounds are present, abdomen is not distended. Extremities nonedematous, no cyanosis was noted, no clubbing was noted. Neuro: Cranial nerves II through XII are grossly intact, no focal motor deficits were noted, sensation to light touch and pinprick intact, motor exam 5/5 throughout. Psych: Patient is alert, patient has baseline confusion but he is not agitated. Patient can answer a few questions with 1 or 2 words. The patient was discharged back to intermediate care on 01/29/2024. He was discharged back to intermediate care on no antibiotic coverage per infectious diseases as he had completed an antibiotic course in the hospital here. Weight / BMI Weight Weight: 75.8 kg Body Mass Index (BMI) 26.1 ABG / Lab / Microbiology Data 01/28/24 05:53 01/28/24 05:53 Microbiology: Microbiology 01/25/24 16:35 Blood Culture (Wb) - Right Wrist Blood Culture - Final No growth in 5 days. 01/25/24 16:35 Urine Catheter - Bell Urine Culture - Final ESBL Escherichia coli Staphylococcus aureus Enterococcus faecalis Pseudomonas aeruginosa 01/28/24 23:55 Stool Stool Occult Blood (ROD) - Final 01/25/24 16:35 Mucosa - Nose SARS-CoV-2, Influenza & RSV (PCR) - Final Meaningful Use Info Meaningful Use Meaningful Use Diagnoses (Choose all that apply): None applicable Ischemic Stroke Statin Dosing Therapy Reference: STATIN DOSE THERAPY REFERENCE: * Patients > 75 years receive moderate or high dose statin therapy. * Patients 75 years or YOUNGER should receive HIGH intensity statin dose unless contraindicated. You will be required to document reason for non-treatment if statin daily dose does not meet guidelines. HIGH DOSE STATIN THERAPY DAILY Atorvastatin > than or = to 40 mg Rosuvastatin > than or = to 20 mg Amlodipine + Atorvastatin > than or = to 2.5/40 mg Ezetimibe + Simvastatin 10/80 mg Simvastatin 80mg Discharge Plan Admission Admit Date/Time: 01/25/24 19:11 Primary Reason for Your Visit: cystitis Attending Provider: Mark Knutson Primary Care Provider: Enriqueta Flanagan Consulting Providers: Heather Whitmore; Saul Acosta; Héctor Brumfield; Mark Knutson Discharge Orders/Prescriptions Prescriptions: New insulin glargine-yfgn 100 unit/mL (3 mL) Insulin Pen 15 unit subcut 1200 Qty: 0 0RF insulin glargine-yfgn 100 unit/mL (3 mL) Insulin Pen 15 unit subcut 0600 Qty: 0 0RF Continued atorvastatin 40 mg tablet 40 mg PO QHS duloxetine 20 mg capsule,delayed release(DR/EC) 20 mg PO DAILY omeprazole 20 mg capsule,delayed release(DR/EC) 20 mg PO DAILY insulin glargine 100 UNITS/ML insulin pen 30 unit SC DAILY acetaminophen 325 mg Tablet 650 mg PO Q4H PRN PRN (Reason: Fever, pain -01/23) Qty: 0 0RF Bydureon BCise 2 mg/0.85 mL auto-injector 2 mg subcut WE Rx Instructions: every Sunday donepezil 5 mg tablet 5 mg PO QHS insulin lispro [Humalog KwikPen Insulin] 100 unit/mL Insulin Pen 1 sliding scale dose subcut [facility] Protocol: 3. Sliding Scale Insulin Med Dosing Condition: 150-189 mg/dl = 1 unit Condition: 190-229 mg/dl = 2 units Condition: 230-269 mg/dl = 3 units Condition: 270-309 mg/dl = 4 units Condition: 310-349 mg/dl = 5 units Condition: 350-399 mg/dl = 6 units Condition: 400-449 mg/dl = 7 units Condition: Greater than 449 call physician Protocol Text: - Use for Total Daily Dose of Insulin 37-55 units - Obsese, infected, or steroid patients MEDIUM DOSING ALGORITHIM duloxetine 30 mg capsule,delayed release(DR/EC) 30 mg PO DAILY benztropine 0.5 mg tablet 0.5 mg PO DAILY melatonin 5 mg capsule 5 mg PO QHS tamsulosin 0.4 mg Capsule 0.4 mg PO BID Qty: 0 0RF alum-mag hydroxide-simeth [Antacid] 200-200-20 mg/5 mL suspension 30 ml PO Q4H PRN (Reason: GI DISTRESS) bisacodyl 10 mg suppository 10 mg [place] DAILY PRN (Reason: constipation) Rx Instructions: GIVE 1 PER EPISODE IF MOM IS INEFFECTIVE, NOTIFY PHYSICIAN IF NO BM X 4 DAYS chlorhexidine gluconate 0.12 % mouthwash 15 ml PO BID Rx Instructions: SWISH AND SPIT Enema 19-7 gram/118 mL enema 118 ml [place] DAILY PRN (Reason: constipation) Rx Instructions: IF DULCOLAX SUPP INEFFECTIVE. CALL MD IF NO BM IN 4 DAYS guaifenesin 100 mg/5 mL liquid 200 mg PO Q4H PRN (Reason: cough) medroxyprogesterone 10 mg tablet 10 mg PO DAILY trazodone 50 mg tablet 50 mg PO QHS lactulose 20 gram/30 mL solution 30 ml PO QHS PRN (Reason: constipation) Rx Instructions: titrate until 2-3 loose stools daily Discontinued loperamide [Anti-Diarrheal (loperamide)] 2 mg capsule 2 mg PO DAILY Rx Instructions: administer after each loose stool until symptoms controlled; do not exceed 8 mg per 24 hrs insulin glargine [Basaglar KwikPen U-100 Insulin] 100 unit/mL (3 mL) insulin pen 40 unit subcut 1200 Rx Instructions: in the afternoon insulin lispro 100 unit/mL insulin pen 7 unit subcut [facility] gentamicin 40 mg/mL solution 80 mg IM BID Rx Instructions: START DATE- 01/25/24 END DATE-02/01/24 lorazepam 0.5 mg tablet 0.5 mg PO DAILY nitrofurantoin monohyd/m-cryst 100 mg capsule 100 mg PO BID Rx Instructions: START DATE- 01/23/24 END DATE- 01/30/24 Referrals / Follow Up: Enriqueta Flanagan MD [Primary Care Provider] - Disposition Disposition (needs filled in before D/C Order can be placed): NonSkilled NH/Intermed Care Charges/Coding Visit Charges Inpatient E&M: 69664 Disch Hosp >30min
== END 2024-01-29 18:33 | disposition intermediate care facility (04) | DRG 698 ==
LOC: ED 19:07 → PCU 20:07
PROVIDERS: Family Medicine; Admitting Provider Internal Medicine; Emergency Provider Emergency Medicine; PCP Internal Medicine; Visit Provider Internal Medicine
DX: T83.511A Infection and inflammatory reaction due to indwelling urethral catheter, initial encounter (principal); G93.41 Metabolic encephalopathy; N30.00 Acute cystitis without hematuria; Z16.12 Extended spectrum beta lactamase (ESBL) resistance; E11.22 Type 2 diabetes mellitus with diabetic chronic kidney disease; B95.2 Enterococcus as the cause of diseases classified elsewhere; B95.62 Methicillin resistant Staphylococcus aureus infection as the cause of diseases classified elsewhere; F03.90 Unspecified dementia, unspecified severity, without behavioral disturbance, psychotic disturbance, mood disturbance, and anxiety; N18.32 Chronic kidney disease, stage 3b; D50.9 Iron deficiency anemia, unspecified; I12.9 Hypertensive chronic kidney disease with stage 1 through stage 4 chronic kidney disease, or unspecified chronic kidney disease; Z79.4 Long term (current) use of insulin; E78.5 Hyperlipidemia, unspecified; K21.9 Gastro-esophageal reflux disease without esophagitis; G47.33 Obstructive sleep apnea (adult) (pediatric); F41.8 Other specified anxiety disorders; Z79.84 Long term (current) use of oral hypoglycemic drugs; Z79.01 Long term (current) use of anticoagulants; Z87.891 Personal history of nicotine dependence; Z99.89 Dependence on other enabling machines and devices; N40.1 Benign prostatic hyperplasia with lower urinary tract symptoms
CPT/HCPCS: 36415; 70450; 80048; 80053; 80202; 81001; 82274; 82728; 82962; 83540; 83550; 83605; 83735; 84484; 85025; 86850; 86900; 86901; 86920; 86922; 87040; 87077; 87086; 87088; 87184; 87186; 87631; 93005; 99285; J2185; J7030; J7040; P9016; A4216

== ENCOUNTER → 2024-02-11 | Outpatient (REF) | payer MEDICARE, MEDICAID, SELFPAY ==
[2024-02-11 07:57] LABS: Hematocrit 28.8 % (40-54); Hemoglobin 8.7 g/dL (13.0-16.5); Mean Corp Hgb Conc 30.2 g/dL (32-36); Mean Corpuscular Hgb 22.7 pg (27.0-32.0); Mean Platelet Vol. 9.5 fl (6.2-12.0); Platelet Count 331 K/mm3 (150-450); RBC Distribution Width SD 53.3 fl (35.1-43.9); Red Blood Count 3.84 M/mm3 (4.6-6.2)
[2024-02-11 08:30] LABS: Anion Gap 9 (5-15); BUN 36 mg/dL (7-18); BUN/Creat Ratio 17.9 RATIO (10-20); Calcium,Total 9.2 mg/dL (8.5-10.1); Chloride 108 mmol/L (98-107); Creatinine, Serum 2.01 mg/dL (0.70-1.30); EST Glomerular Filtration Rate 35 mL/min (>60); Est Glom Filt Rate - Afr Amer 42 mL/min (>60); Glucose 141 mg/dL (74-106); Potassium 4.2 mmol/L (3.5-5.1); Sodium Level 140 mmol/L (136-145)
== END ==
LOC: OLS.SW 04:00
PROVIDERS: PCP Internal Medicine; Visit Provider Internal Medicine
DX: E11.22 Type 2 diabetes mellitus with diabetic chronic kidney disease (principal); E11.65 Type 2 diabetes mellitus with hyperglycemia; N18.32 Chronic kidney disease, stage 3b
CPT/HCPCS: 36415; 80048; 85027

== ENCOUNTER → 2024-02-18 | Outpatient (REF) | payer MEDICARE, MEDICAID, SELFPAY ==
[2024-02-18 09:41] LABS: Hematocrit 30.4 % (40-54); Hemoglobin 9.1 g/dL (13.0-16.5); Mean Corp Hgb Conc 29.9 g/dL (32-36); Mean Corpuscular Hgb 22.7 pg (27.0-32.0); Mean Corpuscular Volume 75.8 fL (80-94); Mean Platelet Vol. 9.9 fl (6.2-12.0); POSITIVE MORPHOLOGY YES; Platelet Count 246 K/mm3 (150-450); RBC Distribution Width CV 21.3 % (11.6-14.6); RBC Distribution Width SD 54.9 fl (35.1-43.9); Red Blood Count 4.01 M/mm3 (4.6-6.2); White Blood Count 6.8 K/mm3 (4.4-11.0)
[2024-02-18 09:42] LABS: Scan Indicated on CBC? Y/N YES- FLAGS NOTED
[2024-02-18 10:02] LABS: ALB/GLOB Ratio 0.6 RATIO (0.9-2.4); AST(SGOT) 133 U/L (15-37); Alanine Aminotransfer ALT/SGPT 15 U/L (16-61); Albumin, Serum 2.7 g/dL (3.2-5.0); Alkaline Phosphatase 176 U/L (45-117); Anion Gap 9 (5-15); BUN 38 mg/dL (7-18); BUN/Creat Ratio 17.3 RATIO (10-20); Calcium,Total 9.4 mg/dL (8.5-10.1); Chloride 111 mmol/L (98-107); EST Glomerular Filtration Rate 32 mL/min (>60); Est Glom Filt Rate - Afr Amer 38 mL/min (>60); Globulin 4.7 g/dL (2.2-4.2); Glucose 149 mg/dL (74-106); Potassium 4.2 mmol/L (3.5-5.1); Protein, Total 7.4 g/dL (6.4-8.2); Sodium Level 142 mmol/L (136-145)
== END ==
LOC: OLS.SW 05:43
PROVIDERS: PCP Internal Medicine; Referring Provider Internal Medicine; Visit Provider Internal Medicine
DX: E11.22 Type 2 diabetes mellitus with diabetic chronic kidney disease (principal); N18.32 Chronic kidney disease, stage 3b
CPT/HCPCS: 36415; 80053; 85027

== ENCOUNTER → 2024-02-25 | Outpatient (REF) | payer MEDICARE, MEDICAID, SELFPAY ==
[2024-02-25 08:14] LABS: Hematocrit 28.9 % (40-54); Hemoglobin 8.5 g/dL (13.0-16.5); Mean Corp Hgb Conc 29.4 g/dL (32-36); Mean Corpuscular Hgb 22.8 pg (27.0-32.0); Mean Corpuscular Volume 77.5 fL (80-94); POSITIVE MORPHOLOGY YES; Platelet Count 272 K/mm3 (150-450); RBC Distribution Width CV 21.9 % (11.6-14.6); RBC Distribution Width SD 59.5 fl (35.1-43.9); Red Blood Count 3.73 M/mm3 (4.6-6.2); White Blood Count 8.6 K/mm3 (4.4-11.0)
[2024-02-25 08:25] LABS: Scan Indicated on CBC? Y/N YES- FLAGS NOTED
[2024-02-25 08:46] LABS: Anion Gap 8 (5-15); BUN 61 mg/dL (7-18); BUN/Creat Ratio 24.1 RATIO (10-20); Calcium,Total 9.4 mg/dL (8.5-10.1); Chloride 115 mmol/L (98-107); Creatinine, Serum 2.53 mg/dL (0.70-1.30); EST Glomerular Filtration Rate 27 mL/min (>60); Est Glom Filt Rate - Afr Amer 33 mL/min (>60); Glucose 160 mg/dL (74-106); Potassium 4.1 mmol/L (3.5-5.1); Sodium Level 143 mmol/L (136-145)
== END ==
LOC: OLS.SW 05:00
PROVIDERS: PCP Internal Medicine; Visit Provider Internal Medicine
DX: E11.65 Type 2 diabetes mellitus with hyperglycemia (principal); E11.22 Type 2 diabetes mellitus with diabetic chronic kidney disease; N18.32 Chronic kidney disease, stage 3b
CPT/HCPCS: 36415; 80048; 85027